=== PATIENT | male | born 1980 | race Caucasian/White ===

== ENCOUNTER 2024-06-13 18:31 | Outpatient (REF) | payer MEDICARE, SELFPAY ==
[2024-06-13 18:42] LABS: Platelet Count 537 10^3/uL (150-450); White Blood Count 15.3 10^3/uL (4.0-11.0)
[2024-06-13 18:52] LABS: Alanine Aminotransferase 40 U/L (16-63); Albumin Level 3.6 g/dL (3.4-5.0); Alkaline Phosphatase 97 U/L (46-116); Aspartate Amino Transferase 36 U/L (15-37); Bilirubin Direct 0.1 mg/dL (0.0-0.2); Bilirubin Total 0.5 mg/dL (0.2-1.0); Estimated GFR (African America >60 (>=60 mL/min/1.73m^2); Estimated GFR (Non-African Ame >60 (>=60 mL/min/1.73m^2); Globulin 3.6 g/dL; Total Protein 7.2 g/dL (6.4-8.2)
== END 2024-06-13 18:32 | disposition home or self-care (01) ==
LOC: LAB 18:31
DX: M86.621 Other chronic osteomyelitis, right humerus (principal); L02.419 Cutaneous abscess of limb, unspecified
CPT/HCPCS: 36415; 80076; 82565; 85048; 85049

== ENCOUNTER 2024-06-20 15:43 | Outpatient (REF) | payer MEDICARE, SELFPAY ==
[2024-06-20 17:23] LABS: Platelet Count 460 10^3/uL (150-450); White Blood Count 8.5 10^3/uL (4.0-11.0)
[2024-06-20 17:54] LABS: Alanine Aminotransferase 32 U/L (16-63); Albumin Level 3.4 g/dL (3.4-5.0); Alkaline Phosphatase 95 U/L (46-116); Aspartate Amino Transferase 30 U/L (15-37); Bilirubin Direct <0.1 mg/dL (0.0-0.2); Bilirubin Total 0.2 mg/dL (0.2-1.0); Estimated GFR (African America >60 (>=60 mL/min/1.73m^2); Estimated GFR (Non-African Ame >60 (>=60 mL/min/1.73m^2); Globulin 3.5 g/dL; Total Protein 6.9 g/dL (6.4-8.2)
== END 2024-06-20 15:44 | disposition home or self-care (01) ==
LOC: LAB 15:43
DX: M86.621 Other chronic osteomyelitis, right humerus (principal); L02.419 Cutaneous abscess of limb, unspecified; I10 Essential (primary) hypertension
CPT/HCPCS: 36415; 80076; 82565; 85048; 85049

== ENCOUNTER 2024-06-29 12:43 | Outpatient (REF) | payer MEDICARE, SELFPAY ==
[2024-06-29 13:07] LABS: Platelet Count 369 10^3/uL (150-450); White Blood Count 9.4 10^3/uL (4.0-11.0)
[2024-06-29 13:17] LABS: Alanine Aminotransferase 27 U/L (16-63); Albumin Globulin Ratio 1.1; Albumin Level 3.7 g/dL (3.4-5.0); Alkaline Phosphatase 105 U/L (46-116); Aspartate Amino Transferase 33 U/L (15-37); Bilirubin Direct 0.1 mg/dL (0.0-0.2); Bilirubin Total 0.5 mg/dL (0.2-1.0); Estimated GFR (African America >60 (>=60 mL/min/1.73m^2); Estimated GFR (Non-African Ame >60 (>=60 mL/min/1.73m^2); Globulin 3.3 g/dL
== END 2024-06-29 12:44 | disposition home or self-care (01) ==
LOC: LAB 12:43
DX: M86.621 Other chronic osteomyelitis, right humerus (principal); L02.419 Cutaneous abscess of limb, unspecified
CPT/HCPCS: 36415; 80076; 82565; 85048; 85049

== ENCOUNTER 2024-07-05 16:05 | Outpatient (REF) | payer MEDICARE, SELFPAY ==
[2024-07-05 16:26] LABS: Platelet Count 375 10^3/uL (150-450); White Blood Count 10.4 10^3/uL (4.0-11.0)
[2024-07-05 16:33] LABS: Alanine Aminotransferase 33 U/L (16-63); Albumin Globulin Ratio 1.1; Albumin Level 3.7 g/dL (3.4-5.0); Alkaline Phosphatase 91 U/L (46-116); Aspartate Amino Transferase 33 U/L (15-37); Bilirubin Direct <0.1 mg/dL (0.0-0.2); Bilirubin Total 0.2 mg/dL (0.2-1.0); Estimated GFR (African America >60 (>=60 mL/min/1.73m^2); Estimated GFR (Non-African Ame >60 (>=60 mL/min/1.73m^2); Globulin 3.4 g/dL; Total Protein 7.1 g/dL (6.4-8.2)
== END 2024-07-05 16:06 | disposition home or self-care (01) ==
LOC: LAB 16:05
DX: M86.621 Other chronic osteomyelitis, right humerus (principal); L02.419 Cutaneous abscess of limb, unspecified
CPT/HCPCS: 36415; 80076; 82565; 85048; 85049

== ENCOUNTER 2024-07-11 13:59 | Outpatient (REF) | payer MEDICARE, SELFPAY ==
--- OUTSIDE RECORDS SUMMARY | 2024-07-11 14:16 | XMS_ITS | CCD ---
Author Organization [facility] Care Team Providers Care Global Human Resources Director Name Role Phone NON, STAFF, Primary Care Provider Unavailmendy e José Miguel Marquis Attending Provider [phone] Alexandru Joshi Attending Provider Sukhjinder Marquis Attending Provider [phone] JR Garett Marquis Attending Provider SUKHJINDER MARQUIS Attending Unavailable SUKHJINDER MARQUIS Consulting Unavailable SUKHJINDER MARQUIS Admitting Unavailable Patrick Irene Unavailable Miriam Reardon Primary Care Physician Alicja Chopra Unavailable Unavailable Pavithra Chávez Unavailable Unavailable Nadia Ca Unavailable [phone] Sukhjinder Marquis Primary Care Physician [phone] ARNOLD HARTLEY Primary Care Physician Miriam Reardon MD Primary Care Provider Arnold Hartley NP Unavailable [phone] Philip Gunn Talal Admitting Unavaila ble Sarmini, Palacios Talal Referring Unavaila ble Sarmini, Palacios Talal Attending Unavaila ble Sarmini, Philip Talal Attending Unavaila ble Sarmini, Palacios Talal Admitting Unavaila ble Sarmini, Palacios Talal Referring Unavaila ble Sarmini, Palacios Talal Attending Unavaila ble Noman, Astrit H Attending Unavailable Velia, Philip Talal Attending Unavaila ble Noman, Astrit H Attending Unavailable Artie VAT PACKER-Arnold NEIL [facility] ider ANROLD HARTLEY [facility] Unavailabl e [facility] Unavailabl e TAI BOX Attending Unavailable VILLA TAPIA Consulting Unavailable NEDRA MENESES Admitting Unavailable KARI DIANA Consulting Unavailable MARIOLA, VILLA Watts Attending Unavailable MARIOLA, VILLA Watts Referring Unavailable DALLAS, ARNOLD GUARDADOANNE [facility] Unavailabl e NAEEM FIGUEROA Attending Unavailab le DALLAS, ARNOLD NIVIA [facility] Unavailabl e FUENTES EDWARDS Referring Unavailable DALLAS, ARNOLD GONZÁLES [facility] Unavailabl e MARIOLA, VILLA Watts Attending Unavailable MARIOLA, VILLA Watts Referring Unavailable DALLAS, [facility] Unavailabl e MARIOLA, VILLA Watts Referring Unavailable DALLAS, [facility] Unavailabl e MARIOLA, VILLA Watts Attending Unavailable HARTLEY, ARNOLD GONZÁLES Referring Unavailabl e HARTLEY, [facility] Unavailabl e SONIACELE Referring Unavailable [facility], [facility] Unavailabl e SONIACELE Attending Unavailable HARTLEYARNOLD Referring Unavailabl e H[facility]LEY, [facility] Unavailabl e ARNOLD HARTLEY Attending Unavailable HARTLEY, ARNOLD Torres Attending Unavailable HARTLEY, ARNOLD Torres Attending Unavailable HARTLEY, ARNOLD Torres Attending Unavailable HARTLEY, ARNOLD Torres Attending Unavailable HARTLEYARNOLD Attending Unavailable Unavailable Unavailable Unavailable Allergies Allergy Classification Reported Allergen(s) Allergy Type Date of Onset Reaction(s) Facility (11 sources) Penicillin; Translations: [PENICILLIN] Drug Allergy 06-01-2024 Anaphylaxis [facility] Work Phone: (20 sources) Penicillin G Drug Allergy 03-24-2023 Unknown [facility] (20 sources) Penicillins; Translations: [penicillins] Drug allergy 04-08-2016 Anaphylaxis [facility] Medications Current Medications Medication Drug Class(es) Dates Sig (Normalized) Sig (Original) acetaminophen 500 mg oral tablet (18 sources) Start: 06-05-2024 take 2 tablets by mouth every six hours as needed acetaminophen (Tylenol) 500 MG tablet Take 1,000 mg by mouth every 6 (six) hours if needed 06/05/2024 Active Start: 06-01-2024 End: 06-05-2024 take 1 tablet by mouth every eight hours 1,000 mg, oral, Every 8 hours, First dose (after last reorder) on Sara 06/01/24 at 2100, PACU & Post-op Start: 06-01-2024 End: 06-05-2024 take 1 tablet by mouth every six hours as needed for pain and fever 1,000 mg, oral, Every 6 hours PRN, mild pain - pain scale 1-3, temperature greater than 38 C, Temperature greater than 38.3 C, Starting on Sara 06/01/24 at 0123, [Warning: Total Acetaminophen not to exceed more than 4 grams (4000 mg) in 24 hours] acetaminophen 250 mg / aspirin 250 mg / caffeine 65 mg oral tablet (20 sources) Platelet Aggregation Inhibitor, Nonsteroidal Anti-inflammatory Drug, Central Nervous System Stimulant, Methylxanthine Start: 09-06-2020 take 2 tablets by mouth every six hours for headache Excedrin Migraine 250 mg-250 mg-65 mg oral tablet 2 tab(s), Oral, q6hr for headache, 50 tab(s), Refill(s) 0 Start Date: 09/06/20 Status: Ordered acetaminophen 325 mg / HYDROcodone bitartrate 5 mg oral tablet (1 source) Opioid Agonist take 1 tablet by mouth every six hours HYDROcodone-Ac etaminophen 5-325 MG 1 tablet as needed Orally every 6 hrs Active acetaminophen 325 mg / oxyCODONE hydrochloride 5 mg oral tablet (9 sources) Opioid Agonist Start: 12-20-2022 End: 03-08-2024 take 1 tablet by mouth every six hours as needed oxyCODONE-acet aminophen (Percocet) 5-325 MG tablet Take 1 tablet by mouth every 6 (six) hours if needed. 12/20/2022 Active Start: 09-08-2020 Percocet 325 m g-5 mg Tab See Instructions, as needed for pain, 40 tab(s), Refill(s) 0, 1-2 tab(s) Oral q4hr Start Date: 09/08/20 Status: Ordered Start: 09-08-2020 Percocet 325 m g-5 mg Tab See Instructions, as needed for pain, 40 tab(s), Refill(s) 0, 1-2 tab(s) Oral q4hr Start Date: 09/08/20 Status: Ordered [id number] 200 actuat albuterol 0.09 mg/actuat metered dose inhaler (20 sources) beta2-Adrenergic Agonist Start: 04-07-2024 End: 04-07-2025 take 2 puff(s) by inhalation every four hours for wheezing albuterol HFA (ProAir HFA) 90 mcg/act inhaler Indications: Wheezing Inhale 2 puffs every 4 (four) hours if needed for wheezing 18 g 11 04/07/2024 04/07/2025 Active Start: 04-07-2024 End: 04-07-2025 take 2 puff(s) by inhalation every four hours as needed albuterol (PROVENTIL HFA;VENTOLIN HFA) 90 mcg/actuation inhaler Inhale 2 puffs every 4 (four) hours as needed. 04/07/2024 04/07/2025 Active atorvastatin 10 mg oral tablet (20 sources) HMG-CoA Reductase Inhibitor Start: 03-14-2024 End: 03-14-2025 take 1 tablet by mouth once daily atorvastatin (Lipitor) 10 MG tablet Indications: Hyperlipidemia, unspecified hyperlipidemia type (CMS/HCC) Take 1 tablet (10 mg) by mouth Daily 90 tablet 3 03/14/2024 03/14/2025 Active azithromycin 250 mg oral tablet (5 sources) Macrolide Antimicrobial Start: 04-07-2024 End: 05-03-2024 azithromycin (Zithromax) 250 MG tablet Indications: Nasal congestion 2 tabs PO day 1, 1 tab PO day 2-5 6 tablet 04/07/2024 05/03/2024 Discontinued (Therapy completed) calcium citrate 950 mg oral tablet (17 sources) Start: 06-05-2024 End: 09-03-2024 calcium citrate (CALCITRATE) 200 mg (950 mg) tablet Take 2 tablets (400 mg total) by mouth in the morning and 2 tablets (400 mg total) at noon and 2 tablets (400 mg total) in the evening. Take with meals. Do all this for 90 days. 540 tablet 06/05/2024 09/03/2024 Active Start: 06-01-2024 End: 09-03-2024 calcium citrate (Calcitrate) 950 (200 Ca) MG tablet Take 400 mg by mouth in the morning and 400 mg at noon and 400 mg in the evening. Take with meals. 06/05/2024 09/03/2024 Active ceFAZolin 200 mg/ml injectable solution (7 sources) Cephalosporin Antibacterial Start: 06-05-2024 take 1 g intravenously every eight hours ceFAZolin (Ancef) 10 g injection Infuse 1 g into a venous catheter every 8 (eight) hours 06/05/2024 Active ceFAZolin in 0.9 % sodium chloride (ANCEF) 2000 mg/50 mL IVPB Premix (9 sources) Start: 06-04-2024 End: 07-12-2024 take 2000 mg intravenously every eight hours ceFAZolin in 0.9 % sodium chloride (ANCEF) 2000 mg/50 mL IVPB Premix Infuse 50 mL (2,000 mg total) into a venous catheter every 8 (eight) hours for 38 days. WBC, platelets, creatinine, LFTs weekly until 07/12/2025. Fax results to ID at [phone]. Remove PICC Line at end of treatment. 5700 mL 06/04/2024 07/12/2024 Active Start: 06-04-2024 End: 07-12-2024 take 2000 mg intravenously every eight hours ceFAZolin in 0.9 % sodium chloride (ANCEF) 2000 mg/50 mL IVPB Premix Infuse 50 mL (2,000 mg total) into a venous catheter every 8 (eight) hours for 38 days. WBC, platelets, creatinine, LFTs weekly until 07/12/2025. Fax results to ID at [phone]. Remove PICC Line at end of treatment. 5700 mL 06/04/2024 07/12/2024 cholecalciferol 0.05 mg oral tablet (17 sources) Vitamin D Start: 06-06-2024 End: 09-04-2024 take 1 tablet by mouth in the morning cholecalciferol, vitamin D3, 2,000 units tablet Take 1 tablet (2,000 Units total) by mouth in the morning for 90 days. 90 tablet 06/06/2024 09/04/2024 Active Start: 06-05-2024 take 1 capsule by [facility] once daily cholecalciferol (Vitamin D-3) 50 MCG (1999 UT) capsule Take 2,000 Units by mouth Daily 06/05/2024 Active Start: 06-01-2024 End: 06-05-2024 take 2000 [IU] by mouth once daily 2,000 Units, oral, Daily, First dose on Sara 06/01/24 at 2030, PACU & Post-op docusate sodium 100 mg oral capsule (4 sources) Start: 09-08-2020 take 1 capsule by mouth twice daily as needed for constipation Colace 100 mg Cap 100 mg = 1 cap(s), Oral, BID, PRN for constipation, # 20 cap(s), Refills(s) 0 Start Date: 09/08/20 Status: Ordered hydroCHLOROthiazide 25 mg oral tablet (20 sources) Thiazide Diuretic Start: 03-08-2024 End: 03-08-2025 take 1 tablet by mouth once daily hydroCHLOROthiazide (HYDRODiuril) 25 MG tablet Indications: Primary hypertension (CMS/HCC) Take 1 tablet (25 mg) by mouth Daily 360 tablet 03/08/2024 03/08/2025 Active methocarbamol 500 mg oral tablet (14 sources) Muscle Relaxant Start: 04-05-2020 End: 03-08-2024 take 1 tablet by mouth three times daily as needed for pain methocarbamol 500 mg Tab 500 mg = 1 tab(s), Oral, TID, PRN as needed for pain, Refills(s) 0 Start Date: 04/05/20 Status: Ordered Start: 01-02-2020 Methocarbamol Active 750 MG PO As Directed January 02, 2020 12:06pm naproxen 500 mg oral tablet (9 sources) Nonsteroidal Anti-inflammatory Drug Start: 09-08-2020 take 1 tablet by mouth twice daily at mealtime naproxen 500 mg Tab 500 mg = 1 tab(s), Oral, BID, with food, # 60 tab(s), Refills(s) 0 Start Date: 09/08/20 Status: Ordered End: 03-08-2024 naproxen (Naprosyn) 500 MG t ablet every 12 (twelve) hours. 03/08/2024 Discontinued (Therapy completed) Naproxen Active omeprazole 20 mg delayed release oral capsule (20 sources) Proton Pump Inhibitor Start: 07-04-2024 take 1 capsule by mouth before mealtime omeprazole (PriLOSEC) [address] capsule Indications: Heartburn TAKE 1 CAPSULE BY MOUTH IN THE MORNING BEFORE MEALS, DO NOT CRUSH, CHEW, OR SPLIT 90 capsule 07/04/2024 Active Start: 03-08-2024 End: 07-04-2024 take 1 capsule by mouth before mealtime omeprazole (PriLOSEC) [address] capsule Indications: Heartburn TAKE 1 CAPSULE (20 MG) BY MOUTH IN THE MORNING. TAKE BEFORE MEALS. DO NOT CRUSH OR CHEW.. 90 capsule 03/30/2024 06/28/2024 Active oxyCODONE hydrochloride 5 mg oral tablet (12 sources) Opioid Agonist Start: 06-21-2024 End: 06-28-2024 take 1 tablet by mouth every six hours as needed oxyCODONE (Roxicodone) 5 MG immediate release tablet Take 5 mg by mouth every 6 (six) hours if needed dR. Tapia- SURGEON 06/21/2024 06/28/2024 Active Start: 06-05-2024 End: 06-12-2024 take 1 tablet by mouth every six hours as needed oxyCODONE (Roxicodone) 10 MG immediate release tablet Take 10 mg by mouth every 6 (six) hours if needed 06/05/2024 06/12/2024 Active Start: 06-01-2024 End: 06-05-2024 take 1 tablet by mouth every four hours as needed for pain oxyCODONE (ROXICODONE) immediate release tablet 5 mg Start: 06-01-2024 End: 06-01-2024 take 1 tablet by mouth every four hours as needed for pain 5 mg, oral, Every 4 hours PRN, moderate pain - pain scale 4-6, Starting on Wed06/01/24 at 0123, Look-alike/sound-alike medication - verify indication for use. Immediate release. rimegepant 75 mg disintegrating oral tablet (2 sources) Start: 04-19-2024 End: 05-19-2024 take 1 tablet by mouth every other day Rimegepant Sulfate (Nurtec) 75 MG tablet dispersible Indications: Migraine without aura and without status migrainosus, not intractable (CMS/HCC) Take 75 mg by mouth every other day 15 tablet 04/19/2024 05/19/2024 Active sertraline 25 mg oral tablet (16 sources) Serotonin Reuptake Inhibitor Start: 04-27-2024 take 1 tablet by mouth once daily sertraline 25 mg Tab TAKE 1 TABLET BY MOUTH EVERY DAY Start Date: 04/27/24 Status: Ordered Start: 04-07-2024 End: 05-07-2024 take 1 tablet by mouth once daily sertraline (Zoloft) 50 MG tablet Indications: Anxiety , Mild episode of recurrent major depressive disorder (HCC) (CMS/HCC) Take 1 tablet (50 mg) by mouth Daily 30 tablet 04/07/2024 05/03/2024 Discontinued (Side effects) Start: 03-08-2024 End: 04-07-2024 take 1 tablet by mouth once daily sertraline (Zoloft) 25 MG tablet Indications: Anxiety , Mild episode of recurrent major depressive disorder (HCC) (CMS/HCC) TAKE 1 TABLET BY MOUTH EVERY DAY 90 tablet 03/30/2024 04/07/2024 Discontinued (Ineffective) sulfamethoxazole 800 mg / trimethoprim 160 mg oral tablet (1 source) Dihydrofolate Reductase Inhibitor Antibacterial, Sulfonamide Antimicrobial Start: 12-20-2022 End: 12-30-2022 Bactrim D.S. 800 mg-160 mg Tab 1 tab(s), Oral, BID for 10 day(s), 20 tab(s), Refill(s) 0, [facility]/pharmacy #[id number], 182, cm, 12/20/22 12:42:00 EDT, Height/Length Dosing, 90, kg, 12/20/22 12:42:00 EDT, Weight Dosing Start Date: 12/20/22 Stop Date: 12/30/22 Status: Ordered ubrogepant 100 mg oral tablet (13 sources) Start: 03-08-2024 End: 05-07-2024 Ubrogepant (Ubrelvy) 100 MG tablet Indications: Migraine without aura and without status migrainosus, not intractable (CMS/HCC) Take 100 mg by mouth if needed (for migraines) 11 tablet 04/07/2024 05/07/2024 Active Completed/Discontinued Medications Medication Drug Class(es) Dates Sig (Normalized) Sig (Original) aztreonam (AZACTAM) 1,000 mg in sodium chloride 0.9 % 50 mL IVPB-MBP (1 source) Start: 06-01-2024 End: 06-02-2024 take 1000 mg intravenously every eight hours 1,000 mg, intravenous, at 100 mL/hr, Administer over 30 Minutes, Every 8 hours, First dose on Wed06/01/24 at 1746, ADD-VANTAGE/MBP- Discard 24 hours after activating; dissolve drug prior to administration, Indication: Osteoarticular, Appropriate Use: I acknowledge that this patient has severe allergies to both penicillins and 2nd, 3rd, 4th, or 5th generation cephalosporins (EXCEPT ceftazidime), Authorizing Service: ID consult has been placed, I acknowledge that an appropriate consult is REQUIRED to use this drug at [facility], [facility] and [facility] per [facility]-approved policy # MM 1.15: Yes aztreonam (AZACTAM) 2,000 mg in sodium chloride 0.9 % 50 mL IVPB-MBP (1 source) Start: 06-02-2024 End: 06-02-2024 take 2000 mg intravenously every eight hours 2,000 mg, intravenous, at 100 mL/hr, Administer over 30 Minutes, Every 8 hours, First dose (after last modification) on Wed06/02/24 at 1000, ADD-VANTAGE/MBP- Discard 24 hours after activating; dissolve drug prior to administration, Indication: Osteoarticular, Appropriate Use: I acknowledge that this patient has severe allergies to both penicillins and 2nd, 3rd, 4th, or 5th generation cephalosporins (EXCEPT ceftazidime), Authorizing Service: ID consult has been placed, I acknowledge that an appropriate consult is REQUIRED to use this drug at [facility], [facility] and [facility] per [facility]-approved policy # MM 1.15: Yes calcium carbonate 500 mg chewable tablet (1 source) Start: 06-02-2024 End: 06-05-2024 200 mg, oral, Daily PRN, indigestion, heartburn, Starting on Wed06/02/24 at 2114, Ordered as elemental calcium. 200 mg elemental calcium = 500 mg calcium carbonate ceFAZolin (ANCEF) IVPB 2000 mg in 50 mL sodium chloride 0.9% (CMPD premix) (1 source) Start: 06-04-2024 End: 06-05-2024 take 2000 mg intravenously every eight hours 2,000 mg, intravenous, at 100 mL/hr, Administer over 30 Minutes, Every 8 hours, First dose on Wed06/04/24 at 1400, Look-alike/sound-al danis medication - verify indication for use., Indication: Osteoarticular cephalexin 500 mg oral capsule (1 source) Cephalosporin Antibacterial Start: 12-20-2022 take 1 capsule by mouth three times daily Keflex 500 mg Cap 500 mg = 1 cap(s), Oral, TID, Take one capsule by mouth three times a day for ten days, # 30 cap(s), Refills(s) 0, Pharmacy: [facility]/pharmacy #[id number], 182, cm, 12/20/22 12:42:00 EDT, Height/Length Dosing, 90, kg, 12/20/22 12:42:00 EDT, Weight Dosing Start Date: 12/20/22 Status: Ordered cyclobenzaprine hydrochloride 10 mg oral tablet (12 sources) Muscle Relaxant Start: 01-25-2020 End: 01-31-2020 take 10 mg by mouth three times daily Cyclobenzaprine Discontinued 10 MG PO Three times daily January 25, 2020 7:43am January 31, 2020 9:31am Start: 01-25-2020 End: 01-31-2020 take 10 mg by mouth twice daily Cyclobenzaprine Discontinued 10 MG PO Twice daily January 25, 2020 7:43am January 31, 2020 9:31am docusate sodium 50 mg / sennosides, senior living 8.6 mg oral tablet (1 source) Start: 06-01-2024 End: 06-05-2024 0.4 ml enoxaparin sodium 100 mg/ml prefilled syringe (1 source) Low Molecular Weight Heparin Start: 06-02-2024 End: 06-05-2024 inject 40 mg by subcutaneous injection once daily 40 mg, subcutaneous, Daily, First dose on Wed06/02/24 at 1015, Look-alike/sound -alike medication - verify indication for use. 1 ml fentaNYL 0.05 mg/ml injection (1 source) Opioid Agonist Start: 06-01-2024 End: 06-01-2024 50 mcg, intravenous, Every 5 min PRN, Pain Scale 6-10, Starting on Wed06/01/24 at 1808, PACU (only), Up to a maximum dose of 150 mcg. Look-alike/sound -alike medication - verify indication for use. glucagon (rdna) 1 mg injection (1 source) Antihypoglycemic Agent Start: 06-01-2024 End: 06-05-2024 1 mg, intramuscular, As needed, low blood sugar, blood glucose less than 70 mg/dL and unconscious or NPO without IV access., Starting on Sara 06/01/24 at 0123, If conscious and not NPO, immediately follow with meal tray or high protein (7Grams) snack if tray not available. If NPO, initiate IV 5% Dextrose/Water at 100 mL/hr and contact prescriber for additional orders. If blood glucose is not greater than 70 mg/dL after initial treatment, repeat treatment. 150 ml glucose 50 mg/ml injection (3 sources) Start: 06-01-2024 End: 06-05-2024 15 g, oral, As needed, low blood sugar, blood glucose less than 70 mg/dL, Starting on Sara 06/01/24 at 0123, If patient conscious and taking PO. If blood glucose is not greater than 70 mg/dL after initial treatment, repeat treatment. Start: 06-01-2024 End: 06-05-2024 25 mL, intravenous, As neede d, low blood sugar, blood glucose less than 70 mg/dL and unconscious or NPO with IV access, Starting on Sara 06/01/24 at 0123, Push over 1-3 minutes STAT. If conscious and not NPO, immediately follow with meal tray or high protein (7 grams) snack if tray not available. If NPO, initiate 5% dextrose in water at 100 mL/hr and contact prescriber for additional orders. If blood glucose is not greater than 70 mg/dL after initial treatment, repeat treatment. VESICANT (RED) Warning: HYPERTONIC solution. Start: 06-01-2024 End: 06-05-2024 take 70 mg intravenously every hour 100 mL/hr, intravenous, Continuous PRN, blood glucose less than 70 mg/dL, Starting on Sara 06/01/24 at 0123, Use immediately following dextrose 50% or glucagon treatment for patients who are unconscious or NPO. Contact prescriber for additional orders. If blood glucose is not greater than 70 mg/dL after initial treatment, repeat treatment. ibuprofen 800 mg oral tablet (6 sources) Nonsteroidal Anti-inflammatory Drug Start: 01-25-2020 End: 01-31-2020 take 800 mg by mouth three times daily Ibuprofen Discontinued 800 MG PO Three times daily January 25, 2020 7:43am January 31, 2020 9:31am 1 ml ketorolac tromethamine 30 mg/ml injection (1 source) Nonsteroidal Anti-inflammatory Drug, Cyclooxygenase Inhibitor Start: 06-01-2024 End: 06-05-2024 take 30 mg intravenously every six hours as needed for pain 30 mg, intravenous, Every 6 hours PRN, moderate pain - pain scale 4-6, For pain unrelieved by oral pain meds, Starting on Sara 06/01/24 at 2016, For 5 days, PACU & Post-op, Look-alike/sound -alike medication - verify indication for use. Duration of therapy is not to exceed 5 days. Maximum recommended dose + 120mg/24 hours. 50 ml magnesium sulfate 40 mg/ml injection (2 sources) Start: 06-01-2024 End: 06-05-2024 2,000 mg, intravenous, at 25 mL/hr, Administer over 120 Minutes, As needed, Magnesium level 1.7 to 1.9 mg/dL, or Ionized Magnesium level 0.45 to 0.5 mmol/L., Starting on Sara 06/01/24 at 0200, Recheck magnesium level 4 hours after infusion complete. With each magnesium result continue the replacement orders as needed. Start: 06-01-2024 End: 06-05-2024 4,000 mg, intravenous, at 25 mL/hr, Administer over 240 Minutes, As needed, Magnesium level 1.6 mg/dL or less, or Ionized Magnesium level 0.44 mmol/L or less, Starting on Sara 06/01/24 at 0200, Recheck magnesium level 4 hours after infusion complete. With each magnesium result continue the replacement orders as needed. melatonin 5 mg oral tablet (2 sources) Start: 06-04-2024 End: 06-05-2024 take 10 mg by mouth once daily as needed for sleep 10 mg, oral, Nightly PRN, sleep, Starting on 06/04/24 at 1729 Start: 06-03-2024 End: 06-04-2024 take 5 mg by mouth once daily as needed for sleep 5 mg, oral, Nightly PRN, sleep, Starting on 06/03/24 at 2152 metroNIDAZOLE 500 mg oral tablet (1 source) Nitroimidazole Antimicrobial Start: 06-01-2024 End: 06-04-2024 take 500 mg by mouth every eight hours 500 mg, oral, Every 8 hours scheduled, First dose on Wed06/01/24 at 1435, Food-Drug Interaction Education Required Look-alike/sound-alike medication - verify indication for use Ethanol: Use of ethanol is contraindicated during therapy and for 3 days after therapy discontinuation, Indication: Osteoarticular 1 ml morphine sulfate 2 mg/ml injection (2 sources) Opioid Agonist Start: 06-01-2024 End: 06-05-2024 take 2 mg intravenously every four hours as needed for pain 2 mg, intravenous, Every 4 hours PRN, severe pain - pain scale 7-10, For Breakthrough pain 7-10, Starting on 06/03/24 at 1350, Look-alike/sound-alike medication - verify indication for use. 24 hr nicotine 0.583 mg/hr transdermal system (1 source) Cholinergic Nicotinic Agonist Start: 06-01-2024 End: 06-05-2024 apply 1 dose transdermal route once daily 1 patch, transdermal, Administer over 24 Hours, Daily, First dose on Wed06/01/24 at 0900, Remove patch prior to MRI procedure as serious cannon may occur- patch may be reapplied. Remove previous patch, if present, before applying new. pantoprazole 40 mg delayed release oral tablet (1 source) Proton Pump Inhibitor Start: 06-02-2024 End: 06-05-2024 40 mg, oral, Daily, First dose on Wed06/02/24 at 0600, Look-alike/sound-alike medication - verify indication for use. If patient is receiving enteral feeding, consider alternative PPI or continue IV pantoprazole until the delayed-release tablet can be taken orally, Indication: GERD Potassium Chloride (3 sources) Start: 06-05-2024 End: 06-05-2024 potassium chloride (K-TAB,KLOR-CON) CR tablet 30-50 mEq Start: 06-01-2024 End: 11-14-2024 40 mEq, oral, Once, On Sara 1 08/01/23 at 0855, For 1 dose, Do not crush or chew. Start: 06-01-2024 End: 06-05-2024 10 mEq, intravenous, at 100 mL/hr, Administer over 60 Minutes, As needed, POTASSIUM REPLACEMENT, Starting on Sara 06/01/24 at 0200, Potassium level 3 mmol/L or less administer Potassium Chloride 40 mEq Potassium level 3.1 to 3.3 mmol/L administer Potassium Chloride 30 mEq Potassium level 3.4 to 3.8 mmol/L administer Potassium Chloride 20 mEq Use central line when applicable. Recheck potassium level 1 hour after total IVPB infusion complete With each potassium result continue the replacement orders as needed VESICANT (YELLOW) Infuse each 10 mEq over a minimum of 1 hour., Indications: hypokalemia Sodium Chloride (3 sources) Start: 06-04-2024 End: 06-05-2024 take 10 mL intravenously every twelve hours sodium chloride 0.9 % flush 10 mL Start: 06-01-2024 End: 06-05-2024 3 mL, intravenous, Every 12 hours scheduled, First dose on Sara 06/01/24 at 0125 Start: 06-01-2024 End: 06-05-2024 3 mL, intravenous, As needed , line care, before and after each intermittent use, Starting on Sara 06/01/24 at 0123 Problems Active Problems Problem Classification Problem Date Documented Da te Episodic/Chronic Alcohol-related disorders (9 sources) Alcoholic liver damage; Translations: [Alcoholic liver disease, unspecified] Onset: 4 Chronic Anxiety disorders (9 sources) Anxiety; Translations: [Anxiety disorder, unspecified] 05-03-2024 Chronic Complication of device; implant or graft (10 sources) Infection of total shoulder joint prosthesis 09-06-2020 Episodic Diseases of white blood cells (4 sources) Leukocytosis; Translations: [Elevated white blood cell count, unspecified] Onset: 4 06-14-2024 Chronic Disorders of lipid metabolism (1 source) Hyperlipidemia; Translations: [Hyperlipidemia, unspecified] 03-14-2024 Chronic Esophageal disorders (5 sources) Gastroesophageal reflux disease without esophagitis; Translations: [Gastro-esophageal reflux disease without esophagitis] Onset: 4 Chronic Essential hypertension (6 sources) Essential hypertension; Translations: [Essential (primary) hypertension] 06-27-2024 Chronic Fluid and electrolyte disorders (1 source) Hypokalemia; Translations: [Hypokalemia] Onset: 4 Episodic Headache; including migraine (6 sources) Migraine without aura, not refractory ; Translations: [Migraine without aura, not intractable, without status migrainosus] 05-03-2024 Chronic Infective arthritis and osteomyelitis (except that caused by tuberculosis or sexually transmitted disease) (20 sources) Other acute osteomyelitis, right humerus; Translations: [Osteomyelitis] Onset: 1 04-26-2024 Chronic Mood disorders (20 sources) Recurrent major depressive episodes, mild ; Translations: [Major depressive disorder, recurrent, mild] Onset: 3 04-26-2024 Chronic Osteoarthritis (8 sources) Arthropathy of right shoulder; Translations: [Primary osteoarthritis, right shoulder] Onset: 2 Resolved: 2 Chronic Other acquired deformities (6 sources) Deformity of cervical vertebra 04-26-2024 Episodic Other circulatory disease (20 sources) Past history of procedure; Translations: [Presence of other vascular implants and grafts] Onset: 3 03-24-2023 Chronic Other connective tissue disease (6 sources) History of osteomyelitis; Translations: [Personal history of other diseases of the musculoskeletal system and connective tissue] 06-08-2024 Episodic Other connective tissue disease (6 sources) Pain in right arm; Translations: [Pain in right arm] 06-08-2024 Episodic Other connective tissue disease (1 source) Pain in upper limb Onset: 4 Episodic Other gastrointestinal disorders (4 sources) Heartburn; Translations: [Heartburn] 07-03-2024 Episodic Other injuries and conditions due to external causes (1 source) Systemic inflammatory response syndrome; Translations: [Systemic inflammatory response syndrome (SIRS) of non-infectious origin without acute organ dysfunction] Onset: 4 Episodic Other liver diseases (1 source) Cirrhosis of liver; Translations: [Unspecified cirrhosis of liver] Onset: 4 Chronic Other nervous system disorders (20 sources) Scapulocostal syndrome; Translations: [Other specified mononeuropathies of unspecified upper limb] Onset: 3 04-26-2024 Chronic Other nervous system disorders (20 sources) Chronic pain; Translations: [Other chronic pain] Onset: 3 03-24-2023 Chronic Other nervous system disorders (7 sources) Carpal tunnel syndrome; Translations: [Carpal tunnel syndrome, right upper limb] 04-26-2024 Chronic Other nervous system disorders (1 source) Other chronic pain Onset: 2 Resolved: 2 Chronic Other nervous system disorders (6 sources) Mononeuropathy of upper limb 04-26-2024 Chronic Other nervous system disorders (20 sources) Thoracic outlet syndrome; Translations: [Brachial plexus disorders] Onset: 3 04-26-2024 Chronic Other nervous system disorders (20 sources) Carpal tunnel syndrome of right wrist; Translations: [Carpal tunnel syndrome, right upper limb] Onset: 3 03-24-2023 Chronic Other nervous system disorders (20 sources) Lesion of ulnar nerve; Translations: [Lesion of ulnar nerve, unspecified upper limb] Onset: 3 03-24-2023 Chronic Other nervous system disorders (6 sources) Skin sensation disturbance 04-26-2024 Episodic Other non-traumatic joint disorders (7 sources) Spondylosis; Translations: [Osteophyte, vertebrae] 04-26-2024 Chronic Other non-traumatic joint disorders (20 sources) Bone spur of vertebra; Translations: [Osteophyte, vertebrae] Onset: 3 03-24-2023 Chronic Other screening for suspected conditions (not mental disorders or infectious disease) (7 sources) Screening for malignant neoplasm of colon done; Translations: [Encounter for screening for malignant neoplasm of colon] Onset: 4 Episodic Residual codes; unclassified (1 source) Pain, unspecified; Translations: [Pain, unspecified] Onset: 4 Episodic Residual codes; unclassified (1 source) Current drinker; Translations: [Other specified health status] 04-11-2024 Episodic Skin and subcutaneous tissue infections (20 sources) Cutaneous abscess of right upper limb; Translations: [Cellulitis] Onset: 1 Episodic Spondylosis; intervertebral disc disorders; other back problems (20 sources) Degeneration of cervical intervertebral disc; Translations: [Other cervical disc degeneration, unspecified cervical region] Onset: 2 Resolved: 2 Chronic Substance-related disorders (10 sources) Smoker 05-15-2014 Chronic Comment on above: Added secondary to d ocumentation in Social History. Substance-related disorders (6 sources) Marijuana user; Translations: [Cannabis use, unspecified, uncomplicated] 06-27-2024 Episodic Unclassified (6 sources) Patient encounter status 04-26-2024 Unclassified (1 source) Post-op Onset: 4 Unclassified (1 source) Suture / Staple Removal Onset: 4 Past or Other Problems Problem Classification Problem Date Documented Date Episodic/Chronic Chronic obstructive pulmonary disease and bronchiectasis (20 sources) Bronchitis; Translations: [Bronchitis, not specified as acute or chronic] Onset: 03-24-2023 03-24-2023 Episodic Headache; including migraine (20 sources) Headache disorder; Translations: [Other headache syndrome] Onset: 03-24-2023 04-26-2024 Episodic Inflammation; infection of eye (except that caused by tuberculosis or sexually transmitteddisease) (20 sources) Herpes zoster with ophthalmic complication; Translations: [Zoster ocular disease, unspecified] Onset: 03-24-2023 04-26-2024 Episodic Malaise and fatigue (20 sources) Malaise; Translations: [Other malaise] Onset: 03-24-2023 03-24-2023 Episodic Mood disorders (8 sources) Mood disorders Onset: 06-01-2024 06-01-2024 Nausea and vomiting (20 sources) Nausea; Translations: [Nausea] Onset: 03-24-2023 03-24-2023 Episodic Noninfectious gastroenteritis (20 sources) Gastroenteritis; Translations: [Noninfective gastroenteritis and colitis, unspecified] Onset: 03-24-2023 04-26-2024 Episodic Other connective tissue disease (1 source) Muscle weakness of upper limb; Translations: [Muscle weakness (generalized)] Episodic Other connective tissue disease (2 sources) Impingement syndrome of shoulder region; Translations: [Impingement syndrome of right shoulder] Episodic Other connective tissue disease (20 sources) Impingement syndrome of right shoulder region; Translations: [Impingement syndrome of right shoulder] Onset: 03-24-2023 03-24-2023 Episodic Other connective tissue disease (20 sources) Other symptoms and signs involving the musculoskeletal system; Translations: [Other musculoskeletal symptoms referable to limbs] Onset: 03-24-2023 03-24-2023 Episodic Other liver diseases (2 sources) ALT (SGPT) level raised; Translations: [Elevated ALT measurement] 04-07-2024 Episodic Other lower respiratory disease (2 sources) Wheezing; Translations: [Wheezing] 04-07-2024 Episodic Other nervous system disorders (1 source) Paresthesia of upper limb; Translations: [Paresthesia of skin] Episodic Other nervous system disorders (20 sources) Paresthesia of right upper limb; Translations: [Paresthesia of skin] Onset: 03-24-2023 03-24-2023 Episodic Other nutritional; endocrine; and metabolic disorders (1 source) Body mass index 25-29 - overweight; Translations: [Body mass index (BMI) 26.0-26.9, adult] Episodic Other upper respiratory disease (2 sources) Nasal congestion; Translations: [Nasal congestion] 04-07-2024 Episodic Other upper respiratory infections (20 sources) Acute maxillary sinusitis; Translations: [Acute maxillary sinusitis, unspecified] Onset: 03-24-2023 03-24-2023 Episodic Residual codes; unclassified (2 sources) At risk of disease; Translations: [Other specified personal risk factors, not elsewhere classified] 03-08-2024 Episodic Spondylosis; intervertebral disc disorders; other back problems (20 sources) Torticollis; Translations: [Torticollis] Onset: 03-24-2023 04-26-2024 Episodic Results Test Name Value Interpretation Reference Range Facility No Panel Informationon 06-21 Interpretation and review of laboratory results Abnormal [facility] PLATELET COUNT AND MPVon Platelet mean volume (Bld) [Entitic vol] 8.0 fL Normal 7-12 [facility] Comment on above: Performed By: #### C VALENTINA, PINR, 06640-8, 38481-3, BMP, 1988- #### [facility] ([id number]) [address], [address] [place] [address] Platelets (Bld) [#/Vol] 493 10*3/uL High 150-450 [facility] Comment on above: Performed By: #### C VALENTINA, PINR, 75953-6, 60003-8, ODILON, 1987-11 #### [facility] ([id number]) [address], [address] [place] [address] Platelet counton 06-21-2024 Platelet mean volume (Bld) [Entitic vol] 8 fL 7 - 12 fL [facility] Platelets (Bld) [#/Vol] 493 10*3/uL High [facility] WBCon 06-21-2024 WBC corrected for nucl RBC Auto (Bld) [#/Vol] 12.8 High [facility] WBC corrected for nucl RBC A uto (Bld) [#/Vol]on 06-21-2024 WBC (Bld) [#/Vol] 12.8 10*3/uL High 4.0-11.0 [facility] Comment on above: Performed By: #### C VALENTINA, PINR, 85605-2, 16213-0, ODILON, 1987-11 #### [facility] ([id number]) [address], [address] [place] [address] XR SHOULDER RT MIN 2 VWSon 1 08-22-2023 XR SHOULDER RT MIN 2 VWS XR SHOULDER RT MIN 2 VWS XR SHOULDER RT MIN 2 VWS IMPRESSION: Clinical Information: Chronic osteomyelitis of right humerus ([facility]) Comparison: 06/01/24. * No evidence of acute fracture. Antibiotic spacers present. No dislocation. Degenerative changes. No progressive cortical destruction. Finalized by Emerson Buchanan MD on 06/21/2024 4:31 PM Normal [facility] BASIC METABOLIC PANLon 06-05 Anion gap [Moles/Vol] 8 mmol/L Normal 5-15 [facility] Comment on above: Performed By: #### C BCA, PINR, 46595-7, 95155-6, ODILON, 1987-11 #### [facility] ([id number]) [address], [address] [place] [address] Calcium [Mass/Vol] 8.6 mg/dL Normal 8.5-10.5 [facility] Comment on above: Performed By: #### C BCA, PINR, 17075-4, 32110-7, BMP, 1987-11 #### [facility] ([id number]) [address], [address] [place] [address] Chloride [Moles/Vol] 101 mmol/L Normal 98-109 [facility] Comment on above: Performed By: #### C BCA, PINR, 58354-9, 42972-7, BMP, 1987-11 #### [facility] ([id number]) [address], [address] [place] [address] CO2 [Moles/Vol] 31 mmol/L Normal 22-32 [facility] Comment on above: Performed By: #### C BCA, PINR, 08586-9, 34551-5, BMP, 1987-11 #### [facility] ([id number]) [address] [address] Creatinine [Mass/Vol] 0.80 mg/dL Normal 0.60-1.30 [facility] Comment on above: Result Comment: METH OD TRACEABLE TO IDMS STANDARD Performed By: #### C BCA, PINR, 43719-0, 06560-2, BMP, 1987-11 #### [facility] ([id number]) [address], [address] [place] [address] eGFR (CKD-EPI) NON-RACE DEPENDENT >90 Normal >59 [facility] Comment on above: Result Comment: Reported eGFR is based on the CKD-EPI 2020 equation that does not use a race coefficient. Performed By: #### C BCA, PINR, 43560-5, 11803-3, BMP, 1987-11 #### [facility] ([id number]) [address], [address] [place] [address] Glucose [Mass/Vol] 114 mg/dL High 65-99 [facility] Comment on above: Performed By: #### C BCA, PINR, 63226-8, 57171-3, BMP, 1987-11 #### [facility] ([id number]) [address], [address] [place] [address] Potassium [Moles/Vol] 3.7 mmol/L Normal 3.5-5.0 [facility] Comment on above: Performed By: #### C BCA, PINR, 48126-1, 18852-4, BMP, 1987-11 #### [facility] ([id number]) [address], [address] [place] [address] Sodium [Moles/Vol] 140 mmol/L Normal 134-146 [facility] Comment on above: Performed By: #### Magdalena BCA, PINR, 08692-0, 45380-1, BMP, 1987-11 #### [facility] ([id number]) [address], [address] [place] [address] Urea nitrogen [Mass/Vol] 14 mg/dL Normal 5-23 [facility] Comment on above: Performed By: #### C BCA, PINR, 60120-3, 14796-7, BMP, 1987-11 #### [facility] ([id number]) [address], [address] [place] [address] Basic Metabolic Panelon 11- Anion gap [Moles/Vol] 8 mmol/L 5 - 15 mmol/L [facility] Calcium [Mass/Vol] 8.6 mg/dL 8.5 - 10. 5 mg/dL [facility] Chloride [Moles/Vol] 101 mmol/L 98 - 109 mmol/L [facility] CO2 [Moles/Vol] 31 mmol/L 22 - 32 mmol/L [facility] Creatinine [Mass/Vol] 0.8 mg/dL 0.60 - 1.30 mg/dL [facility] Comment on above: METHOD TRACEABLE TO IDUT STANDARD eGFR (CKD-EPI)non-race dependent - PINF [facility] Comment on above: Reported eGFR is based on the CKD-EPI 2020 equation that does not use a race coefficient. Glucose [Mass/Vol] 114 mg/dL High 65 - 99 mg/dL [facility] Interpretation and review of laboratory results Abnormal [facility] Potassium [Moles/Vol] 3.7 mmol/L 3.5 - 5.0 mmol/L [facility] Sodium [Moles/Vol] 140 mmol/L 134 - 146 mmol/L [facility] Urea nitrogen [Mass/Vol] 14 mg/dL 5 - 23 mg/dL [facility] CBC AND AUTO DIFFon 06-05-20 24 ABSOLUTE BASOPHIL 0.1 X10E9/L Normal 0.0-0.2 [facility] Comment on above: Performed By: #### C VALENTINA PINR, 26502-3, 33243-3, [facility], 1987-11 #### [facility] ([id number]) [address], [address] [place] [address] ABSOLUTE NEUTROPHIL 5.7 X10E9/L Normal 1.5-6.[address] [facility] Comment on above: Performed By: #### C VALENTINA, PINR, 69588-2, 16805-3, [facility], 1987-11 #### [facility] ([id number]) [address], [address] [place] [address] Basophils/100 WBC (Bld) 0.9 % Normal [facility] Comment on above: Performed By: #### C BCA, PINR, 19707-4, 66337-1, [facility], 1987-11 #### [facility] ([id number]) [address], [address] [place] [address] Eosinophils (Bld) [#/Vol] 0.6 10*3/uL High 0.0-0.4 [facility] Comment on above: Performed By: #### C BCA, PINR, 78641-3, 79636-3, BMP, 1987-11 #### [facility] ([id number]) [address], [address] [place] [address] Eosinophils/100 WBC (Bld) 6.4 % Normal [facility] Comment on above: Performed By: #### C BCA, PINR, 65781-8, 67549-4, BMP, 1987-11 #### [facility] ([id number]) [address], [address] [place] [address] Erythrocyte distribution width (RBC) [Ratio] 14.4 % Normal 11.5-15.0 [facility] Comment on above: Performed By: #### C BCA, PINR, 08816-5, 00228-1, BMP, 1987-11 #### [facility] ([id number]) [address], [facility] [address] [place] [address] Hematocrit (Bld) [Volume fraction] 39.2 % Normal 39-49 [facility] Comment on above: Performed By: #### C BCA, PINR, 29886-8, 69400-5, BMP, 1987-11 #### [facility] ([id number]) [address], [address] [place] [address] Hemoglobin (Bld) [Mass/Vol] 12.8 g/dL Low 13.0-17.0 [facility] Comment on above: Performed By: #### C BCA, PINR, 92829-0, 45907-7, BMP, 1987-11 #### [facility] ([id number]) [address] [place] [address] Lymphocytes (Bld) [#/Vol] 2.5 10*3/uL Normal 1.0-3.5 [facility] Comment on above: Performed By: #### C BCA, PINR, 56590-9, 20040-4, BMP, 1987-11 #### [facility] ([id number]) [address], [address] [place] [address] Lymphocytes/100 WBC (Bld) 25.9 % Normal [facility] Comment on above: Performed By: #### C VALENTINA, PINR, 39122-8, 76233-9, BMP, 1987-11 #### [facility] ([id number]) [address], [facility] [address] [place] [address] MCH (RBC) [Entitic mass] 26.2 pg Low 27-34 [facility] Comment on above: Performed By: #### C VALENTINA, PINR, 67458-7, 54583-0, BMP, 1987-11 #### [facility] ([id number]) [address], [facility] [address] [place] [address] MCHC (RBC) [Mass/Vol] 32.7 g/dL Normal 32-36 [facility] Comment on above: Performed By: #### C VALENTINA, PINR, 69888-6, 14689-7, BMP, 1987-11 #### [facility] ([id number]) [address] [place] [address] MCV (RBC) [Entitic vol] 80 fL Normal 80-100 [facility] Comment on above: Performed By: #### Magdalena MONTGOMERY, PINR, 10266-1, 45992-9, BMP, 1987-11 #### [facility] ([id number]) [address], [facility] [address] [place] [address] Monocytes (Bld) [#/Vol] 0.8 10*3/uL Normal 0-0.9 [facility] Comment on above: Performed By: #### Magdalena BCA, PINR, 59827-0, 59104-7, BMP, 1987-11 #### [facility] ([id number]) [address] [address] [place] [address] Monocytes/100 WBC (Bld) 8.3 % Normal [facility] Comment on above: Performed By: #### C BCA, PINR, 63191-8, 89031-8, BMP, 1987-11 #### [facility] ([id number]) [address], [address] [place] [address] Neutrophils/100 WBC (Bld) 58.5 % Normal [facility] Comment on above: Performed By: #### C BCA, PINR, 99220-9, 19442-7, BMP, 1987-11 #### [facility] ([id number]) [address], [address] [place] [address] Platelet mean volume (Bld) [Entitic vol] 7.7 fL Normal 7-12 [facility] Comment on above: Performed By: #### C BCA, PINR, 74256-9, 70520-9, BMP, 1987-11 #### [facility] ([id number]) [address], [address] [place] [address] Platelets (Bld) [#/Vol] 402 10*3/uL Normal 150-450 [facility] Comment on above: Performed By: #### C BCA, PINR, 63778-0, 86041-6, BMP, 1987-11 #### [facility] ([id number]) [address], [address] [place] [address] RBC COUNT 4.89 X10E12/L Normal 4.10-5.70 [facility] Comment on above: Performed By: #### C BCA, PINR, 28609-7, 08606-3, BMP, 1987-11 #### [facility] ([id number]) [address], [address] [place] [address] WBC (Bld) [#/Vol] 9.7 10*3/uL Normal 4.0-11.0 [facility] Comment on above: Performed By: #### C BCA, PINR, 82244-2, 15381-5, BMP, 1987-11 #### [facility] ([id number]) [address] [place] [address] CBC auto differentialon 05-19 Basophils (Bld) [#/Vol] 0.1 10*3/uL [facility] Basophils/100 WBC (Bld) 0.9 % [facility] Eosinophils (Bld) [#/Vol] 0.6 10*3/uL High [facility] Eosinophils/100 WBC (Bld) 6.4 % [facility] Erythrocyte distribution width (RBC) [Ratio] 14.4 % 11.5 - 15.0 % [facility] Hematocrit (Bld) [Volume fraction] 39.2 % 39 - 49 % [facility] Hemoglobin (Bld) [Mass/Vol] 12.8 g/dL Low 13.0 - 17.0 g/dL [facility] Interpretation and review of laboratory results Abnormal [facility] Lymphocytes (Bld) [#/Vol] 2.5 10*3/uL [facility] Lymphocytes/100 WBC (Bld) 25.9 % [facility] MCH (RBC) [Entitic mass] 26.2 pg Low 27 - 34 pg [facility] MCHC (RBC) [Mass/Vol] 32.7 g/dL 32 - 36 g/dL [facility] MCV (RBC) [Entitic vol] 80 fL 80 - 100 fL [facility] Monocytes (Bld) [#/Vol] 0.8 10*3/uL [facility] Monocytes/100 WBC (Bld) 8.3 % [facility] Neutrophils (Bld) [#/Vol] 5.7 10*3/uL [facility] Neutrophils/100 WBC (Bld) 58.5 % [facility] Platelet mean volume (Bld) [Entitic vol] 7.7 fL 7 - 12 fL [facility] Platelets (Bld) [#/Vol] 402 10*3/uL [facility] RBC (Bld) [#/Vol] 4.89 10*6/uL [facility] WBC corrected for nucl RBC Auto (Bld) [#/Vol] 9.7 [facility] BASIC METABOLIC PANLon 06-04 Anion gap [Moles/Vol] 9 mmol/L Normal 5-15 [facility] Comment on above: Performed By: #### C BCA, PINR, 73210-3, 81817-5, BMP, 1987-11 #### [facility] ([id number]) [address], [address] [place] [address] Calcium [Mass/Vol] 8.2 mg/dL Low 8.5-10.5 [facility] Comment on above: Performed By: #### C BCA, PINR, 42367-8, 75984-6, BMP, 1987-11 #### [facility] ([id number]) [address], [address] [place] [address] Chloride [Moles/Vol] 106 mmol/L Normal 98-109 [facility] Comment on above: Performed By: #### C BCA, PINR, 81422-2, 58867-9, BMP, 1987-11 #### [facility] ([id number]) [address], [address] [place] [address] CO2 [Moles/Vol] 27 mmol/L Normal 22-32 [facility] Comment on above: Performed By: #### C BCA, PINR, 41778-9, 39740-2, BMP, 1987-11 #### [facility] ([id number]) [address], [address] [place] [address] Creatinine [Mass/Vol] 0.78 mg/dL Normal 0.60-1.30 [facility] Comment on above: Result Comment: METH OD TRACEABLE TO IDMS STANDARD Performed By: #### C BCA, PINR, 89950-2, 00921-7, BMP, 1987-11 #### [facility] ([id number]) [address], [address] [place] [address] eGFR (CKD-EPI) NON-RACE DEPENDENT >90 Normal >59 [facility] Comment on above: Result Comment: Reported eGFR is based on the CKD-EPI 2020 equation that does not use a race coefficient. Performed By: #### C BCA, PINR, 60751-5, 51204-2, BMP, 1987-11 #### [facility] ([id number]) [address], [address] [place] [address] Glucose [Mass/Vol] 102 mg/dL High 65-99 [facility] Comment on above: Performed By: #### C BCA, PINR, 71313-4, 70690-3, BMP, 1987-11 #### [facility] ([id number]) [address], [facility] [address] [place] [address] Potassium [Moles/Vol] 3.9 mmol/L Normal 3.5-5.0 [facility] Comment on above: Performed By: #### C BCA, PINR, 21740-2, 89939-4, BMP, 1987-11 #### [facility] ([id number]) [address], [address] [place] [address] Sodium [Moles/Vol] 142 mmol/L Normal 134-146 [facility] Comment on above: Performed By: #### C BCA, PINR, 77402-6, 78679-6, BMP, 1987-11 #### [facility] ([id number]) [address], [address] [place] [address] Urea nitrogen [Mass/Vol] 12 mg/dL Normal 5-23 [facility] Comment on above: Performed By: #### C BCA, PINR, 17112-5, 70249-6, BMP, 1987-11 #### [facility] ([id number]) [address], [address] [place] [address] Bacteria identified Aer cx N om (Asp)on 06-04-2024 Interpretation and review of laboratory results Abnormal [facility] Microscopic observation Gram stain Nom (Unsp spec) 10 to 24 WHITE BLOOD CELLS/LPF [facility] Microscopic observation Gram stain Nom (Unsp spec) 0 SQUAMOUS EPITHELIAL CELLS/LPF [facility] Microscopic observation Gram stain Nom (Unsp spec) NO ORGANISMS SEEN [facility] Service comment (Unsp spec) [Interp] SPECIMEN A [facility] Service comment (Unsp spec) [Interp] RARE STAPHYLOCOCCUS AUREUS Abnormal [facility] Bacteria identified Aer cx N om (Bone)on 06-04-2024 Interpretation and review of laboratory results Abnormal [facility] Service comment (Unsp spec) [Interp] SPECIMEN D [facility] Service comment (Unsp spec) [Interp] STAPHYLOCOCCUS AUREUS Abnormal [facility] Bacteria identified Aer cx N om (Tiss)on 06-04-2024 Interpretation and review of laboratory results Abnormal [facility] Microscopic observation Gram stain Nom (Unsp spec) 1 to 9 WHITE BLOOD CELLS/LPF [facility] Microscopic observation Gram stain Nom (Unsp spec) 0 SQUAMOUS EPITHELIAL CELLS/LPF [facility] Microscopic observation Gram stain Nom (Unsp spec) NO ORGANISMS SEEN [facility] Service comment (Unsp spec) [Interp] SPECIMEN B [facility] Service comment (Unsp spec) [Interp] RARE STAPHYLOCOCCUS AUREUS Isolate screened susceptible to Oxacillin. Abnormal [facility] Service comment (Unsp spec) [Interp] FOR SUSCEPTIBILITY, SEE PREVIOUS REPORT. [facility] Interpretation and review of laboratory results Abnormal [facility] Microscopic observation Gram stain Nom (Unsp spec) 1 to 9 WHITE BLOOD CELLS/LPF [facility] Microscopic observation Gram stain Nom (Unsp spec) 0 SQUAMOUS EPITHELIAL CELLS/LPF [facility] Microscopic observation Gram stain Nom (Unsp spec) NO ORGANISMS SEEN [facility] Service comment (Unsp spec) [Interp] SPECIMEN C [facility] Service comment (Unsp spec) [Interp] RARE STAPHYLOCOCCUS AUREUS Abnormal [facility] Basic Metabolic Panelon 11- Anion gap [Moles/Vol] 9 mmol/L 5 - 15 mmol/L [facility] Calcium [Mass/Vol] 8.2 mg/dL Low 8.5 - 10. 5 mg/dL [facility] Chloride [Moles/Vol] 106 mmol/L 98 - 109 mmol/L [facility] CO2 [Moles/Vol] 27 mmol/L 22 - 32 mmol/L [facility] Creatinine [Mass/Vol] 0.78 mg/dL 0.60 - 1.30 mg/dL [facility] Comment on above: METHOD TRACEABLE TO [facility] STANDARD eGFR (CKD-EPI)non-race dependent - PINF [facility] Comment on above: Reported eGFR is based on the CKD-EPI 2020 equation that does not use a race coefficient. Glucose [Mass/Vol] 102 mg/dL High 65 - 99 mg/dL [facility] Interpretation and review of laboratory results Abnormal [facility] Potassium [Moles/Vol] 3.9 mmol/L 3.5 - 5.0 mmol/L [facility] Sodium [Moles/Vol] 142 mmol/L 134 - 146 mmol/L [facility] Urea nitrogen [Mass/Vol] 12 mg/dL 5 - 23 mg/dL [facility] CBC AND AUTO DIFFon 06-04-20 24 ABSOLUTE BASOPHIL 0.2 X10E9/L Normal 0.0-0.2 [facility] Comment on above: Performed By: #### C VALENTINA, PINR, 78887-7, 53158-2, [facility], 1987-11 #### [facility] ([id number]) [address], [address] [place] [address] ABSOLUTE NEUTROPHIL 7.6 X10E9/L High 1.5-6.[address] [facility] Comment on above: Performed By: #### C BCA, PINR, 32264-8, 16257-4, [facility], 1987-11 #### [facility] ([id number]) [address], [address] [place] [address] Basophils/100 WBC (Bld) 1.4 % Normal [facility] Comment on above: Performed By: #### C BCA, PINR, 25817-5, 12076-6, [facility] #### [facility] ([id number]) [address] [address] [place] [address] Eosinophils (Bld) [#/Vol] 0.6 10*3/uL High 0.0-0.4 [facility] Comment on above: Performed By: #### C BCA, PINR, 00230-8, 15478-3, BMP, 1987-11 #### [facility] ([id number]) [address], [facility] [address] [place] [address] Eosinophils/100 WBC (Bld) 5.1 % Normal [facility] Comment on above: Performed By: #### C BCA, PINR, 19097-2, 72137-3, BMP, 1987-11 #### [facility] ([id number]) [address] [address] [place] [address] Erythrocyte distribution width (RBC) [Ratio] 14.4 % Normal 11.5-15.0 [facility] Comment on above: Performed By: #### C BCA, PINR, 06011-2, 48865-2, BMP, 1987-11 #### [facility] ([id number]) [address] [address] [place] [address] Hematocrit (Bld) [Volume fraction] 36.8 % Low 39-49 [facility] Comment on above: Performed By: #### C BCA, PINR, 07209-1, 28381-2, BMP, 1987-11 #### [facility] ([id number]) [address] [address] [place] [address] Hemoglobin (Bld) [Mass/Vol] 12.3 g/dL Low 13.0-17.0 [facility] Comment on above: Performed By: #### C BCA, PINR, 68302-7, 66801-9, BMP, 1987-11 #### [facility] ([id number]) [address] [address] [place] [address] Lymphocytes (Bld) [#/Vol] 2.8 10*3/uL Normal 1.0-3.5 [facility] Comment on above: Performed By: #### C BCA, PINR, 83495-4, 79715-8, BMP, 1987-11 #### [facility] ([id number]) [address], [facility] [address] [place] [address] Lymphocytes/100 WBC (Bld) 23.1 % Normal [facility] Comment on above: Performed By: #### C VALENTINA, PINR, 21393-9, 37708-3, BMP, 1987-11 #### [facility] ([id number]) [address], [facility] [address] [place] [address] MCH (RBC) [Entitic mass] 26.6 pg Low 27-34 [facility] Comment on above: Performed By: #### Magdalena BCA, PINR, 08887-1, 14100-9, BMP, 1987-11 #### [facility] ([id number]) [address], [address] [place] [address] MCHC (RBC) [Mass/Vol] 33.5 g/dL Normal 32-36 [facility] Comment on above: Performed By: #### C VALENTINA, PINR, 79587-2, 68025-1, BMP, 1987-11 #### [facility] ([id number]) [address], [facility] [address] [place] [address] MCV (RBC) [Entitic vol] 80 fL Normal 80-100 [facility] Comment on above: Performed By: #### C VALENTINA, PINR, 87919-0, 41795-0, BMP, 1987-11 #### [facility] ([id number]) [address], [facility] [address] [place] [address] Monocytes (Bld) [#/Vol] 0.9 10*3/uL Normal 0-0.9 [facility] Comment on above: Performed By: #### C BCA, PINR, 72235-0, 45699-7, BMP, 1987-11 #### [facility] ([id number]) [address], [address] [place] [address] Monocytes/100 WBC (Bld) 7.5 % Normal [facility] Comment on above: Performed By: #### C BCA, PINR, 45188-0, 62206-8, BMP, 1987-11 #### [facility] ([id number]) [address], [facility] [address] [place] [address] Neutrophils/100 WBC (Bld) 62.9 % Normal [facility] Comment on above: Performed By: #### C BCA, PINR, 82983-2, 66775-6, BMP, 1987-11 #### [facility] ([id number]) [address], [facility] [address] [place] [address] Platelet mean volume (Bld) [Entitic vol] 7.7 fL Normal 7-12 [facility] Comment on above: Performed By: #### C BCA, PINR, 10527-3, 43274-8, BMP, 1987-11 #### [facility] ([id number]) [address], [facility] [address] [place] [address] Platelets (Bld) [#/Vol] 368 10*3/uL Normal 150-450 [facility] Comment on above: Performed By: #### C BCA, PINR, 31751-8, 49237-9, BMP, 1987-11 #### [facility] ([id number]) [address], [address] [place] [address] RBC COUNT 4.63 X10E12/L Normal 4.10-5.70 [facility] Comment on above: Performed By: #### C BCA, PINR, 87442-9, 46356-5, BMP, 1987-11 #### [facility] ([id number]) [address], [address] [place] [address] WBC (Bld) [#/Vol] 12.1 10*3/uL High 4.0-11.0 [facility] Comment on above: Performed By: #### C VALENTINA, PINR, 22393-2, 40568-3, BMP, 1987- #### [facility] ([id number]) [address] [place] [address] CBC auto differentialon 05-19 Basophils (Bld) [#/Vol] 0.2 10*3/uL [facility] Basophils/100 WBC (Bld) 1.4 % [facility] Eosinophils (Bld) [#/Vol] 0.6 10*3/uL High [facility] Eosinophils/100 WBC (Bld) 5.1 % [facility] Erythrocyte distribution width (RBC) [Ratio] 14.4 % 11.5 - 15.0 % [facility] Hematocrit (Bld) [Volume fraction] 36.8 % Low 39 - 49 % [facility] Hemoglobin (Bld) [Mass/Vol] 12.3 g/dL Low 13.0 - 17.0 g/dL [facility] Interpretation and review of laboratory results Abnormal [facility] Lymphocytes (Bld) [#/Vol] 2.8 10*3/uL [facility] Lymphocytes/100 WBC (Bld) 23.1 % [facility] MCH (RBC) [Entitic mass] 26.6 pg Low 27 - 34 pg [facility] MCHC (RBC) [Mass/Vol] 33.5 g/dL 32 - 36 g/dL [facility] MCV (RBC) [Entitic vol] 80 fL 80 - 100 fL [facility] Monocytes (Bld) [#/Vol] 0.9 10*3/uL [facility] Monocytes/100 WBC (Bld) 7.5 % [facility] Neutrophils (Bld) [#/Vol] 7.6 10*3/uL High [facility] Neutrophils/100 WBC (Bld) 62.9 % [facility] Platelet mean volume (Bld) [Entitic vol] 7.7 fL 7 - 12 fL [facility] Platelets (Bld) [#/Vol] 368 10*3/uL [facility] RBC (Bld) [#/Vol] 4.63 10*6/uL [facility] WBC corrected for nucl RBC Auto (Bld) [#/Vol] 12.1 High [facility] Vancomycin [Mass/Vol]on 05-19 Interpretation and review of laboratory results Abnormal [facility] VANCOMYCIN 42.9 ug/mL High 5.0-40.0 [facility] Comment on above: Result Comment: Peak 30-40 ug/mL Trough 5-20 ug/ml Performed By: #### C REGINALDO MONTGOMERY, 93691-0, 49078-4, [facility], 1987-11 #### [facility] ([id number]) [address] [place] [address], [address] [place] [address] [facility] Vancomycin trough [Mass/Vol] on 06-04-2024 [facility] VANCOMYCIN TROUGH 11.9 ug/mL Normal 5.0-20.0 [facility] Comment on above: Performed By: #### DIEGO Nichols BCAR, 95776-7, 38430-7, [facility], 1987-11 #### [facility] ([id number]) [address] [place] [address], [address] [place] [address] Vancomycin, randomon 024 Vancomycin [Mass/Vol] 42.9 ug/mL High 5.0 - 40.0 ug/mL [facility] Comment on above: Peak 30-40 ug/mL Trough 5-20 ug/ml Vancomycin [Mass/Vol] 24.3 ug/mL 5.0 - 40.0 ug/mL [facility] Comment on above: Peak 30-40 ug/mL Trough 5-20 ug/ml Vancomycin, trough Draw 30 m in prior to dose scheduled 06/04 at 0930. *Draw both peak and trough*on 06-04-2024 Vancomycin trough [Mass/Vol] 11.9 ug/mL 5.0 - 20.0 ug/mL [facility] BASIC METABOLIC PANLon 06-03 Anion gap [Moles/Vol] 4 mmol/L Low 5-15 [facility] Comment on above: Performed By: #### C BCA, PINR, 71467-1, 94028-3, BMP, 1987-11 #### [facility] ([id number]) [address], [address] [place] [address] Calcium [Mass/Vol] 8.2 mg/dL Low 8.5-10.5 [facility] Comment on above: Performed By: #### C BCA, PINR, 13583-7, 67120-3, BMP, 1987-11 #### [facility] ([id number]) [address], [address] [place] [address] Chloride [Moles/Vol] 110 mmol/L High 98-109 [facility] Comment on above: Performed By: #### C BCA, PINR, 86836-2, 80841-0, BMP, 1987-11 #### [facility] ([id number]) [address], [address] [place] [address] CO2 [Moles/Vol] 29 mmol/L Normal 22-32 [facility] Comment on above: Performed By: #### C BCA, PINR, 49455-7, 23150-2, BMP, 1987-11 #### [facility] ([id number]) [address], [address] [place] [address] Creatinine [Mass/Vol] 0.82 mg/dL Normal 0.60-1.30 [facility] Comment on above: Result Comment: METH OD TRACEABLE TO [facility] STANDARD Performed By: #### C BCA, PINR, 08465-3, 90429-6, BMP, 1987-11 #### [facility] ([id number]) [address], [address] [place] [address] eGFR (CKD-EPI) NON-RACE DEPENDENT >90 Normal >59 [facility] Comment on above: Result Comment: Reported eGFR is based on the CKD-EPI 2020 equation that does not use a race coefficient. Performed By: #### C BCA, PINR, 59592-9, 92116-2, BMP, 1987-11 #### [facility] ([id number]) [address], [address] [place] [address] Glucose [Mass/Vol] 95 mg/dL Normal 65-99 [facility] Comment on above: Performed By: #### C BCA, PINR, 15092-9, 18858-4, BMP, 1987-11 #### [facility] ([id number]) [address] [address] [place] [address] Potassium [Moles/Vol] 4.2 mmol/L Normal 3.5-5.0 [facility] Comment on above: Performed By: #### C BCA, PINR, 58338-5, 62741-3, BMP, 1987-11 #### [facility] ([id number]) [address] [address] [place] [address] Sodium [Moles/Vol] 143 mmol/L Normal 134-146 [facility] Comment on above: Performed By: #### C BCA, PINR, 99935-2, 10742-4, BMP, 1987-11 #### [facility] ([id number]) [address], [address] [place] [address] Urea nitrogen [Mass/Vol] 16 mg/dL Normal 5-23 [facility] Comment on above: Performed By: #### C VALENTINA PINR, 59936-2, 86128-4, [facility], 1987-11 #### [facility] ([id number]) [address] [facility] [place] [address] Basic Metabolic Panelon 11- Anion gap [Moles/Vol] 4 mmol/L Low 5 - 15 mmol/L [facility] Calcium [Mass/Vol] 8.2 mg/dL Low 8.5 - 10. 5 mg/dL [facility] Chloride [Moles/Vol] 110 mmol/L High 98 - 109 mmol/L [facility] CO2 [Moles/Vol] 29 mmol/L 22 - 32 mmol/L [facility] Creatinine [Mass/Vol] 0.82 mg/dL 0.60 - 1.30 mg/dL [facility] Comment on above: METHOD TRACEABLE TO [facility] STANDARD eGFR (CKD-EPI)non-race dependent - PINF [facility] Comment on above: Reported eGFR is based on the CKD-EPI 2020 equation that does not use a race coefficient. Glucose [Mass/Vol] 95 mg/dL 65 - 99 mg/dL [facility] Interpretation and review of laboratory results Abnormal [facility] Potassium [Moles/Vol] 4.2 mmol/L 3.5 - 5.0 mmol/L [facility] Sodium [Moles/Vol] 143 mmol/L 134 - 146 mmol/L [facility] Urea nitrogen [Mass/Vol] 16 mg/dL 5 - 23 mg/dL [facility] CBC AND AUTO DIFFon 06-03-20 ABSOLUTE BASOPHIL 0.1 X10E9/L Normal 0.0-0.2 [facility] Comment on above: Performed By: #### C VALENTINA, PINR, 17691-2, 70895-4, [place], 1987-11 #### [facility] ([id number]) [address] [place] [address] ABSOLUTE NEUTROPHIL 7.6 X10E9/L High 1.5-6.[address] [facility] Comment on above: Performed By: #### C BCA, PINR, 76817-6, 06814-1, BMP, 1987-11 #### [facility] ([id number]) [address], [address] [place] [address] Basophils/100 WBC (Bld) 0.9 % Normal [facility] Comment on above: Performed By: #### C BCA, PINR, 54562-1, 52562-4, BMP, 1987-11 #### [facility] ([id number]) [address], [address] [place] [address] Eosinophils (Bld) [#/Vol] 0.4 10*3/uL Normal 0.0-0.4 [facility] Comment on above: Performed By: #### C BCA, PINR, 47062-7, 21132-2, BMP, 1987-11 #### [facility] ([id number]) [address], [address] [place] [address] Eosinophils/100 WBC (Bld) 3.1 % Normal [facility] Comment on above: Performed By: #### C BCA, PINR, 79620-3, 77249-7, BMP, 1987-11 #### [facility] ([id number]) [address], [address] [place] [address] Erythrocyte distribution width (RBC) [Ratio] 14.3 % Normal 11.5-15.0 [facility] Comment on above: Performed By: #### C BCA, PINR, 35187-0, 32753-3, BMP, 1987-11 #### [facility] ([id number]) [address], [address] [place] [address] Hematocrit (Bld) [Volume fraction] 36.1 % Low 39-49 [facility] Comment on above: Performed By: #### C BCA, PINR, 26523-5, 30509-4, BMP, 1987-11 #### [facility] ([id number]) [address], [address] [place] [address] Hemoglobin (Bld) [Mass/Vol] 11.8 g/dL Low 13.0-17.0 [facility] Comment on above: Performed By: #### C BCA, PINR, 79113-9, 51275-0, BMP, 1987-11 #### [facility] ([id number]) [address], [address] [place] [address] Lymphocytes (Bld) [#/Vol] 3.0 10*3/uL Normal 1.0-3.5 [facility] Comment on above: Performed By: #### C BCA, PINR, 76389-7, 20909-1, BMP, 1987-11 #### [facility] ([id number]) [address], [address] [place] [address] Lymphocytes/100 WBC (Bld) 24.6 % Normal [facility] Comment on above: Performed By: #### C BCA, PINR, 93852-6, 56597-7, BMP, 1987-11 #### [facility] ([id number]) [address], [address] [place] [address] MCH (RBC) [Entitic mass] 26.2 pg Low 27-34 [facility] Comment on above: Performed By: #### C BCA, PINR, 27059-4, 48466-4, BMP, 1987-11 #### [facility] ([id number]) [address], [address] [place] [address] MCHC (RBC) [Mass/Vol] 32.8 g/dL Normal 32-36 [facility] Comment on above: Performed By: #### C BCA, PINR, 52018-0, 01293-2, BMP, 1987-11 #### [facility] ([id number]) [address], [address] [place] [address] MCV (RBC) [Entitic vol] 80 fL Normal 80-100 [facility] Comment on above: Performed By: #### C VALENTINA, PINR, 34750-2, 83754-1, BMP, 1987-11 #### [facility] ([id number]) [address], [address] [place] [address] Monocytes (Bld) [#/Vol] 1.1 10*3/uL High 0-0.9 [facility] Comment on above: Performed By: #### Magdalena MONTGOMERY, PINR, 68751-5, 57159-6, BMP, 1987-11 #### [facility] ([id number]) [address], [address] [place] [address] Monocytes/100 WBC (Bld) 8.8 % Normal [facility] Comment on above: Performed By: #### Magdalena BCA, PINR, 92980-6, 34707-7, BMP, 1987-11 #### [facility] ([id number]) [address], [address] [place] [address] Neutrophils/100 WBC (Bld) 62.6 % Normal [facility] Comment on above: Performed By: #### Magdalena MONTGOMERY, PINR, 92083-2, 66414-1, BMP, 1987-11 #### [facility] ([id number]) [address], [address] [place] [address] Platelet mean volume (Bld) [Entitic vol] 7.7 fL Normal 7-12 [facility] Comment on above: Performed By: #### C BCA, PINR, 39160-8, 52561-8, BMP, 1987-11 #### [facility] ([id number]) [address], [address] [place] [address] Platelets (Bld) [#/Vol] 352 10*3/uL Normal 150-450 [facility] Comment on above: Performed By: #### C BCA, PINR, 72986-5, 27184-1, BMP, 1987-11 #### [facility] ([id number]) [address], [address] [place] [address] RBC COUNT 4.52 X10E12/L Normal 4.10-5.70 [facility] Comment on above: Performed By: #### C BCA, PINR, 46947-2, 08844-3, BMP, 1987-11 #### [facility] ([id number]) [address] [place] [address] WBC (Bld) [#/Vol] 12.1 10*3/uL High 4.0-11.0 [facility] Comment on above: Performed By: #### C BCA, PINR, 76549-7, 95859-4, BMP, 1987-11 #### [facility] ([id number]) [address], [address] [place] [address] CBC auto differentialon 05-19 Basophils (Bld) [#/Vol] 0.1 10*3/uL [facility] Basophils/100 WBC (Bld) 0.9 % [facility] Eosinophils (Bld) [#/Vol] 0.4 10*3/uL [facility] Eosinophils/100 WBC (Bld) 3.1 % [facility] Erythrocyte distribution width (RBC) [Ratio] 14.3 % 11.5 - 15.0 % [facility] Hematocrit (Bld) [Volume fraction] 36.1 % Low 39 - 49 % [facility] Hemoglobin (Bld) [Mass/Vol] 11.8 g/dL Low 13.0 - 17.0 g/dL [facility] Interpretation and review of laboratory results Abnormal [facility] Lymphocytes (Bld) [#/Vol] 3 10*3/uL [facility] Lymphocytes/100 WBC (Bld) 24.6 % [facility] MCH (RBC) [Entitic mass] 26.2 pg Low 27 - 34 pg [facility] MCHC (RBC) [Mass/Vol] 32.8 g/dL 32 - 36 g/dL [facility] MCV (RBC) [Entitic vol] 80 fL 80 - 100 fL [facility] Monocytes (Bld) [#/Vol] 1.1 10*3/uL High [facility] Monocytes/100 WBC (Bld) 8.8 % [facility] Neutrophils (Bld) [#/Vol] 7.6 10*3/uL High [facility] Neutrophils/100 WBC (Bld) 62.6 % [facility] Platelet mean volume (Bld) [Entitic vol] 7.7 fL 7 - 12 fL [facility] Platelets (Bld) [#/Vol] 352 10*3/uL [facility] RBC (Bld) [#/Vol] 4.52 10*6/uL [facility] WBC corrected for nucl RBC Auto (Bld) [#/Vol] 12.1 High [facility] Vancomycin [Mass/Vol]on 05-19 VANCOMYCIN 24.3 ug/mL Normal 5.0-40.0 [facility] Comment on above: Result Comment: Peak 30-40 ug/mL Trough 5-20 ug/ml Performed By: #### C BCA, PINR, 64666-9, 86930-1, [facility], 1987-11 #### [facility] ([id number]) [address], [address] [place] [address] BASIC METABOLIC PANLon 06-02 Anion gap [Moles/Vol] 10 mmol/L Normal 11-30 [facility] Comment on above: Performed By: #### C BCA, PINR, 24828-7, 82271-3, [facility], 1987-11 #### [facility] ([id number]) [address], [address] [place] [address] Calcium [Mass/Vol] 8.9 mg/dL Normal 8.5-10.5 [facility] Comment on above: Performed By: #### C BCA, PINR, 34343-8, 89669-3, BMP, 1987-11 #### [facility] ([id number]) [address], [address] [place] [address] Chloride [Moles/Vol] 105 mmol/L Normal 98-109 [facility] Comment on above: Performed By: #### C BCA, PINR, 68591-5, 35333-5, [facility], 1987-11 #### [facility] ([id number]) [address], [address] [place] [address] CO2 [Moles/Vol] 25 mmol/L Normal 22-32 [facility] Comment on above: Performed By: #### C BCA, PINR, 45377-8, 28433-4, BMP, 1987-11 #### [facility] ([id number]) [address], [address] [place] [address] Creatinine [Mass/Vol] 0.92 mg/dL Normal 0.60-1.30 [facility] Comment on above: Result Comment: METH OD TRACEABLE TO IDMS STANDARD Performed By: #### C BCA, PINR, 68595-3, 36551-0, [place], 1987-11 #### [facility] ([id number]) [address], [address] [place] [address] eGFR (CKD-EPI) NON-RACE DEPENDENT >90 Normal >59 [facility] Comment on above: Result Comment: Reported eGFR is based on the CKD-EPI 2020 equation that does not use a race coefficient. Performed By: #### C BCA, PINR, 39695-2, 54041-3, BMP, 1987-11 #### [facility] ([id number]) [address], [address] [place] [address] Glucose [Mass/Vol] 202 mg/dL High 65-99 [facility] Comment on above: Performed By: #### C BCA, PINR, 33371-7, 39851-3, BMP, 1987-11 #### [facility] ([id number]) [address], [address] [place] [address] Potassium [Moles/Vol] 4.0 mmol/L Normal 3.5-5.0 [facility] Comment on above: Performed By: #### C BCA, PINR, 23872-4, 39409-7, BMP, 1987-11 #### [facility] ([id number]) [address], [address] [place] [address] Sodium [Moles/Vol] 140 mmol/L Normal 134-146 [facility] Comment on above: Performed By: #### C BCA, PINR, 48631-1, 12112-8, BMP, 1987-11 #### [facility] ([id number]) [address], [address] [place] [address] Urea nitrogen [Mass/Vol] 20 mg/dL Normal 5-23 [facility] Comment on above: Performed By: #### C BCA, PINR, 63079-7, 60563-8, BMP, 1987-11 #### [facility] ([id number]) [address], [address] [place] [address] Basic Metabolic Panelon 11- Anion gap [Moles/Vol] 10 mmol/L 5 - 15 mmol/L [facility] Calcium [Mass/Vol] 8.9 mg/dL 8.5 - 10. 5 mg/dL [facility] Chloride [Moles/Vol] 105 mmol/L 98 - 109 mmol/L [facility] CO2 [Moles/Vol] 25 mmol/L 22 - 32 mmol/L [facility] Creatinine [Mass/Vol] 0.92 mg/dL 0.60 - 1.30 mg/dL [facility] Comment on above: METHOD TRACEABLE TO IDMS STANDARD eGFR (CKD-EPI)non-race dependent - PINF [facility] Comment on above: Reported eGFR is based on the CKD-EPI 2020 equation that does not use a race coefficient. Glucose [Mass/Vol] 202 mg/dL High 65 - 99 mg/dL [facility] Interpretation and review of laboratory results Abnormal [facility] Potassium [Moles/Vol] 4 mmol/L 3.5 - 5.0 mmol/L [facility] Sodium [Moles/Vol] 140 mmol/L 134 - 146 mmol/L [facility] Urea nitrogen [Mass/Vol] 20 mg/dL 5 - 23 mg/dL [facility] CBC AND AUTO DIFFon 06-02-20 ABSOLUTE BASOPHIL 0.1 X10E9/L Normal 0.0-0.2 [facility] Comment on above: Performed By: #### C VALENTINA PINR, 66673-2, 00096-7, [facility], 1987-11 #### [facility] ([id number]) [address], [address] [place] [address] ABSOLUTE NEUTROPHIL 19.9 X10E9/L High 1.5-6.6 [facility] Comment on above: Performed By: #### C BCA, PINR, 05987-9, 01072-4, [facility], 1987-11 #### [facility] ([id number]) [address], [address] [place] [address] Basophils/100 WBC (Bld) 0.5 % Normal [facility] Comment on above: Performed By: #### C BCA, PINR, 01505-9, 11900-1, [facility], 1987-11 #### [facility] ([id number]) [address], [address] [place] [address] Eosinophils (Bld) [#/Vol] 0.0 10*3/uL Normal 0.0-0.4 [facility] Comment on above: Performed By: #### C BCA, PINR, 42127-0, 05711-7, [facility], 1987-11 #### [facility] ([id number]) [address], [address] [place] [address] Eosinophils/100 WBC (Bld) 0.0 % Normal [facility] Comment on above: Performed By: #### C BCA, PINR, 25539-1, 62936-5, BMP, 1987-11 #### [facility] ([id number]) [address], [address] [place] [address] Erythrocyte distribution width (RBC) [Ratio] 14.1 % Normal 11.5-15.0 [facility] Comment on above: Performed By: #### C BCA, PINR, 41485-9, 93157-4, BMP, 1987-11 #### [facility] ([id number]) [address], [address] [place] [address] Hematocrit (Bld) [Volume fraction] 38.9 % Low 39-49 [facility] Comment on above: Performed By: #### C BCA, PINR, 13655-7, 59936-5, BMP, 1987-11 #### [facility] ([id number]) [address], [address] [place] [address] Hemoglobin (Bld) [Mass/Vol] 12.9 g/dL Low 13.0-17.0 [facility] Comment on above: Performed By: #### C BCA, PINR, 76413-8, 03532-2, BMP, 1987-11 #### [facility] ([id number]) [address], [address] [place] [address] Lymphocytes (Bld) [#/Vol] 0.9 10*3/uL Low 1.0-3.5 [facility] Comment on above: Performed By: #### C BCA, PINR, 65688-6, 17614-0, BMP, 1987-11 #### [facility] ([id number]) [address], [address] [place] [address] Lymphocytes/100 WBC (Bld) 4.0 % Normal [facility] Comment on above: Performed By: #### C BCA, PINR, 28838-9, 90479-6, BMP, 1987-11 #### [facility] ([id number]) [address], [address] [place] [address] MCH (RBC) [Entitic mass] 26.4 pg Low 27-34 [facility] Comment on above: Performed By: #### C BCA, PINR, 07301-3, 19754-6, BMP, 1987-11 #### [facility] ([id number]) [address], [address] [place] [address] MCHC (RBC) [Mass/Vol] 33.1 g/dL Normal 32-36 [facility] Comment on above: Performed By: #### Magdalena BCA, PINR, 43537-5, 41127-3, BMP, 1987-11 #### [facility] ([id number]) [address], [address] [place] [address] MCV (RBC) [Entitic vol] 80 fL Normal 80-100 [facility] Comment on above: Performed By: #### C BCA, PINR, 55322-7, 36903-5, BMP, 1987-11 #### [facility] ([id number]) [address], [address] [place] [address] Monocytes (Bld) [#/Vol] 0.6 10*3/uL Normal 0-0.9 [facility] Comment on above: Performed By: #### C BCA, PINR, 59444-8, 02905-6, BMP, 1987-11 #### [facility] ([id number]) [address], [address] [place] [address] Monocytes/100 WBC (Bld) 2.8 % Normal [facility] Comment on above: Performed By: #### C BCA, PINR, 27130-1, 86091-6, [facility], 1987-11 #### [facility] ([id number]) [address], [address] [place] [address] Neutrophils/100 WBC (Bld) 92.7 % Normal [facility] Comment on above: Performed By: #### C BCA, PINR, 26737-8, 69812-8, BMP, 1987-11 #### [facility] ([id number]) [address], [address] [place] [address] Platelet mean volume (Bld) [Entitic vol] 8.1 fL Normal 7-12 [facility] Comment on above: Performed By: #### C BCA, PINR, 56893-6, 58412-2, BMP, 1987-11 #### [facility] ([id number]) [address], [facility] [address] [place] [address] Platelets (Bld) [#/Vol] 403 10*3/uL Normal 150-450 [facility] Comment on above: Performed By: #### C BCA, PINR, 19852-6, 15788-5, BMP, 1987-11 #### [facility] ([id number]) [address], [facility] [address] [place] [address] RBC COUNT 4.87 X10E12/L Normal 4.10-5.70 [facility] Comment on above: Performed By: #### C BCA, PINR, 00138-5, 15943-3, BMP, 1987-11 #### [facility] ([id number]) [address], [address] [place] [address] WBC (Bld) [#/Vol] 21.5 10*3/uL High 4.0-11.0 [facility] Comment on above: Performed By: #### C BCA, PINR, 33838-7, 20537-6, BMP, 1987-11 #### [facility] ([id number]) [address], [address] [place] [address] CBC auto differentialon 05-19 Basophils (Bld) [#/Vol] 0.1 10*3/uL [facility] Basophils/100 WBC (Bld) 0.5 % [facility] Eosinophils (Bld) [#/Vol] 0 10*3/uL [facility] Eosinophils/100 WBC (Bld) 0 % [facility] Erythrocyte distribution width (RBC) [Ratio] 14.1 % 11.5 - 15.0 % [facility] Hematocrit (Bld) [Volume fraction] 38.9 % Low 39 - 49 % [facility] Hemoglobin (Bld) [Mass/Vol] 12.9 g/dL Low 13.0 - 17.0 g/dL [facility] Interpretation and review of laboratory results Abnormal [facility] Lymphocytes (Bld) [#/Vol] 0.9 10*3/uL Low [facility] Lymphocytes/100 WBC (Bld) 4 % [facility] MCH (RBC) [Entitic mass] 26.4 pg Low 27 - 34 pg [facility] MCHC (RBC) [Mass/Vol] 33.1 g/dL 32 - 36 g/dL [facility] MCV (RBC) [Entitic vol] 80 fL 80 - 100 fL [facility] Monocytes (Bld) [#/Vol] 0.6 10*3/uL [facility] Monocytes/100 WBC (Bld) 2.8 % [facility] Neutrophils (Bld) [#/Vol] 19.9 10*3/uL High [facility] Neutrophils/100 WBC (Bld) 92.7 % [facility] Platelet mean volume (Bld) [Entitic vol] 8.1 fL 7 - 12 fL [facility] Platelets (Bld) [#/Vol] 403 10*3/uL [facility] RBC (Bld) [#/Vol] 4.87 10*6/uL [facility] WBC corrected for nucl RBC Auto (Bld) [#/Vol] 21.5 High [facility] Vitamin D 25 hydroxyon 06-02 Vitamin D+Metabolites [Mass/Vol] ng/mL Low 30 - 100 ng/mL [facility] Comment on above: Vitamin D status 25 [place] Vitamin D Deficiency <20 ng/mL Insufficiency 20-29 ng/mL Sufficiency 30-100 ng/mL Toxicity >100 ng/mL NOTE: A pediatric reference range has not been established by the skid adzer of this kit. The [place] [employer] recommends a Vitamin D level of = or >20ng/mL in infants and children. Vitamin D+Metabolites [Mass/ Vol]on 06-02-2024 Interpretation and review of laboratory results Abnormal [facility] VITAMIN D 25 HYD TOT <7.0 Low 30-100 [facility] Comment on above: Result Comment: Vitamin D status 25 [place] Vitamin D Deficiency <20 ng/mL Insufficiency 20-29 ng/mL Sufficiency 30-100 ng/mL Toxicity >100 ng/mL NOTE: A pediatric reference range has not been established by the skid adzer of this kit. The [place] [employer] recommends a Vitamin D level of = or >20ng/mL in infants and children. Performed By: #### C REGINALDO MONTGOMERY, 25481-7, 71186-1, [facility] #### [facility] ([id number]) [address], [address] [place] [address] ANAEROBE CULTUREon 4 Bacteria identified Anaer cx Nom (Unsp spec) SPECIMEN NOTES SPECIMEN D CULTURE RESULTS NO ANAEROBIC ORGANISMS ISOLATED Normal [facility] Comment on above: Performed By: #### C REGINALDO MONTGOEMRY, 17440-3, 82722-7, [facility], 1987-11 #### [facility] ([id number]) [address], [address] [place] [address] Bacteria identified Anaer cx Nom (Unsp spec) SPECIMEN NOTES SPECIMEN C CULTURE RESULTS NO ANAEROBIC ORGANISMS ISOLATED Normal [facility] Comment on above: Performed By: #### C BCA, PINR, 30682-0, 84695-3, [facility], 1987-11 #### [facility] ([id number]) [address], [address] [place] [address] Bacteria identified Anaer cx Nom (Unsp spec) SPECIMEN NOTES SPECIMEN B CULTURE RESULTS NO ANAEROBIC ORGANISMS ISOLATED Normal [facility] Comment on above: Performed By: #### C BCA, PINR, 53455-7, 59956-0, BMP, 1987-11 #### [facility] ([id number]) [address], [address] [place] [address] Bacteria identified Anaer cx Nom (Unsp spec) SPECIMEN NOTES SPECIMEN A CULTURE RESULTS NO ANAEROBIC ORGANISMS ISOLATED [facility] Comment on above: Performed By: #### C BCA, PINR, 03620-6, 76470-3, [facility], 1987-11 #### [facility] ([id number]) [address], [address] [place] [address] APTTon 06-01-2024 aPTT Coag (PPP) [Time] 31 s [facility] ASPIRATE CULTUREon Bacteria identified Aer cx Nom (Asp) SPECIMEN NOTES SPECIMEN A GRAM STAIN 10 to 24 WHITE BLOOD CELLS/LPF 0 SQUAMOUS EPITHELIAL CELLS/LPF NO ORGANISMS SEEN CULTURE RESULTS RARE STAPHYLOCOCCUS AUREUS [ S = SUSCEPTIBLE R = RESISTANT I = INTERMEDIATE S-DO = Susceptible-dose dependent NS = Non-suscceptible NO = No Interpretation ] Organism: STAPHYLOCOCCUS AUREUS Antibiotic Interpretation ASYA Status CEFAZOLIN S F CLINDAMYCIN S 0.25 F OXACILLIN S 0.5 F TRIMETH/SULFAMETHOXAZOLE S <=.5/9.5 F VANCOMYCIN S 1 F DOXYCYCLINE S <=0.5 F Susceptible [facility] Comment on above: Performed By: #### C BCA, PINR, 23591-9, 07427-2, BMP, 1987-11 #### [facility] ([id number]) [address] [facility], [address] [place] [address] BLOOD CULTUREon 06-01-2024 Bacteria identified Aer cx Nom (Bld) CULTURE RESULTS NO GROWTH 5 DAYS Normal [facility] Bacteria identified Aer cx Nom (Bld) CULTURE RESULTS NO GROWTH 5 DAYS Normal [facility] BONE CULTUREon 06-01-2024 Bacteria identified Aer cx Nom (Bone) SPECIMEN NOTES SPECIMEN D CULTURE RESULTS STAPHYLOCOCCUS AUREUS [ S = SUSCEPTIBLE R = RESISTANT I = INTERMEDIATE S-DO = Susceptible-dose dependent NS = Non-suscceptible NO = No Interpretation ] Organism: STAPHYLOCOCCUS AUREUS Antibiotic Interpretation ASYA Status CEFAZOLIN S F CLINDAMYCIN S 0.25 F OXACILLIN S <=0.25 F TRIMETH/SULFAMETHOXAZOLE S <=.5/9.5 F VANCOMYCIN S 1 F DOXYCYCLINE S <=0.5 F Susceptible [facility] Comment on above: Performed By: #### C BCA, PINR, 29509-9, 48870-8, BMP, 1987-11 #### [facility] ([id number]) [address] [facility], [address] [place] [address] Basic Metabolic Panelon 05-19 Anion gap [Moles/Vol] 11 mmol/L 5 - 15 mmol/L [facility] Calcium [Mass/Vol] 8.7 mg/dL 8.5 - 10. 5 mg/dL [facility] Chloride [Moles/Vol] 98 mmol/L 98 - 109 mmol/L [facility] CO2 [Moles/Vol] 27 mmol/L 22 - 32 mmol/L [facility] Creatinine [Mass/Vol] 0.78 mg/dL 0.60 - 1.30 mg/dL [facility] Comment on above: METHOD TRACEABLE TO IDUT STANDARD eGFR (CKD-EPI)non-race dependent - PINF [facility] Comment on above: Reported eGFR is based on the CKD-EPI 2020 equation that does not use a race coefficient. Glucose [Mass/Vol] 107 mg/dL High 65 - 99 mg/dL [facility] Potassium [Moles/Vol] 2.9 mmol/L Low 3.5 - 5.0 mmol/L [facility] Sodium [Moles/Vol] 136 mmol/L 134 - 146 mmol/L [facility] Urea nitrogen [Mass/Vol] 9 mg/dL 5 - 23 mg/dL [facility] C-reactive proteinon 06-01- 024 CRP [Mass/Vol] 4.1 mg/dL High 0.000 - 0.744 mg/dL [facility] CBC auto differentialon 05-19 Basophils (Bld) [#/Vol] 0.1 10*3/uL [facility] Basophils/100 WBC (Bld) 0.9 % [facility] Eosinophils (Bld) [#/Vol] 0.3 10*3/uL [facility] Eosinophils/100 WBC (Bld) 2.3 % [facility] Erythrocyte distribution width (RBC) [Ratio] 14.3 % 11.5 - 15.0 % [facility] Hematocrit (Bld) [Volume fraction] 41.2 % 39 - 49 % [facility] Hemoglobin (Bld) [Mass/Vol] 13.6 g/dL 13.0 - 17.0 g/dL [facility] Interpretation and review of laboratory results Abnormal [facility] Lymphocytes (Bld) [#/Vol] 2.5 10*3/uL [facility] Lymphocytes/100 WBC (Bld) 19.4 % [facility] MCH (RBC) [Entitic mass] 26 pg Low 27 - 34 pg [facility] MCHC (RBC) [Mass/Vol] 32.9 g/dL 32 - 36 g/dL [facility] MCV (RBC) [Entitic vol] 79 fL Low 80 - 100 fL [facility] Monocytes (Bld) [#/Vol] 1 10*3/uL High [facility] Monocytes/100 WBC (Bld) 7.4 % [facility] Neutrophils (Bld) [#/Vol] 9.1 10*3/uL High [facility] Neutrophils/100 WBC (Bld) 70 % [facility] Platelet mean volume (Bld) [Entitic vol] 7.6 fL 7 - 12 fL [facility] Platelets (Bld) [#/Vol] 374 10*3/uL [facility] RBC (Bld) [#/Vol] 5.23 10*6/uL [facility] WBC corrected for nucl RBC Auto (Bld) [#/Vol] 13 High [facility] ESR Photometric method (Bld) [Velocity]on 06-01-2024 Interpretation and review of laboratory results Abnormal [facility] Erythrocyte Sedimentation Ra te (ESR)on 06-01-2024 ESR Photometric method (Bld) [Velocity] 41 mm/h High 0 - 15 mm/h [facility] FUNGAL CULTUREon 06-01-2024 Fungus identified Cx Nom (Unsp spec) SPECIMEN NOTES SPECIMEN D FUNGAL SMEAR TEST NOT PERFORMED CULTURE RESULTS NO FUNGUS ISOLATED AFTER 4 WEEKS Normal [facility] Comment on above: Performed By: #### C BCA, PINR, 07041-3, 03457-1, BMP, 1987-11 #### [facility] ([id number]) [address], [address] [place] [address] Fungus identified Cx Nom (Unsp spec) SPECIMEN NOTES SPECIMEN C FUNGAL SMEAR NO FUNGAL ELEMENTS SEEN ON DIRECT SMEAR CULTURE RESULTS NO FUNGUS ISOLATED AFTER 4 WEEKS Normal [facility] Comment on above: Performed By: #### C BCA, PINR, 72545-7, 20228-4, BMP, 1987-11 #### [facility] ([id number]) [address], [address] [place] [address] Fungus identified Cx Nom (Unsp spec) SPECIMEN NOTES SPECIMEN B FUNGAL SMEAR NO FUNGAL ELEMENTS SEEN ON DIRECT SMEAR CULTURE RESULTS NO FUNGUS ISOLATED AFTER 4 WEEKS Normal [facility] Comment on above: Performed By: #### C BCA, PINR, 52650-2, 97976-4, BMP, 1987-11 #### [facility] ([id number]) [address], [address] [place] [address] Fungus identified Cx Nom (Unsp spec) SPECIMEN NOTES SPECIMEN A FUNGAL SMEAR NO FUNGAL ELEMENTS SEEN ON DIRECT SMEAR CULTURE RESULTS NO FUNGUS ISOLATED AFTER 4 WEEKS Normal [facility] Comment on above: Performed By: #### C BCA, PINR, 50776-0, 94939-9, BMP, 1987- #### [facility] ([id number]) [address] [place] [address], [address] [place] [address] No Panel Informationon 06-01 Interpretation and review of laboratory results Abnormal [facility] POTASSIUMon 06-01-2024 Potassium [Moles/Vol] 3.6 mmol/L Normal 3.5-5.0 [facility] Comment on above: Performed By: #### 2 823-3 #### [facility] ([id number]) [address] [place] [address], [address] [place] [address] Potassiumon 06-01-2024 Potassium [Moles/Vol] 3.6 mmol/L 3.5 - 5.0 mmol/L [facility] Potassium [Moles/Vol]on 05-19 [facility] Protime & INRon 06-01-2024 INR Coag (PPP) [Relative time] 1.1 {INR} [facility] PT Coag (PPP) [Time] 12.5 s [facility] Surgical Pathologyon 024 Surgical Pathology Normal [facility] Comment on above: Result Comment: [facility] [address] [place] [address] Surgical Pathology Consultation Patient Name:SERGIO HERNANDEZ Robin:1980 (Age: 43)Gender:MTaken:06/01/2024eported:06/08/2024hysician(s):Villa Tapia M.D. ([phone])Copy To: Rec. #:[id number]: #[id number] Final Pathologic Diagnosis Bone, right humerus, incision: Abscess with fibrosis, extending to the bone (osteomyelitis present). Report Electronically Signed Out rg/4Rhue Lipscomb MD Interpretation performed at [facility], [address] [place] [address], License number: [id number]. Clinical History Right upper extremity abscess. Gross Description Received in formalin labeled ORWIG, right humeral bone are multiple fragments of brown-richards bone reamings admixed with pink-velázquez cartilaginous material, and dark pink-richards, positive point soft tissue, 3.5 x 2.5 x 0.6 cm in aggregate. A definitive cyst or abscess is not identified. The soft tissue identified is submitted entirely in cassette A, and bilingual sales representative sections of bony material are submitted in cassette B following a period of fixation and decalcification in Rapid-Mariusz Immuno. (2, ss, [id number], m5) JFormerly [facility]/06/02/2024WAK Specimen(s) Received Right humeral bone Fee Codes(s): 1; 11494, 42269 TISSUE CULTUREon 06-01-2024 Bacteria identified Aer cx Nom (Tiss) SPECIMEN NOTES SPECIMEN C GRAM STAIN 1 to 9 WHITE BLOOD CELLS/LPF 0 SQUAMOUS EPITHELIAL CELLS/LPF NO ORGANISMS SEEN CULTURE RESULTS RARE STAPHYLOCOCCUS AUREUS [ S = SUSCEPTIBLE R = RESISTANT I = INTERMEDIATE S-DO = Susceptible-dose dependent NS = Non-suscceptible NO = No Interpretation ] Organism: STAPHYLOCOCCUS AUREUS Antibiotic Interpretation ASYA Status CEFAZOLIN S F CLINDAMYCIN S 0.25 F OXACILLIN S <=0.25 F TRIMETH/SULFAMETHOXAZOLE S <=.5/9.5 F VANCOMYCIN S 1 F DOXYCYCLINE S <=0.5 F Susceptible [facility] Comment on above: Performed By: #### C VALENTINA, PINR, 01677-1, 12109-6, [facility], 1987-11 #### [facility] ([id number]) [address] [place] [address], [address] [place] [address] Bacteria identified Aer cx Nom (Tiss) SPECIMEN NOTES SPECIMEN B GRAM STAIN 1 to 9 WHITE BLOOD CELLS/LPF 0 SQUAMOUS EPITHELIAL CELLS/LPF NO ORGANISMS SEEN CULTURE RESULTS RARE STAPHYLOCOCCUS AUREUS Isolate screened susceptible to Oxacillin. FOR SUSCEPTIBILITY, SEE PREVIOUS REPORT. Normal [facility] Comment on above: Performed By: #### C BCA, PINR, 27829-6, 03458-4, [facility], 1987-11 #### [facility] ([id number]) [address] [facility], [address] [place] [address] XR SHOULDER RT 1 VWon 2023 XR SHOULDER RT 1 VW XR SHOULDER RT 1 VW XR SHOULDER RT 1 VW INDICATION: Hardware removal, shoulder pain FINDINGS: Intraoperative fluoroscopy for hardware removal. No radiologist present during the examination. Reference Air Kerma = 0.99 mGy Fluoroscopy time: 11 seconds Saved images: 2 IMPRESSION: Intraoperative fluoroscopy provided as above. See operative report for additional details. Finalized by Hesham Cormier on 06/01/2024 9:10 PM Normal [facility] XR SHOULDER RT MIN 2 VWSon 1 08-01-2023 XR SHOULDER RT MIN 2 VWS XR SHOULDER RT MIN 2 VWS XR SHOULDER RT MIN 2 VWS HISTORY: post op. Arm pain. COMPARISON: none IMPRESSION: Sequelae of biceps tenodesis, remove hardware, placement of radiopaque beads. Expected soft tissue emphysema. Finalized by Vernon Mendiola MD on 06/01/2024 8:37 PM Normal [facility] XR SHOULDER RT MIN 2 VWS XR SHOULDER RT MIN 2 VWS XR SHOULDER RT MIN 2 VWS IMPRESSION: Clinical Information: eval right shoulder pain: AP, Grashey and Scap Y views Comparison: None. * No fracture. No dislocation. Mild degenerative changes. Prior biceps tenodesis. Finalized by Emerson Buchanan MD on 06/01/2024 7:00 AM Normal [facility] XR Shoulder - right 2 Viewso n 06-01-2024 XR SHOULDER RT MIN 2 VWS HISTORY: post op. Arm pain. COMPARISON: none IMPRESSION: Sequelae of biceps tenodesis, remove hardware, placement of radiopaque beads. Expected soft tissue emphysema. Finalized by Vernon Mendiola MD on 06/01/2024 8:37 PM Vernon Nichols MD - 06/01/2024 XR SHOULDER RT MIN 2 VWS HISTORY: post op. Arm pain. COMPARISON: none IMPRESSION: Sequelae of biceps tenodesis, remove hardware, placement of radiopaque beads. Expected soft tissue emphysema. Finalized by Vernon Mendiola MD on 06/01/2024 8:37 PM [facility] Radiology Study observation (narrative) [facility] XR SHOULDER RT MIN 2 VWS IMPRESSION: Clinical Information: eval right shoulder pain: AP, Grashey and Scap Y views Comparison: None. * No fracture. No dislocation. Mild degenerative changes. Prior biceps tenodesis. Finalized by Emerson Buchanan MD on 06/01/2024 7:00 AM Emerson Watts MD - 06/01/2024 XR SHOULDER RT MIN 2 VWS IMPRESSION: Clinical Information: eval right shoulder pain: AP, Grashey and Scap Y views Comparison: None. * No fracture. No dislocation. Mild degenerative changes. Prior biceps tenodesis. Finalized by Emerson Buchanan MD on 06/01/2024 7:00 AM [facility] Radiology Study observation (narrative) [facility] XR Shoulder - right 2 ViewsO rdered By: Vernon Mendiola on 06-01-2024 [facility] Work Phone: XR Shoulder - right 2 ViewsO rdered By: Emerson Buchanan on 06-01-2024 [facility] Work Phone: XR Shoulder - right Single v iewon 06-01-2024 XR SHOULDER RT 1 VW INDICATION: Hardware removal, shoulder pain FINDINGS: Intraoperative fluoroscopy for hardware removal. No radiologist present during the examination. Reference Air Kerma = 0.99 mGy Fluoroscopy time: 11 seconds Saved images: 2 IMPRESSION: Intraoperative fluoroscopy provided as above. See operative report for additional details. Finalized by Hesham Cormier on 06/01/2024 9:10 PM Hesham Matthews MD - 06/01/2024 XR SHOULDER RT 1 VW INDICATION: Hardware removal, shoulder pain FINDINGS: Intraoperative fluoroscopy for hardware removal. No radiologist present during the examination. Reference Air Kerma = 0.99 mGy Fluoroscopy time: 11 seconds Saved images: 2 IMPRESSION: Intraoperative fluoroscopy provided as above. See operative report for additional details. Finalized by Hesham Cormier on 06/01/2024 9:10 PM [facility] Radiology Study observation (narrative) [facility] XR Shoulder - right Single v iewOrdered By: Hesham Cormier on 06-01-2024 [facility] Work Phone: BASIC METABOLIC PANLon 05-31 Anion gap [Moles/Vol] 11 mmol/L Normal 5-15 [facility] Comment on above: Performed By: #### C BCA, PINR, 99368-5, 00947-4, BMP, 1987-11 #### [facility] ([id number]) [address], [address] [place] [address] Calcium [Mass/Vol] 8.7 mg/dL Normal 8.5-10.5 [facility] Comment on above: Performed By: #### C BCA, PINR, 71183-3, 79583-5, BMP, 1987-11 #### [facility] ([id number]) [address], [address] [place] [address] Chloride [Moles/Vol] 98 mmol/L Normal 98-109 [facility] Comment on above: Performed By: #### C BCA, PINR, 74649-6, 36144-8, BMP, 1987-11 #### [facility] ([id number]) [address], [address] [place] [address] CO2 [Moles/Vol] 27 mmol/L Normal 22-32 [facility] Comment on above: Performed By: #### C BCA, PINR, 62054-4, 14243-3, BMP, 1987-11 #### [facility] ([id number]) [address], [address] [place] [address] Creatinine [Mass/Vol] 0.78 mg/dL Normal 0.60-1.30 [facility] Comment on above: Result Comment: METH OD TRACEABLE TO IDMS STANDARD Performed By: #### C BCA, PINR, 57044-3, 06003-5, BMP, 1987-11 #### [facility] ([id number]) [address], [facility] [address] [place] [address] eGFR (CKD-EPI) NON-RACE DEPENDENT >90 Normal >59 [facility] Comment on above: Result Comment: Reported eGFR is based on the CKD-EPI 2020 equation that does not use a race coefficient. Performed By: #### C BCA, PINR, 65199-3, 50847-2, BMP, 1987-11 #### [facility] ([id number]) [address], [address] [place] [address] Glucose [Mass/Vol] 107 mg/dL High 65-99 [facility] Comment on above: Performed By: #### C BCA, PINR, 92602-8, 18580-5, BMP, 1987-11 #### [facility] ([id number]) [address], [address] [place] [address] Potassium [Moles/Vol] 2.9 mmol/L Low 3.5-5.0 [facility] Comment on above: Performed By: #### C BCA, PINR, 59073-9, 03986-6, BMP, 1987-11 #### [facility] ([id number]) [address], [address] [place] [address] Sodium [Moles/Vol] 136 mmol/L Normal 134-146 [facility] Comment on above: Performed By: #### C BCA, PINR, 87285-6, 89934-3, BMP, 1987-11 #### [facility] ([id number]) [address], [address] [place] [address] Urea nitrogen [Mass/Vol] 9 mg/dL Normal 5-23 [facility] Comment on above: Performed By: #### C BCA, PINR, 51672-0, 02413-9, BMP, 1987-11 #### [facility] ([id number]) [address], [address] [place] [address] BMPon 05-31-2024 Anion gap [Moles/Vol] 13 mmol/L Normal 6-16 [facility] Comment on above: Performed By: #### 2 [id number] #### [facility] [address] [place] [address] Calcium [Mass/Vol] 9.2 mg/dL Normal 8.9-11.1 [facility] Comment on above: Performed By: #### 2 [id number] #### [facility] [address] [place] [address] Chloride [Moles/Vol] 99 mmol/L Low 101-111 [facility] Comment on above: Performed By: #### 2 [id number] #### [facility] [address] [place] [address] CO2 [Moles/Vol] 28 mmol/L Normal 21-31 [facility] Comment on above: Performed By: #### 2 [id number] #### [facility] [address] [place] [address] Creatinine [Mass/Vol] 0.9 mg/dL Normal 0.5-1.3 [facility] Comment on above: Performed By: #### 2 [id number] #### [facility] [address] [place] [address] Glucose [Mass/Vol] 133 mg/dL Normal 55-199 [facility] Comment on above: Performed By: #### 2 [id number] #### [facility] [address] [place] [address] Potassium [Moles/Vol] 3.2 mmol/L Low 3.5-5.3 [facility] Comment on above: Performed By: #### 2 960655 #### [facility] [address] [place] [address] Sodium [Moles/Vol] 137 mmol/L Normal 135-145 [facility] Comment on above: Performed By: #### 2 667883 #### [facility] [address] [place] [address] Urea nitrogen [Mass/Vol] 11 mg/dL Normal 5-21 [facility] Comment on above: Performed By: #### 2 [id number] #### [facility] [address] [place] [address] Urea nitrogen/Creatinine [Mass ratio] 12 No Units Normal 10-20 [facility] Comment on above: Performed By: #### 2 616686 #### [facility] [address] [place] [address] CBC AND AUTO DIFFon 05-31-20 24 ABSOLUTE BASOPHIL 0.1 X10E9/L Normal 0.0-0.2 [facility] Comment on above: Performed By: #### C BCA, PINR, 79342-4, 31317-9, BMP, 1987-11 #### [facility] ([id number]) [address], [address] [place] [address] ABSOLUTE NEUTROPHIL 9.1 X10E9/L High 1.5-6.[address] [facility] Comment on above: Performed By: #### C BCA, PINR, 79707-6, 49080-4, BMP, 1987-11 #### [facility] ([id number]) [address], [address] [place] [address] Basophils/100 WBC (Bld) 0.9 % Normal [facility] Comment on above: Performed By: #### C BCA, PINR, 29005-2, 85984-3, BMP, 1987-11 #### [facility] ([id number]) [address], [address] [place] [address] Eosinophils (Bld) [#/Vol] 0.3 10*3/uL Normal 0.0-0.4 [facility] Comment on above: Performed By: #### C BCA, PINR, 24306-4, 19899-1, BMP, 1987-11 #### [facility] ([id number]) [address], [address] [place] [address] Eosinophils/100 WBC (Bld) 2.3 % Normal [facility] Comment on above: Performed By: #### C BCA, PINR, 98046-2, 83069-6, BMP, 1987-11 #### [facility] ([id number]) [address], [facility] [address] [place] [address] Erythrocyte distribution width (RBC) [Ratio] 14.3 % Normal 11.5-15.0 [facility] Comment on above: Performed By: #### C VALENT[place], PINR, 41446-4, 23680-8, BMP, 1987-11 #### [facility] ([id number]) [address] [address] [place] [address] Hematocrit (Bld) [Volume fraction] 41.2 % Normal 39-49 [facility] Comment on above: Performed By: #### C BCA, PINR, 61090-2, 23914-8, BMP, 1987-11 #### [facility] ([id number]) [address], [facility] [address] [place] [address] Hemoglobin (Bld) [Mass/Vol] 13.6 g/dL Normal 13.0-17.0 [facility] Comment on above: Performed By: #### C BCA, PINR, 51935-0, 06731-4, BMP, 1987-11 #### [facility] ([id number]) [address] [address] [place] [address] Lymphocytes (Bld) [#/Vol] 2.5 10*3/uL Normal 1.0-3.5 [facility] Comment on above: Performed By: #### C BCA, PINR, 53411-8, 94927-0, BMP, 1987-11 #### [facility] ([id number]) [address], [address] [place] [address] Lymphocytes/100 WBC (Bld) 19.4 % Normal [facility] Comment on above: Performed By: #### C BCA, PINR, 10419-7, 65352-2, BMP, 1987-11 #### [facility] ([id number]) [address], [address] [place] [address] MCH (RBC) [Entitic mass] 26.0 pg Low 27-34 [facility] Comment on above: Performed By: #### C BCA, PINR, 87887-8, 20314-9, BMP, 1987-11 #### [facility] ([id number]) [address] [place] [address] MCHC (RBC) [Mass/Vol] 32.9 g/dL Normal 32-36 [facility] Comment on above: Performed By: #### Magdalena BCA, PINR, 32987-1, 44600-0, BMP, 1987-11 #### [facility] ([id number]) [address] [place] [address] MCV (RBC) [Entitic vol] 79 fL Low 80-100 [facility] Comment on above: Performed By: #### C BCA, PINR, 81619-1, 25327-7, BMP, 1987-11 #### [facility] ([id number]) [address], [address] [place] [address] Monocytes (Bld) [#/Vol] 1.0 10*3/uL High 0-0.9 [facility] Comment on above: Performed By: #### C BCA, PINR, 52888-5, 25952-6, BMP, 1987-11 #### [facility] ([id number]) [address] [place] [address] Monocytes/100 WBC (Bld) 7.4 % Normal [facility] Comment on above: Performed By: #### C BCA, PINR, 69817-1, 56944-6, BMP, 1987-11 #### [facility] ([id number]) [address], [address] [place] [address] Neutrophils/100 WBC (Bld) 70.0 % Normal [facility] Comment on above: Performed By: #### C BCA, PINR, 45175-4, 45834-1, BMP, 1987-11 #### [facility] ([id number]) [address] [place] [address] Platelet mean volume (Bld) [Entitic vol] 7.6 fL Normal 7-12 [facility] Comment on above: Performed By: #### C BCA, PINR, 96304-9, 63052-4, BMP, 1987-11 #### [facility] ([id number]) [address], [address] [place] [address] Platelets (Bld) [#/Vol] 374 10*3/uL Normal 150-450 [facility] Comment on above: Performed By: #### C BCA, PINR, 76425-5, 29349-0, BMP, 1987-11 #### [facility] ([id number]) [address], [address] [place] [address] RBC COUNT 5.23 X10E12/L Normal 4.10-5.70 [facility] Comment on above: Performed By: #### Magdalena BCA, PINR, 08721-1, 30995-8, BMP, 1987-11 #### [facility] ([id number]) [address], [address] [place] [address] WBC (Bld) [#/Vol] 13.0 10*3/uL High 4.0-11.0 [facility] Comment on above: Performed By: #### C BCA, PINR, 99498-4, 62326-3, BMP, 1987-11 #### [facility] ([id number]) [address], [address] [place] [address] CBC w/ Auto Diffon 4 Basophils/100 WBC (Bld) 1.2 % Normal 0.0-2.0 [facility] Comment on above: Performed By: #### 2 000376 #### [facility] [address] [place] [address] Basophils/Leukocyte s Auto (Bld) [Pure # fraction] 0.2 E9/L Normal 0.0-0.2 [facility] Comment on above: Performed By: #### 2 001877 #### [facility] [address] [place] [address] Eosinophils (Bld) [#/Vol] 0.1 E9/L Normal 0.0-0.5 [facility] Comment on above: Performed By: #### 2 744166 #### [facility] [address] [place] [address] Eosinophils/100 WBC (Bld) 0.8 % Normal 0.0-8.0 [facility] Comment on above: Performed By: #### 2 360052 #### [facility] [address] [place] [address] Erythrocyte distribution width (RBC) [Ratio] 14.3 % High 10.9-14.2 [facility] Comment on above: Performed By: #### 2 395206 #### [facility] [address] [place] [address] Hematocrit (Bld) [Volume fraction] 43.8 % Normal 37.7-49.0 [facility] Comment on above: Performed By: #### 2 488081 #### [facility] [address] [place] [address] Hemoglobin (Bld) [Mass/Vol] 14.6 g/dL Normal 13.5-17.5 [facility] Comment on above: Performed By: #### 2 755563 #### [facility] [address] [place] [address] Lymphocytes (Bld) [#/Vol] 2.2 E9/L Normal 1.0-4.0 [facility] Comment on above: Performed By: #### 2 909555 #### [facility] [address] [place] [address] Lymphocytes/100 WBC (Bld) 14.3 % Normal 14.0-50.0 [facility] Comment on above: Performed By: #### 2 678895 #### [facility] [address] [place] [address] MCH (RBC) [Entitic mass] 26.4 pg Low 27.0-34.0 [facility] Comment on above: Performed By: #### 2 483593 #### [facility] [address] [place] [address] MCHC (RBC) [Mass/Vol] 33.3 g/dL Normal 31.4-36.0 [facility] Comment on above: Performed By: #### 2 409496 #### [facility] [address] [place] [address] MCV (RBC) [Entitic vol] 79.5 fL Low 80.0-100.0 [facility] Comment on above: Performed By: #### 2 947054 #### [facility] [address] [place] [address] Monocytes (Bld) [#/Vol] 0.9 E9/L Normal 0.2-1.0 [facility] Comment on above: Performed By: #### 2 741011 #### [facility] [address] [place] [address] Neutrophils (Bld) [#/Vol] 12.2 E9/L High 2.0-7.5 [facility] Comment on above: Performed By: #### 2 829290 #### [facility] [address] [place] [address] Neutrophils/100 WBC (Bld) 78.2 % High 36.0-75.0 [facility] Comment on above: Performed By: #### 2 107792 #### [facility] [address] [place] [address] Platelet mean volume (Bld) [Entitic vol] 7.7 fL Normal 6.4-10.8 [facility] Comment on above: Performed By: #### 2 243055 #### [facility] [address] [place] [address] Platelets (Bld) [#/Vol] 412.0 E9/L Normal 150.0-500.0 [facility] Comment on above: Performed By: #### 2 478480 #### [facility] [address] [place] [address] RBC (Bld) [#/Vol] 5.5 E12/L Normal 4.3-5.9 [facility] Comment on above: Performed By: #### 2 [id number] #### [facility] [address] [place] [address] WBC corrected for nucl RBC Auto (Bld) [#/Vol] 15.6 E9/L High 4.0-11.0 [facility] Comment on above: Result Comment: Samantha pheral smear review performed. Performed By: #### 2 572714 #### [facility] [address] [place] [address] CHEMISTRYOrdered By: SYSTEM SYSTEM on 05-31-2024 Lactic Acid Lvl 1.4 mmol/L Normal 0.5 - 2.2 mmol/L [facility] Anion gap [Moles/Vol] 13 mmol/L Normal 6 - 16 mEq/L [facility] Calcium [Mass/Vol] 9.2 mg/dL Normal 8.9 - 11. 1 mg/dL [facility] Chloride [Moles/Vol] 99 mmol/L Low 101 - 111 mmol/L [facility] CO2 [Moles/Vol] 28 mmol/L Normal 21 - 31 mmol/L [facility] Creatinine [Mass/Vol] 0.9 mg/dL Normal 0.5 - 1.3 mg/dL [facility] CRP [Mass/Vol] 4.8 mg/dL High <=1.9mg/dL [facility] eGFR 107 mL/min/1.73 m2 Normal >=59mL/mi n/ 1.73 m2 [facility] Glucose [Mass/Vol] 133 mg/dL Normal 55 - 199 mg/dL [facility] Lactic Acid Lvl 2.2 mmol/L Normal 0.5 - 2.2 mmol/L [facility] Potassium [Moles/Vol] 3.2 mmol/L Low 3.5 - 5.3 mmol/L [facility] Sodium [Moles/Vol] 137 mmol/L Normal 135 - 145 mmol/L [facility] Urea nitrogen [Mass/Vol] 11 mg/dL Normal 5 - 21 mg/dL [facility] Urea nitrogen/Creatinine [Mass ratio] 12 mg/mg Normal 10 - 20 [facility] CRPon 05-31-2024 CRP [Mass/Vol] 4.8 mg/dL High <=1.9 [facility] Comment on above: Performed By: #### 2 [id number] #### [facility] [address] [place] [address] CRP [Mass/Vol]on 05-31-2024 C REACTIVE PROTEIN 4.1 mg/dL High 0.000-0.744 [facility] Comment on above: Performed By: #### C BCA, PINR, 30490-0, 90915-7, BMP, 1988- #### [facility] ([id number]) [address], [address] [place] [address] CT Upper Extremity w/ Contra st [place] 05-31-2024 CT Upper Extremity w/ Contrast Right Exam Date/Time: 05/31/2024 14:28 EST Reason for Exam: Right upper arm swelling/redness. History of osteomyelitis right humerus;Abscess Report IMPRESSION: UP TO 4 CM ORGANIZED FLUID COLLECTION WITHIN THE PROXIMAL RIGHT ARM, SUSPICIOUS FOR AN ABSCESS. NONSPECIFIC BONY PROXIMAL HUMERAL DIAPHYSEAL LUCENCY AROUND THE TENODESIS GRAFT, POSSIBLY CHRONIC BONY CHANGE VERSUS RECURRENT OSTEOMYELITIS. EXAM: CT Upper Extremity w/ Contrast Right DATE: 05/31/2024 2:11 PM CLINICAL HISTORY: Abscess, Right upper arm swelling/redness. History of osteomyelitis right humerus. COMPARISON: Right shoulder MR Arthrogram 05/14/2021. TECHNIQUE: Spiral imaging of the right arm was performed after the infusion of approximately 100 mL of Isovue [address] scans at this facility use dose modulation, iterative reconstruction, and/or weight based dosing when appropriate to reduce radiation dose to as low as reasonably achievable. FINDINGS: An approximately 2.5 x 1.6 x 4 cm (AP, transverse and sagittal dimensions) organized fluid collection with mild marginal bandlike density is noted within the subcutaneous fat of the anterolateral proximal right arm deep to skin thickening (presumably at the recent surgical incision site). An osteotomy within the proximal right humeral diaphysis is noted from the recent biceps tenodesis, with nonspecific lucency within the medullary canal, that appears substantially similar in size to the MRI of 05/14/2021. There is no other organized soft tissue collection, soft tissue emphysema, sizable joint effusion, suspicious lymphadenopathy, or other findings of concern identified. Ordering Provider: Yuval Tineo FINAL REPORT Dictated: 05/31/2024 3:00 pm Kun Vallejo MD Signed (Electronic Signature): 05/31/2024 3:00 pm Signed by: Kun Vallejo MD Transcribed by: KETTY Technologist: OBDULIA Technical Comments GFR (mL/min/1/73m2) na Contrast: Isovue 300 Contrast amount in ml's: 100 Normal [facility] ED Clinical Summaryon 2023 ED Clinical Summary ED Clinical Summary [place] [id number] ED Clinical Summary Person Information Name: SERGIO HERNANDEZ [facility]re[facility] Age: 43 Years : 1980 Sex: Male Language: [place] PCP: ARNOLD HARTLEY CNP Marital Status: Visit Id: Visit Reason: Arm pain-swelling; Skin problem; SENT BY ARNOLD HARTLEY - ARM PAIN Speciality: Acuity: 3 Enc Type: Emergency Med Service: Emergency Arrival: 05/31/2024 13:08:50 Discharge: 05/31/2024 21:00:40 LOS: 000 07:52 Checkin: 05/31/2024 13:08:50 Checkout: 05/31/2024 21:00:40 Dispo Type: Undefined HC Fac EVENTS: Event Name Event Status Request Date/Time Start Date/Time Complete Date/Time Arrive Complete 05/31/2024 13:08:50 05/31/2024 13:08:50 05/31/2024 13:08:50 Document Home Meds Request 05/31/2024 13:08:50 Triage Complete 05/31/2024 13:08:50 05/31/2024 13:25:03 05/31/2024 13:25:03 Registration Complete 05/31/2024 13:13:11 05/31/2024 13:13:11 05/31/2024 13:13:11 Reg Complete Request 05/31/2024 13:13:11 Reg Bed Request Complete 05/31/2024 13:13:11 05/31/2024 13:13:11 05/31/2024 13:13:11 Bed Assign Complete 05/31/2024 13:14:14 05/31/2024 13:14:14 05/31/2024 13:14:14 Dr Exam Complete 05/31/2024 13:14:14 05/31/2024 13:14:30 05/31/2024 13:14:30 RN Exam Complete 05/31/2024 13:14:14 05/31/2024 14:49:39 05/31/2024 14:49:39 Registration Complete 05/31/2024 13:14:30 05/31/2024 13:19:52 05/31/2024 13:19:52 Isolation Screening Request 05/31/2024 13:25:03 Pending Labs Inlab 05/31/2024 13:31:47 Lab Inlab 05/31/2024 13:31:47 CT Cancel 05/31/2024 13:31:47 05/31/2024 13:35:01 Meds Admin Complete 05/31/2024 13:32:20 05/31/2024 13:52:57 CT Complete 05/31/2024 13:36:06 05/31/2024 14:11:00 05/31/2024 14:28:12 Pending Labs Complete 05/31/2024 13:51:51 05/31/2024 13:51:51 05/31/2024 14:18:21 Lab Complete 05/31/2024 13:51:51 05/31/2024 13:51:51 05/31/2024 14:18:21 Pending Labs Complete 05/31/2024 14:17:11 05/31/2024 17:53:43 Lab Complete 05/31/2024 14:17:11 05/31/2024 17:53:43 Possible Sepsis Request 05/31/2024 14:46:10 Meds Admin Complete 05/31/2024 15:15:17 05/31/2024 15:34:00 Meds Admin Complete 05/31/2024 15:16:59 05/31/2024 16:24:37 Meds Admin Complete 05/31/2024 15:26:13 05/31/2024 15:34:01 Meds Admin Complete 05/31/2024 16:37:04 05/31/2024 16:56:22 Meds Admin Complete 05/31/2024 16:58:34 05/31/2024 17:29:58 Patient Care Request 05/31/2024 17:42:55 Transfer Complete 05/31/2024 17:42:55 05/31/2024 21:01:11 05/31/2024 21:01:11 Meds Admin Complete 05/31/2024 19:07:14 05/31/2024 19:12:38 Discharge Complete 05/31/2024 21:01:11 05/31/2024 21:01:11 05/31/2024 21:01:11 ADDRESS: [address] [place] [id number] [facility] DOC NOTES: MEDICAL INFORMATION: Prescriptions Given: Medications to Continue with No Changes Other Medications atorvastatin (atorvastatin 10 mg Tab) hydrochlorothiazide (hydrochlorothiazide 25 mg Tab) TAKE 1 TABLET BY MOUTH EVERY DAY. omeprazole (omeprazole 20 mg Cap-DR) TAKE 1 CAPSULE BY MOUTH IN THE MORNING BEFORE MEALS, DO NOT CRUSH, CHEW, OR SPLIT. PATIENT EDUCATION INFORMATION: Instructions: Follow up: DIAGNOSIS: 1:Abscess of upper arm; 2:Systemic inflammatory response syndrome (SIRS); 3:Hypokalemia Normal [facility] ED Note-Physicianon 05-31-20 ED Note-Physician ED Note-Physician Basic Information Time Seen: Yuval Tineo M.D. 05/31/2024 13:14 Chief Complaint 2020 pt had right arm tendon repair with multiple issues, infection following. a couple weeks ago pt started noticing tightness and redness in upper arm near scar. worsening since. History of Present Illness The patient is a 43-year-old male who presented to the emergency room with right upper arm pain and redness. The patient states on 2019 he had right shoulder injury and he had surgery after it. The patient states he had to reinsert the biceps by Dr. Marquis in 2019. The patient states he developed osteomyelitis of the humerus and he was with PICC line and IV antibiotic. The patient states for the past 2 weeks he has been having tightness in the upper part of the scar of previous surgery. The patient states for past couple of days he started having pain that is going up to the shoulder. Today he went to see his primary doctor who noticed that he had redness of the upper arm and told him to come to the emergency room. The patient states the arm was not red in the morning other than some discoloration of the scar. The patient denies any fever, denies any chills. He denies any nausea or vomiting. The patient denies any other associated symptoms. Review of Systems Additional ROS info: Except as noted in the above Review of Systems and in the History of Present Illness all other systems have been reviewed and are negative or noncontributory. Physical Exam Vitals & Measurements T: 36.8 ???C(Oral) HR: 122(Monitored) RR: 16 BP: 141/100 SpO2: 97% HT: 182 cm WT: 106.6 kg BMI: 32.18 General: alert, no acute distress Skin: warm, dry Head: no trauma, normocephalic Neck: Trachea midline, Eye: normal conjunctiva, sclera clear, ENMT: Oral mucosa moist Cardiovascular: Tachycardia Respiratory: Lungs CTA, respirations non labored, breath sounds equal, Gastrointestinal: soft, non distended, no tenderness, no guarding Extremities: no deformity, no trauma, upper arm with erythema and swelling anterior to the biceps muscle with warmth and tenderness with palpation. Proximal and of the surgical scar with swelling and induration below the scar. No fluctuation appreciated. Neurological: Alert and oriented, speech normal, no focal neuro deficits Psychiatric: cooperative, affect appropriate for age, Medical Decision Making MEDICAL DECISION MAKING Number and Complexity of Problems Differential Diagnosis: [] [facility] Data External documents reviewed: [] My EKG interpretation: [] My CT interpretation: [] My X-ray interpretation: [] My Ultrasound interpretation: [] Decision rules/scores evaluated: [] Discussed with: Dr. Wolfe and Dr. Marquis Treatment and Disposition ED Course: The patient presented with pain on his right upper arm. The patient states he was diagnosed with osteomyelitis of the upper arm in the past. He does have cellulitis with induration below the surgical scar. Blood work reviewed. His white count is elevated. The patient the patient is tachycardic. He has SIRS 2 out of 4. The patient has hypokalemia???replaced. The patient was started on vancomycin and ceftriaxone since he grew up [place] when he had abscess in the past. The patient received multiple doses of pain medication. Initially the case was discussed with Dr. Wolfe who is on-call for orthopedic who recommends discussing it with Dr. Marquis since this is his patient. The case was discussed with Dr. Marquis and he recommends patient be transferred to a tertiary care for higher level of care. The case was discussed with Dr. Tapia from [facility] who accepted the patient and he recommends patient be sent to the ER. The case is discussed with Dr. Cisneros from the ER who accepted patient for transfer. The patient will be transferred via [facility]. Shared decision making: [] Code status: [] Critical Care Time: 40 minutes, critical care time is separate from any procedures that are performed. The following was considered in the determination of critical care but not limited to the level medical decision-making, intensive cardiac and/or respiratory monitor, frequent vital sign monitoring, evaluation of laboratory studies, evaluation of a radiographic studies, oxygen monitoring and constant monitoring. Assessment/Plan 1. Abscess of upper arm (L02.419: Cutaneous abscess of limb, unspecified) 2. Systemic inflammatory response syndrome (SIRS) (R65.10: Systemic inflammatory response syndrome (SIRS) of non-infectious origin without acute organ dysfunction) 3. Hypokalemia (E87.6: Hypokalemia) Orders: ceftriaxone + Sodium Chloride 0.9% intravenous solution 50 mL, 2,000 mg = 1 EA, Injection, IV Piggyback, Once, Stop date 05/31/24 15:14:00 EST, STAT, Start date 05/31/24 15:14:00 EST, 100 mL/hr, Infuse over 30 minute(s) morphine, 4 mg = 1 mL, Injection, IV Push, Once, Stop date 05/31/24 15:26:00 EST, STAT, Start date 05/31/24 15:26:00 EST, 05/31/24 1 (more content not included)... Normal [facility] Comment on above: Result Comment: Elec tronically Signed By: Yuval Tineo M.D.\.br\Date and Time Signed: 05/31/24 19:23 EST ED Patient Education Noteon 05-31-2024 ED Patient Education Note ED Patient Education Note Normal [facility] ED Patient Summaryon 024 ED Patient Summary ED Patient Summary [place] [id number] Patient Discharge Instructions Person Information Name: SERGIO HERNANDEZ Age: 43 Years Arrival Date: 05/31/2024 13:08:50 Discharge Diagnosis: 1:Abscess of upper arm; 2:Systemic inflammatory response syndrome (SIRS); 3:Hypokalemia Primary Care Physician: ARNOLD HARTLEY CNP Provider Information Primary Provider: Yuval Tineo M.D. [employer] Supervisor:None The exam and treatment you received in the Emergency Department were for an urgent problem and are not intended as complete care. It is important that you follow up with a doctor, nurse practitioner, or physician???s assistant finance manager for ongoing care. If your symptoms become worse or you do not improve as expected and you are unable to reach your usual health care provider, you should return to the Emergency Department. We are available 24 hours a day. SERGIO HERNANDEZ has been given the following list of patient education materials, prescriptions and follow-up instructions: Follow-up Instructions: In the event that this physician does not participate in your insurance network, please consult with your insurance company to find a nearby participating provider. Patient Education Materials: A MESSAGE TO ALL PATIENTS REGARDING OPIOIDS PRESCRIPTION OPIOIDS: WHAT YOU NEED TO KNOW Prescription opioids can be used to help relieve [id number] pain and are often prescribed following a surgery or injury, or for certain health conditions. These medications can be an important part of the treatment but also come with serious risks. It is important to work with your healthcare provider to make sure you are getting the safest, most effective care. WHAT ARE THE RISKS AND SIDE EFFECTS OF OPIOID USE? Prescription opioids carry serious risks of addiction and overdose, especially with prolonged use. An opioid overdose, often marked by slowed breathing, can cause sudden . The use of prescription opioids can have a number of side effects as well, even when taken as directed: ??? Tolerance???meaning you might need to take more of the medication for the same pain relief ??? Physical dependence???meaning you have symptoms of withdrawal when a medication is stopped ??? Increased sensitivity to pain ??? Constipation ??? Nausea, vomiting, and dry mouth ??? Sleepiness and dizziness ??? Confusion ??? Depression ??? Low levels of testosterone that can result in lower sex drive, energy, and strength ??? Itching and sweating RISKS ARE GREATER WITH: ??? History of drug misuse, substance use disorder, or overdose ??? Mental health conditions (such as depression or anxiety) ??? Sleep apnea ??? Older age (65 years and older) ??? Avoid alcohol while taking prescription opioids. Also, unless specifically advised by your health care provider, medications to avoid include: ??? Benzodiazepines (such as Xanax or Valium) ??? Muscle relaxants (such as Soma or Flexeril) ??? Hypnotics (such as Ambien or Lunesta) ??? Other prescription opioids KNOW YOUR OPTIONS Talk to your health care provider about ways to manage your pain that don???t involve prescription opioids. Some of these options may actually work better and have fewer risks and side effects. Options may include: ??? Pain relievers such as acetaminophen, ibuprofen, and naproxen ??? Some medication that are also used for depression or seizures ??? Physical therapy and exercise ??? Cognitive behavioral therapy, a psychological, goal-directed approach, in which patients learn how to modify physical, behavioral, and emotional triggers of pain and stress. IF YOU ARE PRESCRIBED OPIOIDS FOR PAIN: ??? Never take opioids in greater amounts or more often than prescribed. ??? Follow up with your primary health care provider. o Work together to create a plan on how to manage your pain. o Talk about ways to help manage your pain that don???t involve prescription opioids. o Talk about any and all concerns and side effects. ??? Help prevent misuse and abuse o Never sell or share prescription opioids. o Never use another person???s prescription opioids. ??? Store prescription opioids in a secure place and out of reach of others (this may include visitors, children, friends, and family). ??? Safely dispose of unused prescription opioids: Find your community drug take-back program or your pharmacy mail-back program, or flush them down the toilet, following guidance from the Food and Drug Administration (www.fda.gov/Drugs/Resources ForYou). ??? Visit www.cdc.gov/drugoverdose to learn about the risks of opioids abuse and overdose. ??? If you believe you may be struggling with addiction, tell your health animal care provider and ask for guidance or call [facility]???S [employer] Helpline at 2-092-757-OUTI. [employer] Source: [place] Departme (more content not included)... Normal [facility] ESR Photometric method (Bld) [Velocity]on 05-31-2024 ESR, ERYTHROCYTE SEDIMENTATION RATE 41 mm/h High 0-15 [facility] Comment on above: Performed By: #### C BCA, PINR, 85405-5, [id number], BMP, 1988- #### [facility] ([id number]) [address], [address] [place] [address] Gastroenterology Office/Clin ic Noteon 05-31-2024 Gastroenterology Office/Clinic Note Gastroenterology Office/Clinic Note Chief Complaint EGD and colonoscopy follow up. HPI Staff Patient is a(n) 43 year old male who presents today for a follow-up to EGD & Colonoscopy on 05/17/24. Labs not completed as ordered at last visit. any GI complaints? No Denies blood thinners. Denies GLP-1 agonists. Last visit 04/27/24 w/Dr. Gunn: Assessment/Plan 1. Alcoholic liver disease (K70.9: Alcoholic liver disease, unspecified) Used to drink alcohol since the age of 13 Trying to quit recently, he can go weeks without drinking, encouraged to quit heavy drinking Will obtain ultrasound and FibroScan 2. Screen for colon cancer (Z12.11: Encounter for screening for malignant neoplasm of colon) 2 second-degree relatives with colon cancer, proceed with colonoscopy 3. Chronic GERD (K21.9: Gastro-esophageal reflux disease without esophagitis) Severe, controlled with omeprazole, proceed with EGD FibroScan 05/22/24: E 5.4 CAP 354 F0/F1 S3 EGD: Impression and Plan 1. Normal esophagus 2. Normal examined stomach 3. Thickened fold in the duodenal sweep, otherwise normal examined duodenum. Biopsied the duodenal fold to rule out adenoma Colonoscopy: Impression and Plan 1. Normal rectal exam 2. Mild sigmoid diverticulosis. Otherwise normal exam 3. Normal examined terminal ileum Recommendations: Repeat colonoscopy:: In 10 years. Pathology: Final Diagnosis ( Modified ) DUODENAL BULB, BIOPSY: ??? DUODENAL MUCOSA WITHIN NORMAL LIMITS. US liver 04/28/24: IMPRESSION: HEPATIC STEATOSIS. HEPATOMEGALY. Review of Systems PHQ Score Initial Depression Screen Score: 0 SCORE Physical Exam Vitals & Measurements HR: 94(Peripheral) BP: 127/86 HT: 72 in HT: 182 cm WT: 106.6 kg WT: 235.012 lb BMI: 32.18 Assessment/Plan 1. Alcoholic liver disease (K70.9: Alcoholic liver disease, unspecified) Was drinking heavily since the age of 13, slow down, we discussed safe daily intake of alcohol per the World Health Organization recommendations Ultrasound was unremarkable, FibroScan showed severe steatosis, no fibrosis 2. Chronic GERD (K21.9: Gastro-esophageal reflux disease without esophagitis) Specially nocturnal symptoms, currently controlled with omeprazole, we discussed lifestyle modifications, EGD negative for Ludwig's esophagus 3. Screen for colon cancer (Z12.11: Encounter for screening for malignant neoplasm of colon) Average risk, repeat in 10 years Follow-up No qualifying data available Problem List/Past Medical History Ongoing Alcoholic liver disease Arthritis Carpal tunnel syndrome Cellulitis Chronic GERD Deformity of cervical vertebra Gastroenteritis Headache disorder Herpes zoster ophthalmicus Mononeuropathy of upper limb Osteomyelitis Recurrent major depressive episodes, mild Scapulocostal syndrome Screen for colon cancer Skin sensation disturbance Smoker 18-JAN-2014 12:37:00<$> Spondylosis Thoracic outlet syndrome Torticollis Historical No qualifying data Procedure/Surgical History Colonoscopy (05/17/2024), Esophagogastroduodenoscopy (05/17/2024), Arthroscopy of shoulder (04/12/2020), Colonoscopy. Medications atorvastatin 10 mg Tab hydrochlorothiazide 25 mg Tab omeprazole 20 mg Cap-DR Allergies penicillins (Anaphylactic reaction) Social History Alcohol - Medium Risk, 04/05/2020 Current, Beer, Wine, 3-5 times per week, 04/05/2020 Substance Abuse Current, Marijuana, Daily, 04/27/2024 Cocaine, Marijuana, 12/20/2022 Current, Marijuana, Daily, Previous treatment: None. IV drug use: No., 04/05/2020 Tobacco - High Risk, 09/06/2020 10 or more cigarettes (1/2 pack or more)/day in last 30 days Tobacco Use:. Never Smokeless Tobacco Use:. Cigarettes, Started age 16.0 Years., 05/31/2024 10 or more cigarettes (1/2 pack or more)/day in last 30 days Tobacco Use:. Never Smokeless Tobacco Use:. Cigarettes, Yes, 04/27/2024 Family History Malignant neoplasm of colon: Grandparent and Grandparent. Immunizations Vaccine Date Status Comments influenza virus vaccine, inactivated - Not Given Patient Refuses Normal [facility] Comment on above: Result Comment: Elec tronically Signed By: Velia BRASWELL, Philip Riley\.br\Date and Time Signed: 05/31/24 11:14 EST HEMATOLOGYOrdered By: SYSTEM SYSTEM on 05-31-2024 Basophils/100 WBC (Bld) 1.2 % Normal 0.0 - 2.0 % Remisol Heme Basophils/Leukocyte s Auto (Bld) [Pure # fraction] 0.2 E9/L Normal 0.0 - 0.2 E9/L Remisol Heme Eosinophils (Bld) [#/Vol] 0.1 E9/L Normal 0.0 - 0.5 E9/L Remisol Heme Eosinophils/100 WBC (Bld) 0.8 % Normal 0.0 - 8.0 % Remisol Heme Erythrocyte distribution width (RBC) [Ratio] 14.3 % High 10.9 - 14.2 % Remisol Heme Hematocrit (Bld) [Volume fraction] 43.8 % Normal 37.7 - 49.0 % Remisol Heme Hemoglobin (Bld) [Mass/Vol] 14.6 g/dL Normal 13.5 - 17.5 gm/dL Remisol Heme Lymphocytes (Bld) [#/Vol] 2.2 E9/L Normal 1.0 - 4.0 E9/L Remisol Heme Lymphocytes/100 WBC (Bld) 14.3 % Normal 14.0 - 50.0 % Remisol Heme MCH (RBC) [Entitic mass] 26.4 pg Low 27.0 - 34.0 pg Remisol Heme MCHC (RBC) [Mass/Vol] 33.3 g/dL Normal 31.4 - 36.0 gm/dL Remisol Heme MCV (RBC) [Entitic vol] 79.5 fL Low 80.0 - 100.0 fL Remisol Heme Monocytes (Bld) [#/Vol] 0.9 E9/L Normal 0.2 - 1.0 E9/L Remisol Heme Monocytes/100 WBC (Bld) 5.5 % Normal 4.0 - 14.0 % Remisol Heme Neutrophils (Bld) [#/Vol] 12.2 E9/L High 2.0 - 7.5 E9/L Remisol Heme Neutrophils/100 WBC (Bld) 78.2 % High 36.0 - 75.0 % Remisol Heme Platelet mean volume (Bld) [Entitic vol] 7.7 fL Normal 6.4 - 10.8 fL Remisol Heme Platelets (Bld) [#/Vol] 412.0 E9/L Normal 150.0 - 500.0 E9/L Remisol Heme RBC (Bld) [#/Vol] 5.5 E12/L Normal 4.3 - 5.9 E12/L Remisol Heme WBC corrected for nucl RBC Auto (Bld) [#/Vol] 15.6 E9/L High 4.0 - 11.0 E9/L [facility] Comment on above: Result Comment: Samantha pheral smear review performed. HEMATOLOGYOrdered By: Sanjana Lopez on 05-31-2024 ESR (Bld) [Velocity] 11 mm/h Normal 0 - 19 mm/hr [facility] [place]eAuto[place] Lactic Acidon 05-31-2024 Lactic Acid Lvl 1.4 mmol/L Normal 0.5-2.2 [facility] Comment on above: Order Comment: Order added by EKS Rule. (FT_LACTIC_ACID_REFLEX) Adds reflex Lactic Acid 4 hours after initial if result is greater than or equal to 2.0. Performed By: #### 2 [id number] #### [facility] [address] [place] [address] Lactic Acid Lvl 2.2 mmol/L Normal 0.5-2.2 [facility] Comment on above: Performed By: #### 2 [id number] #### [facility] [address] [place] [address] PROTIME AND INRon 05-31-2024 INR Coag (PPP) [Relative time] 1.1 {INR} Normal 0.8-1.1 [facility] Comment on above: Performed By: #### C VALENTINA, PINR, [id number], 71211-4, [facility], 1987-11 #### [facility] ([id number]) [address] [place] [address] PT Coag (PPP) [Time] 12.5 s Normal 9.8-13.2 [facility] Comment on above: Performed By: #### C BCA, PINR, 74955-5, 54239-6, [facility], 1989-11 #### [facility] ([id number]) [address], [address] [place] [address] Pre-Arrival Noteon Pre-Arrival Note Pre-Arrival Note Pre-Arrival Summary Name: , private car Current Date: 05/31/2024 13:33:38 EST Gender: Male Date of : Age: 43 Pre-Arrival Type: EMS ETA: 05/31/2024 13:24:00 EST Primary Care Physician: Presenting Problem: arm pain/swelling/redness Pre-Arrival User: Christian De La Garza RN Referring Source: Location: [place] Completion Date/Time: 05/31/2024 12:55:00 [facility] Emergency Department Pre-Hospital Report Form Vital Signs: Pre-Hospital Report: Treatment in Route: Response to Treatment: Misc. Issues: Normal [facility] Reminderson 05-31-2024 Reminders Reminders From: Iliana Rogers To: [facility] - Reminders/Recalls; Sent: 05/31/2024 11:48:30 EST Show up: 03/19/2034 11:48:00 EDT Subject: Ambulatory Reminder Due Date/Time: 04/18/2034 11:48:00 EDT Reminder/Recall Addendum by Iliana Rogers on May 31, 2024 11:47:47 EST 05/17/2034 10 year From: Holden Gunn [facility] To: Iliana Rogers; Sent: 05/31/2024 11:14:27 EST Subject: General Message Caller Name: MARYSERGIO; Caller Number: , Colonoscopy 2033 Normal [facility] Sed Rate Automatedon 024 ESR (Bld) [Velocity] 11 mm/h Normal 0-19 [facility] Comment on above: Performed By: #### 1 [id number] #### [facility] [address] [place] [address] aPTT Coag (PPP) [Time]on aPTT Coag (Bld) [Time] 31 s Normal 26-37 [facility] Comment on above: Performed By: #### C BCA, PINR, 51001-0, 65261-4, BMP, 1989-11 #### [facility] ([id number]) [address], [address] [place] [address] eGFRon 05-31-2024 eGFR 107 mL/min/1.73 m2 Normal >=59 [facility] Comment on above: Performed By: #### 1 [id number] #### [facility] [address] [place] [address] Surgical Pathology Reporton 05-24-2024 Surgical Pathology Report [address] [address]- Surgical Pathology Report Collected Date/Time: 05/17/2024 14:35 EDT Pathologist: Johann BRASWELL PhD, Max Glover Received Date/Time: 05/18/2024 07:56 EDT Velia BRASWELL, Philip Gunn MD, Philip Riley 07 Surgical Pathology Report - 05/24/2024 15:11 EST - Auth (Verified) Final Diagnosis DUODENAL BULB, BIOPSY: - DUODENAL MUCOSA WITHIN NORMAL LIMITS. (Electronic Signature) Max Wills MD PhD 05/24/2024 15:11 Clinical Information Alcoholic liver disease, screening, Chronic GERD Pre-Op Diagnosis: Alcoholic liver disease, screening, Chronic GERD Procedure: EGD, colonoscopy Post-Op Diagnosis: 1. Normal esophagus 2. Normal examined stomach 3. Thickened fold in the duodenal sweep, otherwise normal examined duodenum. Biopsied the duodenal fold to rule out adenoma Specimen(s) Received Duodenal bulb biopsy Gross Description Received in formalin labeled with patient name, number, and duodenal bulb biopsy are two fragments of richards tissue ranging from less than 0.1 cm up to 0.1 cm in greatest dimension. Specimen is entirely submitted in one cassette. (DC) DC:[facility] Microscopic Description Microscopic examination performed unless gross only specified. Normal [facility] Comment on above: Performed By: #### 4 [id number] #### [facility] [address] [place] [address] Main OR Intraoperative Recor don 05-18-2024 Main OR Intraoperative Record Main OR Intraoperative Record IntraOp Document Type FT Summary Primary Physician: Philip Gunn MD Finalized Date/Time: 05/18/24 12:32:19 Pt. Name: SERGIO HERNANDEZ/Sex: 1980 Male Med Rec #: [id number] Physician: Philip Gunn MD Financial #: [id number] Pt. Type: O Room/Bed: / Admit/Disch: 05/17/24 13:04:01 - 05/17/24 23:59:59 Institution: Case Times FT Entry 1 Patient Times In Room 05/17/24 14:28:00 Out Room 05/17/24 14:52:00 Procedure Times Start 05/17/24 14:33:00 Stop 05/17/24 14:49:00 Anesthesia Times Start 05/17/24 14:28:00 Stop 05/17/24 14:52:00 Time at [facility] 05/17/24 14:41:00 Last Modified By: [place] RN, Cyndi Mueller 05/17/24 14:52:50 General Comments: 1437 EGD completed/KS,RN 1439 Colonoscopy began/KS,RN 05/18/24 Chart opened to review and send charges [facility]oth CSFA Case Attendance FT Entry 1 Entry 2 Entry 3 Case Attendee Mariano ANTONIO, Marita Berumen RN, Cyndi Dudley SCALLOP DREDGER, Joseline Watts Role Performed SYSTEMS COORDINATOR Mortgage Banker - Primary Scrub - Primary Time In 05/17/24 14:28:00 05/17/24 14:28:00 05/17/24 14:28:00 Time Out 05/17/24 14:35:00 05/17/24 14:52:00 05/17/24 14:52:00 Procedure EGD AND COLONOSCOPY(.) EGD AND COLONOSCOPY(.) EGD AND COLONOSCOPY(.) Comments Dr. Ludwig supervising procedure. Last Modified By: Ramses SCALLOP DREDGER, Paulette Berumen RN, Cyndi Berumen RN, Cyndi Mueller 05/18/24 12:31:33 05/17/24 14:52:52 05/17/24 14:52:52 Entry 4 Entry 5 Case Attendee Velia BRASWELL, Philip BETH, Nixon Riley Role Performed Surgeon - Primary Anesthesiologist Box Office Attendant Time In 05/17/24 14:28:00 05/17/24 14:34:00 Time Out 05/17/24 14:52:00 05/17/24 14:52:00 Procedure EGD AND COLONOSCOPY(.) EGD AND COLONOSCOPY(.) Comments Dr. Ludwig supervising procedure. Last Modified By: Cyndi Berumen RN, RN, Kara N 05/17/24 14:52:52 05/17/24 14:52:52 Perioperative Protocols FT Pre-Care Text: Implements protective measures prior to operative or invasive procedure, confirms identity before the operative or invasive procedure, verifies operative procedure, surgical site, and laterality Entry 1 Procedure(s) EGD AND COLONOSCOPY(.) Patient Identity Birthday, ID Band Verified (select at Check, Patient least 2): Participation Consents / H and P Anesthesia Consent, Operative Site N/A Verified H&P, Surgery/Procedure Marking Verified Consent Surgical Site No Laterality Verified n/a Verified Procedure Verified Yes Correct Patient Yes Position Verified Availability Equipment, Medication Prep Dry n/a Verified (If Applicable) PreOp Antibiotic No Time Out Marita Quintana CRNA, Given Participants Cyndi Berumen RN, Octavia MACK, Velia Steel MD, Philip Riley Time Out Complete 05/17/24 14:31:00 Outcomes Met? Yes Last Modified By: Cyndi Berumen RN 05/17/24 14:31:21 Post-Care Text: The patient is free from signs and symptoms of injury caused by extraneous objects Allergy Information FT Pre-Care Text: Verifies allergies Entry 1 Allergies Reviewed? Yes Allergies Reviewed Self/Patient With Outcomes Met? Yes Last Modified By: Cyndi Berumen RN 05/17/24 14:31:29 Post-Care Text: The patient received appropriate medication(s) safely administered during the perioperative period Surgical Procedures FT Entry 1 Procedure Description Procedure EGD AND COLONOSCOPY Modifiers . Surgeon Description EGD duodenal bulb biopsy. Colonoscopy. Primary Procedure Yes Primary Surgeon Velia BRASWELL, Philip Riley Start 05/17/24 14:33:00 Stop 05/17/24 14:49:00 Anesthesia Type General Surgical Service Gastroenterology Wound Class 2 - Clean-Contaminated Last Modified By: Cyndi Berumen RN 05/17/24 14:50:20 General Case Data FT Pre-Care Text: Classifies surgical wound, implements aseptic technique, initiates traffic control Entry 1 Case Information OR ENDO 1 FT Case Level Level 2 Wound Class 2 - Clean-Contaminated Specialty Gastroenterology ASA Class 2 Preop Diagnosis ALCOHOLIC LIVER Postop Same As Preop No DISEASE, SCREEN FOR COLON CANCER, CHRONIC GERD Postop Diagnosis EGD- thickened fold of Outcomes Met? Yes duodenal sweep. Colonoscopy- external hemorrhoids, diverticulosis and internal hemorrhoids. Last Modified By: Cyndi Berumen RN 05/17/24 14:49:18 Post-Care Text: The patient is free from signs and symptoms of infection Skin Assessment (Pre Procedure) FT Pre-Care Text: Implements protective measures to prevent skin/ tissue injury due to thermal or mechanical sources Evaluates for signs and symptoms of physical injury to skin and tissue Entry 1 Skin Integrity Intact, Wells, Warm, & Skin Abnormality No Dry Outcomes Met? Yes Last Modified By: Cyndi Berumen RN 05/17/24 14:32:06 Post-Care Text: The patient is free from signs and symptoms of injury caused by extraneous objects Patient Positioning FT Pre-Care Text: Identifies p (more content not included)... Normal [facility] Discharge Instructionson Discharge Instructions Discharge Instructions FELISARUSLANSERGIO :1980 Visit Date:05/17/2024 Inpatient Discharge Instructions Your Care Team Admitting Physician - Philip Gunn MD Referring Physician - Philip Gunn MD Reason for Your Visit ALCOHOLIC LIVER DISEASE, SCREEN FOR COLON CANCER, CHRONIC GERD Your Diagnosis Cirrhosis Colon cancer screening Tests Performed Pathology Tissue Exam -- Results Pending -- Please visit your patient portal for your results or contact your primary care physician. This Is Your Medications List atorvastatin (atorvastatin 10 mg Tab) hydrochlorothiazide (hydrochlorothiazide 25 mg Tab) omeprazole (omeprazole 20 mg Cap-DR) Procedure History Colonoscopy (05/17/2024), Esophagogastroduodenoscopy (05/17/2024), Arthroscopy of shoulder (04/12/2020), Colonoscopy. What to do next Instructions From Your Doctor Event Name Event Result Discharge Activity Resume normal activities in 24 hours Discharge Restrictions No driving for 24 hrs Discharge Diet(s) Regular Call Your Doctor For Persistent or heavy bleeding Discharge Instructions Discharge Instructions Previously Scheduled Follow-Up Appointments Wednesday 1:30 PM EDT Where: [facility] New Follow Up Appointments after Discharge Follow Up with Velia BRASWELL, Philip Riley, [facility], [facility] When: Comments: Call for any problems. Office will call to schedule follow up appointment Where: Medications What When Instructions Next Dose Unchanged atorvastatin (atorvastatin 10 mg Tab) Unchanged hydrochlorothiazide (hydrochlorothiazide 25 mg Tab) TAKE 1 TABLET BY MOUTH EVERY DAY Unchanged omeprazole (omeprazole 20 mg Cap-DR) TAKE 1 CAPSULE BY MOUTH IN THE MORNING BEFORE MEALS, DO NOT CRUSH, CHEW, OR SPLIT Test Results No qualifying data available. Allergies penicillins (Anaphylactic reaction) Problems Ongoing - Any problem that you are currently receiving treatment for. Alcoholic liver disease Arthritis Carpal tunnel syndrome Cellulitis Deformity of cervical vertebra Gastroenteritis Headache disorder Herpes zoster ophthalmicus Mononeuropathy of upper limb Osteomyelitis Recurrent major depressive episodes, mild Scapulocostal syndrome Screen for colon cancer Skin sensation disturbance Smoker 18-JAN-2014 12:37:00<$> Spondylosis Thoracic outlet syndrome Torticollis Education Materials Endoscopy Care After Procedure Please read the instructions outlined below and refer to this sheet in the next few weeks. These discharge instructions provide you with general information on caring for yourself after you leave the hospital. Your doctor may also give you specific instructions. While your treatment has been planned according to the most current medical practices available, unavoidable complications occasionally occur. If you have any problems or questions after discharge, please call your doctor. ACTIVITY ??? You may resume your regular activity but move at a slower pace for the next 24 hours. ??? Take frequent rest periods for the next 24 hours. ??? Walking will help expel (get rid of) the air and reduce the bloated feeling in your abdomen. ??? No driving for 24 hours (because of the anesthesia (medicine) used during the test). ??? You may shower. ??? Do not sign any important legal documents or operate any machinery for 24 hours (because of the anesthesia used during the test). NUTRITION ??? Drink plenty of fluids. ??? You may resume your normal diet. ??? Begin with a light meal and progress to your normal diet. ??? Avoid alcoholic beverages for 24 hours or as instructed by your caregiver. MEDICATIONS ??? You may resume your normal medications unless your caregiver tells you otherwise. WHAT YOU CAN EXPECT TODAY ??? You may experience abdominal discomfort such as a feeling of fullness or ???gas??? pains. FOLLOW-UP ??? Your doctor will discuss the results of your test with you. SEEK IMMEDIATE MEDICAL ATTENTION IF ANY OF THE FOLLOWING OCCUR: ??? Excessive nausea (feeling sick to your stomach) and/or vomiting. ??? Severe abdominal pain and distention (swelling). ??? Trouble swallowing. ??? Temperature over 100 F (37.8??? C). ??? Rectal bleeding or vomiting of blood. Document Released: 02/16/2005 Document Re-Released: 12/27/2006 ExitCare??? Patient Information ???2009 [employer] Diverticulosis Many people have small pouches in their colon called diverticulum. The diverticulum bulge outward through weak spots in the colon. You could have one or more of these pouches in the colon. The condition of having these pouches in the colon is called diverticulosis or diverticular disease. Diverticulosis is usually diagnosed by tests to evaluate something else. For example, you may have had a colonoscopy to screen for co (more content not included)... [facility] Comment on above: Result Comment: Elec tronically Signed By: Claudia Pak I\.br\Date and Time Signed: 05/17/24 15:13 EDT Inpatient Patient Summaryon 05-17-2024 Inpatient Patient Summary Inpatient Patient Summary [place] [id number] [facility] Clinical Discharge Instructions PERSON INFORMATION Name: SERGIO HRENANDEZ [facility]#:[id number] PHYSICIANS Admitting Physician: Philip Gunn MD Attending Physician: Philip Gunn MD PCP: ARNOLD HARTLEY CNP Discharge Diagnosis: Cirrhosis; Colon cancer screening Comment: PATIENT EDUCATION INFORMATION Instructions: Medication Leaflets: Follow up: Type Location Start [facility] Surgery [facility] Surgical Services 05/17/2024 1:30 PM 05/17/2024 2:30 PM Confirmed MEDICATION LIST Medications to Continue with No Changes Other Medications atorvastatin (atorvastatin 10 mg Tab) hydrochlorothiazide (hydrochlorothiazide 25 mg Tab) TAKE 1 TABLET BY MOUTH EVERY DAY. omeprazole (omeprazole 20 mg Cap-DR) TAKE 1 CAPSULE BY MOUTH IN THE MORNING BEFORE MEALS, DO NOT CRUSH, CHEW, OR SPLIT. Comment: Tommy Reynaldo [facility] Main OR PACU II [place] Main OR PACU II Record Main OR PACU II Record PACU Phase II Document Type FT Summary Primary Physician: Philip Gunn MD Finalized Date/Time: 05/17/24 15:49:12 Pt. Name: SERGIO HERNANDEZ/Sex: 1980 Male Med Rec #: [id number] Physician: Philip Gunn MD Financial #: [id number] Pt. Type: O Room/Bed: / Admit/Disch: 05/17/24 13:04:01 - Institution: Case Times PACU II FT Pre-Care Text: Identifies barriers to communication and implements measures to provide psychological support and determines knowledge level Develops individualized plan of care, and ensures continuity of care Maintains patient's dignity and privacy, and maintains patient confidentiality Identifies and reports philosophical, cultural, and spiritual beliefs and values Identifies individual values and wishes concerning care administers prescribed antibiotic therapy and immunizing agents as ordered, Evaluates postoperative tissue perfusion Implements thermoregulation measures, and monitors body temperature Evaluates postoperative respiratory status Evaluates postoperative cardiac status Evaluates postoperative neurological status Assesses pain control, collaborated in initiating patient-controlled analgesia and implements alternative methods of pain control Verifies allergies, administers prescribed medications and solutions, evaluates response to medications Entry 1 In PACU II 05/17/24 14:55:00 Discharge from PACU 05/17/24 15:25:00 II Outcomes Met? Yes Last Modified By: Claudia Pak I 05/17/24 15:49:09 Post-Care Text: The patient demonstrates knowledge of the expected response to the operative or invasive procedure The patient's care is consistent with the individualized perioperative plan of care The patient's right to privacy is maintained The patient's value system, lifestyle, ethnicity, and culture are considered, respected, and incorporated into the perioperative plan of care The patient participates in decisions affecting his or her perioperative plan of care. The patient is free from signs and symptoms of infection The patient has wound/tissue perfusion consistent with or improved from baseline levels established preoperatively The patient is at or returning to normothermia at the conclusion of the immediate postoperative period The patient's respiratory function is consistent with or improved from baseline levels established preoperatively The patient's cardiovascular status is consistent with or improved from baseline levels established preoperatively The patient's neurological status is consistent with or improved from baseline levels established preoperatively The patient demonstrates and/or reports adequate pain control throughout the perioperative period The patient received appropriate medication(s), safely administered during the perioperative period Finalized By: Claudia Pak I Document Signatures Signed By: Claudia Pak I 05/17/24 15:49 [facility] Main OR Preoperative Recordo n 05-17-2024 Main OR Preoperative Record Main OR Preoperative Record Holding Area Document Type FT Summary Primary Physician: Philip Gunn MD Finalized Date/Time: 05/17/24 13:36:36 Pt. Name: SERGIO HERNANDEZ/Sex: 1980 Male Med Rec #: [id number] Physician: Philip Gunn MD Financial #: [id number] Pt. Type: O Room/Bed: / Admit/Disch: 05/17/24 13:04:01 - Institution: Case Times Holding FT Pre-Care Text: Verifies consent for planned procedure, identifies individual values and wishes concerning care, includes family members in perioperative teaching Secures patient's records' belongings, and valuables, maintains patient's dignity and privacy, and maintains patient confidentiality Entry 1 In Holding 05/17/24 13:25:00 Outcomes Met? Yes Last Modified By: China SIN, Holly Page 05/17/24 13:30:53 Post-Care Text: The patient participates in decisions affecting his or her perioperative plan of care The patient's right to privacy is maintained Surgery Checklist FT Entry 1 Patient Birthday, ID Band Procedure History and Physical, Identification: Check, Patient Verification: Surgical Consent, With Participation Patient NPO after Midnight: Yes Date/Time: 05/17/24 10:30:00 Personal Items clothes, shoes Limitations: n/a Comment: Complaints of Pain: Yes Pain Comment: 01/25 right arm pain Operative Site n/a Marked By: n/a Marking: Availability Equipment Verified: Does Patient Smoke Yes If Yes to Smoking. 1 pack per day Cigars or Cigarettes. How much per day? Patient states Yes Comment - Adult daughter- low postop adult Supervision supervision available Case Cancelled in No Holding Area see comments below for reason Last Modified By: Holly Atkinson RN 05/17/24 13:36:32 General Comments: Pt finished colon prep at 1030, states stool is clear liquid, has been NPO since. /MDRN Finalized By: Holly Atkinson RN Document Signatures Signed By: Holly Atkinson RN 05/17/24 13:36 [facility] Outpatient Surgery Discharge Instructionon 05-17-2024 Outpatient Surgery Discharge Instruction Outpatient Surgery Discharge Instruction [place] [id number] Patient Discharge Instructions PERSON INFORMATION Name: SERGIO HERNANDEZ Date of : 1980 Current Date: 05/17/2024 14:31:45 PHYSICIANS Admitting Physician: Velia BRASWELL, Philip Riley Discharge Diagnosis: Cirrhosis; Colon cancer screening SERGIO HERNANDEZ has been given the following list of follow-up instructions, prescriptions, and patient education materials: PATIENT FOLLOW-UP INFORMATION Diet: Regular Discharge Activity: Resume normal activities in 24 hours Discharge Restrictions: No driving for 24 hrs Call Your Doctor For: Persistent or heavy bleeding IF UNABLE TO CONTACT YOUR PHYSICIAN AND YOU FEEL IT IS AN EMERGENCY, GO TO THE NEAREST EMERGENCY ROOM OR CALL 911 I, SERGIO HERNANDEZ, have received the attached patient education materials/instructions and have verbalized understanding: May we do a follow up call? Yes No I was present when discharge instructions were given __ Patient Signature Date Clinican/Nurse Signature Date Follow up: Type Location Start [facility] Surgery [facility] Surgical Services 05/17/2024 1:30 PM 05/17/2024 2:30 PM Confirmed Pharmacy Information: You may receive a survey from Janae Palmer asking you to rate your care experience. Your feedback is important and will help us understand what we do well and how we can improve the quality of care we provide to you, your loved ones and our community. It???s an honor to serve you. Thank you for choosing [facility] HERE ARE THE MEDICATION CHANGES THAT OCCURRED DURING YOUR HOSPITAL STAY Medications to Continue with No Changes Other Medications atorvastatin (atorvastatin 10 mg Tab) hydrochlorothiazide (hydrochlorothiazide 25 mg Tab) TAKE 1 TABLET BY MOUTH EVERY DAY. omeprazole (omeprazole 20 mg Cap-DR) TAKE 1 CAPSULE BY MOUTH IN THE MORNING BEFORE MEALS, DO NOT CRUSH, CHEW, OR SPLIT. PATIENT EDUCATION INFORMATION Instructions: Medication Leaflets: [facility] US Liveron 05-02-2024 US Liver Exam Date/Time: 04/28/2024 09:02 EDT Reason for Exam: K70.9;Elevated LFTs Report IMPRESSION: HEPATIC STEATOSIS. HEPATOMEGALY. CLINICAL HISTORY: Elevated LFTs, K70.9 COMPARISON: NONE. FINDINGS: Craniocaudal dimension of liver increased measuring 17.6 cm. Liver normal in contour and increased in echogenicity. No intrahepatic or extrahepatic ductal dilatation. Common duct measures 4 mm. Color-flow without anomaly. Gallbladder contains neither shadowing nor echogenic foci. No pericholecystic fluid. No gallbladder wall thickening. Pancreas is. By overlying bowel gas. Ordering Provider: Philip Gunn FINAL REPORT Dictated: 05/02/2024 3:42 pm John Ramey MD Signed (Electronic Signature): 05/02/2024 3:42 pm Signed by: John Ramey MD Transcribed by: KETTY Technologist: Tommy WYNNE [facility] Ambulatory Visit Summaryon 1 Ambulatory Visit Summary Ambulatory Visit Summary SERGIO HERNANDEZ :1980 Visit Date:04/27/2024 Ambulatory Visit Instructions Your Diagnosis Alcoholic liver disease Screen for colon cancer Chronic GERD Your Care Team Attending Physician - Velia BRASWELL, Philip Riley Primary Care Physician - ARNOLD HARTLEY CNP This Is Your Medications List Contact prescribing physician if questions or concerns atorvastatin (atorvastatin 10 mg Tab) hydrochlorothiazide (hydrochlorothiazide 25 mg Tab) omeprazole (omeprazole 20 mg Cap-DR) sertraline (sertraline 25 mg Tab) Procedures Performed Arthroscopy of shoulder (04/12/2020), Colonoscopy. Discharge Vitals Heart Rate (Peripheral) 78 Respiratory Rate 18 Blood Pressure 126/80 Height 182 cm Height 72 in Weight 108 kg Weight 237.6 lb BMI 32.6 What to do next Scheduled Follow-Up Appointments Wednesday 1:30 PM EDT Where: [facility] Wednesday 2:45 PM EDT Where: [facility] You Need to Complete the Following CBC w/ Auto Diff, Blood, Routine collect, 04/27/24, Order for future visit, Lab Collect, Alcoholic liver disease, Not Required, Print Label By Order Location Comprehensive Metabolic Panel, Blood, Routine collect, 04/27/24, Order for future visit, Lab Collect, Alcoholic liver disease, Not Required, Print Label By Order Location HCV Antibody RFX to Quant PCR, Blood, Routine collect, 04/27/24, Order for future visit, Lab Collect, Alcoholic liver disease, Not Required, Print Label By Order Location US Liver, 04/27/24, Routine, Order for future visit, Transport Mode: Bed, Reason: Elevated LFTs, No, Alcoholic liver disease Screen for colon cancer, pp_set_radiology_subspecialt y, Not Required, [facility] Medications What When Instructions Unchanged atorvastatin (atorvastatin 10 mg Tab) Contact prescribing physician if questions or concerns Unchanged hydrochlorothiazide (hydrochlorothiazide 25 mg Tab) TAKE 1 TABLET BY MOUTH EVERY DAY Contact prescribing physician if questions or concerns Unchanged omeprazole (omeprazole 20 mg Cap-DR) TAKE 1 CAPSULE BY MOUTH IN THE MORNING BEFORE MEALS, DO NOT CRUSH, CHEW, OR SPLIT Contact prescribing physician if questions or concerns Unchanged sertraline (sertraline 25 mg Tab) TAKE 1 TABLET BY MOUTH EVERY DAY Contact prescribing physician if questions or concerns Allergies penicillins (Anaphylactic reaction) Problems Ongoing - Any problem that you are currently receiving treatment for. Alcoholic liver disease Arthritis Carpal tunnel syndrome Cellulitis Deformity of cervical vertebra Gastroenteritis Headache disorder Herpes zoster ophthalmicus Mononeuropathy of upper limb Osteomyelitis Recurrent major depressive episodes, mild Scapulocostal syndrome Screen for colon cancer Skin sensation disturbance Smoker 18-JAN-2014 12:37:00<$> Spondylosis Thoracic outlet syndrome Torticollis Patient Survey You may receive a survey via text or e-mail asking about your office visit. Please share your experience with us by completing your survey. We appreciate your feedback and thank you for choosing us for your care. [facility] Ambulatory Visit Summary Ambulatory Visit Summary SERGIO HERNANDEZ :1980 Visit Date:04/27/2024 Ambulatory Visit Instructions Your Diagnosis Alcoholic liver disease Screen for colon cancer Chronic GERD Your Care Team Attending Physician - Philip Gunn MD Primary Care Physician - ARNOLD HARTLEY CNP This Is Your Medications List Contact prescribing physician if questions or concerns atorvastatin (atorvastatin 10 mg Tab) hydrochlorothiazide (hydrochlorothiazide 25 mg Tab) omeprazole (omeprazole 20 mg Cap-DR) sertraline (sertraline 25 mg Tab) Procedures Performed Arthroscopy of shoulder (04/12/2020), Colonoscopy. Discharge Vitals Heart Rate (Peripheral) 78 Respiratory Rate 18 Blood Pressure 126/80 Height 182 cm Height 72 in Weight 108 kg Weight 237.6 lb BMI 32.6 What to do next You Need to Complete the Following CBC w/ Auto Diff, Blood, Routine collect, 04/27/24, Order for future visit, Lab Collect, Alcoholic liver disease, Not Required, Print Label By Order Location Comprehensive Metabolic Panel, Blood, Routine collect, 04/27/24, Order for future visit, Lab Collect, Alcoholic liver disease, Not Required, Print Label By Order Location HCV Antibody RFX to Quant PCR, Blood, Routine collect, 04/27/24, Order for future visit, Lab Collect, Alcoholic liver disease, Not Required, Print Label By Order Location US Liver, 04/27/24, Routine, Order for future visit, Transport Mode: Bed, Reason: Elevated LFTs, No, Alcoholic liver disease Screen for colon cancer, pp_set_radiology_subspecialt y, Not Required, [facility] Medications What When Instructions Unchanged atorvastatin (atorvastatin 10 mg Tab) Contact prescribing physician if questions or concerns Unchanged hydrochlorothiazide (hydrochlorothiazide 25 mg Tab) TAKE 1 TABLET BY MOUTH EVERY DAY Contact prescribing physician if questions or concerns Unchanged omeprazole (omeprazole 20 mg Cap-DR) TAKE 1 CAPSULE BY MOUTH IN THE MORNING BEFORE MEALS, DO NOT CRUSH, CHEW, OR SPLIT Contact prescribing physician if questions or concerns Unchanged sertraline (sertraline 25 mg Tab) TAKE 1 TABLET BY MOUTH EVERY DAY Contact prescribing physician if questions or concerns Allergies penicillins (Anaphylactic reaction) Problems Ongoing - Any problem that you are currently receiving treatment for. Alcoholic liver disease Arthritis Carpal tunnel syndrome Cellulitis Deformity of cervical vertebra Gastroenteritis Headache disorder Herpes zoster ophthalmicus Mononeuropathy of upper limb Osteomyelitis Recurrent major depressive episodes, mild Scapulocostal syndrome Screen for colon cancer Skin sensation disturbance Smoker 18-JAN-2014 12:37:00<$> Spondylosis Thoracic outlet syndrome Torticollis Patient Survey You may receive a survey via text or e-mail asking about your office visit. Please share your experience with us by completing your survey. We appreciate your feedback and thank you for choosing us for your care. [facility] Ambulatory Visit Summary Ambulatory Visit Summary SERGIO HERNANDEZ :1980 Visit Date:04/27/2024 Ambulatory Visit Instructions Your Diagnosis Alcoholic liver disease Screen for colon cancer Chronic GERD Your Care Team Attending Physician - Philip Gunn MD Primary Care Physician - ARNOLD HARTLEY CNP This Is Your Medications List Contact prescribing physician if questions or concerns atorvastatin (atorvastatin 10 mg Tab) hydrochlorothiazide (hydrochlorothiazide 25 mg Tab) omeprazole (omeprazole 20 mg Cap-DR) sertraline (sertraline 25 mg Tab) Procedures Performed Arthroscopy of shoulder (04/12/2020), Colonoscopy. Discharge Vitals Heart Rate (Peripheral) 78 Respiratory Rate 18 Blood Pressure 126/80 Height 182 cm Height 72 in Weight 108 kg Weight 237.6 lb BMI 32.6 What to do next You Need to Complete the Following CBC w/ Auto Diff, Blood, Routine collect, 04/27/24, Order for future visit, Lab Collect, Alcoholic liver disease, Not Required, Print Label By Order Location Comprehensive Metabolic Panel, Blood, Routine collect, 04/27/24, Order for future visit, Lab Collect, Alcoholic liver disease, Not Required, Print Label By Order Location HCV Antibody RFX to Quant PCR, Blood, Routine collect, 04/27/24, Order for future visit, Lab Collect, Alcoholic liver disease, Not Required, Print Label By Order Location Lab Miscellaneous-LC, Not Specified, Routine collect, HBV DNA, 04/27/24, Order for future visit, Lab Collect, Alcoholic liver disease, Print Label By Order Location, [id number] Liver, 04/27/24, Routine, Order for future visit, Transport Mode: Bed, Reason: Elevated LFTs, No, Alcoholic liver disease Screen for colon cancer, pp_set_radiology_subspecialt y, Not Required, [facility] Medications What When Instructions Unchanged atorvastatin (atorvastatin 10 mg Tab) Contact prescribing physician if questions or concerns Unchanged hydrochlorothiazide (hydrochlorothiazide 25 mg Tab) TAKE 1 TABLET BY MOUTH EVERY DAY Contact prescribing physician if questions or concerns Unchanged omeprazole (omeprazole 20 mg Cap-DR) TAKE 1 CAPSULE BY MOUTH IN THE MORNING BEFORE MEALS, DO NOT CRUSH, CHEW, OR SPLIT Contact prescribing physician if questions or concerns Unchanged sertraline (sertraline 25 mg Tab) TAKE 1 TABLET BY MOUTH EVERY DAY Contact prescribing physician if questions or concerns Allergies penicillins (Anaphylactic reaction) Problems Ongoing - Any problem that you are currently receiving treatment for. Alcoholic liver disease Arthritis Carpal tunnel syndrome Cellulitis Deformity of cervical vertebra Gastroenteritis Headache disorder Herpes zoster ophthalmicus Mononeuropathy of upper limb Osteomyelitis Recurrent major depressive episodes, mild Scapulocostal syndrome Screen for colon cancer Skin sensation disturbance Smoker 18-JAN-2014 12:37:00<$> Spondylosis Thoracic outlet syndrome Torticollis Patient Survey You may receive a survey via text or e-mail asking about your office visit. Please share your experience with us by completing your survey. We appreciate your feedback and thank you for choosing us for your care. [facility] Gastroenterology Office/Clin ic Noteon 04-27-2024 Gastroenterology Office/Clinic Note Gastroenterology Office/Clinic Note Chief Complaint alcoholic liver disease HPI Staff Patient is a(n) 43 year old male who was referred by Artie for alcoholic liver disease. Denies recent imaging. Denies previous EGD/Colonoscopy. Drinks 3-5 six packs of beer a week - has drank since he was 15/16 years old. Father passed in December and was a trigger. Last ETOH beverage was Wednesday. Fhx colon cancer - maternal and paternal grandmother. Denies blood thinners. Denies GLP-1 agonists. CMP 04/07/24 @ [facility]: Alk phos: 96 AST: 31 ALT: 67 (H) Review of Systems PHQ Score Initial Depression Screen Score: 6 SCORE Detailed Depression Screen Score: 15 Total Depression Screen Score: 21 Physical Exam Vitals & Measurements HR: 78(Peripheral) RR: 18 BP: 126/80 HT: 72 in HT: 182 cm WT: 108 kg WT: 237.6 lb BMI: 32.6 Assessment/Plan 1. Alcoholic liver disease (K70.9: Alcoholic liver disease, unspecified) Used to drink alcohol since the age of 13 Trying to quit recently, he can go weeks without drinking, encouraged to quit heavy drinking Will obtain ultrasound and FibroScan Ordered: CBC w/ Auto Diff Colonoscopy (Hospital Procedure) Colonoscopy (Hospital Procedure) Comprehensive Metabolic Panel E&M of New Patient Moderate 45-59 Min 47858 E&M of New Patient Moderate 45-59 Min 19152 EGD Endoscopy (Hospital Procedure) Fibroscan (Hospital Procedure) HCV Antibody RFX to Quant PCR US Liver 2. Screen for colon cancer (Z12.11: Encounter for screening for malignant neoplasm of colon) 2 second-degree relatives with colon cancer, proceed with colonoscopy Ordered: Colonoscopy (Hospital Procedure) Colonoscopy (Hospital Procedure) E&M of New Patient Moderate 45-59 Min 66863 E&M of New Patient Moderate 45-59 Min 78859 EGD Endoscopy (Hospital Procedure) Fibroscan (Hospital Procedure) US Liver 3. Chronic GERD (K21.9: Gastro-esophageal reflux disease without esophagitis) Severe, controlled with omeprazole, proceed with EGD Ordered: Colonoscopy (Hospital Procedure) E&M of New Patient Moderate 45-59 Min 24265 EGD Endoscopy (Hospital Procedure) Follow-up No qualifying data available Problem List/Past Medical History Ongoing Alcoholic liver disease Arthritis Carpal tunnel syndrome Cellulitis Deformity of cervical vertebra Gastroenteritis Headache disorder Herpes zoster ophthalmicus Mononeuropathy of upper limb Osteomyelitis Recurrent major depressive episodes, mild Scapulocostal syndrome Screen for colon cancer Skin sensation disturbance Smoker 18-JAN-2014 12:37:00<$> Spondylosis Thoracic outlet syndrome Torticollis Historical No qualifying data Procedure/Surgical History Arthroscopy of shoulder (04/12/2020), Colonoscopy. Medications atorvastatin 10 mg Tab hydrochlorothiazide 25 mg Tab omeprazole 20 mg Cap-DR sertraline 25 mg Tab Allergies penicillins (Anaphylactic reaction) Social History Alcohol - Medium Risk, 04/05/2020 Current, Beer, Wine, 3-5 times per week, 04/05/2020 Substance Abuse Current, Marijuana, Daily, 04/27/2024 Cocaine, Marijuana, 12/20/2022 Current, Marijuana, Daily, Previous treatment: None. IV drug use: No., 04/05/2020 Tobacco - High Risk, 09/06/2020 10 or more cigarettes (1/2 pack or more)/day in last 30 days Tobacco Use:. Never Smokeless Tobacco Use:. Cigarettes, Yes, 04/27/2024 10 or more cigarettes (1/2 pack or more)/day in last 30 days Tobacco Use:. Cigarettes, Started age 18.0 Years., 09/06/2020 Family History Malignant neoplasm of colon: Grandparent and Grandparent. [facility] Comment on above: Result Comment: Elec tronically Signed By: Velia BRASWELL, Philip Riley\.br\Date and Time Signed: 04/27/24 12:24 EDT Comprehensive metabolic pane alla 03-09-2024 Albumin [Mass/Vol] 4.7 g/dL 3.6 - 5.1 g/dL [facility] Albumin/Globulin [Mass ratio] 1.9 {ratio} [facility] Healthcare ALP [Catalytic activity/Vol] 93 U/L 36 - 130 U/L [facility] Healthcare ALT [Catalytic activity/Vol] 71 U/L High 9 - 46 U/L [facility] Healthcare AST [Catalytic activity/Vol] 34 U/L 10 - 40 U/L [facility] Bilirubin [Mass/Vol] 0.7 mg/dL 0.2 - 1.2 mg/dL [facility] Calcium [Mass/Vol] 9.9 mg/dL 8.6 - 10. 3 mg/dL [facility] Chloride [Moles/Vol] 105 mmol/L 98 - 110 mmol/L [facility] CO2 [Moles/Vol] 25 mmol/L 20 - 32 mmol/L [facility] Creatinine [Mass/Vol] 0.76 mg/dL 0.60 - 1.29 mg/dL [facility] GFR/1.73 sq M.predicted among non-blacks MDRD (S/P/Bld) [Vol rate/Area] 113 mL/min/{1.73_m2} > OR = 60 mL/min/1.73 m2 [facility] Globulin (S) [Mass/Vol] 2.5 g/dL [facility] Glucose [Mass/Vol] 93 mg/dL 65 - 99 mg/dL [facility] Comment on above: Fasting reference interval Potassium [Moles/Vol] 4.7 mmol/L 3.5 - 5.3 mmol/L [facility] Protein [Mass/Vol] 7.2 g/dL 6.1 - 8.1 g/dL [facility] Sodium [Moles/Vol] 139 mmol/L 135 - 146 mmol/L [facility] Urea nitrogen [Mass/Vol] 12 mg/dL 7 - 25 mg/dL [facility] Urea nitrogen/Creatinine [Mass ratio] SEE NOTE: [facility] Comment on above: Not Reported: BUN an d Creatinine are within reference range. Lipid 1996 panelon 4 Cholesterol [Mass/Vol] 229 mg/dL High NINF - 200 mg/dL [facility] Cholesterol in HDL [Mass/Vol] 47 mg/dL > OR = 40 [facility] Cholesterol in LDL [Mass/Vol] 156 mg/dL High mg/dL (calc) [facility] Comment on above: Reference range: <10 0 Desirable range <100 mg/dL for primary prevention; <70 mg/dL for patients with CHD or diabetic patients with > or = 2 CHD risk factors. LDL-C is now calculated using the Sudhakar calculation, which is a validated novel method providing better accuracy than the Friedewald equation in the estimation of LDL-C. Chon KIRAN et al. JUNI. 2013;310(19): 8040-5051 (http://education.Enstratius/faq/IHP646) Cholesterol non HDL [Mass/Vol] 182 mg/dL High [facility] Comment on above: For patients with di abetes plus 1 major ASCVD risk factor, treating to a non-HDL-C goal of <100 mg/dL (LDL-C of <70 mg/dL) is considered a therapeutic option. Cholesterol.total/C holesterol in HDL [Mass ratio] 4.9 {ratio} [facility] Triglyceride [Mass/Vol] 133 mg/dL [facility] - 150 mg/dL [facility] No Panel Informationon 03-09 Interpretation and review of laboratory results Abnormal [facility] Performing Organizat ion Information Site ID: QPT Name: [employer] [facility] Address: [address] [place] [address], [address] [place] [id number] Director: August Espinosa MD [facility] CHEMISTRYOrdered By: SYSTEM SYSTEM on 12-20-2022 Anion gap [Moles/Vol] 12 mmol/L Normal 6 - 16 mEq/L [facility] Calcium [Mass/Vol] 8.8 mg/dL Low 8.9 - 11. 1 mg/dL [facility] Chloride [Moles/Vol] 105 mmol/L Normal 101 - 111 mmol/L [facility] CO2 [Moles/Vol] 24 mmol/L Normal 21 - 31 mmol/L [facility] Creatinine [Mass/Vol] 0.7 mg/dL Normal 0.5 - 1.3 mg/dL [facility] GFR/1.73 sq M.predicted among non-blacks MDRD (S/P/Bld) [Vol rate/Area] 117 mL/min/1.73 m2 Normal >=59mL/min/ 1.73 m2 [facility] Chem S Glucose [Mass/Vol] 99 mg/dL Normal 55 - 199 mg/dL [facility] Potassium [Moles/Vol] 3.4 mmol/L Low 3.5 - 5.3 mmol/L [facility] Sodium [Moles/Vol] 138 mmol/L Normal 135 - 145 mmol/L [facility] Urea nitrogen [Mass/Vol] 16 mg/dL Normal 5 - 21 mg/dL [facility] Urea nitrogen/Creatinine [Mass ratio] 23 mg/mg High 10 - 20 [facility] HEMATOLOGYOrdered By: SYSTEM SYSTEM on 12-20-2022 Basophils/100 WBC (Bld) 0.8 % Normal 0.0 - 2.0 % [facility] Basophils/Leukocyte s Auto (Bld) [Pure # fraction] 0.1 E9/L Normal 0.0 - 0.2 E9/L [facility] Eosinophils/100 WBC (Bld) 2.5 % Normal 0.0 - 8.0 % [facility] Eosinophils/Leukocy susan Auto (Bld) [Pure # fraction] 0.3 E9/L Normal 0.0 - 0.5 E9/L [facility] Lymphocytes/100 WBC (Bld) 13.9 % Low 14.0 - 50.0 % [facility] Lymphocytes/Leukocy susan Auto (Bld) [Pure # fraction] 1.9 E9/L Normal 1.0 - 4.0 E9/L [facility] Monocytes/100 WBC (Bld) 7.5 % Normal 4.0 - 14.0 % [facility] Monocytes/Leukocyte s Auto (Bld) [Pure # fraction] 1.0 E9/L Normal 0.2 - 1.0 E9/L [facility] Neutrophils/100 WBC (Bld) 75.3 % High 36.0 - 75.0 % [facility] Neutrophils/Leukocy susan Auto (Bld) [Pure # fraction] 10.3 E9/L High 2.0 - 7.5 E9/L [facility] HEMATOLOGYOrdered By: Lulu Brooks on 12-20-2022 Erythrocyte distribution width (RBC) [Ratio] 14.4 % High 10.9 - 14.2 % [facility] Hematocrit (Bld) [Volume fraction] 42.4 % Normal 37.7 - 49.0 % [facility] Hemoglobin (Bld) [Mass/Vol] 13.9 g/dL Normal 13.5 - 17.5 gm/dL [facility] MCH (RBC) [Entitic mass] 26.0 pg Low 27.0 - 34.0 pg [facility] MCHC (RBC) [Mass/Vol] 32.6 g/dL Normal 31.4 - 36.0 gm/dL [facility] MCV (RBC) [Entitic vol] 79.6 fL Low 80.0 - 100.0 fL [facility] Platelet mean volume (Bld) [Entitic vol] 7.7 fL Normal 6.4 - 10.8 fL [facility] Platelets (Bld) [#/Vol] 390.0 E9/L Normal 150.0 - 500.0 E9/L [facility] RBC (Bld) [#/Vol] 5.3 E12/L Normal 4.3 - 5.9 E12/L [facility] WBC corrected for nucl RBC Auto (Bld) [#/Vol] 13.7 E9/L High 4.0 - 11.0 E9/L [facility] MRI Shoulder w/o Righton MRI Shoulder w/o Right HISTORY: Shoulder pain and decreased range of motion. History of arthroscopy 04/12/2020. SLAP lesion type II. COMPARISON: Shoulder MRI 03/17/2022 TECHNIQUE: Multiplanar multisequence MRI was performed of the right shoulder without contrast. FINDINGS: Mild degenerative changes of the acromioclavicular joint without undersurface osteophytes formation. The acromion is curved. Coracoclavicular ligament is intact. Trace subacromial/subdeltoid bursal fluid. Postsurgical changes of rotator cuff repair. Mild supraspinatus infraspinatus tendinosis. Subscapularis and teres minor tendons are intact. No atrophy or fatty infiltration of the rotator cuff musculature. Post surgical changes of biceps tenodesis. Mild interval improvement but persistence of bone marrow edema within the humerus at the site of biceps tenodesis. Unchanged appearance of the labrum. No well-defined or measurable articular cartilage defect or subchondral bone marrow edema. No glenohumeral joint effusion. IMPRESSION: Mild interval improvement but persistence of bone marrow edema within the proximal humerus at the site of biceps tenodesis. Otherwise no significant interval change. Report reported and signed by Dinh Amato on 09/10/2022 0947 Normal [facility] CHEMISTRYOrdered By: SYSTEM SYSTEM on 08-05-2022 CRP [Mass/Vol] 1.2 mg/dL Normal <=1.9mg/dL [facility] HEMATOLOGYOrdered By: SYSTEM SYSTEM on 06-19-2022 Basophils/100 WBC (Bld) 1.3 % Normal 0.0 - 2.0 % [facility] Basophils/Leukocyte s Auto (Bld) [Pure # fraction] 0.1 E9/L Normal 0.0 - 0.2 E9/L [facility] Eosinophils/100 WBC (Bld) 1.1 % Normal 0.0 - 8.0 % [facility] Eosinophils/Leukocy susan Auto (Bld) [Pure # fraction] 0.1 E9/L Normal 0.0 - 0.5 E9/L [facility] Lymphocytes/100 WBC (Bld) 20.6 % Normal 14.0 - 50.0 % [facility] Lymphocytes/Leukocy susan Auto (Bld) [Pure # fraction] 2.2 E9/L Normal 1.0 - 4.0 E9/L [facility] Monocytes/100 WBC (Bld) 8.5 % Normal 4.0 - 14.0 % [facility] Monocytes/Leukocyte s Auto (Bld) [Pure # fraction] 0.9 E9/L Normal 0.2 - 1.0 E9/L [facility] Neutrophils/100 WBC (Bld) 68.5 % Normal 36.0 - 75.0 % [facility] Neutrophils/Leukocy susan Auto (Bld) [Pure # fraction] 7.3 E9/L Normal 2.0 - 7.5 E9/L [facility] HEMATOLOGYOrdered By: Lulu Brooks on 06-19-2022 Erythrocyte distribution width (RBC) [Ratio] 14.3 % High 10.9 - 14.2 % [facility] Hematocrit (Bld) [Volume fraction] 42.8 % Normal 37.7 - 49.0 % [facility] Hemoglobin (Bld) [Mass/Vol] 14.5 g/dL Normal 13.5 - 17.5 gm/dL [facility] MCH (RBC) [Entitic mass] 26.0 pg Low 27.0 - 34.0 pg [facility] MCHC (RBC) [Mass/Vol] 33.9 g/dL Normal 31.4 - 36.0 gm/dL [facility] MCV (RBC) [Entitic vol] 76.6 fL Low 80.0 - 100.0 fL [facility] Platelet mean volume (Bld) [Entitic vol] 7.0 fL Normal 6.4 - 10.8 fL [facility] Platelets (Bld) [#/Vol] 410.0 E9/L Normal 150.0 - 500.0 E9/L [facility] RBC (Bld) [#/Vol] 5.6 E12/L Normal 4.3 - 5.9 E12/L [facility] Sed Rate Automated 7 mm/h Normal 0 - 19 mm/hr [facility] WBC corrected for nucl RBC Auto (Bld) [#/Vol] 10.7 E9/L Normal 4.0 - 11.0 E9/L [facility] MRI Shoulder w/o Righton MRI Shoulder w/o Right HISTORY: Right shoulder pain with decreased range of motion. History of prior arthroscopy. TECHNIQUE: Routine non-contrast MRI of the shoulder , right side COMPARISON: MRI 10/22/2020. RESULT: Rotator Cuff Tendons: Changes from prior rotator cuff repair, without evidence for recurrent tear with mild tendinosis involving supraspinatus and infraspinatus. Long Head Biceps Tendon: Changes from prior biceps tenodesis. See below regarding the adjacent changes in the humerus. Muscle: Muscle bulk and signal intensity are within normal limits. Labrum: Changes from prior repair involving the superior labrum. No evidence for recurrent tear. Bones and Marrow: Rounded/lobular area of decreased T1 signal with increased T2/PD signal in the proximal humerus at the site of biceps tenodesis. Otherwise interval improvement in the abnormal bone marrow throughout the humerus signal compared to prior MRI. No evidence for fracture. Glenohumeral Joint: Cartilage appears preserved. No joint effusion. Acromioclavicular Joint: Mild degenerative changes. Other: Mild subacromial-subdeltoid bursal thickening/fluid. IMPRESSION: Changes from biceps tenodesis with nonspecific signal abnormality within the humerus at the site of tenodesis as discussed. Findings may be postsurgical with differential also including reactive process. Given appearance on the prior MRI from 10/22/2020, difficult to exclude osteomyelitis at this site. Overall the abnormal marrow signal within the humerus is improved from prior study. Changes from prior rotator cuff repair and prior labral repair, without evidence for recurrent tear. Report reported and signed by Ben Sanford on 03/18/2022 1142 Normal [facility] CHEMISTRYOrdered By: [employer] SYSTEM on 02-12-2022 CRP [Mass/Vol] 1.4 mg/dL Normal <=1.9mg/dL [facility]isol HEMATOLOGYOrdered By: June Berumen on 02-12-2022 Erythrocyte distribution width (RBC) [Ratio] 14.6 % High 10.9 - 14.2 % [facility] Hematocrit (Bld) [Volume fraction] 45.5 % Normal 37.7 - 49.0 % [facility] Hemoglobin (Bld) [Mass/Vol] 14.7 g/dL Normal 13.5 - 17.5 gm/dL [facility] MCH (RBC) [Entitic mass] 25.7 pg Low 27.0 - 34.0 pg [facility] MCHC (RBC) [Mass/Vol] 32.4 g/dL Normal 31.4 - 36.0 gm/dL [facility] MCV (RBC) [Entitic vol] 79.2 fL Low 80.0 - 100.0 fL [facility] Platelet mean volume (Bld) [Entitic vol] 7.7 fL Normal 6.4 - 10.8 fL [facility] Platelets (Bld) [#/Vol] 375.0 E9/L Normal 150.0 - 500.0 E9/L [facility] RBC (Bld) [#/Vol] 5.7 E12/L Normal 4.3 - 5.9 E12/L [facility] Sed Rate Automated 5 mm/h Normal 0 - 19 mm/hr [facility] WBC corrected for nucl RBC Auto (Bld) [#/Vol] 8.4 E9/L Normal 4.0 - 11.0 E9/L [facility] Basic Metabolic Panelon 11-17 Calcium [Mass/Vol] 8.7 mg/dL Normal 8.2-10.2 [facility] Comment on above: Performed By: #### C BC, ESR, BMP, CRP #### [facility] [address] [place] [address] [facility] Chloride [Moles/Vol] 106 mmol/L Normal 95-114 [facility] Comment on above: Performed By: #### C BC, ESR, BMP, CRP #### [facility] [address] CO2 [Moles/Vol] 25.8 mmol/L Normal 22.0-30.0 [facility] Comment on above: Performed By: #### C BC, ESR, BMP, CRP #### [facility] [address] Creatinine [Mass/Vol] 0.81 mg/dL Normal 0.64-1.27 [facility] Comment on above: Performed By: #### C BC, ESR, BMP, CRP #### [facility] [address] Estimated GFR ( Zohreh > 60 Normal [facility] Comment on above: Result Comment: GFR estimated reference range: According to KDOQI guidelines, <60 ml/min/1.73m2 is sufficient to diagnose a patient with chronic kidney disease. Performed By: #### C BC, ESR, BMP, CRP #### [address] Estimated GFR (Non- Am > 60 Normal [facility] Comment on above: Performed By: #### C BC, ESR, BMP, CRP #### [address] Glucose [Mass/Vol] 113 mg/dL High 70-100 [facility] Comment on above: Result Comment: [place] om Glucose Reference Range is dependent on time and content of last meal. Glucose of more than 200 mg/dL in a nonstressed, ambulatory subject supports the diagnosis of Diabetes Mellitus. ADA recommended reference range Performed By: #### C BC, ESR, BMP, CRP #### [place] [address] [place] Potassium [Moles/Vol] 3.9 mmol/L Normal 3.5-5.1 [facility] Comment on above: Performed By: #### C BC, ESR, BMP, CRP #### [facility] [address] [place] [address] [place] Sodium [Moles/Vol] 140 mmol/L Normal 136-146 [facility] Comment on above: Performed By: #### C BC, ESR, BMP, CRP #### [facility] [address] Urea nitrogen [Mass/Vol] 10 mg/dL Normal 9- [facility] Comment on above: Performed By: #### C BC, ESR, BMP, CRP #### [facility] [address] C-Reactive Proteinon 021 C-Reactive Protein 0.8 mg/dL Normal 0.0-1.0 [facility] Comment on above: Result Comment: PERF ORMED BY: [place] [address] PATHOLOGIST [employer] COMPOSITE FABRICATOR JAELYN MORGAN M.D. Performed By: #### C BC, ESR, BMP, CRP #### [address] Complete Blood Count Auto Di ffon 12-09-2020 Basophils (Bld) [#/Vol] 0.0 10*3/uL Normal 0.0-0.2 [facility] Comment on above: Performed By: #### C BC, ESR, BMP, CRP #### [address] Basophils/100 WBC (Bld) 0.7 % Normal . [facility] Comment on above: Performed By: #### C BC, ESR, BMP, CRP #### [address] Eosinophils (Bld) [#/Vol] 0.4 10*3/uL Normal 0.0-0.45 [facility] Comment on above: Performed By: #### C BC, ESR, BMP, CRP #### [address] Eosinophils/100 WBC (Bld) 6.0 % Normal . [facility] Comment on above: Performed By: #### C BC, ESR, BMP, CRP #### [address] Erythrocyte distribution width (RBC) [Ratio] 14.5 % Normal 12.0-14.8 [facility] Comment on above: Performed By: #### C BC, ESR, BMP, CRP #### [address] Hematocrit (Bld) [Volume fraction] 39.9 % Normal 38.8-50.0 [facility] Comment on above: Performed By: #### C BC, ESR, BMP, CRP #### [address] Hemoglobin (Bld) [Mass/Vol] 13.2 g/dL Normal 13.0-17.0 [facility] Comment on above: Performed By: #### C BC, ESR, BMP, CRP #### [address] Lymphocytes (Bld) [#/Vol] 1.8 10*3/uL Normal 1.00-4.8 [facility] Comment on above: Performed By: #### C BC, ESR, BMP, CRP #### [address] Lymphocytes/100 WBC (Bld) 25.7 % Normal . [facility] Comment on above: Performed By: #### C BC, ESR, BMP, CRP #### [address] MCH (RBC) [Entitic mass] 26.3 pg Low 27.5-35.2 [facility] Comment on above: Performed By: #### C BC, ESR, BMP, CRP #### [address] MCV (RBC) [Entitic vol] 79.2 fL Low 83.5-101 [facility] Comment on above: Performed By: #### C BC, ESR, BMP, CRP #### [address] Mean Corpuscular HGB Conc 33.1 g/dL Normal 32.5-35.6 [facility] Comment on above: Performed By: #### C BC, ESR, BMP, CRP #### [address] Monocytes (Bld) [#/Vol] 0.7 10*3/uL Normal 0.0-0.8 [facility] Comment on above: Performed By: #### C BC, ESR, BMP, CRP #### [facility] [address] Monocytes/100 WBC (Bld) 9.8 % Normal . [facility] Comment on above: Performed By: #### C BC, ESR, BMP, CRP #### [facility] [address] Neutrophils (Bld) [#/Vol] 4.0 10*3/uL Normal 1.8-7.7 [facility] Comment on above: Performed By: #### C BC, ESR, BMP, CRP #### [address] Neutrophils/100 WBC (Bld) 57.8 % Normal . [facility] Comment on above: Performed By: #### C BC, ESR, BMP, CRP #### [place] [address] [place] Nucleated RBC/100 WBC (Bld) [Ratio] 0.1 % Normal 0-0.5 [facility] Comment on above: Performed By: #### C BC, ESR, BMP, CRP #### [address] Platelet mean volume (Bld) [Entitic vol] 7.7 fL Normal 6.6-10.1 [facility] Comment on above: Performed By: #### C BC, ESR, BMP, CRP #### [facility] [address] [place] [address] [place] Platelets (Bld) [#/Vol] 319 10*3/uL Normal 150-450 [facility] Comment on above: Performed By: #### C BC, ESR, BMP, CRP #### [facility] [address] [place] [address] [place] RBC (Bld) [#/Vol] 5.04 10*6/uL Normal 3.90-5.60 [facility] Comment on above: Performed By: #### C BC, ESR, BMP, CRP #### [facility] [address] WBC (Bld) [#/Vol] 6.8 10*3/uL Normal 4.5-11.0 [facility] Comment on above: Performed By: #### C BC, ESR, BMP, CRP #### [facility] [address] Erythrocyte Sedimentation Ra bonnie 12-09-2020 ESR (Bld) [Velocity] 6 mm/h Normal 0-14 [facility] Comment on above: Result Comment: PERF ORMED BY: [place] [address] PATHOLOGIST [employer] AND COMPOSITE FABRICATOR JAELYN MORGAN M.D. Performed By: #### C BC, ESR, BMP, CRP #### [address] CBC AUTO DIFFon 12-03-2020 BASO # 0.1 103/ul Normal 0.0-0.1 [facility] Comment on above: Performed By: #### C BC #### [facility] [address] [address] Quirino Roxanna Basophils/100 WBC (Bld) 0.8 % Normal 0.2-2.0 [facility] Comment on above: Performed By: #### C BC #### [facility] [address] [address] Quirino Roxanna EO # 0.3 103/ul Normal 0.0-0.7 [facility] Comment on above: Performed By: #### C BC #### [facility] [address] [address] Quirino Roxanna Eosinophils/100 WBC (Bld) 3.6 % Normal 0.9-7.0 [facility] Comment on above: Performed By: #### C BC #### [facility] [address] [address] Quirino Roxanna Erythrocyte distribution width (RBC) [Ratio] 14.3 % Normal 11.0-15.0 [facility] Comment on above: Performed By: #### C BC #### [facility] [address] [place] [address] Quirino Mcknight Hematocrit (Bld) [Volume fraction] 43.2 % Normal 42.0-54.0 [facility] Comment on above: Performed By: #### C BC #### [facility] [address] [place] [address] Quirino Mcknight Hemoglobin (Bld) [Mass/Vol] 13.8 g/dL Critically low 14.0-18.0 [facility] Comment on above: Performed By: #### C BC #### [facility] [address] [place] [address] Quirino Mcknight IG # 0.05 10e3/ul Critically high 0.00-0.03 [facility] Comment on above: Performed By: #### C BC #### [facility] [address] [place] [address] Quirino Mcknight IG % 0.7 % Critically high 0.0-0.5 [facility] Comment on above: Performed By: #### C BC #### [facility] [address] [place] [address] Quirino Mcknight LYMPH # 1.6 103/ul Normal 1.2-3.8 [facility] Comment on above: Performed By: #### C BC #### [facility] [address] [place] [address] Quirino Mcknight Lymphocytes/100 WBC (Bld) 22.2 % Normal 20.5-60.0 [facility] Comment on above: Performed By: #### C BC #### [facility] [address] [place] [address] Quirino Mcknight MANUAL DIFF REQ NO Normal [facility] Comment on above: Performed By: #### C BC #### [facility] [address] [place] [address] Quirino Mcknight MCH (RBC) [Entitic mass] 25.3 pg Critically low 25.9-34.0 [facility] Comment on above: Performed By: #### C BC #### [facility] [address] [place], [place] [address] Quirino Mcknight MCHC (RBC) [Mass/Vol] 31.9 g/dL Normal 29.9-35.2 [facility] Comment on above: Performed By: #### C BC #### [facility] [address] [place], [place] [address] Quirino Mcknight MCV (RBC) [Entitic vol] 79.3 fL Critically low 80.0-94.0 [facility] Comment on above: Performed By: #### C BC #### [facility] [address] [id number] Quirino Roxanna MONO # 0.6 103/ul Normal 0.3-0.8 [facility] Comment on above: Performed By: #### C BC #### [facility] [address] [id number] Qiurino Mcknight Monocytes/100 WBC (Bld) 8.5 % Normal 1.7-12.0 [facility] Comment on above: Performed By: #### C BC #### [facility] [address] [id number] Quirino Roxanna NEUT # 4.8 103/ul Normal 1.4-6.5 [facility] Comment on above: Performed By: #### C BC #### [facility] [address] [place], [place] [id number] Quirinoabril Mcknight Neutrophils/100 WBC (Bld) 64.2 % Normal 43.0-75.0 [facility] Comment on above: Performed By: #### C BC #### [facility] [address] [place], [place] [address] Quirinoabril Mcknight Platelet mean volume (Bld) [Entitic vol] 9.2 fL Critically low 9.5-13.5 [facility] Comment on above: Performed By: #### C BC #### [facility] [address] [id number] Quirino Roxanna PLT 341 103/ul Normal 150-450 [facility] Comment on above: Performed By: #### C BC #### [facility] [address] [place], [place] [address] Quirino Roxanna RBC 5.45 106/ul Normal 4.70-6.10 [facility] Comment on above: Performed By: #### C BC #### [facility] [address] [place] [address] Quirino Roxanna WBC 7.4 103/ul Normal 4.0-11.0 [facility] Comment on above: Performed By: #### C BC #### [facility] [address] [place] [address] Quirino Roxanna CRPon 12-03-2020 CRP [Mass/Vol] mg/L Normal <=1.0 [facility] Comment on above: Performed By: #### B MP, CRP #### [facility] [address] [place] [address] Quirino Roxanna PROF CHEM 8 (BAS METB)on Anion gap [Moles/Vol] 11.8 mmol/L Normal [facility] Comment on above: Performed By: #### B MP, CRP #### [facility] [address] [place] [address] Qiurino Roxanna Calcium [Mass/Vol] 8.6 mg/dL Normal 8.4-10.2 [facility] Comment on above: Performed By: #### B MP, CRP #### [facility] [address] [place] [address] Quirino Roxanna Chloride [Moles/Vol] 102 mmol/L Normal 98-107 [facility] Comment on above: Performed By: #### B MP, CRP #### [facility] [address] [place] [address] Quirino Roxanna CO2 [Moles/Vol] 28.9 mmol/L Normal 22.0-30.0 [facility] Comment on above: Performed By: #### B MP, CRP #### [facility] [facility] [address] [place] [address] Quirino Roxanna Creatinine [Mass/Vol] 1.08 mg/dL Normal 0.66-1.25 [facility] Comment on above: Performed By: #### B MP, CRP #### [facility] [address] [id number] Quirino Roxanna EGFR-AF TAJIK >60 Normal >=60 [facility] Comment on above: Performed By: #### B MP, CRP #### [facility] [address] [id number] Quirino Roxanna EGFR-NON AF TAJIK >60 Normal >=60 [facility] Comment on above: Performed By: #### B MP, CRP #### [facility] [address] [place], [place] [id number] Quirino Roxanna Glucose [Mass/Vol] 95 mg/dL Normal 74-106 [facility] Comment on above: Performed By: #### B MP, CRP #### [facility] [address] [place] [address] Quirino Roxanna Potassium [Moles/Vol] 3.7 mmol/L Normal 3.4-5.0 [facility] Comment on above: Performed By: #### B MP, CRP #### [facility] [address] [place] [address] Quirino Roxanna Sodium [Moles/Vol] 139 mmol/L Normal 137-145 [facility] Comment on above: Performed By: #### B MP, CRP #### [facility] [address] [place] [address] Quirino Roxanna Urea nitrogen [Mass/Vol] 10.0 mg/dL Normal 9.0-20.0 [facility] Comment on above: Performed By: #### B MP, CRP #### [facility] [address] [place] [address] Quirino Roxanna Urea nitrogen/Creatinine [Mass ratio] 9.3 mg/mg Normal [facility] Comment on above: Performed By: #### B MP, CRP #### [facility] [address] [place], [place] [id number] Quirino Roxanna [facility] 8 mm/hr Normal <=15 [facility] Comment on above: Performed By: #### S EDR #### [facility] [address] [place], [place] [id number] Quirino Roxanna Basic Metabolic Panelon 05 Calcium [Mass/Vol] 8.6 mg/dL Normal 8.2-10.2 [facility] Comment on above: Performed By: #### B MP, ESR, CRP, CBC #### [facility] [address] Chloride [Moles/Vol] 99 mmol/L Normal 95-114 [facility] Comment on above: Performed By: #### B MP, ESR, CRP, CBC #### [address] CO2 [Moles/Vol] 21.7 mmol/L Low 22.0-30.0 [facility] Comment on above: Performed By: #### B MP, ESR, CRP, CBC #### [address] Creatinine [Mass/Vol] 1.00 mg/dL Normal 0.64-1.27 [facility] Comment on above: Performed By: #### B MP, ESR, CRP, CBC #### [address] Estimated GFR ( Zohreh > 60 Normal [facility] Comment on above: Result Comment: GFR estimated reference range: According to KDOQI guidelines, <60 ml/min/1.73m2 is sufficient to diagnose a patient with chronic kidney disease. Performed By: #### B MP, ESR, CRP, CBC #### [address] Estimated GFR (Non- Am > 60 Normal [facility] Comment on above: Performed By: #### B MP, ESR, CRP, CBC #### [place] [address] [place] Glucose [Mass/Vol] 113 mg/dL High 70-100 [facility] Comment on above: Result Comment: [place] om Glucose Reference Range is dependent on time and content of last meal. Glucose of more than 200 mg/dL in a nonstressed, ambulatory subject supports the diagnosis of Diabetes Mellitus. ADA recommended reference range Performed By: #### B MP, ESR, CRP, CBC #### [address] [place] [address] [place] Potassium [Moles/Vol] 3.2 mmol/L Low 3.5-5.1 [facility] Comment on above: Performed By: #### B MP, ESR, CRP, CBC #### [facility] [address] Sodium [Moles/Vol] 135 mmol/L Low 136-146 [facility] Comment on above: Performed By: #### B MP, ESR, CRP, CBC #### [facility] [address] Urea nitrogen [Mass/Vol] 14 mg/dL Normal 9-23 [facility] Comment on above: Performed By: #### B MP, ESR, CRP, CBC #### [place] [address] [place] C-Reactive Proteinon 05-10-2 021 C-Reactive Protein 1.6 mg/dL High 0.0-1.0 [facility] Comment on above: Result Comment: PERF ORMED BY: [place] [address] PATHOLOGIST BONDING AND COMPOSITE FABRICATOR JAELYN MORGAN M.D. Performed By: #### C BC, ESR, BMP, CRP #### [address] Complete Blood Count Auto Di ffon 11-25-2020 Basophils (Bld) [#/Vol] 0.1 10*3/uL Normal 0.0-0.2 [facility] Comment on above: Performed By: #### B MP, ESR, CRP, CBC #### [place] [address] [place] Basophils/100 WBC (Bld) 0.8 % Normal . [facility] Comment on above: Performed By: #### B MP, ESR, CRP, CBC #### [place] [address] [place] Eosinophils (Bld) [#/Vol] 0.4 10*3/uL Normal 0.0-0.45 [facility] Comment on above: Performed By: #### B MP, ESR, CRP, CBC #### [address] Eosinophils/100 WBC (Bld) 4.6 % Normal . [facility] Comment on above: Performed By: #### B MP, ESR, CRP, CBC #### [address] Erythrocyte distribution width (RBC) [Ratio] 14.6 % Normal 12.0-14.8 [facility] Comment on above: Performed By: #### B MP, ESR, CRP, CBC #### [address] Hematocrit (Bld) [Volume fraction] 45.0 % Normal 38.8-50.0 [facility] Comment on above: Performed By: #### B MP, ESR, CRP, CBC #### [address] Hemoglobin (Bld) [Mass/Vol] 14.5 g/dL Normal 13.0-17.0 [facility] Comment on above: Performed By: #### B MP, ESR, CRP, CBC #### [address] Lymphocytes (Bld) [#/Vol] 2.4 10*3/uL Normal 1.00-4.8 [facility] Comment on above: Performed By: #### B MP, ESR, CRP, CBC #### [place] [address] [place] Lymphocytes/100 WBC (Bld) 29.2 % Normal . [facility] Comment on above: Performed By: #### B MP, ESR, CRP, CBC #### [address] MCH (RBC) [Entitic mass] 25.3 pg Low 27.5-35.2 [facility] Comment on above: Performed By: #### B MP, ESR, CRP, CBC #### [address] MCV (RBC) [Entitic vol] 78.8 fL Low 83.5-101 [facility] Comment on above: Performed By: #### B MP, ESR, CRP, CBC #### [address] Mean Corpuscular HGB Conc 32.1 g/dL Low 32.5-35.6 [facility] Comment on above: Performed By: #### B MP, ESR, CRP, CBC #### [address] Monocytes (Bld) [#/Vol] 0.8 10*3/uL Normal 0.0-0.8 [facility] Comment on above: Performed By: #### B MP, ESR, CRP, CBC #### [address] Monocytes/100 WBC (Bld) 10.0 % Normal . [facility] Comment on above: Performed By: #### B MP, ESR, CRP, CBC #### [address] Neutrophils (Bld) [#/Vol] 4.6 10*3/uL Normal 1.8-7.7 [facility] Comment on above: Performed By: #### B MP, ESR, CRP, CBC #### [address] Neutrophils/100 WBC (Bld) 55.4 % Normal . [facility] Comment on above: Performed By: #### B MP, ESR, CRP, CBC #### [place] [address] [place] Nucleated RBC/100 WBC (Bld) [Ratio] 0.1 % Normal 0-0.5 [facility] Comment on above: Performed By: #### B MP, ESR, CRP, CBC #### [address] Platelet mean volume (Bld) [Entitic vol] 7.6 fL Normal 6.6-10.1 [facility] Comment on above: Performed By: #### B MP, ESR, CRP, CBC #### [facility] [address] Platelets (Bld) [#/Vol] 372 10*3/uL Normal 150-450 [facility] Comment on above: Performed By: #### B MP, ESR, CRP, CBC #### [address] RBC (Bld) [#/Vol] 5.71 10*6/uL High 3.90-5.60 [facility] Comment on above: Performed By: #### B MP, ESR, CRP, CBC #### [address] WBC (Bld) [#/Vol] 8.4 10*3/uL Normal 4.5-11.0 [facility] Comment on above: Performed By: #### B MP, ESR, CRP, CBC #### [address] Erythrocyte Sedimentation Ra bonnie 11-25-2020 ESR (Bld) [Velocity] 10 mm/h Normal 0-14 [facility] Comment on above: Result Comment: PERF ORMED BY: [place] [address] PATHOLOGIST BONDING AND COMPOSITE FABRICATOR JAELYN MORGAN M.D. Performed By: #### B MP, ESR, CRP, CBC #### [address] Basic Metabolic Panelon Calcium [Mass/Vol] 8.7 mg/dL Normal 8.2-10.2 [facility] Comment on above: Performed By: #### B MP, ESR, CRP, CBC #### [address] Chloride [Moles/Vol] 103 mmol/L Normal 95-114 [facility] Comment on above: Performed By: #### B MP, ESR, CRP, CBC #### [address] CO2 [Moles/Vol] 23.9 mmol/L Normal 22.0-30.0 [facility] Comment on above: Performed By: #### B MP, ESR, CRP, CBC #### [facility] [address] Creatinine [Mass/Vol] 0.79 mg/dL Normal 0.64-1.27 [facility] Comment on above: Performed By: #### B MP, ESR, CRP, CBC #### [facility] [address] [place] [address] [place] Estimated GFR ( Zohreh > 60 Normal [facility] Comment on above: Result Comment: GFR estimated reference range: According to KDOQI guidelines, <60 ml/min/1.73m2 is sufficient to diagnose a patient with chronic kidney disease. Performed By: #### B MP, ESR, CRP, CBC #### [address] Estimated GFR (Non- Am > 60 Normal [facility] Comment on above: Performed By: #### B MP, ESR, CRP, CBC #### [address] Glucose [Mass/Vol] 93 mg/dL Normal 70-100 [facility] Comment on above: Result Comment: [place] om Glucose Reference Range is dependent on time and content of last meal. Glucose of more than 200 mg/dL in a nonstressed, ambulatory subject supports the diagnosis of Diabetes Mellitus. ADA recommended reference range Performed By: #### B MP, ESR, CRP, CBC #### [place] [address] [place] Potassium [Moles/Vol] 3.4 mmol/L Low 3.5-5.1 [facility] Comment on above: Performed By: #### B MP, ESR, CRP, CBC #### [place] [address] [place] Sodium [Moles/Vol] 135 mmol/L Low 136-146 [facility] Comment on above: Performed By: #### B MP, ESR, CRP, CBC #### [place] [address] [place] Urea nitrogen [Mass/Vol] 10 mg/dL Normal 9-23 [facility] Comment on above: Performed By: #### B MP, ESR, CRP, CBC #### [address] C-Reactive Proteinon 021 C-Reactive Protein 1.0 mg/dL Normal 0.0-1.0 [facility] Comment on above: Result Comment: PERF ORMED BY: [place] [address] PATHOLOGIST BONDING AND COMPOSITE FABRICATOR JAELYN MORGAN M.D. Performed By: #### B MP, ESR, CRP, CBC #### [address] Complete Blood Count Auto Di ffon 11-19-2020 Basophils (Bld) [#/Vol] 0.1 10*3/uL Normal 0.0-0.2 [facility] Comment on above: Performed By: #### B MP, ESR, CRP, CBC #### [place] [address] [place] Basophils/100 WBC (Bld) 0.8 % Normal . [facility] Comment on above: Performed By: #### B MP, ESR, CRP, CBC #### [place] [address] [place] Eosinophils (Bld) [#/Vol] 0.4 10*3/uL Normal 0.0-0.45 [facility] Comment on above: Performed By: #### B MP, ESR, CRP, CBC #### [place] [address] [place] Eosinophils/100 WBC (Bld) 4.8 % Normal . [facility] Comment on above: Performed By: #### B MP, ESR, CRP, CBC #### [address] Erythrocyte distribution width (RBC) [Ratio] 14.8 % Normal 12.0-14.8 [facility] Comment on above: Performed By: #### B MP, ESR, CRP, CBC #### [address] [place] [address] [place] Hematocrit (Bld) [Volume fraction] 41.4 % Normal 38.8-50.0 [facility] Comment on above: Performed By: #### B MP, ESR, CRP, CBC #### [facility] [address] Hemoglobin (Bld) [Mass/Vol] 13.5 g/dL Normal 13.0-17.0 [facility] Comment on above: Performed By: #### B MP, ESR, CRP, CBC #### [address] Lymphocytes (Bld) [#/Vol] 2.0 10*3/uL Normal 1.00-4.8 [facility] Comment on above: Performed By: #### B MP, ESR, CRP, CBC #### [address] Lymphocytes/100 WBC (Bld) 25.2 % Normal . [facility] Comment on above: Performed By: #### B MP, ESR, CRP, CBC #### [address] MCH (RBC) [Entitic mass] 25.6 pg Low 27.5-35.2 [facility] Comment on above: Performed By: #### B MP, ESR, CRP, CBC #### [address] MCV (RBC) [Entitic vol] 78.6 fL Low 83.5-101 [facility] Comment on above: Performed By: #### B MP, ESR, CRP, CBC #### [address] Mean Corpuscular HGB Conc 32.5 g/dL Normal 32.5-35.6 [facility] Comment on above: Performed By: #### B MP, ESR, CRP, CBC #### [address] Monocytes (Bld) [#/Vol] 0.7 10*3/uL Normal 0.0-0.8 [facility] Comment on above: Performed By: #### B MP, ESR, CRP, CBC #### [address] Monocytes/100 WBC (Bld) 8.5 % Normal . [facility] Comment on above: Performed By: #### B MP, ESR, CRP, CBC #### [address] Neutrophils (Bld) [#/Vol] 4.8 10*3/uL Normal 1.8-7.7 [facility] Comment on above: Performed By: #### B MP, ESR, CRP, CBC #### [address] Neutrophils/100 WBC (Bld) 60.7 % Normal . [facility] Comment on above: Performed By: #### B MP, ESR, CRP, CBC #### [address] Nucleated RBC/100 WBC (Bld) [Ratio] 0.0 % Normal 0-0.5 [facility] Comment on above: Performed By: #### B MP, ESR, CRP, CBC #### [address] Platelet mean volume (Bld) [Entitic vol] 7.5 fL Normal 6.6-10.1 [facility] Comment on above: Performed By: #### B MP, ESR, CRP, CBC #### [address] Platelets (Bld) [#/Vol] 357 10*3/uL Normal 150-450 [facility] Comment on above: Performed By: #### B MP, ESR, CRP, CBC #### [place] [address] [place] RBC (Bld) [#/Vol] 5.27 10*6/uL Normal 3.90-5.60 [facility] Comment on above: Performed By: #### B MP, ESR, CRP, CBC #### [address] WBC (Bld) [#/Vol] 7.9 10*3/uL Normal 4.5-11.0 [facility] Comment on above: Performed By: #### B MP, ESR, CRP, CBC #### [address] Erythrocyte Sedimentation Ra bonnie 11-19-2020 ESR (Bld) [Velocity] 3 mm/h Normal 0-14 [facility] Comment on above: Result Comment: PERF ORMED BY: [place] [address] PATHOLOGIST BONDING AND COMPOSITE FABRICATOR JAELYN MORGAN M.D. Performed By: #### B MP, ESR, CRP, CBC #### [address] Basic Metabolic Panelon 10-18 Calcium [Mass/Vol] 8.8 mg/dL Normal 8.2-10.2 [facility] Comment on above: Performed By: #### B MP, ESR, CRP, CBC #### [address] Chloride [Moles/Vol] 103 mmol/L Normal 95-114 [facility] Comment on above: Performed By: #### B MP, ESR, CRP, CBC #### [address] CO2 [Moles/Vol] 24.8 mmol/L Normal 22.0-30.0 [facility] Comment on above: Performed By: #### B MP, ESR, CRP, CBC #### [address] Creatinine [Mass/Vol] 0.81 mg/dL Normal 0.64-1.27 [facility] Comment on above: Performed By: #### B MP, ESR, CRP, CBC #### [address] Estimated GFR ( Zohreh > 60 Normal [facility] Comment on above: Result Comment: GFR estimated reference range: According to KDOQI guidelines, <60 ml/min/1.73m2 is sufficient to diagnose a patient with chronic kidney disease. Performed By: #### B MP, ESR, CRP, CBC #### [address] Estimated GFR (Non- Am > 60 Normal [facility] Comment on above: Performed By: #### B MP, ESR, CRP, CBC #### [address] Glucose [Mass/Vol] 100 mg/dL Normal 70-100 [facility] Comment on above: Result Comment: [place] Glucose Reference Range is dependent on time and content of last meal. Glucose of more than 200 mg/dL in a nonstressed, ambulatory subject supports the diagnosis of Diabetes Mellitus. ADA recommended reference range Performed By: #### B MP, ESR, CRP, CBC #### [address] Potassium [Moles/Vol] 4.0 mmol/L Normal 3.5-5.1 [facility] Comment on above: Performed By: #### B MP, ESR, CRP, CBC #### [address] Sodium [Moles/Vol] 136 mmol/L Normal 136-146 [facility] Comment on above: Performed By: #### B MP, ESR, CRP, CBC #### [address] Urea nitrogen [Mass/Vol] 11 mg/dL Normal 9-23 [facility] Comment on above: Performed By: #### B MP, ESR, CRP, CBC #### [place] [address] [place] Basophils Auto (Bld) [#/Vol] on 11-11-2020 Basophils (Bld) [#/Vol] 0.0 10*3/uL 0.0-0.2 [facility] Basophils/100 WBC Auto (Bld) on 11-11-2020 Basophils/100 WBC (Bld) 0.8 % [facility] Blood hemoglobin measurement (mass/volume)on 11-11-2020 Hemoglobin (Bld) [Mass/Vol] 14.6 g/dL 13.0-17.0 [facility] Blood leukocytes automated c ount (number/volume)on 11-11-2020 WBC (Bld) [#/Vol] 6.3 10*3/uL 4.5-11.0 [facility] C-Reactive Proteinon 021 C-Reactive Protein 1.2 mg/dL High 0.0-1.0 [facility] Comment on above: Result Comment: PERF ORMED BY: [place] [address] PATHOLOGIST BONDING AND COMPOSITE FABRICATOR JAELYN MORGAN M.D. Performed By: #### B MP, ESR, CRP, CBC #### [address] Complete Blood Count Auto Di ffon 11-11-2020 Basophils (Bld) [#/Vol] 0.0 10*3/uL Normal 0.0-0.2 [facility] Comment on above: Performed By: #### B MP, ESR, CRP, CBC #### [facility] [address] Basophils/100 WBC (Bld) 0.8 % Normal . [facility] Comment on above: Performed By: #### B MP, ESR, CRP, CBC #### [address] Eosinophils (Bld) [#/Vol] 0.5 10*3/uL High 0.0-0.45 [facility] Comment on above: Performed By: #### B MP, ESR, CRP, CBC #### [facility] [address] Eosinophils/100 WBC (Bld) 7.2 % Normal . [facility] Comment on above: Performed By: #### B MP, ESR, CRP, CBC #### [address] Erythrocyte distribution width (RBC) [Ratio] 14.8 % Normal 12.0-14.8 [facility] Comment on above: Performed By: #### B MP, ESR, CRP, CBC #### [address] Hematocrit (Bld) [Volume fraction] 44.7 % Normal 38.8-50.0 [facility] Comment on above: Performed By: #### B MP, ESR, CRP, CBC #### [address] Hemoglobin (Bld) [Mass/Vol] 14.6 g/dL Normal 13.0-17.0 [facility] Comment on above: Performed By: #### B MP, ESR, CRP, CBC #### [address] Lymphocytes (Bld) [#/Vol] 1.7 10*3/uL Normal 1.00-4.8 [facility] Comment on above: Performed By: #### B MP, ESR, CRP, CBC #### [address] Lymphocytes/100 WBC (Bld) 26.8 % Normal . [facility] Comment on above: Performed By: #### B MP, ESR, CRP, CBC #### [address] MCH (RBC) [Entitic mass] 26.1 pg Low 27.5-35.2 [facility] Comment on above: Performed By: #### B MP, ESR, CRP, CBC #### [address] MCV (RBC) [Entitic vol] 79.8 fL Low 83.5-101 [facility] Comment on above: Performed By: #### B MP, ESR, CRP, CBC #### [address] Mean Corpuscular HGB Conc 32.7 g/dL Normal 32.5-35.6 [facility] Comment on above: Performed By: #### B MP, ESR, CRP, CBC #### [address] Monocytes (Bld) [#/Vol] 0.6 10*3/uL Normal 0.0-0.8 [facility] Comment on above: Performed By: #### B MP, ESR, CRP, CBC #### [facility] [address] Monocytes/100 WBC (Bld) 8.9 % Normal . [facility] Comment on above: Performed By: #### B MP, ESR, CRP, CBC #### [facility] [address] Neutrophils (Bld) [#/Vol] 3.5 10*3/uL Normal 1.8-7.7 [facility] Comment on above: Performed By: #### B MP, ESR, CRP, CBC #### [address] Neutrophils/100 WBC (Bld) 56.3 % Normal . [facility] Comment on above: Performed By: #### B MP, ESR, CRP, CBC #### [facility] [address] Nucleated RBC/100 WBC (Bld) [Ratio] 0.2 % Normal 0-0.5 [facility] Comment on above: Performed By: #### B MP, ESR, CRP, CBC #### [address] Platelet mean volume (Bld) [Entitic vol] 7.5 fL Normal 6.6-10.1 [facility] Comment on above: Performed By: #### B MP, ESR, CRP, CBC #### [facility] [address] [place] [address] [place] Platelets (Bld) [#/Vol] 356 10*3/uL Normal 150-450 [facility] Comment on above: Performed By: #### B MP, ESR, CRP, CBC #### [address] RBC (Bld) [#/Vol] 5.61 10*6/uL High 3.90-5.60 [facility] Comment on above: Performed By: #### B MP, ESR, CRP, CBC #### [facility] [address] WBC (Bld) [#/Vol] 6.3 10*3/uL Normal 4.5-11.0 [facility] Comment on above: Performed By: #### B MP, ESR, CRP, CBC #### [address] Creatinine and Glomerular fi ltration rate.predicted panel (S/P/Bld)on 11-11-2020 Creatinine [Mass/Vol] 0.81 mg/dL 0.64-1.27 [facility] Eosinophils Auto (Bld) [#/Vo l]on 11-11-2020 Eosinophils (Bld) [#/Vol] 0.5 10*3/uL 0.0-0.45 [facility] Eosinophils/100 WBC Auto (Bl d)on 11-11-2020 Eosinophils/100 WBC (Bld) 7.2 % [facility] Erythrocyte Sedimentation Ra bonnie 11-11-2020 ESR (Bld) [Velocity] 9 mm/h Normal 0-14 [facility] Comment on above: Result Comment: PERF ORMED BY: [place] [address] PATHOLOGIST BONDING AND COMPOSITE FABRICATOR JAELYN MORGAN M.D. Performed By: #### B MP, ESR, CRP, CBC #### [address] Erythrocyte distribution wid th Auto (RBC) [Ratio]on 11-11-2020 Erythrocyte distribution width (RBC) [Ratio] 14.8 % 12.0-14.8 [facility] Erythrocyte sedimentation ra te by Photometric methodon 11-11-2020 ESR Photometric method (Bld) [Velocity] 9 mm/hr 0-14 [facility] Estimated glomerular filtrat ion rate (GFR) non- Americanon 11-11-2020 GFR/1.73 sq M.predicted among non-blacks MDRD (S/P/Bld) [Vol rate/Area] > 60 mL/Min [facility] Hematocrit Auto (Bld) [Volum e fraction]on 11-11-2020 Hematocrit (Bld) [Volume fraction] 44.7 % 38.8-50.0 [facility] Laboratory - Hematology and Cell countson 11-11-2020 Nucleated RBC/100 WBC (Bld) [Ratio] 0.2 % 0-0.5 [facility] Lymphocytes Auto (Bld) [#/Vo l]on 11-11-2020 Lymphocytes (Bld) [#/Vol] 1.7 10*3/uL 1.00-4.8 [facility] Lymphocytes/100 WBC Auto (Bl d)on 11-11-2020 Lymphocytes/100 WBC (Bld) 26.8 % [facility] MCH Auto (RBC) [Entitic mass ]on 11-11-2020 MCH (RBC) [Entitic mass] 26.1 pg 27.5-35.2 [facility] MCHC Auto (RBC) [Mass/Vol]on 11-11-2020 MCHC (RBC) [Mass/Vol] 32.7 g/dL 32.5-35.6 [facility] MCV Auto (RBC) [Entitic vol] on 11-11-2020 MCV (RBC) [Entitic vol] 79.8 fL 83.5-101 [facility] Monocytes Auto (Bld) [#/Vol] on 11-11-2020 Monocytes (Bld) [#/Vol] 0.6 10*3/uL 0.0-0.8 [facility] Monocytes/100 WBC Auto (Bld) on 11-11-2020 Monocytes/100 WBC (Bld) 8.9 % [facility] Neutrophils Auto (Bld) [#/Vo l]on 11-11-2020 Neutrophils (Bld) [#/Vol] 3.5 10*3/uL 1.8-7.7 [facility] Neutrophils/100 WBC Auto (Bl d)on 11-11-2020 Neutrophils/100 WBC (Bld) 56.3 % [facility] No Panel Informationon 11-11 Estimated GFR () > 60 mL/Min [facility] Comment on above: GFR estimated refere nce range: According to KDOQI guidelines, <60 ml/min/1.73m2 is sufficient to diagnose a patient with chronic kidney disease. Pharmacy Creatinine Clearance (Chem N/A [facility] Platelet mean volume Auto (B ld) [Entitic vol]on 11-11-2020 Platelet mean volume (Bld) [Entitic vol] 7.5 fL 6.6-10.1 [facility] Platelets Auto (Bld) [#/Vol] on 11-11-2020 Platelets (Bld) [#/Vol] 356 10*3/uL 150-450 [facility] RBC Auto (Bld) [#/Vol]on RBC (Bld) [#/Vol] 5.61 10*6/uL 3.90-5.60 [facility] Serum or plasma C reactive p rotein measurement (mass/volume)on 11-11-2020 CRP [Mass/Vol] 1.2 mg/dL 0.0-1.0 [facility] Serum or plasma calcium [place] urement (mass/volume)on 11-11-2020 Calcium [Mass/Vol] 8.8 mg/dL 8.2-10.2 [facility] Serum or plasma chloride rene surement (moles/volume)on 11-11-2020 Chloride [Moles/Vol] 103 mmol/L 95-114 [facility] Serum or plasma glucose [place] urement (mass/volume)on 11-11-2020 Glucose [Mass/Vol] 100 mg/dL 70-100 [facility] Comment on above: ADA recommended refe rence rangeRandom Glucose Reference Range is dependent on time and content of last meal. Glucose of more than 200 mg/dL in a nonstressed, ambulatory subject supports the diagnosis of Diabetes Mellitus. Serum or plasma potassium me asurement (moles/volume)on 11-11-2020 Potassium [Moles/Vol] 4.0 mmol/L 3.5-5.1 [facility] Serum or plasma sodium measu rement (moles/volume)on 11-11-2020 Sodium [Moles/Vol] 136 mmol/L 136-146 [facility] Serum or plasma total carbon dioxide measurement (moles/volume)on 11-11-2020 CO2 [Moles/Vol] 24.8 mmol/L 22.0-30.0 [facility] Serum or plasma urea nitroge n measurement (mass/volume)on 11-11-2020 Urea nitrogen [Mass/Vol] 11 mg/dL 04-10 [facility] Basic Metabolic Panelon 10-18 Calcium [Mass/Vol] 8.7 mg/dL Normal 8.2-10.2 [facility] Comment on above: Performed By: #### B MP, ESR, CRP, CBC #### [facility] [address] Chloride [Moles/Vol] 105 mmol/L Normal 95-114 [facility] Comment on above: Performed By: #### B MP, ESR, CRP, CBC #### [facility] [address] CO2 [Moles/Vol] 26.9 mmol/L Normal 22.0-30.0 [facility] Comment on above: Performed By: #### B MP, ESR, CRP, CBC #### [address] Creatinine [Mass/Vol] 0.94 mg/dL Normal 0.64-1.27 [facility] Comment on above: Performed By: #### B MP, ESR, CRP, CBC #### [address] Estimated GFR ( Zohreh > 60 Normal [facility] Comment on above: Result Comment: GFR estimated reference range: According to KDOQI guidelines, <60 ml/min/1.73m2 is sufficient to diagnose a patient with chronic kidney disease. Performed By: #### B MP, ESR, CRP, CBC #### [facility] [address] [place] [address] [place] Estimated GFR (Non- Am > 60 Normal [facility] Comment on above: Performed By: #### B MP, ESR, CRP, CBC #### [facility] [address] [place] [address] [place] Glucose [Mass/Vol] 88 mg/dL Normal 70-100 [facility] Comment on above: Result Comment: [facility] Glucose Reference Range is dependent on time and content of last meal. Glucose of more than 200 mg/dL in a nonstressed, ambulatory subject supports the diagnosis of Diabetes Mellitus. ADA recommended reference range Performed By: #### B MP, ESR, CRP, CBC #### [facility] [address] Potassium [Moles/Vol] 4.0 mmol/L Normal 3.5-5.1 [facility] Comment on above: Performed By: #### B MP, ESR, CRP, CBC #### [facility] [address] Sodium [Moles/Vol] 140 mmol/L Normal 136-146 [facility] Comment on above: Performed By: #### B MP, ESR, CRP, CBC #### [facility] [address] Urea nitrogen [Mass/Vol] 13 mg/dL Normal 9-23 [facility] Comment on above: Performed By: #### B MP, ESR, CRP, CBC #### [facility] [address] Basophils Auto (Bld) [#/Vol] on 11-05-2020 Basophils (Bld) [#/Vol] 0.1 10*3/uL 0.0-0.2 [facility] Basophils/100 WBC Auto (Bld) on 11-05-2020 Basophils/100 WBC (Bld) 1.3 % [facility] Blood hemoglobin measurement (mass/volume)on 11-05-2020 Hemoglobin (Bld) [Mass/Vol] 14.1 g/dL 13.0-17.0 [facility] Blood leukocytes automated c ount (number/volume)on 11-05-2020 WBC (Bld) [#/Vol] 6.1 10*3/uL 4.5-11.0 [facility] C-Reactive Proteinon 021 C-Reactive Protein 1.0 mg/dL Normal 0.0-1.0 [facility] Comment on above: Result Comment: PERF ORMED BY: [place] [address] PATHOLOGIST BONDING AND COMPOSITE FABRICATOR JAELYN MORGAN M.D. Performed By: #### B MP, ESR, CRP, CBC #### [address] Complete Blood Count Auto Di ffon 11-05-2020 Basophils (Bld) [#/Vol] 0.1 10*3/uL Normal 0.0-0.2 [facility] Comment on above: Performed By: #### B MP, ESR, CRP, CBC #### [address] Basophils/100 WBC (Bld) 1.3 % Normal . [facility] Comment on above: Performed By: #### B MP, ESR, CRP, CBC #### [address] Eosinophils (Bld) [#/Vol] 0.4 10*3/uL Normal 0.0-0.45 [facility] Comment on above: Performed By: #### B MP, ESR, CRP, CBC #### [address] Eosinophils/100 WBC (Bld) 6.2 % Normal . [facility] Comment on above: Performed By: #### B MP, ESR, CRP, CBC #### [address] Erythrocyte distribution width (RBC) [Ratio] 14.9 % High 12.0-14.8 [facility] Comment on above: Performed By: #### B MP, ESR, CRP, CBC #### [address] Hematocrit (Bld) [Volume fraction] 42.9 % Normal 38.8-50.0 [facility] Comment on above: Performed By: #### B MP, ESR, CRP, CBC #### [address] Hemoglobin (Bld) [Mass/Vol] 14.1 g/dL Normal 13.0-17.0 [facility] Comment on above: Performed By: #### B MP, ESR, CRP, CBC #### [address] Lymphocytes (Bld) [#/Vol] 1.7 10*3/uL Normal 1.00-4.8 [facility] Comment on above: Performed By: #### B MP, ESR, CRP, CBC #### [address] Lymphocytes/100 WBC (Bld) 28.5 % Normal . [facility] Comment on above: Performed By: #### B MP, ESR, CRP, CBC #### [address] MCH (RBC) [Entitic mass] 26.1 pg Low 27.5-35.2 [facility] Comment on above: Performed By: #### B MP, ESR, CRP, CBC #### [address] MCV (RBC) [Entitic vol] 79.1 fL Low 83.5-101 [facility] Comment on above: Performed By: #### B MP, ESR, CRP, CBC #### [address] Mean Corpuscular HGB Conc 32.9 g/dL Normal 32.5-35.6 [facility] Comment on above: Performed By: #### B MP, ESR, CRP, CBC #### [address] Monocytes (Bld) [#/Vol] 0.5 10*3/uL Normal 0.0-0.8 [facility] Comment on above: Performed By: #### B MP, ESR, CRP, CBC #### [address] Monocytes/100 WBC (Bld) 8.3 % Normal . [facility] Comment on above: Performed By: #### B MP, ESR, CRP, CBC #### [address] Neutrophils (Bld) [#/Vol] 3.4 10*3/uL Normal 1.8-7.7 [facility] Comment on above: Performed By: #### B MP, ESR, CRP, CBC #### [address] Neutrophils/100 WBC (Bld) 55.7 % Normal . [facility] Comment on above: Performed By: #### B MP, ESR, CRP, CBC #### [address] Nucleated RBC/100 WBC (Bld) [Ratio] 0.2 % Normal 0-0.5 [facility] Comment on above: Performed By: #### B MP, ESR, CRP, CBC #### [address] Platelet mean volume (Bld) [Entitic vol] 7.3 fL Normal 6.6-10.1 [facility] Comment on above: Performed By: #### B MP, ESR, CRP, CBC #### [address] Platelets (Bld) [#/Vol] 315 10*3/uL Normal 150-450 [facility] Comment on above: Performed By: #### B MP, ESR, CRP, CBC #### [address] RBC (Bld) [#/Vol] 5.43 10*6/uL Normal 3.90-5.60 [facility] Comment on above: Performed By: #### B MP, ESR, CRP, CBC #### [place] [address] [place] WBC (Bld) [#/Vol] 6.1 10*3/uL Normal 4.5-11.0 [facility] Comment on above: Performed By: #### B MP, ESR, CRP, CBC #### [address] Creatinine and Glomerular fi ltration rate.predicted panel (S/P/Bld)on 11-05-2020 Creatinine [Mass/Vol] 0.94 mg/dL 0.64-1.27 [facility] Eosinophils Auto (Bld) [#/Vo l]on 11-05-2020 Eosinophils (Bld) [#/Vol] 0.4 10*3/uL 0.0-0.45 [facility] Eosinophils/100 WBC Auto (Bl d)on 11-05-2020 Eosinophils/100 WBC (Bld) 6.2 % [facility] Erythrocyte Sedimentation Ra bonnie 11-05-2020 ESR (Bld) [Velocity] 6 mm/h Normal 0-14 [facility] Comment on above: Result Comment: PERF ORMED BY: [place] [address] PATHOLOGIST BONDING AND COMPOSITE FABRICATOR JAELYN MORGAN M.D. Performed By: #### B MP, ESR, CRP, CBC #### [address] Erythrocyte distribution wid th Auto (RBC) [Ratio]on 11-05-2020 Erythrocyte distribution width (RBC) [Ratio] 14.9 % 12.0-14.8 [facility] Erythrocyte sedimentation ra te by Photometric methodon 11-05-2020 ESR Photometric method (Bld) [Velocity] 6 mm/hr 0-14 [facility] Estimated glomerular filtrat ion rate (GFR) non- Americanon 11-05-2020 GFR/1.73 sq M.predicted among non-blacks MDRD (S/P/Bld) [Vol rate/Area] > 60 mL/Min [facility] Hematocrit Auto (Bld) [Volum e fraction]on 11-05-2020 Hematocrit (Bld) [Volume fraction] 42.9 % 38.8-50.0 [facility] Laboratory - Hematology and Cell countson 11-05-2020 Nucleated RBC/100 WBC (Bld) [Ratio] 0.2 % 0-0.5 [facility] Lymphocytes Auto (Bld) [#/Vo l]on 11-05-2020 Lymphocytes (Bld) [#/Vol] 1.7 10*3/uL 1.00-4.8 [facility] Lymphocytes/100 WBC Auto (Bl d)on 11-05-2020 Lymphocytes/100 WBC (Bld) 28.5 % [facility] MCH Auto (RBC) [Entitic mass ]on 11-05-2020 MCH (RBC) [Entitic mass] 26.1 pg 27.5-35.2 [facility] MCHC Auto (RBC) [Mass/Vol]on 11-05-2020 MCHC (RBC) [Mass/Vol] 32.9 g/dL 32.5-35.6 [facility] MCV Auto (RBC) [Entitic vol] on 11-05-2020 MCV (RBC) [Entitic vol] 79.1 fL 83.5-101 [facility] Monocytes Auto (Bld) [#/Vol] on 11-05-2020 Monocytes (Bld) [#/Vol] 0.5 10*3/uL 0.0-0.8 [facility] Monocytes/100 WBC Auto (Bld) on 11-05-2020 Monocytes/100 WBC (Bld) 8.3 % [facility] Neutrophils Auto (Bld) [#/Vo l]on 11-05-2020 Neutrophils (Bld) [#/Vol] 3.4 10*3/uL 1.8-7.7 [facility] Neutrophils/100 WBC Auto (Bl d)on 11-05-2020 Neutrophils/100 WBC (Bld) 55.7 % [facility] No Panel Informationon 11-05 Estimated GFR () > 60 mL/Min [facility] Comment on above: GFR estimated refere nce range: According to KDOQI guidelines, <60 ml/min/1.73m2 is sufficient to diagnose a patient with chronic kidney disease. Pharmacy Creatinine Clearance (Chem N/A [facility] Platelet mean volume Auto (B ld) [Entitic vol]on 11-05-2020 Platelet mean volume (Bld) [Entitic vol] 7.3 fL 6.6-10.1 [facility] Platelets Auto (Bld) [#/Vol] on 11-05-2020 Platelets (Bld) [#/Vol] 315 10*3/uL 150-450 [facility] RBC Auto (Bld) [#/Vol]on RBC (Bld) [#/Vol] 5.43 10*6/uL 3.90-5.60 [facility] Serum or plasma C reactive p rotein measurement (mass/volume)on 11-05-2020 CRP [Mass/Vol] 1.0 mg/dL 0.0-1.0 [facility] Serum or plasma calcium [place] urement (mass/volume)on 11-05-2020 Calcium [Mass/Vol] 8.7 mg/dL 8.2-10.2 [facility] Serum or plasma chloride rene surement (moles/volume)on 11-05-2020 Chloride [Moles/Vol] 105 mmol/L 95-114 [facility] Serum or plasma glucose [place] urement (mass/volume)on 11-05-2020 Glucose [Mass/Vol] 88 mg/dL 70-100 [facility] Comment on above: ADA recommended refe rence rangeRandom Glucose Reference Range is dependent on time and content of last meal. Glucose of more than 200 mg/dL in a nonstressed, ambulatory subject supports the diagnosis of Diabetes Mellitus. Serum or plasma potassium me asurement (moles/volume)on 11-05-2020 Potassium [Moles/Vol] 4.0 mmol/L 3.5-5.1 [facility] Serum or plasma sodium measu rement (moles/volume)on 11-05-2020 Sodium [Moles/Vol] 140 mmol/L 136-146 [facility] Serum or plasma total carbon dioxide measurement (moles/volume)on 11-05-2020 CO2 [Moles/Vol] 26.9 mmol/L 22.0-30.0 [facility] Serum or plasma urea nitroge n measurement (mass/volume)on 11-05-2020 Urea nitrogen [Mass/Vol] 13 mg/dL 9-23 [facility] Basic Metabolic Panelon 10-17 Calcium [Mass/Vol] 8.9 mg/dL Normal 8.2-10.2 [facility] Comment on above: Performed By: #### B MP, ESR, CRP, CBC #### [address] [address] [place] Chloride [Moles/Vol] 101 mmol/L Normal 95-114 [facility] Comment on above: Performed By: #### B MP, ESR, CRP, CBC #### [address] CO2 [Moles/Vol] 24.7 mmol/L Normal 22.0-30.0 [facility] Comment on above: Performed By: #### B MP, ESR, CRP, CBC #### [address] Creatinine [Mass/Vol] 0.76 mg/dL Normal 0.64-1.27 [facility] Comment on above: Performed By: #### B MP, ESR, CRP, CBC #### [address] Estimated GFR ( Zohreh > 60 Normal [facility] Comment on above: Result Comment: GFR estimated reference range: According to KDOQI guidelines, <60 ml/min/1.73m2 is sufficient to diagnose a patient with chronic kidney disease. Performed By: #### B MP, ESR, CRP, CBC #### [address] Estimated GFR (Non- Am > 60 Normal [facility] Comment on above: Performed By: #### B MP, ESR, CRP, CBC #### [address] Glucose [Mass/Vol] 97 mg/dL Normal 70-100 [facility] Comment on above: Result Comment: [place] Glucose Reference Range is dependent on time and content of last meal. Glucose of more than 200 mg/dL in a nonstressed, ambulatory subject supports the diagnosis of Diabetes Mellitus. ADA recommended reference range Performed By: #### B MP, ESR, CRP, CBC #### [address] Potassium [Moles/Vol] 3.8 mmol/L Normal 3.5-5.1 [facility] Comment on above: Performed By: #### B MP, ESR, CRP, CBC #### [facility] [address] Sodium [Moles/Vol] 136 mmol/L Normal 136-146 [facility] Comment on above: Performed By: #### B MP, ESR, CRP, CBC #### [facility] [address] Urea nitrogen [Mass/Vol] 6 mg/dL Low 9-23 [facility] Comment on above: Performed By: #### B MP, ESR, CRP, CBC #### [facility] [address] Basophils Auto (Bld) [#/Vol] on 10-29-2020 Basophils (Bld) [#/Vol] 0.1 10*3/uL 0.0-0.2 [facility] Basophils/100 WBC Auto (Bld) on 10-29-2020 Basophils/100 WBC (Bld) 0.8 % [facility] Blood hemoglobin measurement (mass/volume)on 10-29-2020 Hemoglobin (Bld) [Mass/Vol] 13.7 g/dL 13.0-17.0 [facility] Blood leukocytes automated c ount (number/volume)on 10-29-2020 WBC (Bld) [#/Vol] 7.3 10*3/uL 4.5-11.0 [facility] C-Reactive Proteinon 021 C-Reactive Protein 0.6 mg/dL Normal 0.0-1.0 [facility] Comment on above: Result Comment: PERF ORMED BY: [place] [address] PATHOLOGIST BONDING AND COMPOSITE FABRICATOR JAELYN MORGAN M.D. Performed By: #### B MP, ESR, CRP, CBC #### [address] Complete Blood Count Auto Di ffon 10-29-2020 Basophils (Bld) [#/Vol] 0.1 10*3/uL Normal 0.0-0.2 [facility] Comment on above: Performed By: #### B MP, ESR, CRP, CBC #### [facility] [address] Basophils/100 WBC (Bld) 0.8 % Normal . [facility] Comment on above: Performed By: #### B MP, ESR, CRP, CBC #### [facility] [address] Eosinophils (Bld) [#/Vol] 0.5 10*3/uL High 0.0-0.45 [facility] Comment on above: Performed By: #### B MP, ESR, CRP, CBC #### [address] Eosinophils/100 WBC (Bld) 6.6 % Normal . [facility] Comment on above: Performed By: #### B MP, ESR, CRP, CBC #### [address] Erythrocyte distribution width (RBC) [Ratio] 15.0 % High 12.0-14.8 [facility] Comment on above: Performed By: #### B MP, ESR, CRP, CBC #### [address] Hematocrit (Bld) [Volume fraction] 41.4 % Normal 38.8-50.0 [facility] Comment on above: Performed By: #### B MP, ESR, CRP, CBC #### [address] Hemoglobin (Bld) [Mass/Vol] 13.7 g/dL Normal 13.0-17.0 [facility] Comment on above: Performed By: #### B MP, ESR, CRP, CBC #### [place] [address] [place] Lymphocytes (Bld) [#/Vol] 1.8 10*3/uL Normal 1.00-4.8 [facility] Comment on above: Performed By: #### B MP, ESR, CRP, CBC #### [address] Lymphocytes/100 WBC (Bld) 24.7 % Normal . [facility] Comment on above: Performed By: #### B MP, ESR, CRP, CBC #### [address] MCH (RBC) [Entitic mass] 25.9 pg Low 27.5-35.2 [facility] Comment on above: Performed By: #### B MP, ESR, CRP, CBC #### [address] MCV (RBC) [Entitic vol] 78.3 fL Low 83.5-101 [facility] Comment on above: Performed By: #### B MP, ESR, CRP, CBC #### [address] Mean Corpuscular HGB Conc 33.0 g/dL Normal 32.5-35.6 [facility] Comment on above: Performed By: #### B MP, ESR, CRP, CBC #### [address] Monocytes (Bld) [#/Vol] 0.8 10*3/uL Normal 0.0-0.8 [facility] Comment on above: Performed By: #### B MP, ESR, CRP, CBC #### [address] Monocytes/100 WBC (Bld) 11.2 % Normal . [facility] Comment on above: Performed By: #### B MP, ESR, CRP, CBC #### [address] Neutrophils (Bld) [#/Vol] 4.1 10*3/uL Normal 1.8-7.7 [facility] Comment on above: Performed By: #### B MP, ESR, CRP, CBC #### [address] Neutrophils/100 WBC (Bld) 56.7 % Normal . [facility] Comment on above: Performed By: #### B MP, ESR, CRP, CBC #### [address] Nucleated RBC/100 WBC (Bld) [Ratio] 0.1 % Normal 0-0.5 [facility] Comment on above: Performed By: #### B MP, ESR, CRP, CBC #### [facility] [address] Platelet mean volume (Bld) [Entitic vol] 7.3 fL Normal 6.6-10.1 [facility] Comment on above: Performed By: #### B MP, ESR, CRP, CBC #### [facility] [address] Platelets (Bld) [#/Vol] 403 10*3/uL Normal 150-450 [facility] Comment on above: Performed By: #### B MP, ESR, CRP, CBC #### [address] RBC (Bld) [#/Vol] 5.28 10*6/uL Normal 3.90-5.60 [facility] Comment on above: Performed By: #### B MP, ESR, CRP, CBC #### [address] WBC (Bld) [#/Vol] 7.3 10*3/uL Normal 4.5-11.0 [facility] Comment on above: Performed By: #### B MP, ESR, CRP, CBC #### [address] Creatinine and Glomerular fi ltration rate.predicted panel (S/P/Bld)on 10-29-2020 Creatinine [Mass/Vol] 0.76 mg/dL 0.64-1.27 [facility] Eosinophils Auto (Bld) [#/Vo l]on 10-29-2020 Eosinophils (Bld) [#/Vol] 0.5 10*3/uL 0.0-0.45 [facility] Eosinophils/100 WBC Auto (Bl d)on 10-29-2020 Eosinophils/100 WBC (Bld) 6.6 % [facility] Erythrocyte Sedimentation Ra bonnie 10-29-2020 ESR (Bld) [Velocity] 7 mm/h Normal 0-14 [facility] Comment on above: Result Comment: PERF ORMED BY: [facility] [address] [place] [address] PATHOLOGIST BONDING AND COMPOSITE FABRICATOR JAELYN MORGAN M.D. Performed By: #### B MP, ESR, CRP, CBC #### [facility] [address] Erythrocyte distribution wid th Auto (RBC) [Ratio]on 10-29-2020 Erythrocyte distribution width (RBC) [Ratio] 15.0 % 12.0-14.8 [facility] Erythrocyte sedimentation ra te by Photometric methodon 10-29-2020 ESR Photometric method (Bld) [Velocity] 7 mm/hr 0-14 [facility] GFR/1.73 sq M.predicted ranjan g non-blacks MDRD (S/P/Bld) [Vol rate/Area]on 10-29-2020 GFR/1.73 sq M predicted among non-blacks MDRD (S/P/Bld) [Vol rate/Area] > 60 mL/Min [facility] Hematocrit Auto (Bld) [Volum e fraction]on 10-29-2020 Hematocrit (Bld) [Volume fraction] 41.4 % 38.8-50.0 [facility] Lymphocytes Auto (Bld) [#/Vo l]on 10-29-2020 Lymphocytes (Bld) [#/Vol] 1.8 10*3/uL 1.00-4.8 [facility] Lymphocytes/100 WBC Auto (Bl d)on 10-29-2020 Lymphocytes/100 WBC (Bld) 24.7 % [facility] MCH Auto (RBC) [Entitic mass ]on 10-29-2020 MCH (RBC) [Entitic mass] 25.9 pg 27.5-35.2 [facility] MCHC Auto (RBC) [Mass/Vol]on 10-29-2020 MCHC (RBC) [Mass/Vol] 33.0 g/dL 32.5-35.6 [facility] MCV Auto (RBC) [Entitic vol] on 10-29-2020 MCV (RBC) [Entitic vol] 78.3 fL 83.5-101 [facility] Monocytes Auto (Bld) [#/Vol] on 10-29-2020 Monocytes (Bld) [#/Vol] 0.8 10*3/uL 0.0-0.8 [facility] Monocytes/100 WBC Auto (Bld) on 10-29-2020 Monocytes/100 WBC (Bld) 11.2 % [facility] Neutrophils Auto (Bld) [#/Vo l]on 10-29-2020 Neutrophils (Bld) [#/Vol] 4.1 10*3/uL 1.8-7.7 [facility] Neutrophils/100 WBC Auto (Bl d)on 10-29-2020 Neutrophils/100 WBC (Bld) 56.7 % [facility] No Panel Informationon 10-29 Estimated GFR () > 60 mL/Min [facility] Comment on above: GFR estimated refere nce range: According to KDOQI guidelines, <60 ml/min/1.73m2 is sufficient to diagnose a patient with chronic kidney disease. Otheron 10-29-2020 GFR/1.73 sq M.predicted MDRD (S/P/Bld) [Vol rate/Area] > 60 mL/Min [facility] Comment on above: GFR estimated refere nce range: According to KDOQI guidelines, <60 ml/min/1.73m2 is sufficient to diagnose a patient with chronic kidney disease. Nucleated RBC/100 WBC (Bld) [Ratio] 0.1 % 0-0.5 [facility] Pharmacy Creatinine Clearance (Chem N/A [facility] Platelet mean volume Auto (B ld) [Entitic vol]on 10-29-2020 Platelet mean volume (Bld) [Entitic vol] 7.3 fL 6.6-10.1 [facility] Platelets Auto (Bld) [#/Vol] on 10-29-2020 Platelets (Bld) [#/Vol] 403 10*3/uL 150-450 [facility] RBC Auto (Bld) [#/Vol]on RBC (Bld) [#/Vol] 5.28 10*6/uL 3.90-5.60 [facility] Serum or plasma C reactive p rotein measurement (mass/volume)on 10-29-2020 CRP [Mass/Vol] 0.6 mg/dL 0.0-1.0 [facility] Serum or plasma calcium [place] urement (mass/volume)on 10-29-2020 Calcium [Mass/Vol] 8.9 mg/dL 8.2-10.2 [facility] Serum or plasma chloride rene surement (moles/volume)on 10-29-2020 Chloride [Moles/Vol] 101 mmol/L 95-114 [facility] Serum or plasma glucose [place] urement (mass/volume)on 10-29-2020 Glucose [Mass/Vol] 97 mg/dL 70-100 [facility] Comment on above: ADA recommended refe rence rangeRandom Glucose Reference Range is dependent on time and content of last meal. Glucose of more than 200 mg/dL in a nonstressed, ambulatory subject supports the diagnosis of Diabetes Mellitus. Serum or plasma potassium me asurement (moles/volume)on 10-29-2020 Potassium [Moles/Vol] 3.8 mmol/L 3.5-5.1 [facility] Serum or plasma sodium measu rement (moles/volume)on 10-29-2020 Sodium [Moles/Vol] 136 mmol/L 136-146 [facility] Serum or plasma total carbon dioxide measurement (moles/volume)on 10-29-2020 CO2 [Moles/Vol] 24.7 mmol/L 22.0-30.0 [facility] Serum or plasma urea nitroge n measurement (mass/volume)on 10-29-2020 Urea nitrogen [Mass/Vol] 6 mg/dL 9- [facility] Automated basophil %on 10-21 Basophils/100 WBC (Bld) 0.9 % Normal . [facility] Comment on above: Performed By: #### B MP, ESR, CRP, CBC #### [address] Automated basophil counton 0 10-21-2020 Basophils (Bld) [#/Vol] 0.1 10*3/uL Normal 0.0-0.2 [facility] Comment on above: Performed By: #### B MP, ESR, CRP, CBC #### [address] Automated blood lymphocyte c ount (number/volume)on 10-21-2020 Lymphocytes (Bld) [#/Vol] 1.6 10*3/uL Normal 1.00-4.8 [facility] Comment on above: Performed By: #### B MP, ESR, CRP, CBC #### [address] Automated blood lymphocyte c ount as percentage of total leukocyteson 10-21-2020 Lymphocytes/100 WBC (Bld) 25.0 % Normal . [facility] Comment on above: Performed By: #### B MP, ESR, CRP, CBC #### [address] Automated blood monocyte cou nton 10-21-2020 Monocytes (Bld) [#/Vol] 0.7 10*3/uL Normal 0.0-0.8 [facility] Comment on above: Performed By: #### B MP, ESR, CRP, CBC #### [address] Automated blood platelet cou nt (count/volume)on 10-21-2020 Platelets (Bld) [#/Vol] 353 10*3/uL Normal 150-450 [facility] Comment on above: Performed By: #### B MP, ESR, CRP, CBC #### [address] Automated blood platelet rene n volume measurementon 10-21-2020 Platelet mean volume (Bld) [Entitic vol] 7.3 fL Normal 6.6-10.1 [facility] Comment on above: Performed By: #### B MP, ESR, CRP, CBC #### [address] Automated eosinophil %on Eosinophils/100 WBC (Bld) 11.6 % Normal . [facility] Comment on above: Performed By: #### B MP, ESR, CRP, CBC #### [address] [place] [address] [place] Automated eosinophil counton 10-21-2020 Eosinophils (Bld) [#/Vol] 0.8 10*3/uL High 0.0-0.45 [facility] Comment on above: Performed By: #### B MP, ESR, CRP, CBC #### [address] Automated erythrocyte distri bution width ratioon 10-21-2020 Erythrocyte distribution width (RBC) [Ratio] 15.0 % High 12.0-14.8 [facility] Comment on above: Performed By: #### B MP, ESR, CRP, CBC #### [address] Automated erythrocyte mean c orpuscular hemoglobin (mass per erythrocyte)on 10-21-2020 MCH (RBC) [Entitic mass] 25.9 pg Low 27.5-35.2 [facility] Comment on above: Performed By: #### B MP, ESR, CRP, CBC #### [address] Automated erythrocyte mean c orpuscular volumeon 10-21-2020 MCV (RBC) [Entitic vol] 77.8 fL Low 83.5-101 [facility] Comment on above: Performed By: #### B MP, ESR, CRP, CBC #### [address] Automated monocyte %on 10-21 Monocytes/100 WBC (Bld) 10.4 % Normal . [facility] Comment on above: Performed By: #### B MP, ESR, CRP, CBC #### [address] Automated neutrophil %on Neutrophils/100 WBC (Bld) 52.1 % Normal . [facility] Comment on above: Performed By: #### B MP, ESR, CRP, CBC #### [address] Basic Metabolic Panelon Estimated GFR ( Zohreh > 60 Normal [facility] Comment on above: Result Comment: GFR estimated reference range: According to KDOQI guidelines, <60 ml/min/1.73m2 is sufficient to diagnose a patient with chronic kidney disease. Performed By: #### B MP, ESR, CRP, CBC #### [address] Estimated GFR (Non- Am > 60 Normal [facility] Comment on above: Performed By: #### B MP, ESR, CRP, CBC #### [address] Blood erythrocytes automated count (number/volume)on 10-21-2020 RBC (Bld) [#/Vol] 5.47 10*6/uL Normal 3.90-5.60 [facility] Comment on above: Performed By: #### B MP, ESR, CRP, CBC #### [address] Blood hemoglobin measurement (mass/volume)on 10-21-2020 Hemoglobin (Bld) [Mass/Vol] 14.2 g/dL Normal 13.0-17.0 [facility] Comment on above: Performed By: #### B MP, ESR, CRP, CBC #### [address] Blood leukocytes automated c ount (number/volume)on 10-21-2020 WBC (Bld) [#/Vol] 6.5 10*3/uL Normal 4.5-11.0 [facility] Comment on above: Performed By: #### B MP, ESR, CRP, CBC #### [address] Blood neutrophil count by au tomated method (number/volume)on 10-21-2020 Neutrophils (Bld) [#/Vol] 3.4 10*3/uL Normal 1.8-7.7 [facility] Comment on above: Performed By: #### B MP, ESR, CRP, CBC #### [address] C-Reactive Proteinon 021 C-Reactive Protein 0.5 mg/dL Normal 0.0-1.0 [facility] Comment on above: Result Comment: PERF ORMED BY: [place] [address] PATHOLOGIST B[employer]ING AND COMPOSITE FABRICATOR JAELYN MORGAN M.D. Performed By: #### B MP, ESR, CRP, CBC #### [address] Complete Blood Count Auto Di ffon 10-21-2020 Mean Corpuscular HGB Conc 33.3 g/dL Normal 32.5-35.6 [facility] Comment on above: Performed By: #### B MP, ESR, CRP, CBC #### [address] Nucleated RBC/100 WBC (Bld) [Ratio] 0.1 % Normal 0-0.5 [facility] Comment on above: Performed By: #### B MP, ESR, CRP, CBC #### [address] Erythrocyte Sedimentation Ra bonnie 10-21-2020 ESR (Bld) [Velocity] 7 mm/h Normal 0-14 [facility] Comment on above: Result Comment: PERF ORMED BY: [place] [address] PATHOLOGIST B[employer]ING AND COMPOSITE FABRICATOR JAELYN MORGAN M.D. Performed By: #### B MP, ESR, CRP, CBC #### [address] Erythrocyte sedimentation ra te by Photometric methodon 10-21-2020 ESR Photometric method (Bld) [Velocity] 7 mm/hr 0-14 [facility] GFR/1.73 sq M.predicted ranjan g non-blacks MDRD (S/P/Bld) [Vol rate/Area]on 10-21-2020 GFR/1.73 sq M predicted among non-blacks MDRD (S/P/Bld) [Vol rate/Area] > 60 mL/Min [facility] Hematocrit [Volume Fraction] of Blood by Automated counton 10-21-2020 Hematocrit (Bld) [Volume fraction] 42.6 % Normal 38.8-50.0 [facility] Comment on above: Performed By: #### B MP, ESR, CRP, CBC #### [facility] [address] MCHC Auto (RBC) [Mass/Vol]on 10-21-2020 MCHC (RBC) [Mass/Vol] 33.3 g/dL 32.5-35.6 [facility] No Panel Informationon 10-21 Estimated GFR () > 60 mL/Min [facility] Comment on above: GFR estimated refere nce range: According to KDOQI guidelines, <60 ml/min/1.73m2 is sufficient to diagnose a patient with chronic kidney disease. Otheron 10-21-2020 GFR/1.73 sq M.predicted MDRD (S/P/Bld) [Vol rate/Area] > 60 mL/Min [facility] Comment on above: GFR estimated refere nce range: According to KDOQI guidelines, <60 ml/min/1.73m2 is sufficient to diagnose a patient with chronic kidney disease. Pharmacy Creatinine Clearance (Chem N/A [facility] Serum or plasma C reactive p rotein measurement (mass/volume)on 10-21-2020 CRP [Mass/Vol] 0.5 mg/dL 0.0-1.0 [facility] Serum or plasma calcium [place] urement (mass/volume)on 10-21-2020 Calcium [Mass/Vol] 8.8 mg/dL Normal 8.2-10.2 [facility] Comment on above: Performed By: #### B MP, ESR, CRP, CBC #### [facility] [address] Serum or plasma chloride rene surement (moles/volume)on 10-21-2020 Chloride [Moles/Vol] 100 mmol/L Normal 95-114 [facility] Comment on above: Performed By: #### B MP, ESR, CRP, CBC #### [facility] [address] Serum or plasma creatinine m easurement with calculation of estimated glomerular filtron 10-21-2020 Creatinine [Mass/Vol] 0.77 mg/dL Normal 0.64-1.27 [facility] Comment on above: Performed By: #### B MP, ESR, CRP, CBC #### [facility] [address] Serum or plasma glucose [place] urement (mass/volume)on 10-21-2020 Glucose [Mass/Vol] 86 mg/dL Normal 70-100 [facility] Comment on above: ADA recommended refe rence rangeRandom Glucose Reference Range is dependent on time and content of last meal. Glucose of more than 200 mg/dL in a nonstressed, ambulatory subject supports the diagnosis of Diabetes Mellitus. Result Comment: [place] om Glucose Reference Range is dependent on time and content of last meal. Glucose of more than 200 mg/dL in a nonstressed, ambulatory subject supports the diagnosis of Diabetes Mellitus. ADA recommended reference range Performed By: #### B MP, ESR, CRP, CBC #### [address] Serum or plasma potassium me asurement (moles/volume)on 10-21-2020 Potassium [Moles/Vol] 4.1 mmol/L Normal 3.5-5.1 [facility] Comment on above: Performed By: #### B MP, ESR, CRP, CBC #### [address] Serum or plasma sodium measu rement (moles/volume)on 10-21-2020 Sodium [Moles/Vol] 135 mmol/L Low 136-146 [facility] Comment on above: Performed By: #### B MP, ESR, CRP, CBC #### [address] Serum or plasma total carbon dioxide measurement (moles/volume)on 10-21-2020 CO2 [Moles/Vol] 26.4 mmol/L Normal 22.0-30.0 [facility] Comment on above: Performed By: #### B MP, ESR, CRP, CBC #### [address] Serum or plasma urea nitroge n measurement (mass/volume)on 10-21-2020 Urea nitrogen [Mass/Vol] 9 mg/dL Normal 9-23 [facility] Comment on above: Performed By: #### B MP, ESR, CRP, CBC #### [facility] [address] Automated basophil %on 10-14 Basophils/100 WBC (Bld) 0.9 % [facility] Automated basophil counton 0 10-14-2020 Basophils (Bld) [#/Vol] 0.1 10*3/uL 0.0-0.2 [facility] Automated blood lymphocyte c ount (number/volume)on 10-14-2020 Lymphocytes (Bld) [#/Vol] 1.9 10*3/uL 1.00-4.8 [facility] Automated blood lymphocyte c ount as percentage of total leukocyteson 10-14-2020 Lymphocytes/100 WBC (Bld) 23.5 % [facility] Automated blood monocyte cou nton 10-14-2020 Monocytes (Bld) [#/Vol] 0.8 10*3/uL 0.0-0.8 [facility] Automated blood platelet cou nt (count/volume)on 10-14-2020 Platelets (Bld) [#/Vol] 350 10*3/uL 150-450 [facility] Automated blood platelet rene n volume measurementon 10-14-2020 Platelet mean volume (Bld) [Entitic vol] 7.4 fL 6.6-10.1 [facility] Automated eosinophil %on Eosinophils/100 WBC (Bld) 9.2 % [facility] Automated eosinophil counton 10-14-2020 Eosinophils (Bld) [#/Vol] 0.8 10*3/uL 0.0-0.45 [facility] Automated erythrocyte distri bution width ratioon 10-14-2020 Erythrocyte distribution width (RBC) [Ratio] 15.3 % 12.0-14.8 [facility] Automated erythrocyte mean c orpuscular hemoglobin (mass per erythrocyte)on 10-14-2020 MCH (RBC) [Entitic mass] 25.9 pg 27.5-35.2 [facility] Automated erythrocyte mean c orpuscular hemoglobin concentration measurement (mass/volon 10-14-2020 MCHC (RBC) [Mass/Vol] 33.4 g/dL 32.5-35.6 [facility] Automated erythrocyte mean c orpuscular volumeon 10-14-2020 MCV (RBC) [Entitic vol] 77.7 fL 83.5-101 [facility] Automated monocyte %on 10-14 Monocytes/100 WBC (Bld) 10.1 % [facility] Automated neutrophil %on Neutrophils/100 WBC (Bld) 56.3 % [facility] Basic Metabolic Panelon 09-17 Calcium [Mass/Vol] 8.9 mg/dL Normal 8.2-10.2 [facility] Comment on above: Performed By: #### B MP, ESR, CRP, CBC #### [facility] [address] [place] [address] [place] Chloride [Moles/Vol] 100 mmol/L Normal 95-114 [facility] Comment on above: Performed By: #### B MP, ESR, CRP, CBC #### [facility] [address] [place] [address] [place] CO2 [Moles/Vol] 24.7 mmol/L Normal 22.0-30.0 [facility] Comment on above: Performed By: #### B MP, ESR, CRP, CBC #### [facility] [address] [place] [address] [place] Creatinine [Mass/Vol] 0.79 mg/dL Normal 0.64-1.27 [facility] Comment on above: Performed By: #### B MP, ESR, CRP, CBC #### [facility] [address] [place] [address] [place] Estimated GFR ( Zohreh > 60 Normal [facility] Comment on above: Result Comment: GFR estimated reference range: According to KDOQI guidelines, <60 ml/min/1.73m2 is sufficient to diagnose a patient with chronic kidney disease. Performed By: #### B MP, ESR, CRP, CBC #### [address] Estimated GFR (Non- Am > 60 Normal [facility] Comment on above: Performed By: #### B MP, ESR, CRP, CBC #### [address] Glucose [Mass/Vol] 102 mg/dL High 70-100 [facility] Comment on above: Result Comment: [place] Glucose Reference Range is dependent on time and content of last meal. Glucose of more than 200 mg/dL in a nonstressed, ambulatory subject supports the diagnosis of Diabetes Mellitus. ADA recommended reference range Performed By: #### B MP, ESR, CRP, CBC #### [address] Potassium [Moles/Vol] 3.6 mmol/L Normal 3.5-5.1 [facility] Comment on above: Performed By: #### B MP, ESR, CRP, CBC #### [address] Sodium [Moles/Vol] 135 mmol/L Low 136-146 [facility] Comment on above: Performed By: #### B MP, ESR, CRP, CBC #### [address] Urea nitrogen [Mass/Vol] 14 mg/dL Normal 9-23 [facility] Comment on above: Performed By: #### B MP, ESR, CRP, CBC #### [address] Blood erythrocytes automated count (number/volume)on 10-14-2020 RBC (Bld) [#/Vol] 5.15 10*6/uL 3.90-5.60 [facility] Blood hemoglobin measurement (mass/volume)on 10-14-2020 Hemoglobin (Bld) [Mass/Vol] 13.4 g/dL 13.0-17.0 [facility] Blood leukocytes automated c ount (number/volume)on 10-14-2020 WBC (Bld) [#/Vol] 8.2 10*3/uL 4.5-11.0 [facility] Blood neutrophil count by au tomated method (number/volume)on 10-14-2020 Neutrophils (Bld) [#/Vol] 4.6 10*3/uL 1.8-7.7 [facility] C-Reactive Proteinon 021 C-Reactive Protein 0.7 mg/dL Normal 0.0-1.0 [facility] Comment on above: Result Comment: PERF ORMED BY: [place] [address] PATHOLOGIST BONDING AND COMPOSITE FABRICATOR JAELYN MORGAN M.D. Performed By: #### B MP, ESR, CRP, CBC #### [address] Complete Blood Count Auto Di ffon 10-14-2020 Basophils (Bld) [#/Vol] 0.1 10*3/uL Normal 0.0-0.2 [facility] Comment on above: Performed By: #### B MP, ESR, CRP, CBC #### [address] Basophils/100 WBC (Bld) 0.9 % Normal . [facility] Comment on above: Performed By: #### B MP, ESR, CRP, CBC #### [address] Eosinophils (Bld) [#/Vol] 0.8 10*3/uL High 0.0-0.45 [facility] Comment on above: Performed By: #### B MP, ESR, CRP, CBC #### [address] Eosinophils/100 WBC (Bld) 9.2 % Normal . [facility] Comment on above: Performed By: #### B MP, ESR, CRP, CBC #### [address] Erythrocyte distribution width (RBC) [Ratio] 15.3 % High 12.0-14.8 [facility] Comment on above: Performed By: #### B MP, ESR, CRP, CBC #### [address] Hematocrit (Bld) [Volume fraction] 40.0 % Normal 38.8-50.0 [facility] Comment on above: Performed By: #### B MP, ESR, CRP, CBC #### [address] Hemoglobin (Bld) [Mass/Vol] 13.4 g/dL Normal 13.0-17.0 [facility] Comment on above: Performed By: #### B MP, ESR, CRP, CBC #### [address] Lymphocytes (Bld) [#/Vol] 1.9 10*3/uL Normal 1.00-4.8 [facility] Comment on above: Performed By: #### B MP, ESR, CRP, CBC #### [address] Lymphocytes/100 WBC (Bld) 23.5 % Normal . [facility] Comment on above: Performed By: #### B MP, ESR, CRP, CBC #### [address] MCH (RBC) [Entitic mass] 25.9 pg Low 27.5-35.2 [facility] Comment on above: Performed By: #### B MP, ESR, CRP, CBC #### [address] MCV (RBC) [Entitic vol] 77.7 fL Low 83.5-101 [facility] Comment on above: Performed By: #### B MP, ESR, CRP, CBC #### [address] Mean Corpuscular HGB Conc 33.4 g/dL Normal 32.5-35.6 [facility] Comment on above: Performed By: #### B MP, ESR, CRP, CBC #### [address] Monocytes (Bld) [#/Vol] 0.8 10*3/uL Normal 0.0-0.8 [facility] Comment on above: Performed By: #### B MP, ESR, CRP, CBC #### [facility] [address] Monocytes/100 WBC (Bld) 10.1 % Normal . [facility] Comment on above: Performed By: #### B MP, ESR, CRP, CBC #### [address] Neutrophils (Bld) [#/Vol] 4.6 10*3/uL Normal 1.8-7.7 [facility] Comment on above: Performed By: #### B MP, ESR, CRP, CBC #### [address] Neutrophils/100 WBC (Bld) 56.3 % Normal . [facility] Comment on above: Performed By: #### B MP, ESR, CRP, CBC #### [address] Nucleated RBC/100 WBC (Bld) [Ratio] 0.0 % Normal 0-0.5 [facility] Comment on above: Performed By: #### B MP, ESR, CRP, CBC #### [address] Platelet mean volume (Bld) [Entitic vol] 7.4 fL Normal 6.6-10.1 [facility] Comment on above: Performed By: #### B MP, ESR, CRP, CBC #### [place] [address] [place] Platelets (Bld) [#/Vol] 350 10*3/uL Normal 150-450 [facility] Comment on above: Performed By: #### B MP, ESR, CRP, CBC #### [place] [address] [place] RBC (Bld) [#/Vol] 5.15 10*6/uL Normal 3.90-5.60 [facility] Comment on above: Performed By: #### B MP, ESR, CRP, CBC #### [address] [address] [place] WBC (Bld) [#/Vol] 8.2 10*3/uL Normal 4.5-11.0 [facility] Comment on above: Performed By: #### B MP, ESR, CRP, CBC #### [facility] [address] Erythrocyte Sedimentation Ra bonnie 10-14-2020 ESR (Bld) [Velocity] 11 mm/h Normal 0-14 [facility] Comment on above: Result Comment: PERF ORMED BY: [facility] [address] [place] [address] PATHOLOGIST BONDING AND COMPOSITE FABRICATOR JAELYN MORGAN M.D. Performed By: #### B MP, ESR, CRP, CBC #### [facility] [address] Erythrocyte sedimentation ra te by Photometric methodon 10-14-2020 ESR Photometric method (Bld) [Velocity] 11 mm/hr 0-14 [facility] Estimated glomerular filtrat ion rate (GFR) non- Americanon 10-14-2020 GFR/1.73 sq M predicted among non-blacks MDRD (S/P/Bld) [Vol rate/Area] > 60 mL/Min [facility] Hematocrit [Volume Fraction] of Blood by Automated counton 10-14-2020 Hematocrit (Bld) [Volume fraction] 40.0 % 38.8-50.0 [facility] No Panel Informationon 10-14 Estimated GFR () > 60 mL/Min [facility] Comment on above: GFR estimated refere nce range: According to KDOQI guidelines, <60 ml/min/1.73m2 is sufficient to diagnose a patient with chronic kidney disease. Otheron 10-14-2020 GFR/1.73 sq M.predicted MDRD (S/P/Bld) [Vol rate/Area] > 60 mL/Min [facility] Comment on above: GFR estimated refere nce range: According to KDOQI guidelines, <60 ml/min/1.73m2 is sufficient to diagnose a patient with chronic kidney disease. Nucleated RBC/100 WBC (Bld) [Ratio] 0.0 % 0-0.5 [facility] Pharmacy Creatinine Clearance (Chem N/A [facility] Serum or plasma C reactive p rotein measurement (mass/volume)on 10-14-2020 CRP [Mass/Vol] 0.7 mg/dL 0.0-1.0 [facility] Serum or plasma calcium [place] urement (mass/volume)on 10-14-2020 Calcium [Mass/Vol] 8.9 mg/dL 8.2-10.2 [facility] Serum or plasma chloride rene surement (moles/volume)on 10-14-2020 Chloride [Moles/Vol] 100 mmol/L 95-114 [facility] Serum or plasma creatinine m easurement with calculation of estimated glomerular filtron 10-14-2020 Creatinine [Mass/Vol] 0.79 mg/dL 0.64-1.27 [facility] Serum or plasma glucose [place] urement (mass/volume)on 10-14-2020 Glucose [Mass/Vol] 102 mg/dL 70-100 [facility] Comment on above: ADA recommended refe rence rangeRandom Glucose Reference Range is dependent on time and content of last meal. Glucose of more than 200 mg/dL in a nonstressed, ambulatory subject supports the diagnosis of Diabetes Mellitus. Serum or plasma potassium me asurement (moles/volume)on 10-14-2020 Potassium [Moles/Vol] 3.6 mmol/L 3.5-5.1 [facility] Serum or plasma sodium measu rement (moles/volume)on 10-14-2020 Sodium [Moles/Vol] 135 mmol/L 136-146 [facility] Serum or plasma total carbon dioxide measurement (moles/volume)on 10-14-2020 CO2 [Moles/Vol] 24.7 mmol/L 22.0-30.0 [facility] Serum or plasma urea nitroge n measurement (mass/volume)on 10-14-2020 Urea nitrogen [Mass/Vol] 14 mg/dL 9-23 [facility] Automated basophil %on 10-07 Basophils/100 WBC (Bld) 1.0 % [facility] Automated basophil counton 0 10-07-2020 Basophils (Bld) [#/Vol] 0.1 10*3/uL 0.0-0.2 [facility] Automated blood lymphocyte c ount (number/volume)on 10-07-2020 Lymphocytes (Bld) [#/Vol] 2.1 10*3/uL 1.00-4.8 [facility] Automated blood lymphocyte c ount as percentage of total leukocyteson 10-07-2020 Lymphocytes/100 WBC (Bld) 26.9 % [facility] Automated blood monocyte cou nton 10-07-2020 Monocytes (Bld) [#/Vol] 0.8 10*3/uL 0.0-0.8 [facility] Automated blood platelet cou nt (count/volume)on 10-07-2020 Platelets (Bld) [#/Vol] 334 10*3/uL 150-450 [facility] Automated blood platelet rene n volume measurementon 10-07-2020 Platelet mean volume (Bld) [Entitic vol] 7.5 fL 6.6-10.1 [facility] Automated eosinophil %on Eosinophils/100 WBC (Bld) 11.9 % [facility] Automated eosinophil counton 10-07-2020 Eosinophils (Bld) [#/Vol] 0.9 10*3/uL 0.0-0.45 [facility] Automated erythrocyte distri bution width ratioon 10-07-2020 Erythrocyte distribution width (RBC) [Ratio] 15.0 % 12.0-14.8 [facility] Automated erythrocyte mean c orpuscular hemoglobin (mass per erythrocyte)on 10-07-2020 MCH (RBC) [Entitic mass] 25.7 pg 27.5-35.2 [facility] Automated erythrocyte mean c orpuscular hemoglobin concentration measurement (mass/volon 10-07-2020 MCHC (RBC) [Mass/Vol] 33.1 g/dL 32.5-35.6 [facility] Automated erythrocyte mean c orpuscular volumeon 10-07-2020 MCV (RBC) [Entitic vol] 77.6 fL 83.5-101 [facility] Automated monocyte %on 10-07 Monocytes/100 WBC (Bld) 10.0 % [facility] Automated neutrophil %on Neutrophils/100 WBC (Bld) 50.2 % [facility] Basic Metabolic Panelon 09-17 Calcium [Mass/Vol] 8.6 mg/dL Normal 8.2-10.2 [facility] Comment on above: Performed By: #### B MP, CBC, ESR, CRP #### [facility] [address] Chloride [Moles/Vol] 99 mmol/L Normal 95-114 [facility] Comment on above: Performed By: #### B MP, CBC, ESR, CRP #### [facility] [address] CO2 [Moles/Vol] 26.6 mmol/L Normal 22.0-30.0 [facility] Comment on above: Performed By: #### B MP, CBC, ESR, CRP #### [facility] [address] Creatinine [Mass/Vol] 0.89 mg/dL Normal 0.64-1.27 [facility] Comment on above: Performed By: #### B MP, CBC, ESR, CRP #### [facility] [address] Estimated GFR ( Zohreh > 60 Normal [facility] Comment on above: Result Comment: GFR estimated reference range: According to KDOQI guidelines, <60 ml/min/1.73m2 is sufficient to diagnose a patient with chronic kidney disease. Performed By: #### B MP, CBC, ESR, CRP #### [address] Estimated GFR (Non- Am > 60 Normal [facility] Comment on above: Performed By: #### B MP, CBC, ESR, CRP #### [facility] [address] Glucose [Mass/Vol] 106 mg/dL High 70-100 [facility] Comment on above: Result Comment: [place] Glucose Reference Range is dependent on time and content of last meal. Glucose of more than 200 mg/dL in a nonstressed, ambulatory subject supports the diagnosis of Diabetes Mellitus. ADA recommended reference range Performed By: #### B MP, CBC, ESR, CRP #### [facility] [address] Potassium [Moles/Vol] 3.6 mmol/L Normal 3.5-5.1 [facility] Comment on above: Performed By: #### B MP, CBC, ESR, CRP #### [facility] [address] Sodium [Moles/Vol] 137 mmol/L Normal 136-146 [facility] Comment on above: Performed By: #### B MP, CBC, ESR, CRP #### [facility] [address] Urea nitrogen [Mass/Vol] 11 mg/dL Normal 9-23 [facility] Comment on above: Performed By: #### B MP, CBC, ESR, CRP #### [facility] [address] Blood erythrocytes automated count (number/volume)on 10-07-2020 RBC (Bld) [#/Vol] 5.31 10*6/uL 3.90-5.60 [facility] Blood hemoglobin measurement (mass/volume)on 10-07-2020 Hemoglobin (Bld) [Mass/Vol] 13.7 g/dL 13.0-17.0 [facility] Blood leukocytes automated c ount (number/volume)on 10-07-2020 WBC (Bld) [#/Vol] 7.7 10*3/uL 4.5-11.0 [facility] Blood neutrophil count by au tomated method (number/volume)on 10-07-2020 Neutrophils (Bld) [#/Vol] 3.9 10*3/uL 1.8-7.7 [facility] C-Reactive Proteinon 021 C-Reactive Protein 1.5 mg/dL High 0.0-1.0 [facility] Comment on above: Result Comment: PERF ORMED BY: [facility] [address] [place] [address] PATHOLOGIST B[employer]ING AND COMPOSITE FABRICATOR JAELYN MORGAN M.D. Performed By: #### B MP, ESR, CRP, CBC #### [address] Complete Blood Count Auto Di ffon 10-07-2020 Basophils (Bld) [#/Vol] 0.1 10*3/uL Normal 0.0-0.2 [facility] Comment on above: Performed By: #### B MP, ESR, CRP, CBC #### [address] Basophils/100 WBC (Bld) 1.0 % Normal . [facility] Comment on above: Performed By: #### B MP, ESR, CRP, CBC #### [address] Eosinophils (Bld) [#/Vol] 0.9 10*3/uL High 0.0-0.45 [facility] Comment on above: Performed By: #### B MP, ESR, CRP, CBC #### [address] Eosinophils/100 WBC (Bld) 11.9 % Normal . [facility] Comment on above: Performed By: #### B MP, ESR, CRP, CBC #### [address] Erythrocyte distribution width (RBC) [Ratio] 15.0 % High 12.0-14.8 [facility] Comment on above: Performed By: #### B MP, ESR, CRP, CBC #### [address] Hematocrit (Bld) [Volume fraction] 41.2 % Normal 38.8-50.0 [facility] Comment on above: Performed By: #### B MP, ESR, CRP, CBC #### [address] Hemoglobin (Bld) [Mass/Vol] 13.7 g/dL Normal 13.0-17.0 [facility] Comment on above: Performed By: #### B MP, ESR, CRP, CBC #### [facility] [address] Lymphocytes (Bld) [#/Vol] 2.1 10*3/uL Normal 1.00-4.8 [facility] Comment on above: Performed By: #### B MP, ESR, CRP, CBC #### [address] Lymphocytes/100 WBC (Bld) 26.9 % Normal . [facility] Comment on above: Performed By: #### B MP, ESR, CRP, CBC #### [address] MCH (RBC) [Entitic mass] 25.7 pg Low 27.5-35.2 [facility] Comment on above: Performed By: #### B MP, ESR, CRP, CBC #### [address] MCV (RBC) [Entitic vol] 77.6 fL Low 83.5-101 [facility] Comment on above: Performed By: #### B MP, ESR, CRP, CBC #### [address] Mean Corpuscular HGB Conc 33.1 g/dL Normal 32.5-35.6 [facility] Comment on above: Performed By: #### B MP, ESR, CRP, CBC #### [address] Monocytes (Bld) [#/Vol] 0.8 10*3/uL Normal 0.0-0.8 [facility] Comment on above: Performed By: #### B MP, ESR, CRP, CBC #### [place] [address] [place] Monocytes/100 WBC (Bld) 10.0 % Normal . [facility] Comment on above: Performed By: #### B MP, ESR, CRP, CBC #### [address] Neutrophils (Bld) [#/Vol] 3.9 10*3/uL Normal 1.8-7.7 [facility] Comment on above: Performed By: #### B MP, ESR, CRP, CBC #### [facility] [address] Neutrophils/100 WBC (Bld) 50.2 % Normal . [facility] Comment on above: Performed By: #### B MP, ESR, CRP, CBC #### [facility] [address] Nucleated RBC/100 WBC (Bld) [Ratio] 0.1 % Normal 0-0.5 [facility] Comment on above: Performed By: #### B MP, ESR, CRP, CBC #### [facility] [address] Platelet mean volume (Bld) [Entitic vol] 7.5 fL Normal 6.6-10.1 [facility] Comment on above: Performed By: #### B MP, ESR, CRP, CBC #### [facility] [address] Platelets (Bld) [#/Vol] 334 10*3/uL Normal 150-450 [facility] Comment on above: Performed By: #### B MP, ESR, CRP, CBC #### [address] RBC (Bld) [#/Vol] 5.31 10*6/uL Normal 3.90-5.60 [facility] Comment on above: Performed By: #### B MP, ESR, CRP, CBC #### [address] WBC (Bld) [#/Vol] 7.7 10*3/uL Normal 4.5-11.0 [facility] Comment on above: Performed By: #### B MP, ESR, CRP, CBC #### [address] Erythrocyte Sedimentation Ra bonnie 10-07-2020 ESR (Bld) [Velocity] 11 mm/h Normal 0-14 [facility] Comment on above: Result Comment: PERF ORMED BY: [facility] [address] [place] [address] PATHOLOGIST B[employer]ING AND COMPOSITE FABRICATOR JAELYN MORGAN M.D. Performed By: #### B MP, ESR, CRP, CBC #### [facility] [address] Erythrocyte sedimentation ra te by Photometric methodon 10-07-2020 ESR Photometric method (Bld) [Velocity] 11 mm/hr 0-14 [facility] Estimated glomerular filtrat ion rate (GFR) non- Americanon 10-07-2020 GFR/1.73 sq M predicted among non-blacks MDRD (S/P/Bld) [Vol rate/Area] > 60 mL/Min [facility] Hematocrit [Volume Fraction] of Blood by Automated counton 10-07-2020 Hematocrit (Bld) [Volume fraction] 41.2 % 38.8-50.0 [facility] No Panel Informationon 10-07 Estimated GFR () > 60 mL/Min [facility] Comment on above: GFR estimated refere nce range: According to KDOQI guidelines, <60 ml/min/1.73m2 is sufficient to diagnose a patient with chronic kidney disease. Otheron 10-07-2020 GFR/1.73 sq M.predicted MDRD (S/P/Bld) [Vol rate/Area] > 60 mL/Min [facility] Comment on above: GFR estimated refere nce range: According to KDOQI guidelines, <60 ml/min/1.73m2 is sufficient to diagnose a patient with chronic kidney disease. Nucleated RBC/100 WBC (Bld) [Ratio] 0.1 % 0-0.5 [facility] Creatinine Clearance (Chem N/A [facility] Serum or plasma C reactive p rotein measurement (mass/volume)on 10-07-2020 CRP [Mass/Vol] 1.5 mg/dL 0.0-1.0 [facility] Serum or plasma calcium [place] urement (mass/volume)on 10-07-2020 Calcium [Mass/Vol] 8.6 mg/dL 8.2-10.2 [facility] Serum or plasma chloride rene surement (moles/volume)on 10-07-2020 Chloride [Moles/Vol] 99 mmol/L 95-114 [facility] Serum or plasma creatinine m easurement with calculation of estimated glomerular filtron 10-07-2020 Creatinine [Mass/Vol] 0.89 mg/dL 0.64-1.27 [facility] Serum or plasma glucose [place] urement (mass/volume)on 10-07-2020 Glucose [Mass/Vol] 106 mg/dL 70-100 [facility] Comment on above: ADA recommended refe rence rangeRandom Glucose Reference Range is dependent on time and content of last meal. Glucose of more than 200 mg/dL in a nonstressed, ambulatory subject supports the diagnosis of Diabetes Mellitus. Serum or plasma potassium me asurement (moles/volume)on 10-07-2020 Potassium [Moles/Vol] 3.6 mmol/L 3.5-5.1 [facility] Serum or plasma sodium measu rement (moles/volume)on 10-07-2020 Sodium [Moles/Vol] 137 mmol/L 136-146 [facility] Serum or plasma total carbon dioxide measurement (moles/volume)on 10-07-2020 CO2 [Moles/Vol] 26.6 mmol/L 22.0-30.0 [facility] Serum or plasma urea nitroge n measurement (mass/volume)on 10-07-2020 Urea nitrogen [Mass/Vol] 11 mg/dL 9-23 [facility] Superficial Wound Cultureon 10-03-2020 Superficial Wound Culture Reason for Exam Abscess Arm,Right No Growth 2 Days PERFORMED BY: [place] [address] PATHOLOGIST BONDING AND COMPOSITE FABRICATOR JAELYN MORGAN M.D. Normal [facility] Comment on above: Performed By: #### C USUP #### [address] Automated basophil %on 09-30 Basophils/100 WBC (Bld) 1.0 % [facility] Automated basophil counton 0 09-30-2020 Basophils (Bld) [#/Vol] 0.1 10*3/uL 0.0-0.2 [facility] Automated blood lymphocyte c ount (number/volume)on 09-30-2020 Lymphocytes (Bld) [#/Vol] 1.6 10*3/uL 1.00-4.8 [facility] Automated blood lymphocyte c ount as percentage of total leukocyteson 09-30-2020 Lymphocytes/100 WBC (Bld) 22.7 % [facility] Automated blood monocyte cou nton 09-30-2020 Monocytes (Bld) [#/Vol] 0.6 10*3/uL 0.0-0.8 [facility] Automated blood platelet cou nt (count/volume)on 09-30-2020 Platelets (Bld) [#/Vol] 362 10*3/uL 150-450 [facility] Automated blood platelet rene n volume measurementon 09-30-2020 Platelet mean volume (Bld) [Entitic vol] 7.1 fL 6.6-10.1 [facility] Automated eosinophil %on Eosinophils/100 WBC (Bld) 10.4 % [facility] Automated eosinophil counton 09-30-2020 Eosinophils (Bld) [#/Vol] 0.7 10*3/uL 0.0-0.45 [facility] Automated erythrocyte distri bution width ratioon 09-30-2020 Erythrocyte distribution width (RBC) [Ratio] 14.3 % 12.0-14.8 [facility] Automated erythrocyte mean c orpuscular hemoglobin (mass per erythrocyte)on 09-30-2020 MCH (RBC) [Entitic mass] 25.4 pg 27.5-35.2 [facility] Automated erythrocyte mean c orpuscular hemoglobin concentration measurement (mass/volon 09-30-2020 MCHC (RBC) [Mass/Vol] 32.9 g/dL 32.5-35.6 [facility] Automated erythrocyte mean c orpuscular volumeon 09-30-2020 MCV (RBC) [Entitic vol] 77.2 fL 83.5-101 [facility] Automated monocyte %on 09-30 Monocytes/100 WBC (Bld) 9.1 % [facility] Automated neutrophil %on Neutrophils/100 WBC (Bld) 56.8 % [facility] Basic Metabolic Panelon 09-16 Calcium [Mass/Vol] 9.2 mg/dL Normal 8.2-10.2 [facility] Comment on above: Performed By: #### C BC, ESR, BMP, CRP #### [facility] [address] Chloride [Moles/Vol] 103 mmol/L Normal 95-114 [facility] Comment on above: Performed By: #### C BC, ESR, BMP, CRP #### [facility] [address] CO2 [Moles/Vol] 26.6 mmol/L Normal 22.0-30.0 [facility] Comment on above: Performed By: #### C BC, ESR, BMP, CRP #### [address] Creatinine [Mass/Vol] 0.66 mg/dL Normal 0.64-1.27 [facility] Comment on above: Performed By: #### C BC, ESR, BMP, CRP #### [address] Estimated GFR ( Zohreh > 60 Normal [facility] Comment on above: Result Comment: GFR estimated reference range: According to KDOQI guidelines, <60 ml/min/1.73m2 is sufficient to diagnose a patient with chronic kidney disease. Performed By: #### C BC, ESR, BMP, CRP #### [address] Estimated GFR (Non- Am > 60 Normal [facility] Comment on above: Performed By: #### C BC, ESR, BMP, CRP #### [place] [address] [place] Glucose [Mass/Vol] 98 mg/dL Normal 70-100 [facility] Comment on above: Result Comment: [place] Glucose Reference Range is dependent on time and content of last meal. Glucose of more than 200 mg/dL in a nonstressed, ambulatory subject supports the diagnosis of Diabetes Mellitus. ADA recommended reference range Performed By: #### C BC, ESR, BMP, CRP #### [facility] [address] Potassium [Moles/Vol] 4.0 mmol/L Normal 3.5-5.1 [facility] Comment on above: Performed By: #### C BC, ESR, BMP, CRP #### [facility] [address] Sodium [Moles/Vol] 138 mmol/L Normal 136-146 [facility] Comment on above: Performed By: #### C BC, ESR, BMP, CRP #### [facility] [address] [place] [address] [place] Urea nitrogen [Mass/Vol] 15 mg/dL Normal 9-23 [facility] Comment on above: Performed By: #### C BC, ESR, BMP, CRP #### [facility] [address] Blood erythrocytes automated count (number/volume)on 09-30-2020 RBC (Bld) [#/Vol] 5.29 10*6/uL 3.90-5.60 [facility] Blood hemoglobin measurement (mass/volume)on 09-30-2020 Hemoglobin (Bld) [Mass/Vol] 13.5 g/dL 13.0-17.0 [facility] Blood leukocytes automated c ount (number/volume)on 09-30-2020 WBC (Bld) [#/Vol] 7.0 10*3/uL 4.5-11.0 [facility] Blood neutrophil count by au tomated method (number/volume)on 09-30-2020 Neutrophils (Bld) [#/Vol] 4.0 10*3/uL 1.8-7.7 [facility] C-Reactive Proteinon 021 C-Reactive Protein 0.9 mg/dL Normal 0.0-1.0 [facility] Comment on above: Result Comment: PERF ORMED BY: [facility] [address] [place] [address] PATHOLOGIST BONDING AND COMPOSITE FABRICATOR JAELYN MORGAN M.D. Performed By: #### C BC, ESR, BMP, CRP #### [address] Complete Blood Count Auto Di ffon 09-30-2020 Basophils (Bld) [#/Vol] 0.1 10*3/uL Normal 0.0-0.2 [facility] Comment on above: Performed By: #### C BC, ESR, BMP, CRP #### [address] Basophils/100 WBC (Bld) 1.0 % Normal . [facility] Comment on above: Performed By: #### C BC, ESR, BMP, CRP #### [address] Eosinophils (Bld) [#/Vol] 0.7 10*3/uL High 0.0-0.45 [facility] Comment on above: Performed By: #### C BC, ESR, BMP, CRP #### [address] Eosinophils/100 WBC (Bld) 10.4 % Normal . [facility] Comment on above: Performed By: #### C BC, ESR, BMP, CRP #### [address] Erythrocyte distribution width (RBC) [Ratio] 14.3 % Normal 12.0-14.8 [facility] Comment on above: Performed By: #### C BC, ESR, BMP, CRP #### [address] Hematocrit (Bld) [Volume fraction] 40.9 % Normal 38.8-50.0 [facility] Comment on above: Performed By: #### C BC, ESR, BMP, CRP #### [address] Hemoglobin (Bld) [Mass/Vol] 13.5 g/dL Normal 13.0-17.0 [facility] Comment on above: Performed By: #### C BC, ESR, BMP, CRP #### [address] Lymphocytes (Bld) [#/Vol] 1.6 10*3/uL Normal 1.00-4.8 [facility] Comment on above: Performed By: #### C BC, ESR, BMP, CRP #### [facility] [address] Lymphocytes/100 WBC (Bld) 22.7 % Normal . [facility] Comment on above: Performed By: #### C BC, ESR, BMP, CRP #### [address] MCH (RBC) [Entitic mass] 25.4 pg Low 27.5-35.2 [facility] Comment on above: Performed By: #### C BC, ESR, BMP, CRP #### [address] MCV (RBC) [Entitic vol] 77.2 fL Low 83.5-101 [facility] Comment on above: Performed By: #### C BC, ESR, BMP, CRP #### [address] Mean Corpuscular HGB Conc 32.9 g/dL Normal 32.5-35.6 [facility] Comment on above: Performed By: #### C BC, ESR, BMP, CRP #### [address] Monocytes (Bld) [#/Vol] 0.6 10*3/uL Normal 0.0-0.8 [facility] Comment on above: Performed By: #### C BC, ESR, BMP, CRP #### [address] Monocytes/100 WBC (Bld) 9.1 % Normal . [facility] Comment on above: Performed By: #### C BC, ESR, BMP, CRP #### [address] Neutrophils (Bld) [#/Vol] 4.0 10*3/uL Normal 1.8-7.7 [facility] Comment on above: Performed By: #### C BC, ESR, BMP, CRP #### [facility] [address] Neutrophils/100 WBC (Bld) 56.8 % Normal . [facility] Comment on above: Performed By: #### C BC, ESR, BMP, CRP #### [facility] [address] Nucleated RBC/100 WBC (Bld) [Ratio] 0.2 % Normal 0-0.5 [facility] Comment on above: Performed By: #### C BC, ESR, BMP, CRP #### [facility] [address] Platelet mean volume (Bld) [Entitic vol] 7.1 fL Normal 6.6-10.1 [facility] Comment on above: Performed By: #### C BC, ESR, BMP, CRP #### [address] Platelets (Bld) [#/Vol] 362 10*3/uL Normal 150-450 [facility] Comment on above: Performed By: #### C BC, ESR, BMP, CRP #### [address] RBC (Bld) [#/Vol] 5.29 10*6/uL Normal 3.90-5.60 [facility] Comment on above: Performed By: #### C BC, ESR, BMP, CRP #### [address] WBC (Bld) [#/Vol] 7.0 10*3/uL Normal 4.5-11.0 [facility] Comment on above: Performed By: #### C BC, ESR, BMP, CRP #### [address] Erythrocyte Sedimentation Ra bonnie 09-30-2020 ESR (Bld) [Velocity] 6 mm/h Normal 0-14 [facility] Comment on above: Result Comment: PERF ORMED BY: [place] [address] PATHOLOGIST BONDING AND COMPOSITE FABRICATOR JAELYN MORGAN M.D. Performed By: #### C BC, ESR, BMP, CRP #### [place] [id number] [facility] Erythrocyte sedimentation ra te by Photometric methodon 09-30-2020 ESR Photometric method (Bld) [Velocity] 6 mm/hr 0-14 [facility] Estimated glomerular filtrat ion rate (GFR) non- Americanon 09-30-2020 GFR/1.73 sq M predicted among non-blacks MDRD (S/P/Bld) [Vol rate/Area] mL/min/{1.73_m2} [facility] Hematocrit [Volume Fraction] of Blood by Automated counton 09-30-2020 Hematocrit (Bld) [Volume fraction] 40.9 % 38.8-50.0 [facility] Otheron 09-30-2020 GFR/1.73 sq M.predicted MDRD (S/P/Bld) [Vol rate/Area] mL/min/{1.73_m2} [facility] Comment on above: GFR estimated refere nce range: According to KDOQI guidelines, <60 ml/min/1.73m2 is sufficient to diagnose a patient with chronic kidney disease. Nucleated RBC/100 WBC (Bld) [Ratio] 0.2 % 0-0.5 [facility] Creatinine Clearance (Chem N/A [facility] Serum or plasma C reactive p rotein measurement (mass/volume)on 09-30-2020 CRP [Mass/Vol] 0.9 mg/dL 0.0-1.0 [facility] Serum or plasma calcium [place] urement (mass/volume)on 09-30-2020 Calcium [Mass/Vol] 9.2 mg/dL 8.2-10.2 [facility] Serum or plasma chloride rene surement (moles/volume)on 09-30-2020 Chloride [Moles/Vol] 103 mmol/L 95-114 [facility] Serum or plasma creatinine m easurement with calculation of estimated glomerular filtron 09-30-2020 Creatinine [Mass/Vol] 0.66 mg/dL 0.64-1.27 [facility] Serum or plasma glucose [place] urement (mass/volume)on 09-30-2020 Glucose [Mass/Vol] 98 mg/dL 70-100 [facility] Comment on above: ADA recommended refe rence rangeRandom Glucose Reference Range is dependent on time and content of last meal. Glucose of more than 200 mg/dL in a nonstressed, ambulatory subject supports the diagnosis of Diabetes Mellitus. Serum or plasma potassium me asurement (moles/volume)on 09-30-2020 Potassium [Moles/Vol] 4.0 mmol/L 3.5-5.1 [facility] Serum or plasma sodium measu rement (moles/volume)on 09-30-2020 Sodium [Moles/Vol] 138 mmol/L 136-146 [facility] Serum or plasma total carbon dioxide measurement (moles/volume)on 09-30-2020 CO2 [Moles/Vol] 26.6 mmol/L 22.0-30.0 [facility] Serum or plasma urea nitroge n measurement (mass/volume)on 09-30-2020 Urea nitrogen [Mass/Vol] 15 mg/dL 9-23 [facility] Automated basophil %on 09-23 Basophils/100 WBC (Bld) 0.7 % Normal . [facility] Comment on above: Performed By: #### B MP, ESR, CRP, CBC #### [address] Automated basophil counton 0 09-23-2020 Basophils (Bld) [#/Vol] 0.1 10*3/uL Normal 0.0-0.2 [facility] Comment on above: Performed By: #### B MP, ESR, CRP, CBC #### [facility] [address] Automated blood lymphocyte c ount (number/volume)on 09-23-2020 Lymphocytes (Bld) [#/Vol] 2.2 10*3/uL Normal 1.00-4.8 [facility] Comment on above: Performed By: #### B MP, ESR, CRP, CBC #### [facility] [address] Automated blood lymphocyte c ount as percentage of total leukocyteson 09-23-2020 Lymphocytes/100 WBC (Bld) 29.0 % Normal . [facility] Comment on above: Performed By: #### B MP, ESR, CRP, CBC #### [facility] [address] Automated blood monocyte cou nton 09-23-2020 Monocytes (Bld) [#/Vol] 0.7 10*3/uL Normal 0.0-0.8 [facility] Comment on above: Performed By: #### B MP, ESR, CRP, CBC #### [address] Automated blood platelet cou nt (count/volume)on 09-23-2020 Platelets (Bld) [#/Vol] 402 10*3/uL Normal 150-450 [facility] Comment on above: Performed By: #### B MP, ESR, CRP, CBC #### [address] Automated blood platelet rene n volume measurementon 09-23-2020 Platelet mean volume (Bld) [Entitic vol] 7.4 fL Normal 6.6-10.1 [facility] Comment on above: Performed By: #### B MP, ESR, CRP, CBC #### [address] Automated eosinophil %on Eosinophils/100 WBC (Bld) 6.4 % Normal . [facility] Comment on above: Performed By: #### B MP, ESR, CRP, CBC #### [address] Automated eosinophil counton 09-23-2020 Eosinophils (Bld) [#/Vol] 0.5 10*3/uL High 0.0-0.45 [facility] Comment on above: Performed By: #### B MP, ESR, CRP, CBC #### [address] Automated erythrocyte distri bution width ratioon 09-23-2020 Erythrocyte distribution width (RBC) [Ratio] 14.4 % Normal 12.0-14.8 [facility] Comment on above: Performed By: #### B MP, ESR, CRP, CBC #### [facility] [address] Automated erythrocyte mean c orpuscular hemoglobin (mass per erythrocyte)on 09-23-2020 MCH (RBC) [Entitic mass] 25.7 pg Low 27.5-35.2 [facility] Comment on above: Performed By: #### B MP, ESR, CRP, CBC #### [address] Automated erythrocyte mean c orpuscular hemoglobin concentration measurement (mass/volon 09-23-2020 MCHC (RBC) [Mass/Vol] 33.1 g/dL 32.5-35.6 [facility] Automated erythrocyte mean c orpuscular volumeon 09-23-2020 MCV (RBC) [Entitic vol] 77.6 fL Low 83.5-101 [facility] Comment on above: Performed By: #### B MP, ESR, CRP, CBC #### [address] Automated monocyte %on 09-23 Monocytes/100 WBC (Bld) 9.6 % Normal . [facility] Comment on above: Performed By: #### B MP, ESR, CRP, CBC #### [address] Automated neutrophil %on Neutrophils/100 WBC (Bld) 54.3 % Normal . [facility] Comment on above: Performed By: #### B MP, ESR, CRP, CBC #### [address] Basic Metabolic Panelon Estimated GFR ( Zohreh > 60 Normal [facility] Comment on above: Result Comment: GFR estimated reference range: According to KDOQI guidelines, <60 ml/min/1.73m2 is sufficient to diagnose a patient with chronic kidney disease. Performed By: #### B MP, ESR, CRP, CBC #### [place] [address] Estimated GFR (Non- Am > 60 Normal [facility] Comment on above: Performed By: #### B MP, ESR, CRP, CBC #### [address] Blood erythrocytes automated count (number/volume)on 09-23-2020 RBC (Bld) [#/Vol] 5.23 10*6/uL Normal 3.90-5.60 [facility] Comment on above: Performed By: #### B MP, ESR, CRP, CBC #### [address] Blood hemoglobin measurement (mass/volume)on 09-23-2020 Hemoglobin (Bld) [Mass/Vol] 13.5 g/dL Normal 13.0-17.0 [facility] Comment on above: Performed By: #### B MP, ESR, CRP, CBC #### [address] Blood leukocytes automated c ount (number/volume)on 09-23-2020 WBC (Bld) [#/Vol] 7.8 10*3/uL Normal 4.5-11.0 [facility] Comment on above: Performed By: #### B MP, ESR, CRP, CBC #### [address] Blood neutrophil count by au tomated method (number/volume)on 09-23-2020 Neutrophils (Bld) [#/Vol] 4.2 10*3/uL Normal 1.8-7.7 [facility] Comment on above: Performed By: #### B MP, ESR, CRP, CBC #### [address] C-Reactive Proteinon 021 C-Reactive Protein 0.7 mg/dL Normal 0.0-1.0 [facility] Comment on above: Result Comment: PERF ORMED BY: [place] [address] PATHOLOGIST BONDING AND COMPOSITE FABRICATOR JAELYN MORGAN M.D. Performed By: #### B MP, ESR, CRP, CBC #### [address] Complete Blood Count Auto Di ffon 09-23-2020 Mean Corpuscular HGB Conc 33.1 g/dL Normal 32.5-35.6 [facility] Comment on above: Performed By: #### B MP, ESR, CRP, CBC #### [address] Nucleated RBC/100 WBC (Bld) [Ratio] 0.1 % Normal 0-0.5 [facility] Comment on above: Performed By: #### B MP, ESR, CRP, CBC #### [address] Erythrocyte Sedimentation Ra bonnie 09-23-2020 ESR (Bld) [Velocity] 18 mm/h High 0-14 [facility] Comment on above: Result Comment: PERF ORMED BY: [place] [address] PATHOLOGIST BONDING AND COMPOSITE FABRICATOR JAELYN MORGAN M.D. Performed By: #### B MP, ESR, CRP, CBC #### [address] Erythrocyte sedimentation ra te by Photometric methodon 09-23-2020 ESR Photometric method (Bld) [Velocity] 18 mm/hr 0-14 [facility] Estimated glomerular filtrat ion rate (GFR) non- Americanon 09-23-2020 GFR/1.73 sq M predicted among non-blacks MDRD (S/P/Bld) [Vol rate/Area] mL/min/{1.73_m2} [facility] Hematocrit [Volume Fraction] of Blood by Automated counton 09-23-2020 Hematocrit (Bld) [Volume fraction] 40.6 % Normal 38.8-50.0 [facility] Comment on above: Performed By: #### B MP, ESR, CRP, CBC #### [address] Otheron 09-23-2020 GFR/1.73 sq M.predicted MDRD (S/P/Bld) [Vol rate/Area] mL/min/{1.73_m2} [facility] Comment on above: GFR estimated refere nce range: According to KDOQI guidelines, <60 ml/min/1.73m2 is sufficient to diagnose a patient with chronic kidney disease. Pharmacy Creatinine Clearance (Chem N/A [facility] Serum or plasma C reactive p rotein measurement (mass/volume)on 09-23-2020 CRP [Mass/Vol] 0.7 mg/dL 0.0-1.0 [facility] Serum or plasma calcium [place] urement (mass/volume)on 09-23-2020 Calcium [Mass/Vol] 9.1 mg/dL Normal 8.2-10.2 [facility] Comment on above: Performed By: #### B MP, ESR, CRP, CBC #### [facility] [address] Serum or plasma chloride rene surement (moles/volume)on 09-23-2020 Chloride [Moles/Vol] 102 mmol/L Normal 95-114 [facility] Comment on above: Performed By: #### B MP, ESR, CRP, CBC #### [facility] [address] Serum or plasma creatinine m easurement with calculation of estimated glomerular filtron 09-23-2020 Creatinine [Mass/Vol] 0.70 mg/dL Normal 0.64-1.27 [facility] Comment on above: Performed By: #### B MP, ESR, CRP, CBC #### [facility] [address] Serum or plasma glucose [place] urement (mass/volume)on 09-23-2020 Glucose [Mass/Vol] 99 mg/dL Normal 70-100 [facility] Comment on above: ADA recommended refe rence rangeRandom Glucose Reference Range is dependent on time and content of last meal. Glucose of more than 200 mg/dL in a nonstressed, ambulatory subject supports the diagnosis of Diabetes Mellitus. Result Comment: [place] om Glucose Reference Range is dependent on time and content of last meal. Glucose of more than 200 mg/dL in a nonstressed, ambulatory subject supports the diagnosis of Diabetes Mellitus. ADA recommended reference range Performed By: #### B MP, ESR, CRP, CBC #### [address] Serum or plasma potassium me asurement (moles/volume)on 09-23-2020 Potassium [Moles/Vol] 3.8 mmol/L Normal 3.5-5.1 [facility] Comment on above: Performed By: #### B MP, ESR, CRP, CBC #### [address] Serum or plasma sodium measu rement (moles/volume)on 09-23-2020 Sodium [Moles/Vol] 138 mmol/L Normal 136-146 [facility] Comment on above: Performed By: #### B MP, ESR, CRP, CBC #### [address] Serum or plasma total carbon dioxide measurement (moles/volume)on 09-23-2020 CO2 [Moles/Vol] 26.1 mmol/L Normal 22.0-30.0 [facility] Comment on above: Performed By: #### B MP, ESR, CRP, CBC #### [address] Serum or plasma urea nitroge n measurement (mass/volume)on 09-23-2020 Urea nitrogen [Mass/Vol] 9 mg/dL Normal 9-23 [facility] Comment on above: Performed By: #### B MP, ESR, CRP, CBC #### [address] Vital Signs Date Time Vital Sign Value Performing Clinician Facility 06-29-2024 15:02-0500 Body height 190.5 cm [facility]IN [facility] 06-29-2024 15:02-0500 Body mass index (BMI) [Ratio] 29.75 kg/m2 Cele AGUSTIN Work Phone: [facility] 06-29-2024 15:02-0500 Body temperature 97 [degF] Cele Scott VAT [employer]CHANDISE SUPERVISOR Work Phone: [facility] 06-29-2024 15:02-0500 Body weight 107.96 kg Cele Scott [employer]CH[employer]ISE SUPERVISOR Work Phone: [facility] 06-29-2024 15:02-0500 Diastolic blood pressure 80 mm[Hg] Cele Landryas VAT [employer]CHANDISE SUPERVISOR Work Phone: [facility] 06-29-2024 15:02-0500 Heart rate 107 /min Cele Scott [employer]ISE SUPERVISOR Work Phone: [facility] 06-29-2024 15:02-0500 SaO2% (BldA) [Mass fraction] 98 % Cele Landryas VAT [employer]CHANDISE SUPERVISOR Work Phone: [facility] 06-29-2024 15:02-0500 Systolic blood pressure 138 mm[Hg] Cele Scott VAT [employer]CH[employer]ISE SUPERVISOR Work Phone: [facility] 06-27-2024 11:38-0500 Body height 182.9 cm Arnold Hartley CONDITIONER TUMBLER Work Phone: [facility] 06-27-2024 11:38-0500 Body mass index (BMI) [Ratio] 31.6 kg/m2 Arnold Hartley CONDITIONER TUMBLER Work Phone: [facility] 06-27-2024 11:38-0500 Body temperature 98.2 [degF] Arnold Hartley CONDITIONER TUMBLER Work Phone: [facility] 06-27-2024 11:38-0500 Body weight 105.69 kg Arnold Hartley CONDITIONER TUMBLER Work Phone: [facility] 06-27-2024 11:38-0500 Diastolic blood pressure 68 mm[Hg] Arnold Hartley CONDITIONER TUMBLER Work Phone: [facility] 06-27-2024 11:38-0500 Heart rate 90 /min Arnold Hartley CONDITIONER TUMBLER Work Phone: [facility] 06-27-2024 11:38-0500 SaO2% (BldA) [Mass fraction] 98 % Arnold Hartley CONDITIONER TUMBLER Work Phone: [facility] 06-27-2024 11:38-0500 Systolic blood pressure 142 mm[Hg] Arnold Hartley CONDITIONER TUMBLER Work Phone: [facility] 06-21-2024 13:43-0500 Body height 190.5 cm Villa Tapia MD Work Phone: [facility] 06-21-2024 13:43-0500 Body mass index (BMI) [Ratio] 29.75 kg/m2 Villa Tapia MD Work Phone: [facility] 06-21-2024 13:43-0500 Body temperature 97.39 [degF] Villa Tapia MD Work Phone: [facility] 06-21-2024 13:43-0500 Body weight 107.96 kg Villa Tapia MD Work Phone: [facility] 06-08-2024 12:33-0500 Body height 182.9 cm Arnold Hartley CONDITIONER TUMBLER Work Phone: [facility] 06-08-2024 12:33-0500 Body mass index (BMI) [Ratio] 31.44 kg/m2 Arnold Hartley CONDITIONER TUMBLER Work Phone: [facility] 06-08-2024 12:33-0500 Body temperature 98.71 [degF] Arnold Hartley CONDITIONER TUMBLER Work Phone: [facility] 06-08-2024 12:33-0500 Body weight 105.14 kg Arnold Hartley CONDITIONER TUMBLER Work Phone: [facility] 06-08-2024 12:33-0500 Heart rate 93 /min Arnold Hartley CONDITIONER TUMBLER Work Phone: [facility] 06-08-2024 12:33-0500 SaO2% (BldA) [Mass fraction] 97 % Arnold Hartley CONDITIONER TUMBLER Work Phone: [facility] 06-05-2024 15:10-0500 Body temperature 97.81 [degF] Poncho Witt MD Work Phone: [facility] 06-05-2024 15:10-0500 Diastolic blood pressure 80 mm[Hg] Poncho Witt MD Work Phone: [facility] 06-05-2024 15:10-0500 Heart rate 80 /min Poncho Witt MD Work Phone: [facility] 06-05-2024 15:10-0500 Respiratory rate 14 /min Poncho Witt MD Work Phone: [facility] 06-05-2024 15:10-0500 SaO2% (BldA) [Mass fraction] 94 % Poncho Witt MD Work Phone: [facility] 06-05-2024 15:10-0500 Systolic blood pressure 142 mm[Hg] Poncho Witt MD Work Phone: [facility] 06-04-2024 06:00-0500 Body mass index (BMI) [Ratio] 29.08 kg/m2 Poncho Witt MD Work Phone: [facility] 06-04-2024 06:00-0500 Body weight 108.2 kg Poncho Witt MD Work Phone: [facility] 06-01-2024 15:35-0500 Body height 192.9 cm Poncho Witt MD Work Phone: [facility] 05-31-2024 20:00-0500 Heart rate 86 /min [facility] 05-31-2024 20:00-0500 SaO2% (BldA) [Mass fraction] 94 % [facility] 05-31-2024 19:00-0500 Diastolic blood pressure 97 mm[Hg] [facility] 05-31-2024 19:00-0500 Heart rate 90 /min [facility] 05-31-2024 19:00-0500 Mean blood pressure 110 mm[Hg] [facility] 05-31-2024 19:00-0500 Respiratory rate 18 /min [facility] 05-31-2024 19:00-0500 SaO2% (BldA) [Mass fraction] 95 % [facility] 05-31-2024 19:00-0500 Systolic blood pressure 135 mm[Hg] [facility] 05-31-2024 18:00-0500 Diastolic blood pressure 92 mm[Hg] [facility] 05-31-2024 18:00-0500 Heart rate 104 /min [facility] 05-31-2024 18:00-0500 Mean blood pressure 106 mm[Hg] [facility] 05-31-2024 17:00-0500 Diastolic blood pressure 100 mm[Hg] [facility] 05-31-2024 17:00-0500 Mean blood pressure 114 mm[Hg] [facility] 05-31-2024 17:00-0500 Respiratory rate 16 /min [facility] 05-31-2024 17:00-0500 Systolic blood pressure 141 mm[Hg] [facility] 05-31-2024 13:14-0500 Body temperature 98.24 [degF] [facility] 05-31-2024 13:14-0500 Heart rate 120 /min [facility] 05-31-2024 12:27-0500 Body mass index (BMI) [Ratio] 31.9 kg/m2 Arnold Hartley CONDITIONER TUMBLER Work Phone: [facility] 05-31-2024 12:27-0500 Body temperature 98.6 [degF] Arnold Hartley CONDITIONER TUMBLER Work Phone: [facility] 05-31-2024 12:27-0500 Body weight 106.69 kg Arnold Hartley CONDITIONER TUMBLER Work Phone: [facility] 05-31-2024 12:27-0500 Diastolic blood pressure 88 mm[Hg] Arnold Hartley CONDITIONER TUMBLER Work Phone: [facility] 05-31-2024 12:27-0500 Heart rate 111 /min Arnold Hartley CONDITIONER TUMBLER Work Phone: [facility] 05-31-2024 12:27-0500 SaO2% (BldA) [Mass fraction] 97 % Aronld Hartley CONDITIONER TUMBLER Work Phone: [facility] 05-31-2024 12:27-0500 Systolic blood pressure 152 mm[Hg] Arnold Hartley CONDITIONER TUMBLER Work Phone: [facility] 05-31-2024 10:44-0500 Blood Pressure Location Palacios Sarmini [facility] 05-31-2024 10:44-0500 Diastolic blood pressure 86 mm[Hg] Palacios Sarmini [facility] 05-31-2024 10:44-0500 Heart rate 94 /min Palacios Sarmini [facility] 05-31-2024 10:44-0500 Systolic blood pressure 127 mm[Hg] Palacios Sarmini [facility] 05-17-2024 15:20-0400 Diastolic blood pressure 73 mm[Hg] Palacios Sarmini [facility] 05-17-2024 15:20-0400 Heart rate 71 /min Palacios Sarmini [facility] 05-17-2024 15:20-0400 Mean blood pressure 87 mm[Hg] Palacios Sarmini [facility] 05-17-2024 15:20-0400 Respiratory rate 15 /min Palacios Sarmini [facility] 05-17-2024 15:20-0400 SaO2% (BldA) [Mass fraction] 97 % Palacios Sarmini [facility] 05-17-2024 15:20-0400 Systolic blood pressure 116 mm[Hg] Palacios Sarmini [facility] 05-17-2024 15:15-0400 Diastolic blood pressure 79 mm[Hg] Palacios Sarmini [facility] 05-17-2024 15:15-0400 Heart rate 66 /min Palacios Sarmini [facility] 05-17-2024 15:15-0400 Mean blood pressure 89 mm[Hg] Palacios Sarmini [facility] 05-17-2024 15:15-0400 Respiratory rate 16 /min Palacios Sarmini [facility] 05-17-2024 15:15-0400 SaO2% (BldA) [Mass fraction] 97 % Palacios Sarmini [facility] 05-17-2024 15:15-0400 Systolic blood pressure 109 mm[Hg] Palacios Sarmini [facility] 05-17-2024 15:05-0400 Diastolic blood pressure 72 mm[Hg] Palacios Sarmini [facility] 05-17-2024 15:05-0400 Heart rate 68 /min Palacios Sarmini [facility] 05-17-2024 15:05-0400 Mean blood pressure 82 mm[Hg] Palacios Sarmini [facility] 05-17-2024 15:05-0400 Respiratory rate 16 /min Palacios Sarmini [facility] 05-17-2024 15:05-0400 SaO2% (BldA) [Mass fraction] 96 % Palacios Sarmini [facility] 05-17-2024 15:05-0400 Systolic blood pressure 103 mm[Hg] Palacios Sarmini [facility] 05-17-2024 14:55-0400 Body temperature 97.52 [degF] Palacios Sarmini [facility] 05-17-2024 14:50-0400 Respiratory rate 17 /min Palacios Sarmini [facility] 05-17-2024 14:45-0400 Respiratory rate 17 /min Palacios Sarmini [facility] 05-17-2024 14:40-0400 Respiratory rate 17 /min Palacios Sarmini [facility] 05-17-2024 13:41-0400 Blood Pressure Location Palacios Sarmini [facility] 05-17-2024 13:41-0400 Body temperature 97.34 [degF] Palacios Sarmini [facility] 04-27-2024 12:04-0400 Blood Pressure Location Palacios Sarmini [facility] 04-27-2024 12:04-0400 Diastolic blood pressure 80 mm[Hg] Palacios Sarmini [facility] 04-27-2024 12:04-0400 Heart rate 78 /min Palacios Sarmini [facility] 04-27-2024 12:04-0400 Respiratory rate 18 /min Palacios Maynormini [facility] 04-27-2024 12:04-0400 Systolic blood pressure 126 mm[Hg] Palacios Maynormini [facility] 04-07-2024 12:53-0400 Body height 182.9 cm Arnold Hartley CONDITIONER TUMBLER Work Phone: [facility] 04-07-2024 12:53-0400 Body mass index (BMI) [Ratio] 31.46 kg/m2 Arnold Hartley CONDITIONER TUMBLER Work Phone: [facility] 04-07-2024 12:53-0400 Body temperature 98.01 [degF] Arnold Hartley CONDITIONER TUMBLER Work Phone: [facility] 04-07-2024 12:53-0400 Body weight 105.23 kg Arnold Hartley CONDITIONER TUMBLER Work Phone: [facility] 04-07-2024 12:53-0400 Diastolic blood pressure 80 mm[Hg] Arnold Hartley CONDITIONER TUMBLER Work Phone: [facility] 04-07-2024 12:53-0400 Heart rate 93 /min Arnold Hartley CONDITIONER TUMBLER Work Phone: [facility] 04-07-2024 12:53-0400 SaO2% (BldA) [Mass fraction] 95 % Arnold Hartley CONDITIONER TUMBLER Work Phone: [facility] 04-07-2024 12:53-0400 Systolic blood pressure 128 mm[Hg] Arnold Hartley CONDITIONER TUMBLER Work Phone: [facility] 03-08-2024 14:37-0400 Body height 180.3 cm Arnold Hartley CONDITIONER TUMBLER Work Phone: [facility] 03-08-2024 14:37-0400 Body mass index (BMI) [Ratio] 31.52 kg/m2 Arnold Hartley CONDITIONER TUMBLER Work Phone: [facility] 03-08-2024 14:37-0400 Body temperature 98.49 [degF] Arnold Hartley CONDITIONER TUMBLER Work Phone: [facility] 03-08-2024 14:37-0400 Body weight 102.51 kg Arnold Hartley CONDITIONER TUMBLER Work Phone: [facility] 03-08-2024 14:37-0400 Diastolic blood pressure 100 mm[Hg] Arnold Hartley CONDITIONER TUMBLER Work Phone: [facility] 03-08-2024 14:37-0400 Heart rate 94 /min Arnold Hartley CONDITIONER TUMBLER Work Phone: [facility] 03-08-2024 14:37-0400 SaO2% (BldA) [Mass fraction] 97 % Arnold Hartley CONDITIONER TUMBLER Work Phone: [facility] 03-08-2024 14:37-0400 Systolic blood pressure 138 mm[Hg] Arnolddannie Hartley CONDITIONER TUMBLER Work Phone: [facility] 12-20-2022 15:14-0400 Diastolic blood pressure 83 mm[Hg] Andrea Blaise [facility] 12-20-2022 15:14-0400 Heart rate 78 /min Andrea Blaise [facility] 12-20-2022 15:14-0400 Mean blood pressure 98 mm[Hg] Andrea Blaise [facility] 12-20-2022 15:14-0400 Respiratory rate 15 /min Andrea Blaise [facility] 12-20-2022 15:14-0400 SaO2% (BldA) [Mass fraction] 98 % Andrea Blaise [facility] 12-20-2022 15:14-0400 Systolic blood pressure 128 mm[Hg] Andrea Blaise [facility] 12-20-2022 14:00-0400 Heart rate 80 /min Andrea Blaise [facility] 12-20-2022 14:00-0400 Respiratory rate 12 /min Andrea Blaise [facility] 12-20-2022 14:00-0400 Systolic blood pressure 123 mm[Hg] Andrea Welsh [facility] 12-20-2022 13:00-0400 Heart rate 105 /min Andrea Blaise [facility] 12-20-2022 13:00-0400 Respiratory rate 14 /min Andrea Blaise [facility] 12-20-2022 13:00-0400 SaO2% (BldA) [Mass fraction] 96 % Andrea Welsh [facility] 12-20-2022 12:38-0400 Body temperature 98.96 [degF] Andrea Welsh [facility] 12-20-2022 12:38-0400 Diastolic blood pressure 85 mm[Hg] Andrea Welsh [facility] 12-20-2022 12:38-0400 Heart rate 109 /min Andrea Welsh [facility] 12-20-2022 12:38-0400 Respiratory rate 16 /min Andrea Blaise [facility] 12-20-2022 12:38-0400 Systolic blood pressure 153 mm[Hg] Andrea Blaise [facility] 09-29-2021 16:30-0400 Body height 182.88 cm Patrick Irene Other [employer] [facility] [employer] Other 09-29-2021 16:30-0400 Body mass index (BMI) [Ratio] 27.91 kg/m2 Patrick Irene Other [employer] Other 09-29-2021 16:30-0400 Body weight 93.35 kg Patrick Irene Other [employer] Other 09-29-2021 16:30-0400 Diastolic blood pressure 90 mm[Hg] Patrick Irene Other [employer] Other 09-29-2021 16:30-0400 SaO2% (BldA) [Mass fraction] 99 % Patrick Irene Other [employer] Other 09-29-2021 16:30-0400 Systolic blood pressure 140 mm[Hg] Patrick Irene Other [employer] Other Encounters Encounter Date Encounter Type Care Provider Facility Start: 07-03-2024 End: 07-04-2024 Refill Arnold Hartley CONDITIONER TUMBLER Work Phone: [facility] Comment on above: Heartburn Start: 06-30-2024 End: 06-30-2024 Documentation procedure Cele Scott VAT [employer]CHANDISE SUPERVISOR Work Phone: [facility] Start: 06-29-2024 End: 06-29-2024 ambulatory [place] Sofi SCOTT [facility] Start: 06-29-2024 End: 06-29-2024 Office outpatient visit 15 minutes Cele Scott [employer]CHANDISE SUPERVISOR Work Phone: [facility] Comment on above: Osteomyelitis, unspe cified site, unspecified type (CMS-HCC) (Primary Dx) Start: 06-27-2024 End: 06-27-2024 Bamboo flowsheet Arnold Hartley CONDITIONER TUMBLER Work Phone: [facility] Start: 06-27-2024 End: 06-27-2024 Bamboo flowsheet Arnold Hartley CONDITIONER TUMBLER Work Phone: [facility] Start: 06-27-2024 End: 06-27-2024 Office outpatient visit 25 minutes Arnold Hartley CONDITIONER TUMBLER Work Phone: [facility] Comment on above: History of osteomyel itis (Primary Dx); Pain of right upper extremity; Cellulitis of right upper extremity; Anxiety; Marijuana use; Primary hypertension (CMS/HCC) Start: 06-27-2024 End: 06-27-2024 ambulatory ARNOLD HARTLEY Not Available Start: 06-24-2024 End: 06-24-2024 Orders Only Cele E Sonia [employer]ISE SUPERVISOR Work Phone: [facility] Comment on above: Leukocytosis, unspec ified type (Primary Dx) Start: 06-21-2024 End: 06-21-2024 Orders Only Cele E Sonia VAT [employer]CHANDISE SUPERVISOR Work Phone: [facility] Comment on above: Leukocytosis, unspec ified type (Primary Dx) Start: 06-21-2024 End: 06-21-2024 Postop follow up visit related to original px Villa Tapia MD Work Phone: [facility] Comment on above: Chronic osteomyeliti s of right humerus (CMS-HCC) (Primary Dx); Abscess of right shoulder Start: 06-20-2024 End: 06-20-2024 Orders Only Ekaterina Prado RN [facility] Comment on above: Chronic osteomyeliti s of right humerus (CMS-HCC) (Primary Dx) Start: 06-14-2024 End: 06-14-2024 Orders Only Cele Sofi Sonia VAT [employer]CHANDISE SUPERVISOR Work Phone: [facility] Comment on above: Leukocytosis, unspec ified type (Primary Dx) Start: 06-08-2024 End: 06-08-2024 Bamboo flowsheet Arnold Hartley CONDITIONER TUMBLER Work Phone: [facility] Start: 06-08-2024 End: 06-08-2024 Bamboo flowsheet Arnold Hartley CONDITIONER TUMBLER Work Phone: [facility] Start: 06-08-2024 End: 06-08-2024 ambulatory ARNOLD HARTLEY Not Available Start: 06-08-2024 End: 06-08-2024 Transitional care manage srvc 7 day discharge Arnold Hartley CONDITIONER TUMBLER Work Phone: [facility] Comment on above: History of osteomyel itis (Primary Dx); Pain of right upper extremity; Cellulitis of right upper extremity; Status post PICC central line placement Start: 06-05-2024 End: 06-05-2024 Evaluation and management of inpatient ISAMARNEMARY JO A [facility] Start: 06-01-2024 End: 06-05-2024 Evaluation and management of inpatient [facility] Start: 06-01-2024 End: 06-05-2024 Evaluation and management of inpatient FUENTES R [facility] Start: 06-01-2024 End: 06-05-2024 Evaluation and management of inpatient [facility] Start: 05-31-2024 End: 06-05-2024 Evaluation and management of inpatient Tai Box MD Work Phone: [facility] Comment on above: Abscess of arm (Prim ana Dx) Start: 05-31-2024 ambulatory ARNOLD HARTLEY [facility] Start: 05-31-2024 End: 05-31-2024 Bamboo flowsheet Arnold Hartley CONDITIONER TUMBLER Work Phone: [facility] Start: 05-31-2024 End: 05-31-2024 Bamboo flowsheet Arnold Hartley CONDITIONER TUMBLER Work Phone: [facility] Start: 05-31-2024 End: 05-31-2024 Emergency department patient visit Yuval Tineo [facility] Start: 05-31-2024 End: 05-31-2024 ambulatory ARNOLD HARTLEY Not Available Start: 05-31-2024 End: 05-31-2024 Office outpatient visit 25 minutes Arnold Hartley CONDITIONER TUMBLER Work Phone: [facility] Comment on above: History of osteomyel itis (Primary Dx); Pain of right upper extremity; Cellulitis of right upper extremity Start: 05-31-2024 End: 05-31-2024 ambulatory Palacios Talal Sarmini Facility:[facility] Start: 05-31-2024 End: 05-31-2024 Patient encounter procedure Palacios Talal Sarmini [facility] Start: 05-17-2024 End: 05-17-2024 ambulatory Palacios Talal Sarmini [place] Start: 05-17-2024 End: 05-17-2024 Patient encounter procedure Palacios Talal Sarmini [facility] Start: 05-03-2024 End: 05-03-2024 ambulatory ARNOLD HARTLEY Not Available Start: 05-03-2024 End: 05-03-2024 Office outpatient visit 15 minutes Arnold Hartley CONDITIONER TUMBLER Work Phone: [facility] Comment on above: Migraine without aur a and without status migrainosus, not intractable (CMS/HCC) (Primary Dx); Anxiety; Mild episode of recurrent major depressive disorder (HCC) (CMS/HCC) Start: 04-28-2024 End: 04-28-2024 ambulatory Palacios Talal Sarmini [place] Start: 04-28-2024 End: 04-28-2024 Patient encounter procedure Palacios Talal Sarmini [facility] Start: 04-27-2024 End: 04-27-2024 ambulatory Palacios Talal Sarmini Facility:[facility] Start: 04-27-2024 End: 04-27-2024 Patient encounter procedure Palacios Talal Sarmini [facility] Start: 04-12-2024 ambulatory Philip Gunn Man ty:Robert HEBERT Start: 04-07-2024 End: 04-07-2024 Bamboo flowsheet Arnold Hartley CONDITIONER TUMBLER Work Phone: [facility] Start: 04-07-2024 End: 04-07-2024 Bamboo flowsheet Arnold Hartley CONDITIONER TUMBLER Work Phone: [facility] Start: 04-07-2024 End: 04-07-2024 Telephone encounter Arnold Hartley CONDITIONER T[employer]BLER Work Phone: [facility] Comment on above: Medication Question Start: 04-07-2024 End: 04-07-2024 Office outpatient visit 25 minutes Arnold Hartley CONDITIONER TUMBLER Work Phone: [facility] Comment on above: Nasal congestion (Pr imary Dx); Anxiety; Marijuana use; Primary hypertension (CMS/HCC); Mild episode of recurrent major depressive disorder (HCC) (CMS/HCC); Migraine without aura and without status migrainosus, not intractable (CMS/HCC); Elevated ALT measurement; Wheezing Start: 04-07-2024 End: 04-07-2024 ambulatory ARNOLD HARTLEY Not Available Start: 03-30-2024 End: 04-11-2024 Refill Arnold Hartley CONDITIONER TUMBLER Work Phone: [facility] Comment on above: Alcoholic liver dise ase (CMS/HCC) (Primary Dx); Heartburn; Anxiety; Mild episode of recurrent major depressive disorder (HCC) (CMS/HCC); Alcohol use Start: 03-14-2024 End: 03-14-2024 Orders Only Arnold Hartley CONDITIONER TUMBLER Work Phone: [facility] Comment on above: Hyperlipidemia, unsp ecified hyperlipidemia type (CMS/HCC) (Primary Dx) Start: 03-08-2024 End: 03-08-2024 ambulatory ARNOLD HARTLEY Not Available Start: 03-08-2024 End: 03-08-2024 Bamboo flowsheet Arnold Hartley CONDITIONER TUMBLER Work Phone: [facility] Start: 03-08-2024 End: 03-09-2024 Bamboo flowsheet Arnold Hartley CONDITIONER TUMBLER Work Phone: [facility] Start: 03-08-2024 End: 03-09-2024 External Result Encounter Arnold Hartley CONDITIONER TUMBLER Work Phone: [facility] Unsolicited Start: 03-08-2024 End: 03-08-2024 Patient encounter procedure Arnold Hartley CONDITIONER TUMBLER Work Phone: [facility] Comment on above: Medicare annual well ness visit, subsequent (Primary Dx); Screening for lipid disorders; Screening for heart disease; Migraine without aura and without status migrainosus, not intractable (CMS/HCC); Marijuana use; Heartburn; Primary hypertension (CMS/HCC); Anxiety; Mild episode of recurrent major depressive disorder (HCC) ([facility]/HCC); Cardiovascular risk factor Start: 03-06-2024 End: 03-07-2024 Telephone encounter Miriam Reardon MD Work Phone: [facility] Comment on above: Appointment Request Start: 12-20-2022 End: 12-20-2022 Emergency department patient visit Andrea Welsh [facility] Start: 08-05-2022 End: 08-05-2022 Patient encounter procedure Sukhjinder Marquis [facility] Start: 06-19-2022 End: 06-19-2022 Patient encounter procedure Sukhjinder Marquis [facility] Start: 02-12-2022 End: 02-12-2022 Patient encounter procedure Sukhjinder Marquis [facility] Start: 09-29-2021 End: 09-29-2021 ambulatory Patrick Irene Other [employer] Other Start: 09-29-2021 Office outpatient vi sit 25 minutes Patrick Maria Victoriamanuel [facility] Start: 12-03-2020 End: 12-03-2020 ambulatory SUKHJINDER MARQUIS Facility:[facility] Start: 11-11-2020 End: 11-11-2020 Departed Referred JR Garett Marquis Work Phone: [facility] [place] Start: 11-05-2020 End: 11-05-2020 Departed Referred STAFF, NON -Lab [facility] [place] Start: 10-29-2020 End: 10-29-2020 Departed Referred STAFF, NON -Lab [facility] [place] Start: 10-21-2020 End: 10-21-2020 Departed Referred STAFF, NON -Lab [facility] [place] Start: 10-14-2020 End: 10-14-2020 Departed Referred STAFF, NON -Lab [facility] [place] Start: 10-07-2020 End: 10-07-2020 Departed Referred STAFF, NON -Lab [facility] [place] Start: 10-03-2020 End: 10-03-2020 Departed Referred STAFF, NON -Lab [facility] [place] Start: 09-30-2020 End: 09-30-2020 Departed Referred STAFF, NON -Lab [facility] [place] Start: 09-23-2020 End: 09-23-2020 Departed Referred STAFF, NON -Lab [facility] [place] Procedures Date Procedure Procedure Detail Performing Clinician Start: 06-29-2024 Follow-up visit Follow-up CELE E SONIA Start: 06-05-2024 Basic metabolic panel calcium total Poncho Witt MD Work Phone: Start: 06-04-2024 Drug screen quantitative vancomycin Cele E Sonia VAT [employer]ISE SUPERVISOR Work Phone: Start: 06-04-2024 Drug screen quantitative vancomycin Cele E Sonia VAT [employer] Work Phone: Start: 06-04-2024 Basic metabolic panel calcium total Poncho Witt MD Work Phone: Start: 06-03-2024 Drug screen quantitative vancomycin Cele E Soina [employer]PER[employer] Work Phone: Start: 06-03-2024 Basic metabolic panel calcium total Poncho Witt MD Work Phone: Start: 06-02-2024 Basic metabolic panel calcium total Nedra Mac WymanGideon DO Work Phone: Start: 06-01-2024 Radex shoulder complete minimum 2 views Fuentes LARAC Work Phone: Start: 06-01-2024 Fluoroscopy up to 1 hour physician/qhp time Villa Tapia MD Work Phone: Start: 06-01-2024 Culture bacterial any source anaerobic iso&id Villa Tapia MD Work Phone: Start: 06-01-2024 End: 06-01-2024 Culture bacterial any source anaerobic iso&id Villa Tapia MD Work Phone: Start: 06-01-2024 End: 06-01-2024 INCISION DRAINAGE ELBOW/FOREARM Villa Tapia MD Work Phone: Start: 06-01-2024 End: 06-01-2024 REMOVAL HARDWARE UPPER EXTREMITY Villa Tapai MD Work Phone: Start: 06-01-2024 End: 06-01-2024 Culture bacterial blood aerobic w/id isolates Cele Scott [employer] Work Phone: Start: 06-01-2024 Potassium serum plasma/whole blood Lilygreta Sterling PA-C Work Phone: Start: 06-01-2024 Radex shoulder complete minimum 2 views Villa Tapia MD Work Phone: Start: 06-01-2024 Adult depression screening assessment Cele Scott [employer] Work Phone: Start: 06-01-2024 PULSE OXIMETRY, SPOT Nedra Simpsons DO Work Phone: Start: 05-31-2024 Basic metabolic panel calcium total Donald Menjivar MD Work Phone: Start: 05-31-2024 C-reactive protein Donald Menjivar MD Work Phone: Start: 05-17-2024 Colonoscopy Arnold Hartley CONDITIONER TUMBLER Work Phone: Start: 05-17-2024 Colonoscopy Philip Gunn Start: 05-17-2024 Esophagogastroduodenoscopy Philip vinson Start: 03-08-2024 Comprehensive metabolic panel Anrold Hartley CONDITIONER TUMBLER Work Phone: Start: 03-08-2024 Lipid panel Arnold Hartley CONDITIONER TUMBLER Work Phone: Start: 10-03-2020 End: 10-03-2020 Aerobic microbial culture STAFF, NON Start: 04-12-2020 Arthroscopy of shoulder Sukhjinder Marquis Comment on above: SHOULDER BICEPS TENODESIS Colonoscopy Sukhjinder Marquis Plan of Treatment Date Care Activity Detail Author Start: 05-17-2034 Screening for malignant neoplasm of colon [facility] Start: 06-29-2025 Adult BMI Screening Adult BMI Screen ing [facility] Start: 06-21-2025 Adult BMI Screening Adult BMI Screen ing [facility] Start: 06-21-2025 Tobacco Screening Tobacco Screening [facility] Start: 06-04-2025 Adult BMI Screening Adult BMI Screen ing [facility] Start: 06-01-2025 Depression Screening Depression Scre ening [facility] Start: 06-01-2025 Tobacco Screening Tobacco Screening [facility] Start: 03-08-2025 Medicare Annual Wellness (AWV) Medicare Annual Wellness (AWV) [facility] Start: 09-25-2024 End: 09-25-2024 Patient encounter procedure 09/25/2024 2:00 PM EDT Office Visit DAVID HUANG [address] [place] [id number] Miriam Reardon MD [address] [place] [address] [facility]ID [facility]EECE Start: 08-23-2024 End: 08-23-2024 Patient encounter procedure 08/23/2024 1:30 PM EST Office Visit [facility] [address] [place] [id number] Villa Tapia MD [address] [place] [address] [facility] Start: 07-27-2024 End: 07-27-2024 Patient encounter procedure 07/27/2024 3:20 PM EST Office Visit [facility] [address] [facility] [address] [place] [address] Cele Scott, VAT [employer] SUPERVISOR [address] [facility] [address] [address] [facility] Start: 06-29-2024 End: 06-29-2024 Patient encounter procedure 06/29/2024 2:40 PM EST Office Visit [facility] [address] [facility] [address] [place] [address] Cele Scott, VAT [employer]ISE SUPERVISOR [address] [facility] [address] [address] [facility] Start: 06-27-2024 End: 06-27-2024 Patient encounter procedure DAVID REECE Comment on above: Arrived Start: 06-21-2024 End: 06-21-2024 Patient encounter procedure [facility] Start: 06-20-2024 End: 06-20-2025 XR Shoulder - right 2 Views X-ray shoulder right minimum 2 views Imaging Routine Chronic osteomyelitis of right humerus ([facility]-HCC) Expected: 06/20/2024, Expires: 06/20/2025 [facility] Work Phone: Comment on above: Expected: 06/20/2024 , Expires: 06/20/2025 Start: 06-08-2024 End: 06-08-2024 Patient encounter procedure 06/08/2024 12:20 PM EST Office Visit [facility] [address] [place] [address] Arnold Hartley NP [address] [place] [address] [facility] Start: 06-04-2024 Medicare Annual Wellness (AWV) Medicare Annual Wellness (AWV) [facility] Start: 04-07-2024 End: 04-07-2025 Comprehensive metabolic 2000 panel - Serum or Plasma Comprehensive metabolic panel Lab Routine Elevated ALT measurement Expected: 04/07/2024 (Approximate), Expires: 04/07/2025 [facility] Work Phone: Comment on above: Expected: 04/07/2024 (Approximate), Expires: 04/07/2025 Start: 04-07-2024 End: 04-07-2024 Patient encounter procedure 04/07/2024 12:30 PM EDT Office Visit [facility] [address] [place] [address] Arnold Hartley CONDITIONER TUMBLER [address] [place] [address] Arrived [facility] Comment on above: Arrived Start: 04-05-2024 End: 04-05-2024 Patient encounter procedure 04/05/2024 1:30 PM EDT Office Visit [facility] [address] [place] [address] Arnold Hartley NP [address] [place] [address] [facility] Start: 03-19-2024 Influenza vaccination [facility] Start: 03-08-2024 End: 03-08-2025 Comprehensive metabolic 2000 panel - Serum or Plasma Comprehensive metabolic panel Lab Routine Medicare annual wellness visit, subsequent Screening for lipid disorders Screening for heart disease Expected: 03/08/2024 (Approximate), Expires: 03/08/2025 [facility] Comment on above: Expected: 03/08/2024 (Approximate), Expires: 03/08/2025 Start: 03-08-2024 End: 03-08-2025 Lipid 1996 panel - Serum or Plasma Lipid panel Lab Routine Medicare annual wellness visit, subsequent Screening for lipid disorders Screening for heart disease Expected: 03/08/2024 (Approximate), Expires: 03/08/2025 [facility] Work Phone: Comment on above: Expected: 03/08/2024 (Approximate), Expires: 03/08/2025 Start: 03-08-2024 End: 03-08-2024 Patient encounter procedure 03/08/2024 9:00 AM EDT Office Visit [facility] [address] [place] [id number] Arnold Hartley NP [address] [place] [address] [facility] Start: 1997 DTaP,Tdap and Td Vaccines (1 - Tdap) DTaP,Tdap and Td Vaccines (1 - Tdap) [facility] Start: 1996 Adult BMI Follow Up Plan Adult BMI Follow Up Plan [facility] Start: 1978 Screening for malignant neoplasm of colon [facility] Start: 1978 Tobacco Counseling Tobacco Counselin g [facility] Bacteria identified in Blood by Aerobe culture [facility] Work Phone: Bacteria identified in Unspecified specimen by Anaerobe culture [facility] End: 06-05-2025 CBC panel - Blood by Automated count CBC without diff Lab Routine Abscess of arm Once weekly for 6 Occurrences starting 06/05/2024 until 06/05/2025 [employer] Work Phone: Comment on above: Once weekly for 6 Oc currences starting 06/05/2024 until 06/05/2025 End: 06-05-2025 Comprehensive metabolic 2000 panel - Serum or Plasma Comprehensive metabolic panel Lab Routine Abscess of arm once weekly for 6 Occurrences starting 06/05/2024 until 06/05/2025 [facility] Comment on above: once weekly for 6 Oc currences starting 06/05/2024 until 06/05/2025 Fungus identified in Unspecified specimen by Culture [employer] End: 06-14-2025 Leukocytes [#/volume] in Blood WBC Lab Routine Leukocytosis, unspecified type 1 Occurrences starting 06/14/2024 until 06/14/2025 [employer] Work Phone: Comment on above: 1 Occurrences starti ng 06/14/2024 until 06/14/2025 End: 06-24-2025 Leukocytes [#/volume] in Blood WBC Lab Routine Leukocytosis, unspecified type 1 Occurrences starting 06/24/2024 until 06/24/2025 [employer] Work Phone: Comment on above: 1 Occurrences starti ng 06/24/2024 until 06/24/2025 End: 06-24-2025 Platelets [#/volume] in Blood Platelet count Lab Routine Leukocytosis, unspecified type 1 Occurrences starting 06/24/2024 until 06/24/2025 [employer] Comment on above: 1 Occurrences starti ng 06/24/2024 until 06/24/2025 Surgical Pathology Surgical Path ology Pathology and Cytology Routine Release Upon Ordering for 1 Occurrences starting 06/01/2024 [employer] Work Phone: Comment on above: Release Upon Orderin g for 1 Occurrences starting 06/01/2024 Immunizations Immunization Date Immunization Notes Care Provider Fa cility NEGATED: Highlighted row has not occurred!05-31-2024 influenza virus vaccine, unspecified formulation Philip Gunn [facility] Payers Date Payer Category Payer Medicare HMO ANTH MEDICARE [id number] 2023 Medicaid [id number] 2023 Medicare ANTHEM MEDICARE ADVANTAGE ANTHEM MEDICARE ADVANTAGE [id number] 2023-Present [address] [place] [address] [id number] 2023 Medicare (Managed Care) [facility] [id number] 2023 Unknown [id number] 2022 Medicaid [id number] 1978 Unknown [id number] 2.840.1.801618.3.579.2. 593 1978 Unknown [id number] 2.16840.1.325492.3.579.2 1978 Unknown [id number] 2.16840.1.190074.3.579.2 1978 Unknown [id number] 2.16840.1.746974.3.579.2 1978 Unknown [id number] 2.16840.1.527528.3.579.2 1978 Unknown [id number] 2.16840.1.703636.3.579.2 1978 Unknown [id number] 2.16.840.1.010585.3.579.2. 1978 Unknown [id number] 2.16.840.1.555957.3.579.2. 1978 Unknown [id number] 2.16.840.1.969373.3.579.2. 1978 Unknown [id number] 2.16.840.1.222773.3.579.2. 1285 1978 Unknown [id number] 2.16.840.1.509912.3.579.2. 1285 1978 Unknown [id number] 2.16.840.1.485771.3.579.2. 1285 1978 Unknown [id number] 2.16.840.1.288210.3.579.2. 1285 1978 Unknown [id number] 2.16.840.1.762887.3.579.2. 1285 1978 Unknown [id number] 2.16.840.1.596877.3.579.2. 1285 1978 Unknown [id number] 2.16.840.1.750698.3.579.2. 1285 1978 Unknown [id number] 2.16.840.1.234350.3.579.2. 1285 1978 Unknown [id number] 2.16.840.1.972088.3.579.2. 1285 1978 Unknown [id number] 2.16.840.1.617907.3.579.2. 1285 1978 Unknown [id number] 2.16.840.1.048374.3.579.2. 1285 1978 Unknown [id number] 2.16.840.1.022516.3.579.2. 1258 1978 Unknown [id number] 2.16.840.1.051713.3.579.2. 1259 1978 Unknown [id number] 2.16.840.1.645732.3.579.2. 9 1978 Unknown [id number] 2.16.840.1.013969.3.579.2. 9 1978 Unknown [id number] 2.16.840.1.894920.3.579.2. 9 1978 Unknown [id number] 2.16.840.1.447505.3.579.2. 1259 1959 Private Health Insurance [id number] Private Health Insurance Self Pay [id number] Private Health Insurance Self Pay [id number] Self-pay Self Pay [id number] Social History Date Type Detail Facility Tobacco smoking stat [facility] Unknown if ever smoked [facility] Start: 1978 End: 1978 Sex Assigned At Male [facility] Start: 03-08-2024 End: 04-07-2024 Sex Assigned At [facility] [employer] Other Start: 09-06-2020 End: 05-31-2024 Tobacco smoking status Heavy tobacco smoker (finding) [facility] Tobacco smoking status Never [facility] Start: 06-01-1995 End: 06-01-2024 Tobacco smoking status FLIS Smokes tobacco daily [facility] Start: 06-01-1995 History of tobacco use Cigarette Smo ker [facility] Start: 05-28-2023 Tobacco use and exposure Smokeless tobacco non-user [facility] Start: 03-08-2024 End: 04-07-2024 Alcoholic beverage intake Current drinker of alcohol (finding) [facility] Start: 03-08-2024 End: 04-07-2024 Alcoholic beverage intake [facility] Start: 05-27-2023 Tobacco Comment 6-10 cigs/day [facility] Start: 06-03-2023 Alcohol Comment Caffeine intak e: 2-3 cups per day, coffee, pepsi 2-3/day [facility] Start: 1978 Sex assigned at Not on file [facility] Start: 09-30-2022 Gender identity Identifies as male gender (finding) [facility] Has the electric, [employer], [employer], or water company threatened to shut off services in your home in past 12Mo No [facility] Start: 06-01-2024 Alcohol Comment rare months ago [facility] Start: 02-21-2015 Sex Male (finding) [facility] Medical Equipment Procedure Code Equipment Code Equipment Origin al Text Equipment Identifier Dates SHOULDER BICEPS TENODESIS Sukhjinder Marquis DO 04/12/20 Non Biological Shoulder R [id number] FDA Start: 04-12-2020 Cement Bn Bio 40 gm Rpl [id number] Start: 06-01-2024 Goals Date Patient Goal Desired Activity /State Personal health goal Comment on above: Formatting of this n ote might be different from the original. Evaluation of progress towards goal: Patient plans for safe discharge home with home care. Functional Status Date Assessment Result Facility 05-31-2024 Functional Status N/A [facility] 05-31-2024 Functional Status N/A [facility] 05-17-2024 Functional Status N/A [facility] 04-27-2024 Functional Status N/A [facility] 12-20-2022 Functional Status N/A [facility] Notes 09-29-2021 to 06-30-2024 [facility] 06/30/2024 2:43 PM Parris Scott APRNRASHAAD - 06/29/2024 2:40 PM [facility] 06/29/2024 2:40 PM Erik Hartley NP - 06/27/2024 11:20 AM EST Note Date & Type Note Facility 06-30-2024 History of Present illness Narrative Lab work reviewed with patient over the phone at this time. WBC has normalized - will continue to monitor NIKOLE Remy 06/30/24 1444 documented in this encounter [facility] 06-29-2024 History of Present illness Narrative Images from the original note were not included. Subjective Patient ID: Sergio Hernandez is a 43 y.o. male. Chief Complaint Right humerus osteo HPI Patient seen and treated for the following Right humerus osteo Right upper extremity infection with abscess Leukocytosis History of right shoulder superior labrum anterior to posterior repair complicated with osteomyelitis in 2020 treated by [facility] Electrolyte imbalance Hypertension Dyslipidemia Cigarette smoker June 01, 2024 Procedure(s) Performed: Irrigation and debridement right arm abscess shoulder, Removal of deep implants right arm Insertion antibiotic cement beads Partial excision humerus for treatment of osteomyelitis Bone culture finalized with [facility] Tissue culture finalized with [facility] Aspirate culture finalized with [facility] Awaiting fungal and anaerobic cultures Plan for cefazolin until July 12 as long as cultures remain negative for any other pathogen WBC platelets creatinine LFTs weekly while antibiotic Id clinic in 2 weeks Supportive care The following portions of the patient's history were reviewed and updated as appropriate: current medications, past family history, past medical history, past social history, past surgical history, problem list, and medication reconciliation was completed including current medication and post discharge medication. Review of Systems Constitutional: Positive for activity change (Limited ROM of right arm). Negative for fever and fatigue. HENT: Negative. Respiratory: Negative. Negative for cough and shortness of breath. Cardiovascular: Negative. Gastrointestinal: Negative. Negative for nausea, vomiting and diarrhea. Genitourinary: Negative. Musculoskeletal: Negative. Skin: Positive for wound (right upper arm). Neurological: Negative. Hematological: Negative. Psychiatric/Behavioral: Negative. Objective Physical Exam Constitutional He is oriented to person, place, and time. He appears well-developed and well-nourished. Vitals reviewed. HENT Head Normocephalic. Eyes: EOM are normal. Pupils are equal, round, and reactive to light. Neck Normal range of motion. Cardiovascular: Normal rate and regular rhythm. Pulmonary/Chest: Effort normal and breath sounds normal. Abdominal: Bowel sounds are normal. Soft. Musculoskeletal: Cervical back: Normal range of motion. Comments: See picture below Neurological He is alert and oriented to person, place, and time. Skin: Skin is warm and dry. Psychiatric: He has a normal mood and affect. Assessment/Plan Continue cefazolin until July 12 Lab work on 06/13/2024 with an external platelet count of 537 and white blood cell count of 15.3 Lab work on 06/21 revealing white blood cell count of 12.8 and platelets 493 Incomplete lab work/missing lab work Patient states he had lab work completed today with his home healthcare nurse which is pending at [facility] [place] called [facility] and labs are currently pending from today- our fax number has been provided Patient does report pain to the right upper arm He states he recently saw Dr. Tapia with orthopedic team. They are encouraging activity increased. They have provided patient with a prescription for physical therapy They plan for follow-up in 2 months with repeat x-rays to the right shoulder That I will touch base with [place] and obtain labs and discuss with Dr. Diana. Will call him tomorrow with an update Patient to be seen back in the infectious disease office in 2-3 weeks Sergio was seen today for follow-up. Diagnoses and all orders for this visit: Osteomyelitis, unspecified site, unspecified type ([facility]) NIKOLE Remy 06/29/24 1550 Attached media from the original note were not included. NIKOLE Remy 06/29/24 1550 documented in this encounter [facility] 06-27-2024 History of Present illness Narrative Images from the original note were not included. Sergio Hernandez is a 43 y.o. male presents with chief complaint of Follow-up HPI: History of Present Illness The patient presents for evaluation of pain. He reports experiencing pain every 8 hours, which has disrupted his sleep pattern. He describes the pain as radiating down the back of his arm and localized at the top of his shoulder, in the area of a previous tear. He expresses frustration with the current regimen, which requires him to remove the medication from the refrigerator an hour prior to administration, leading to multiple alarms and disrupted sleep. He also reports feeling fatigued due to the need to clean the PICC line with saline, administer the antibiotic, and then flush the line with heparin. He is currently on oxycodone 5 mg, prescribed by Dr. Tapia, but reports that it does not provide significant relief. He has been prescribed physical therapy but is unable to participate due to limited arm mobility and the presence of a PICC line. He had his sutures removed last week and has an upcoming appointment with Infectious Disease on . He has abstained from alcohol but continues to use marijuana, although at a reduced rate. He reports no suicidal ideations but admits to thoughts of harming others. SOCIAL HISTORY The patient smokes weed but does not drink alcohol. MEDICATIONS Current: Oxycodone, cefazolin MEDICATIONS: Current Outpatient Medications Medication Instructions acetaminophen (TYLENOL) 1,000 mg, Every 6 hours PRN albuterol HFA (ProAir HFA) 90 mcg/act inhaler 2 puffs, Inhalation, Every 4 hours PRN vnwpyiq-txokscznpjxrs-nwjyijqu (Excedrin Migraine) 250-250-65 MG tablet 2 tablets Orally q6 hrs PRN atorvastatin (LIPITOR) 10 mg, Oral, Daily calcium citrate (CALCITRATE) 400 mg, 3 times daily with meals ceFAZolin (ANCEF) 1 g, Every 8 hours cholecalciferol (VITAMIN D-3) 2,000 Units, Daily hydroCHLOROthiazide (HYDRODIURIL) 25 mg, Oral, Daily omeprazole (PRILOSEC) 20 mg, Oral, Daily before breakfast, Do not crush or chew. oxyCODONE (ROXICODONE) 5 mg, Oral, Every 6 hours PRN, dR. Tapia- SURGEON ALLERGIES: Allergies Allergen Reactions Penicillins Anaphylaxis Other Reaction(s): Anaphylactic reaction, Unknown Reaction Penicillin G Other Reaction(s): anaphylaxis as a child Review of Systems Medical, Surgical, Family, and Social History reviewed. General: Denies fever, chills, fatigue, BILLS or weight loss/gain CV: Denies CP, palpitations or swelling in legs Resp: denies cough, SOB or wheezing GI: Denies abd pain/n/v/c/d Skin: Denies rash Neuro: Denies LH or dizziness OBJECTIVE: Visit Vitals BP 142/68 (BP Location: Right arm, Patient Position: Sitting, BP Cuff Size: Adult) Pulse 90 Temp 98.2 F (Temporal) Ht 6' Wt 233 lb SpO2 98% BMI 31.60 kg/m Smoking Status Every Day BSA 2.32 m BP Readings from Last 3 Encounters: 06/27/24 142/68 05/31/24 152/88 04/07/24 128/80 Wt Readings from Last 3 Encounters: 06/27/24 233 lb 06/08/24 231 lb 12.8 oz 05/31/24 235 lb 3.2 oz Physical Exam Physical Exam General: alert & oriented, NAD Head: NC/AT Oral Cavity: MMM Skin: warm, dry Heart: RRR, No m/r/g, S1S2 nml Lungs: CTA b/l Abdomen: soft, ND/NT, BS wnl Musculoskeletal: normal gait Extremities: no clubbing, cyanosis or edema Neurological: nonfocal Psych: mood/affect full range Lungs are clear. Heart was examined. Results Laboratory Studies Platelet count has increased. White blood cell count has increased. ASSESSMENT AND PLAN: Assessment & Plan 1. Pain management. He is currently on oxycodone 5 mg for pain but reports that it is not effective. He experiences shooting pains down the back of his arm and at the top of his shoulder. He is advised to continue with his current pain management regimen and to follow up with Dr. Tapia, the surgeon, for further evaluation. 2. Infection. His white blood cell count has increased, indicating a possible ongoing infection. He is currently on cefazolin and has a PICC line in place. He reports that his home health nurse recently took blood samples, but additional blood work was requested by the infectious disease team. He is advised to follow up with the infectious disease specialist as scheduled. Follow-up The patient will follow up in 3 months. PROCEDURE Sutures were removed last week. Assessment/Plan Diagnoses and all orders for this visit: History of osteomyelitis Pain of right upper extremity Cellulitis of right upper extremity Anxiety Marijuana use Primary hypertension (CMS/HCC) Health Maintenance Due Topic Date Due Influenza Vaccine (1) Never done documented in this encounter [facility] 06-24-2024 History of Present illness Narrative Repeat order placed for WBC and platelets ID office to notify NIKOLE Remy 06/24/24 1504 documented in this encounter [facility] 06-21-2024 History of Present illness Narrative Orders placed to repeat WBC and platelets NIKOLE Remy 06/21/24 1453 documented in this encounter [facility] 06-21-2024 History of Present illness Narrative Images from the original note were not included. INTERVAL Hx: Sergio Hernandez is a 43 y.o. male presents 06/21/2024 for follow-up of his Chronic osteomyelitis of right humerus ([facility]) Abscess of right shoulder. He is 3 week(s) status post I&D Right shoulder abscess performed on 06/01/24. His pain is described as Throbbing and is improved since our last visit. Patient states that initially he had a rotator cuff repair in 2019 he had an abscess infection. This was debrided and he had 20 weeks of IV antibiotics. He did well for a period of time and then in 2021 he had ulnar nerve transposition. He again did well for a period of time and then it felt like the infection is upper arm a come back. He presented to [facility] where Dr. Ho irrigation debridement of right shoulder abscess. Additionally he resected bone concerning for osteomyelitis and placement of antibiotic beads. Patient states that he has been continuing to receive Ancef per Infectious Disease recommendations through the PICC line. He has had no fevers chills chest pain shortness of breath. He has had no discharge from the incision. He has had no erythema or edema thing that he knows. Patient does still endorse significant pain. He said it is better than prior to surgery. Additionally patient also intermittently will have diffuse right shoulder and posterior right arm pain he said this is fleeting and positional. Currently he does not endorse any symptoms. Patient is taking Tylenol, ibuprofen, and oxycodone for pain control. PMHx, PSHx, FamHx: were reviewed during this visit. Social History Occupational History Not on file Tobacco Use Smoking status: Every Day Current packs/day: 1.00 Average packs/day: 1 pack/day for 29.1 years (29.1 ttl pk-yrs) Types: Cigarettes Start date: 06/01/1995 Smokeless tobacco: Not on file Vaping Use Vaping status: Never Used Substance and Sexual Activity Alcohol use: Yes Comment: rare months ago Drug use: Yes Types: Marijuana Sexual activity: Defer MEDS & ALLERGIES: were reviewed at during this visit. ROS: Negative for Fever/Chills, Numbness/Tingling, Skin changes. PHYSICAL EXAM: Vitals: Temp 36.3 C (97.4 F) (Temporal) Ht 190.5 cm (6' 3 ) Wt 108 kg (238 lb) BMI 29.75 kg/m General: Well-nourished, Well-developed and Age appropriate LOC: awake and alert Orientation: oriented to person, place, time, and recent events Psych: Pleasant and Cooperative Station: Seated in chair Musculoskeletal: RIGHT UPPER EXTREMITY: Inspection incision over deltoid pack appears to be intact. No obvious erythema, edema or drainage. Steri-Strips in place. Sutures were removed. Palpation tender to palpation at incision site. Patient is nontender to glenohumeral joint, deltoid and triceps. No palpable loculations or fluid consolidations appreciated. ROM shoulder fwd flex: 160 deg shoulder abd: 110 deg elbow flexion / extension: 115 / 0 deg Motor intact EPL, flexion at IP joint, digital ABDuction, digital ADDuction, digital flexion Sensory intact to light touch: median, radial, ulna nerves IMAGING: I personally viewed X-ray images of right shoulder, which demonstrate: Antibiotic impregnated beads appeared to be maintained about resection site. No evidence of acute perioperative changes including degeneration of glenohumeral joint or fracture. Will review and confirm findings with the radiologist report when available. DIAGNOSIS: 43 year old male with right shoulder abscess and chronic osteomyelitis s/p Irrigation and debridement Chronic osteomyelitis of right humerus (CMS-HCC) Abscess of right shoulder PLAN: At this juncture patient appears to be progressing appropriately. We will continue antibiotics per Infectious Disease recommendations. He is currently on Ancef. Patient will begin physical therapy to improve his range of motion and activity status. We will not plan for any more washouts as long as he continues to do well clinically. We will give patient 1 more script of oxycodone encouraged him to wean from this and use Tylenol and ibuprofen. We will see him back in 2 months to re-evaluate. Follow-up 2 month(s) with new radiographs of right shoulder. All questions were addressed. Patient was satisfied with plan of care. Dash Lazar MD Orthopedic Surgery, PGY-4 Attending Attestation: I saw the patient. I performed the critical/grider portions of the service. I was directly involved in the management and treatment plan of the patient. I reviewed the resident's note. Additional Notes/Findings: He does have some complaints about fatigue. He also notes some burning pain extending down his arm from time to time. He has not been using it much as he was only 3 weeks from his operation. Complains of some discomfort in his left arm to because of the PICC line. Overall encouraging findings today on his exam. Swelling markedly improved. The skin is soft and pliable. No evidence of pitting edema. No evidence of cellulitis. His wound is well healed. Tolerates both active and passive range of motion through the shoulder though he does demonstrate weakness with the deltoid able to achieve only a proximally 110 of forward flexion. Strength 3+/5. He otherwise is motor and sensory intact. Continue with IV antibiotics per Infectious Disease. Clinically does not show any signs or symptoms of recurrence around the right shoulder. Encouraged activity increase. Will provide prescription for physical therapy in an effort to facilitate mobilization and activation of the deltoid musculature. Plan for follow-up in 2 months with repeat x-rays right shoulder VILLA TAPIA MD MDM: Global documented in this encounter [facility] 06-14-2024 History of Present illness Narrative Order placed to repeat WBC today Office staff to fax and notify of new order NIKOLE Remy 06/14/24 [id number] documented in this encounter [facility] 06-08-2024 History of Present illness Narrative Images from the original note were not included. Sergio Hernandez is a 43 y.o. male presents with chief complaint of hospital follow up HPI: History of Present Illness The patient is a 43-year-old male who comes in today post hospital admission, discharged on 06/05/2024. He was admitted to the hospital due to an infection in his right shoulder bone. Bone and blood cultures were taken, and he underwent surgery on afternoon. During the surgery, it was discovered that sutures from a previous surgery were still present. His biceps were detached and reattached with an anchor through an incision under his armpit. The anchor, which was inserted during a shoulder surgery between 03/2020 and 08/2020, was found to be unnecessary and was removed. His scar has doubled in size and feels tight. He is currently on a six-week course of cefazolin, administered every eight hours through a PICC line. He is responsible for cleaning and flushing the port with saline and heparin. A home health nurse visits once a week to check his incision site and change the dressing. He is also required to have weekly blood tests. He has been advised to wrap his arms while showering to prevent them from getting wet. He has a history of osteomyelitis in the right shoulder and cellulitis in his foot, which was treated with antibiotics. He also has carpal tunnel syndrome in both hands, which causes constant thumb pain. He has not worked since 09/2019 and is currently on short-term disability. He has a follow-up appointment with his surgeon in two weeks. SOCIAL HISTORY He does not drink alcohol. He barely smokes weed anymore. MEDICATIONS: Current Outpatient Medications Medication Instructions acetaminophen (TYLENOL) 1,000 mg, Every 6 hours PRN albuterol HFA (ProAir HFA) 90 mcg/act inhaler 2 puffs, Inhalation, Every 4 hours PRN ygpraws-xyuangirhlvav-lfzobeql (Excedrin Migraine) 250-250-65 MG tablet 2 tablets Orally q6 hrs PRN atorvastatin (LIPITOR) 10 mg, Oral, Daily calcium citrate (CALCITRATE) 400 mg, 3 times daily with meals ceFAZolin (ANCEF) 1 g, Every 8 hours cholecalciferol (VITAMIN D-3) 2,000 Units, Daily hydroCHLOROthiazide (HYDRODIURIL) 25 mg, Oral, Daily omeprazole (PRILOSEC) 20 mg, Oral, Daily before breakfast, Do not crush or chew. oxyCODONE (ROXICODONE) 10 mg, Every 6 hours PRN ALLERGIES: Allergies Allergen Reactions Penicillins Anaphylaxis Other Reaction(s): Anaphylactic reaction, Unknown Reaction Penicillin G Other Reaction(s): anaphylaxis as a child Review of Systems Medical, Surgical, Family, and Social History reviewed. General: Denies fever, chills, fatigue, BILLS or weight loss/gain CV: Denies CP, palpitations or swelling in legs Resp: denies cough, SOB or wheezing GI: Denies abd pain/n/v/c/d Skin: Denies rash Neuro: Denies LH or dizziness OBJECTIVE: Flowsheet Row Patient Outreach from 06/06/2024 in [facility] with Minerva Reddy LPN Hospital Information ED, Hospital or Care Home Facility Discharge? Hospital Patient has been contacted within two business days of discharge Yes Diagnosis Abscess of arm, hypovitaminosis D, right upper extremity MSSA humerus, osteomyelitis with associated deep tissue abscess Discharge Date 06/05/24 Discharged To: Home Setting Discharge Hospital [facility] [place] [facility] [place] Engagement Call Start Time 1450 Admission Date 05/31/24 Medications Discharge medications reviewed and reconciled from hospital? Yes [START: Cefazolin, Tylenol ES, Calcium citrate, Vit D3, Oxycodone] Is the patient having any side effects they believe may be caused by any medication additions or changes? No Does the patient have all medications ordered at discharge? Yes Nursing Interventions No intervention needed Is the patient taking all medications as directed (includes completed medication regime)? Yes Nursing Interventions Nurse provided patient education Appointments Does the patient have a primary care provider? Yes [Appt on 06/08] Nursing Interventions Verified appointment date/time/provider Has the patient kept scheduled appointments due by today? Yes Self Management What is the home health agency? [address] Has home health visited the patient within 72 hours of discharge? Yes [coming today] Patient Teaching Does the patient have access to their discharge instructions? Yes Nursing Interventions Reviewed instructions with patient What is the patient's perception of their health status since discharge? Improving Is the patient/caregiver able to teach back the hierarchy of who to call/visit for symptoms/problems? PCP, Specialist, Home Health nurse, Urgent Care, ED, 911 Yes Wrap Up Wrap Up Additional Comments Had I&D right upper arm abscess, removal deep implants, bone culture, insertion of antibiotic cement beads, partial excision of humerus, insertion PICC line upper left arm Call End Time 1456 Visit Vitals Pulse 93 Temp 98.7 F (Temporal) Ht 6' Wt 231 lb 12.8 oz SpO2 97% BMI 31.44 kg/m Smoking Status Every Day BSA 2.31 m Unable to take blood pressure due to picc line in left arm and surgical site on the right side BP Readings from Last 3 Encounters: 05/31/24 152/88 04/07/24 128/80 03/08/24 (!) 138/100 Wt Readings from Last 3 Encounters: 06/08/24 231 lb 12.8 oz 05/31/24 235 lb 3.2 oz 04/07/24 232 lb Physical Exam Physical Exam PICC line appears to be pulled slightly with blood around it. No streaking noted on the right surgical site. Sutures are present. General: alert & oriented, NAD Head: NC/AT Oral Cavity: MMM Skin: warm, dry Heart: RRR, No m/r/g, S1S2 nml Lungs: CTA b/l Musculoskeletal: normal gait Extremities: no clubbing, cyanosis or edema Neurological: nonfocal Psych: mood/affect full range Results ASSESSMENT AND PLAN: Assessment & Plan 1. Osteomyelitis. He underwent right shoulder surgery, including an incision and drainage (I&D) procedure and a bone sample was taken for osteomyelitis. He has been administering cefazolin every 8 hours via his PICC line located on his left arm. The PICC line appears to be slightly pulled with surrounding blood. No streaking is observed on the right surgical site, and sutures are present. A visiting nurse is scheduled to change the bandage tomorrow. He is advised to monitor for signs of infection and return to the ER if there are any concerns. 2. Methicillin-resistant Staphylococcus aureus (MRSA). MRSA was noted during his hospital stay. He is currently on cefazolin, which should help manage this infection. Continued monitoring and follow-up are necessary. Follow-up Patient return in 1 week for follow up. Assessment/Plan Diagnoses and all orders for this visit: History of osteomyelitis Pain of right upper extremity Cellulitis of right upper extremity Status post PICC central line placement Clinical Notes: Established patient 45-59 min (L4) , Total time on date of encounter spent by the physician and/or other QHP includes bbhl-zk-dnih and ebp-hzgd-wc-face time. Specifically this includes prep time for appointment, exam and evaluation, counseling and education of the patient and documenting clinical information in the EMR or health records. , Ordering medications, tests or procedures. , Obtaining/reviewing separate history. Health Maintenance Due Topic Date Due Influenza Vaccine (1) Never done documented in this encounter [facility] 06-07-2024 Note Microbiology PROCEDURE: Blood Culture Charcoal [R1] SOURCE: Blood BODY SITE: Arm L COLLECTED DATE/TIME: 05/31/2024 13:40 EST RECEIVED DATE/TIME: 05/31/2024 14:13 EST START DATE/TIME: 05/31/2024 14:13 EST FREE TEXT SOURCE: Noman Riggins, Yuval Tineo M.D., Yuval Conner FINAL REPORTS Final Report [] Verified Date/Time: 06/07/2024 15:00 EST No growth at 7 days. Performing Locations R1: This test was performed at: [facility], [address] [place] [address], [facility] , , [facility] Comment on above: Performed By: #### [id number] #### [facility] [address] [place] [address] 06-07-2024 Note Microbiology PROCEDURE: Blood Culture Charcoal [R1] SOURCE: Blood BODY SITE: Arm R COLLECTED DATE/TIME: 05/31/2024 13:46 EST RECEIVED DATE/TIME: 05/31/2024 14:13 EST START DATE/TIME: 05/31/2024 14:13 EST FREE TEXT SOURCE: Noman Riggins, Yuval Tineo M.D., Yuval Conner FINAL REPORTS Final Report [] Verified Date/Time: 06/07/2024 15:00 EST No growth at 7 days. Performing Locations R1: This test was performed at: [facility], [address] [place] [address], [id number] , , [facility] Comment on above: Performed By: #### 1 [id number] #### [facility] [address] [place] [id number] 06-05-2024 Progress note Formatting of t his note might be different from the original. DISCHARGE PLANNING NOTE CN sent IV antibiotic script to [facility] at 1056. CN notified patient of accepting home care agencies, patient would like to move forward with [address] CN confirmed 2pm start of care tomorrow (06/06) with Josey at [address] CN notified patient and [facility]. CN confirmed IV antibiotic delivery with [facility] for 5-9pm today, patient and home care updated. Patient states he feels comfortable administering 2200 and 0600 doses at home prior to home care start of care after teaching with [facility] today. Patient has transportation home at time of discharge. RN and MD updated. CN will continue to follow and is available should any further needs arise. - Iliana Silva RN 06/05/24 3:23 PM [facility] 06-05-2024 Miscellaneous Notes DISCHARGE PLANNING NOTE CN sent IV antibiotic script to [facility] at 1056. CN notified patient of accepting home care agencies, patient would like to move forward with [address] CN confirmed 2pm start of care tomorrow (06/06) with Josey at [address] CN notified patient and [facility]. CN confirmed IV antibiotic delivery with [facility] for 5-9pm today, patient and home care updated. Patient states he feels comfortable administering 2200 and 0600 doses at home prior to home care start of care after teaching with [facility]. Patient has transportation home at time of discharge. RN and MD updated. CN will continue to follow and is available should any further needs arise. - Iliana Silva RN 06/05/24 3:23 PM Problem: Pain Goal: Patient goal is pain score less than 4, able to rest, and participant in treatment plan as appropriate Description: INTERVENTIONS: 1. Encourage patient or legal bilingual sales representative to report early pain and ask for pain medicine when needed 2. Assess pain using appropriate pain scale and include the scale used when documenting 3. Administer analgesics based on type and severity of pain and evaluate response within appropriate time frame 4. Implement non-pharmacological measures as appropriate and evaluate response 5. Consider cultural and social influences on pain and pain management 6. Notify LIP if interventions ineffective or patient reports new pain 7. Monitor vital signs including pulse ox, end-tidal CO2 based on pain intervention 8. Reassess pain per policy 9. Teach patient or legal bilingual sales representative interventions for comforting Outcome: Progressing Note: Evaluation of progress towards goal: Patient reports 7/10 pain. Patient given PRN meds. Pain improved. Problem: Safety Goal: Patient will be injury free during hospitalization Description: INTERVENTIONS: 1. Assess patient's risk for falls and implement fall prevention plan of care per policy 2. Provide and maintain a safe environment 3. Proper use of double Identifiers 4. Medication administration using the 5 rights 5. Hand hygiene 6. Specimens are labeled at the bedside 7. Instruct patient/ patient bilingual sales representative about use of safety devices 8. Include patient/ patient bilingual sales representative in decisions related to safety Outcome: Progressing Note: Evaluation of progress towards goal: No falls or injury during shift. Patient uses call light appropriately and is independent in room. Problem: Infection Goal: Absence of infection during hospitalization Description: Interventions: 1. Assess and monitor for signs and symptoms of infection 2. Monitor lab/diagnostic results 3. Monitor all insertion sites i.e., indwelling lines, tubes and drains 4. Monitor endotracheal (as able) and nasal secretions for changes in amount and color 5. Administer medications as ordered 6. Instruct and encourage patient and family to use good hand hygiene technique 7. Identify and instruct patient/patient bilingual sales representative in use of appropriate isolation precautions for identified infection/symptoms 8. Provide and discuss with patient/patient bilingual sales representative on educational MDRO sheet 9. Encourage and monitor nutritional status daily and consult retail department manager if indicated 10. Implement neutropenic guidelines as needed 11. Review exposure to history of communicable disease and recent travel history on admission 12. Encourage annual influenza vaccine 13. Encourage pneumonia vaccine Outcome: Progressing Note: Evaluation of progress towards goal: afebrile during shift. Patient is receiving shelter IV antibiotics. DISCHARGE PLANNING NOTE Referral sent to multiple facilities or agencies due to patient insurance type/difficult placement/patient is without preference. DISCHARGE PLANNING NOTE Case discussed in daily transition rounds and chart reviewed by CN. Barriers to discharge include Home care acceptance, home antibiotic delivery. Discharge Plan remains: Home with home care for RN with home antibiotics. CN tasked [facility] [place] patient request. CN will continue to follow and is available should any further needs arise. - Shoshana Norris RN 06/05/24 10:23 AM CN sent CRF to [address] and [facility] Confirmed plan for discharge today. - Shoshana Norris RN 06/05/24 3:30 PM Problem: Pain Goal: Patient goal is pain score less than 4, able to rest, and participant in treatment plan as appropriate Description: INTERVENTIONS: 1. Encourage patient or legal bilingual sales representative to report early pain and ask for pain medicine when needed 2. Assess pain using appropriate pain scale and include the scale used when documenting 3. Administer analgesics based on type and severity of pain and evaluate response within appropriate time frame 4. Implement non-pharmacological measures as appropriate and evaluate response 5. Consider cultural and social influences on pain and pain management 6. Notify LIP if interventions ineffective or patient reports new pain 7. Monitor vital signs including pulse ox, end-tidal CO2 based on pain intervention 8. Reassess pain per policy 9. Teach patient or legal bilingual sales representative interventions for comforting Outcome: Progressing Note: Evaluation of progress towards goal: Patient's pain is being effectively managed using PRN and scheduled pain medications. Problem: Safety Goal: Patient will be injury free during hospitalization Description: INTERVENTIONS: 1. Assess patient's risk for falls and implement fall prevention plan of care per policy 2. Provide and maintain a safe environment 3. Proper use of double Identifiers 4. Medication administration using the 5 rights 5. Hand hygiene 6. Specimens are labeled at the bedside 7. Instruct patient/ patient bilingual sales representative about use of safety devices 8. Include patient/ patient bilingual sales representative in decisions related to safety Outcome: Progressing Note: Evaluation of progress towards goal: Patient has not sustained additional injuries since being admitted. Problem: Infection Goal: Absence of infection during hospitalization Description: Interventions: 1. Assess and monitor for signs and symptoms of infection 2. Monitor lab/diagnostic results 3. Monitor all insertion sites i.e., indwelling lines, tubes and drains 4. Monitor endotracheal (as able) and nasal secretions for changes in amount and color 5. Administer medications as ordered 6. Instruct and encourage patient and family to use good hand hygiene technique 7. Identify and instruct patient/patient bilingual sales representative in use of appropriate isolation precautions for identified infection/symptoms 8. Provide and discuss with patient/patient bilingual sales representative on educational MDRO sheet 9. Encourage and monitor nutritional status daily and consult retail department manager if indicated 10. Implement neutropenic guidelines as needed 11. Review exposure to history of communicable disease and recent travel history on admission 12. Encourage annual influenza vaccine 13. Encourage pneumonia vaccine Outcome: Progressing Note: Evaluation of progress towards goal: Patient's potential tissue infection is being managed using IV antibiotics. Problem: Knowledge Deficit Goal: Patient/patient bilingual sales representative demonstrates understanding of disease process, treatment plan, medications, and discharge instructions Description: INTERVENTIONS 1. Complete learning assessment and assess knowledge base 2. Provide teaching at level of understanding 3. Provide teaching via preferred learning method(s) Outcome: Progressing Note: Evaluation of progress towards goal: Patient understands treatment plan focused on long-term IV therapy following discharge. Problem: Discharge Planning Goal: Discharge to post-acute care, other facility, or home with appropriate resources Description: Patient's goal is: INTERVENTIONS 1. Conduct assessment to determine patient/family and health care team treatment goals, and need for post-acute services based on payer coverage, community resources, and patient preferences, and barriers to discharge 2. Coordinate with Social work, Care Navigation, and Utilization Review to arrange appropriate level of services according to patient's needs based on patient preference and payer coverage in collaboration with the physician and health care team 3. Address psychosocial, clinical, and financial barriers to discharge as identified in assessment in conjunction with the patient/family and health care team 4. Consult appropriate ancillary services (i.e.. PT/OT/ST, etc) as needed 5. Communicate with and update the patient/family, physician, and health care team regarding progress on the discharge plan 6. Identify discharge learning needs (meds, wound care, etc). 7. Arrange for needed discharge transportation as appropriate Outcome: Progressing Note: Evaluation of progress towards goal: Patient will return home upon discharge. Problem: Low Risk Fall Score Description: Toney Fall Score of 0 - 24 or indicated by [facility] Assessment Goal: Patient should be free from fall Description: Interventions: 1. Unity to environment 2. Hourly rounds addressing the 4 P's (Pain, Positioning, Possessions, Potty) 3. Clear area of hazards (spills, clutter, electrical cords, unnecessary equipment) 4. Place equipment (bed & TV controls, call light, phone, urinal) within reach 5. Encourage patient to wear glasses and hearing aides as appropriate 6. Maintain bed in lowest position 7. Lock wheels on bed/wheelchair 8. Provide adequate lighting, including night light 9. Assess need for additional bedding, food/fluids, pain med's prior to sleep/routinely 10. Provide gripper slippers or personal non-skid footwear 11. Teach patient and patient bilingual sales representative to maintain environment for safety and engage in all aspects of fall prevention program Outcome: Progressing Note: Evaluation of progress towards goal: Patient has not fallen during current admission. Problem: Compromised Skin Integrity Description: Use this problem when pressure ulcers are classified as stage I or II. Goal: Incisions, wounds, or drain sites healing without S/S of infection Description: INTERVENTIONS 1. ADMISSION & EVERY SHIFT: Assess and document risk factors for pressure ulcer development utilizing the Rober/Rober Q scale 2. Assess and document skin integrity 3. Assess and document dressing/incision, wound bed, drain sites and surrounding tissue 4. Implement wound care per orders 5. Initiate isolation precautions as appropriate 6. Initiate high risk precautions Outcome: Progressing Note: Evaluation of progress towards goal: Patient's surgical site remains clean and is healing properly. Problem: Pain Goal: Patient goal is pain score less than 4, able to rest, and participant in treatment plan as appropriate Description: INTERVENTIONS: 1. Encourage patient or legal bilingual sales representative to report early pain and ask for pain medicine when needed 2. Assess pain using appropriate pain scale and include the scale used when documenting 3. Administer analgesics based on type and severity of pain and evaluate response within appropriate time frame 4. Implement non-pharmacological measures as appropriate and evaluate response 5. Consider cultural and social influences on pain and pain management 6. Notify LIP if interventions ineffective or patient reports new pain 7. Monitor vital signs including pulse ox, end-tidal CO2 based on pain intervention 8. Reassess pain per policy 9. Teach patient or legal bilingual sales representative interventions for comforting Outcome: Progressing Note: Evaluation of progress towards goal: Pt will report decrease in surgical pain with PRN medications Problem: Safety Goal: Patient will be injury free during hospitalization Description: INTERVENTIONS: 1. Assess patient's risk for falls and implement fall prevention plan of care per policy 2. Provide and maintain a safe environment 3. Proper use of double Identifiers 4. Medication administration using the 5 rights 5. Hand hygiene 6. Specimens are labeled at the bedside 7. Instruct patient/ patient bilingual sales representative about use of safety devices 8. Include patient/ patient bilingual sales representative in decisions related to safety Outcome: Progressing Note: Evaluation of progress towards goal: Pt will remain free from injury Problem: Infection Goal: Absence of infection during hospitalization Description: Interventions: 1. Assess and monitor for signs and symptoms of infection 2. Monitor lab/diagnostic results 3. Monitor all insertion sites i.e., indwelling lines, tubes and drains 4. Monitor endotracheal (as able) and nasal secretions for changes in amount and color 5. Administer medications as ordered 6. Instruct and encourage patient and family to use good hand hygiene technique 7. Identify and instruct patient/patient bilingual sales representative in use of appropriate isolation precautions for identified infection/symptoms 8. Provide and discuss with patient/patient bilingual sales representative on educational MDRO sheet 9. Encourage and monitor nutritional status daily and consult retail department manager if indicated 10. Implement neutropenic guidelines as needed 11. Review exposure to history of communicable disease and recent travel history on admission 12. Encourage annual influenza vaccine 13. Encourage pneumonia vaccine Outcome: Progressing Note: Evaluation of progress towards goal: Pt's infection will be managed with ordered IV antibiotics Problem: Knowledge Deficit Goal: Patient/patient bilingual sales representative demonstrates understanding of disease process, treatment plan, medications, and discharge instructions Description: INTERVENTIONS 1. Complete learning assessment and assess knowledge base 2. Provide teaching at level of understanding 3. Provide teaching via preferred learning method(s) Outcome: Progressing Note: Evaluation of progress towards goal: Pt will verbalize understanding of new antibiotics and treatment plan for discharge Problem: Discharge Planning Goal: Discharge to post-acute care, other facility, or home with appropriate resources Description: Patient's goal is: INTERVENTIONS 1. Conduct assessment to determine patient/family and health care team treatment goals, and need for post-acute services based on payer coverage, community resources, and patient preferences, and barriers to discharge 2. Coordinate with Social work, Care Navigation, and Utilization Review to arrange appropriate level of services according to patient's needs based on patient preference and payer coverage in collaboration with the physician and health care team 3. Address psychosocial, clinical, and financial barriers to discharge as identified in assessment in conjunction with the patient/family and health care team 4. Consult appropriate ancillary services (i.e.. PT/OT/ST, etc) as needed 5. Communicate with and update the patient/family, physician, and health care team regarding progress on the discharge plan 6. Identify discharge learning needs (meds, wound care, etc). 7. Arrange for needed discharge transportation as appropriate Outcome: Progressing Note: Evaluation of progress towards goal: Pt will discharge home with resources needed for IV antibiotic treatment Problem: Low Risk Fall Score Description: Toney Fall Score of 0 - 24 or indicated by [facility] Assessment Goal: Patient should be free from fall Description: Interventions: 1. Unity to environment 2. Hourly rounds addressing the 4 P's (Pain, Positioning, Possessions, Potty) 3. Clear area of hazards (spills, clutter, electrical cords, unnecessary equipment) 4. Place equipment (bed & TV controls, call light, phone, urinal) within reach 5. Encourage patient to wear glasses and hearing aides as appropriate 6. Maintain bed in lowest position 7. Lock wheels on bed/wheelchair 8. Provide adequate lighting, including night light 9. Assess need for additional bedding, food/fluids, pain med's prior to sleep/routinely 10. Provide gripper slippers or personal non-skid footwear 11. Teach patient and patient bilingual sales representative to maintain environment for safety and engage in all aspects of fall prevention program Outcome: Progressing Note: Evaluation of progress towards goal: Pt will remain free from falls Problem: HH Open Wound Care Description: Care of Open Wound and or post op incision Goal: Skin integrity is maintained or improved Description: INTERVENTIONS 1. Perform initial skin assessment on admission and as needed 2. Turn patient every 2 hours and PRN 3. Relieve pressure to bony prominences 4. Avoid shearing 5. Keep skin clean and dry 6. Alternate a full bath with partial baths for elderly 7. Encourage use of lotion/moisturizer on skin 8. Monitor patient's hygiene practices 9. Obtain wound care consult 10. Collaborate with interdisciplinary team and initiate plans and interventions as needed Outcome: Progressing Note: Evaluation of progress towards goal: Pt will not have any skin breakdown Problem: Compromised Skin Integrity Description: Use this problem when pressure ulcers are classified as stage I or II. Goal: Incisions, wounds, or drain sites healing without S/S of infection Description: INTERVENTIONS 1. ADMISSION & EVERY SHIFT: Assess and document risk factors for pressure ulcer development utilizing the Rober/Rober Q scale 2. Assess and document skin integrity 3. Assess and document dressing/incision, wound bed, drain sites and surrounding tissue 4. Implement wound care per orders 5. Initiate isolation precautions as appropriate 6. Initiate high risk precautions Outcome: Progressing Note: Evaluation of progress towards goal: Pt's incision will continue to heal without signs of infection Problem: Pain Goal: Patient goal is pain score less than 4, able to rest, and participant in treatment plan as appropriate Description: INTERVENTIONS: 1. Encourage patient or legal bilingual sales representative to report early pain and ask for pain medicine when needed 2. Assess pain using appropriate pain scale and include the scale used when documenting 3. Administer analgesics based on type and severity of pain and evaluate response within appropriate time frame 4. Implement non-pharmacological measures as appropriate and evaluate response 5. Consider cultural and social influences on pain and pain management 6. Notify LIP if interventions ineffective or patient reports new pain 7. Monitor vital signs including pulse ox, end-tidal CO2 based on pain intervention 8. Reassess pain per policy 9. Teach patient or legal bilingual sales representative interventions for comforting Outcome: Progressing Note: Evaluation of progress towards goal: Patient's post-surgical pain is being managed using PRN and scheduled pain meds. Problem: Safety Goal: Patient will be injury free during hospitalization Description: INTERVENTIONS: 1. Assess patient's risk for falls and implement fall prevention plan of care per policy 2. Provide and maintain a safe environment 3. Proper use of double Identifiers 4. Medication administration using the 5 rights 5. Hand hygiene 6. Specimens are labeled at the bedside 7. Instruct patient/ patient bilingual sales representative about use of safety devices 8. Include patient/ patient bilingual sales representative in decisions related to safety Outcome: Progressing Note: Evaluation of progress towards goal: Patient has not sustained additional injuries since being admitted. Problem: Infection Goal: Absence of infection during hospitalization Description: Interventions: 1. Assess and monitor for signs and symptoms of infection 2. Monitor lab/diagnostic results 3. Monitor all insertion sites i.e., indwelling lines, tubes and drains 4. Monitor endotracheal (as able) and nasal secretions for changes in amount and color 5. Administer medications as ordered 6. Instruct and encourage patient and family to use good hand hygiene technique 7. Identify and instruct patient/patient bilingual sales representative in use of appropriate isolation precautions for identified infection/symptoms 8. Provide and discuss with patient/patient bilingual sales representative on educational MDRO sheet 9. Encourage and monitor nutritional status daily and consult retail department manager if indicated 10. Implement neutropenic guidelines as needed 11. Review exposure to history of communicable disease and recent travel history on admission 12. Encourage annual influenza vaccine 13. Encourage pneumonia vaccine Outcome: Progressing Note: Evaluation of progress towards goal: Patient's potential infection is being managed using IV vancomycin and cefepime. Problem: Knowledge Deficit Goal: Patient/patient bilingual sales representative demonstrates understanding of disease process, treatment plan, medications, and discharge instructions Description: INTERVENTIONS 1. Complete learning assessment and assess knowledge base 2. Provide teaching at level of understanding 3. Provide teaching via preferred learning method(s) Outcome: Progressing Note: Evaluation of progress towards goal: Patient understands current treatment plan focused on infection treatment following culture finalization. Problem: Discharge Planning Goal: Discharge to post-acute care, other facility, or home with appropriate resources Description: Patient's goal is: INTERVENTIONS 1. Conduct assessment to determine patient/family and health care team treatment goals, and need for post-acute services based on payer coverage, community resources, and patient preferences, and barriers to discharge 2. Coordinate with Social work, Care Navigation, and Utilization Review to arrange appropriate level of services according to patient's needs based on patient preference and payer coverage in collaboration with the physician and health care team 3. Address psychosocial, clinical, and financial barriers to discharge as identified in assessment in conjunction with the patient/family and health care team 4. Consult appropriate ancillary services (i.e.. PT/OT/ST, etc) as needed 5. Communicate with and update the patient/family, physician, and health care team regarding progress on the discharge plan 6. Identify discharge learning needs (meds, wound care, etc). 7. Arrange for needed discharge transportation as appropriate Outcome: Progressing Note: Evaluation of progress towards goal: Patient will return home upon discharge. Problem: Low Risk Fall Score Description: Toney Fall Score of 0 - 24 or indicated by [facility] Assessment Goal: Patient should be free from fall Description: Interventions: 1. Unity to environment 2. Hourly rounds addressing the 4 P's (Pain, Positioning, Possessions, Potty) 3. Clear area of hazards (spills, clutter, electrical cords, unnecessary equipment) 4. Place equipment (bed & TV controls, call light, phone, urinal) within reach 5. Encourage patient to wear glasses and hearing aides as appropriate 6. Maintain bed in lowest position 7. Lock wheels on bed/wheelchair 8. Provide adequate lighting, including night light 9. Assess need for additional bedding, food/fluids, pain med's prior to sleep/routinely 10. Provide gripper slippers or personal non-skid footwear 11. Teach patient and patient bilingual sales representative to maintain environment for safety and engage in all aspects of fall prevention program Outcome: Progressing Note: Evaluation of progress towards goal: Patient has not fallen during current admission. Problem: Compromised Skin Integrity Description: Use this problem when pressure ulcers are classified as stage I or II. Goal: Incisions, wounds, or drain sites healing without S/S of infection Description: INTERVENTIONS 1. ADMISSION & EVERY SHIFT: Assess and document risk factors for pressure ulcer development utilizing the Rober/Rober Q scale 2. Assess and document skin integrity 3. Assess and document dressing/incision, wound bed, drain sites and surrounding tissue 4. Implement wound care per orders 5. Initiate isolation precautions as appropriate 6. Initiate high risk precautions Outcome: Progressing Note: Evaluation of progress towards goal: Patient's wound is being treated with dressing changes as needed. Problem: Pain Goal: Patient goal is pain score less than 4, able to rest, and participant in treatment plan as appropriate Description: INTERVENTIONS: 1. Encourage patient or legal bilingual sales representative to report early pain and ask for pain medicine when needed 2. Assess pain using appropriate pain scale and include the scale used when documenting 3. Administer analgesics based on type and severity of pain and evaluate response within appropriate time frame 4. Implement non-pharmacological measures as appropriate and evaluate response 5. Consider cultural and social influences on pain and pain management 6. Notify LIP if interventions ineffective or patient reports new pain 7. Monitor vital signs including pulse ox, end-tidal CO2 based on pain intervention 8. Reassess pain per policy 9. Teach patient or legal bilingual sales representative interventions for comforting Outcome: Progressing Note: Evaluation of progress towards goal: Pt denies pain or states pain is controlled Problem: Pain Goal: Patient goal is pain score less than 4, able to rest, and participant in treatment plan as appropriate Description: INTERVENTIONS: 1. Encourage patient or legal bilingual sales representative to report early pain and ask for pain medicine when needed 2. Assess pain using appropriate pain scale and include the scale used when documenting 3. Administer analgesics based on type and severity of pain and evaluate response within appropriate time frame 4. Implement non-pharmacological measures as appropriate and evaluate response 5. Consider cultural and social influences on pain and pain management 6. Notify LIP if interventions ineffective or patient reports new pain 7. Monitor vital signs including pulse ox, end-tidal CO2 based on pain intervention 8. Reassess pain per policy 9. Teach patient or legal bilingual sales representative interventions for comforting Outcome: Progressing Note: Evaluation of progress towards goal: Pt denies pain or states pain is controlled Problem: Pain Goal: Patient goal is pain score less than 4, able to rest, and participant in treatment plan as appropriate Description: INTERVENTIONS: 1. Encourage patient or legal bilingual sales representative to report early pain and ask for pain medicine when needed 2. Assess pain using appropriate pain scale and include the scale used when documenting 3. Administer analgesics based on type and severity of pain and evaluate response within appropriate time frame 4. Implement non-pharmacological measures as appropriate and evaluate response 5. Consider cultural and social influences on pain and pain management 6. Notify LIP if interventions ineffective or patient reports new pain 7. Monitor vital signs including pulse ox, end-tidal CO2 based on pain intervention 8. Reassess pain per policy 9. Teach patient or legal bilingual sales representative interventions for comforting Outcome: Progressing Note: Evaluation of progress towards goal: Patient's post-surgical pain is being managed using PRN and scheduled pain meds. Problem: Safety Goal: Patient will be injury free during hospitalization Description: INTERVENTIONS: 1. Assess patient's risk for falls and implement fall prevention plan of care per policy 2. Provide and maintain a safe environment 3. Proper use of double Identifiers 4. Medication administration using the 5 rights 5. Hand hygiene 6. Specimens are labeled at the bedside 7. Instruct patient/ patient bilingual sales representative about use of safety devices 8. Include patient/ patient bilingual sales representative in decisions related to safety Outcome: Progressing Note: Evaluation of progress towards goal: Patient has not sustained additional injuries since being admitted. Problem: Infection Goal: Absence of infection during hospitalization Description: Interventions: 1. Assess and monitor for signs and symptoms of infection 2. Monitor lab/diagnostic results 3. Monitor all insertion sites i.e., indwelling lines, tubes and drains 4. Monitor endotracheal (as able) and nasal secretions for changes in amount and color 5. Administer medications as ordered 6. Instruct and encourage patient and family to use good hand hygiene technique 7. Identify and instruct patient/patient bilingual sales representative in use of appropriate isolation precautions for identified infection/symptoms 8. Provide and discuss with patient/patient bilingual sales representative on educational MDRO sheet 9. Encourage and monitor nutritional status daily and consult retail department manager if indicated 10. Implement neutropenic guidelines as needed 11. Review exposure to history of communicable disease and recent travel history on admission 12. Encourage annual influenza vaccine 13. Encourage pneumonia vaccine Outcome: Progressing Note: Evaluation of progress towards goal: Patient's potential infection is being managed using IV antibiotics. Problem: Knowledge Deficit Goal: Patient/patient bilingual sales representative demonstrates understanding of disease process, treatment plan, medications, and discharge instructions Description: INTERVENTIONS 1. Complete learning assessment and assess knowledge base 2. Provide teaching at level of understanding 3. Provide teaching via preferred learning method(s) Outcome: Progressing Note: Evaluation of progress towards goal: Patient understands current treatment plan focused on potential infection treatment. Problem: Discharge Planning Goal: Discharge to post-acute care, other facility, or home with appropriate resources Description: Patient's goal is: INTERVENTIONS 1. Conduct assessment to determine patient/family and health care team treatment goals, and need for post-acute services based on payer coverage, community resources, and patient preferences, and barriers to discharge 2. Coordinate with Social work, Care Navigation, and Utilization Review to arrange appropriate level of services according to patient's needs based on patient preference and payer coverage in collaboration with the physician and health care team 3. Address psychosocial, clinical, and financial barriers to discharge as identified in assessment in conjunction with the patient/family and health care team 4. Consult appropriate ancillary services (i.e.. PT/OT/ST, etc) as needed 5. Communicate with and update the patient/family, physician, and health care team regarding progress on the discharge plan 6. Identify discharge learning needs (meds, wound care, etc). 7. Arrange for needed discharge transportation as appropriate Outcome: Progressing Note: Evaluation of progress towards goal: Patient will return home upon discharge. Problem: Low Risk Fall Score Description: Toney Fall Score of 0 - 24 or indicated by [facility] Assessment Goal: Patient should be free from fall Description: Interventions: 1. Unity to environment 2. Hourly rounds addressing the 4 P's (Pain, Positioning, Possessions, Potty) 3. Clear area of hazards (spills, clutter, electrical cords, unnecessary equipment) 4. Place equipment (bed & TV controls, call light, phone, urinal) within reach 5. Encourage patient to wear glasses and hearing aides as appropriate 6. Maintain bed in lowest position 7. Lock wheels on bed/wheelchair 8. Provide adequate lighting, including night light 9. Assess need for additional bedding, food/fluids, pain med's prior to sleep/routinely 10. Provide gripper slippers or personal non-skid footwear 11. Teach patient and patient bilingual sales representative to maintain environment for safety and engage in all aspects of fall prevention program Outcome: Progressing Note: Evaluation of progress towards goal: Patient has not fallen during current admission. Problem: Compromised Skin Integrity Description: Use this problem when pressure ulcers are classified as stage I or II. Goal: Incisions, wounds, or drain sites healing without S/S of infection Description: INTERVENTIONS 1. ADMISSION & EVERY SHIFT: Assess and document risk factors for pressure ulcer development utilizing the Rober/Rober Q scale 2. Assess and document skin integrity 3. Assess and document dressing/incision, wound bed, drain sites and surrounding tissue 4. Implement wound care per orders 5. Initiate isolation precautions as appropriate 6. Initiate high risk precautions Outcome: Progressing Note: Evaluation of progress towards goal: Patient's skin remains intact with the assistance of pillow support and independent turns. Problem: Pain Goal: Patient goal is pain score less than 4, able to rest, and participant in treatment plan as appropriate Description: INTERVENTIONS: 1. Encourage patient or legal bilingual sales representative to report early pain and ask for pain medicine when needed 2. Assess pain using appropriate pain scale and include the scale used when documenting 3. Administer analgesics based on type and severity of pain and evaluate response within appropriate time frame 4. Implement non-pharmacological measures as appropriate and evaluate response 5. Consider cultural and social influences on pain and pain management 6. Notify LIP if interventions ineffective or patient reports new pain 7. Monitor vital signs including pulse ox, end-tidal CO2 based on pain intervention 8. Reassess pain per policy 9. Teach patient or legal bilingual sales representative interventions for comforting Outcome: Progressing Note: Evaluation of progress towards goal: Pt will report decrease in surgical pain with 1 hour assessment after medication administered Problem: Safety Goal: Patient will be injury free during hospitalization Description: INTERVENTIONS: 1. Assess patient's risk for falls and implement fall prevention plan of care per policy 2. Provide and maintain a safe environment 3. Proper use of double Identifiers 4. Medication administration using the 5 rights 5. Hand hygiene 6. Specimens are labeled at the bedside 7. Instruct patient/ patient bilingual sales representative about use of safety devices 8. Include patient/ patient bilingual sales representative in decisions related to safety Outcome: Progressing Note: Evaluation of progress towards goal: Pt will use call light for assistance with ambulation Problem: Infection Goal: Absence of infection during hospitalization Description: Interventions: 1. Assess and monitor for signs and symptoms of infection 2. Monitor lab/diagnostic results 3. Monitor all insertion sites i.e., indwelling lines, tubes and drains 4. Monitor endotracheal (as able) and nasal secretions for changes in amount and color 5. Administer medications as ordered 6. Instruct and encourage patient and family to use good hand hygiene technique 7. Identify and instruct patient/patient bilingual sales representative in use of appropriate isolation precautions for identified infection/symptoms 8. Provide and discuss with patient/patient bilingual sales representative on educational MDRO sheet 9. Encourage and monitor nutritional status daily and consult retail department manager if indicated 10. Implement neutropenic guidelines as needed 11. Review exposure to history of communicable disease and recent travel history on admission 12. Encourage annual influenza vaccine 13. Encourage pneumonia vaccine Outcome: Progressing Note: Evaluation of progress towards goal: Pt will not show signs of infection at surgical sight. Problem: Knowledge Deficit Goal: Patient/patient bilingual sales representative demonstrates understanding of disease process, treatment plan, medications, and discharge instructions Description: INTERVENTIONS 1. Complete learning assessment and assess knowledge base 2. Provide teaching at level of understanding 3. Provide teaching via preferred learning method(s) Outcome: Progressing Note: Evaluation of progress towards goal: Pt will verbalize understanding of treatment plan for infection with ordered IV/Oral antibiotics Problem: Low Risk Fall Score Description: Toney Fall Score of 0 - 24 or indicated by [facility] Assessment Goal: Patient should be free from fall Description: Interventions: 1. Unity to environment 2. Hourly rounds addressing the 4 P's (Pain, Positioning, Possessions, Potty) 3. Clear area of hazards (spills, clutter, electrical cords, unnecessary equipment) 4. Place equipment (bed & TV controls, call light, phone, urinal) within reach 5. Encourage patient to wear glasses and hearing aides as appropriate 6. Maintain bed in lowest position 7. Lock wheels on bed/wheelchair 8. Provide adequate lighting, including night light 9. Assess need for additional bedding, food/fluids, pain med's prior to sleep/routinely 10. Provide gripper slippers or personal non-skid footwear 11. Teach patient and patient bilingual sales representative to maintain environment for safety and engage in all aspects of fall prevention program Outcome: Progressing Note: Evaluation of progress towards goal: Pt will remain free from falls Problem: Compromised Skin Integrity Description: Use this problem when pressure ulcers are classified as stage I or II. Goal: Incisions, wounds, or drain sites healing without S/S of infection Description: INTERVENTIONS 1. ADMISSION & EVERY SHIFT: Assess and document risk factors for pressure ulcer development utilizing the Rober/Rober Q scale 2. Assess and document skin integrity 3. Assess and document dressing/incision, wound bed, drain sites and surrounding tissue 4. Implement wound care per orders 5. Initiate isolation precautions as appropriate 6. Initiate high risk precautions Outcome: Progressing Note: Evaluation of progress towards goal: Pt's surgical incision will begin to heal without signs of infection DISCHARGE PLANNING NOTE Referral sent to [facility] [employer]- [place], [place] [facility] - (P# ; F# ) Images from the original note were not included. DISCHARGE PLANNING NOTE Induction Heating Equipment Setter met with patient, introduced self, and explained role. Patient educated on safe discharge plan. Pt admitted 05/31/2024 with Abscess of arm [L02.419] per chart review. Consults: Orthopaedics Discharge Barriers per Daily Transition Rounds and chart review: Blood cultures pending, ID plan, IV antibiotics Past Medical History: Diagnosis Date Anxiety Arthritis Depression Headache Hyperlipidemia Hypertension Liver disease Other acute osteomyelitis, right humerus ([facility]) Prior to admission patient was living with family and self care. Medical equipment patient used prior to admission includes: None. Patient denies need for food/ prescription medication assistance resources. PCP: NIKOLE ALONSO Pharmacy: [place], [place] PCP and pharmacy confirmed with patient. CN offered to assist with follow up appointment arrangements; patient agreeable, tasked appointment to [facility]. NIKOLE ALONSO added to Follow Up Providers for Summary of Care communication. Per patient self-report: Drug use: Marijuana denies dependency Smokin pack/day. Denies resources ETOH Use: Denies dependency Current discharge plan is: Patient planning home with home care. [facility] for home infusion if IV antibiotics are needed. CN tasked [facility] for referral to [facility] per patient request. Lives with stepmom in a 2 story home, bedroom upstairs. Home care list given. Patient has had home care in the past. Unsure of agency. Services Requested: Services Requested Patient expects to be discharged to:: Home with home care Discharge Disposition: Home with home health services, Home Infusion Patient choice offered: Yes List Provided: Yes [facility] List Provided: Home Care Initial DC Assessment Completed: Yes Goals: Goals <enter goal here> (pt-stated) Evaluation of progress towards goal: Patient plans for safe discharge home with home care. Will continue to follow as plan of care develops. CN discussed benefits and importance of medication compliance and follow ups. Please feel free to reach out for any discharge planning questions. - Shoshana Norris RN 06/02/24 2:10 PM Physical Therapy PT Type of Visit: Discharge from Therapy Spoke with pt whom reported he is getting up independent and able to complete self care. No acute PT needs. Signing off at this time. Occupational Therapy OT Type of Visit: (P) Discharge from Therapy Per patient and JANUARY Capps, patient is up independently and has no therapy needs Problem: Pain Goal: Patient goal is pain score less than 4, able to rest, and participant in treatment plan as appropriate Description: INTERVENTIONS: 1. Encourage patient or legal bilingual sales representative to report early pain and ask for pain medicine when needed 2. Assess pain using appropriate pain scale and include the scale used when documenting 3. Administer analgesics based on type and severity of pain and evaluate response within appropriate time frame 4. Implement non-pharmacological measures as appropriate and evaluate response 5. Consider cultural and social influences on pain and pain management 6. Notify LIP if interventions ineffective or patient reports new pain 7. Monitor vital signs including pulse ox, end-tidal CO2 based on pain intervention 8. Reassess pain per policy 9. Teach patient or legal bilingual sales representative interventions for comforting Outcome: Progressing Note: Evaluation of progress towards goal: Patient's post-op pain is being managed using PRN and scheduled pain meds. Problem: Safety Goal: Patient will be injury free during hospitalization Description: INTERVENTIONS: 1. Assess patient's risk for falls and implement fall prevention plan of care per policy 2. Provide and maintain a safe environment 3. Proper use of double Identifiers 4. Medication administration using the 5 rights 5. Hand hygiene 6. Specimens are labeled at the bedside 7. Instruct patient/ patient bilingual sales representative about use of safety devices 8. Include patient/ patient bilingual sales representative in decisions related to safety Outcome: Progressing Note: Evaluation of progress towards goal: Patient has not sustained additional injuries since being admitted. Problem: Infection Goal: Absence of infection during hospitalization Description: Interventions: 1. Assess and monitor for signs and symptoms of infection 2. Monitor lab/diagnostic results 3. Monitor all insertion sites i.e., indwelling lines, tubes and drains 4. Monitor endotracheal (as able) and nasal secretions for changes in amount and color 5. Administer medications as ordered 6. Instruct and encourage patient and family to use good hand hygiene technique 7. Identify and instruct patient/patient bilingual sales representative in use of appropriate isolation precautions for identified infection/symptoms 8. Provide and discuss with patient/patient bilingual sales representative on educational MDRO sheet 9. Encourage and monitor nutritional status daily and consult retail department manager if indicated 10. Implement neutropenic guidelines as needed 11. Review exposure to history of communicable disease and recent travel history on admission 12. Encourage annual influenza vaccine 13. Encourage pneumonia vaccine Outcome: Progressing Note: Evaluation of progress towards goal: Patient's potential infection is being managed using IV antibiotics prior to blood culture results. Problem: Knowledge Deficit Goal: Patient/patient bilingual sales representative demonstrates understanding of disease process, treatment plan, medications, and discharge instructions Description: INTERVENTIONS 1. Complete learning assessment and assess knowledge base 2. Provide teaching at level of understanding 3. Provide teaching via preferred learning method(s) Outcome: Progressing Note: Evaluation of progress towards goal: Patient understands current treatment plan focused on potential infection management and post-op care. Problem: Discharge Planning Goal: Discharge to post-acute care, other facility, or home with appropriate resources Description: Patient's goal is: INTERVENTIONS 1. Conduct assessment to determine patient/family and health care team treatment goals, and need for post-acute services based on payer coverage, community resources, and patient preferences, and barriers to discharge 2. Coordinate with Social work, Care Navigation, and Utilization Review to arrange appropriate level of services according to patient's needs based on patient preference and payer coverage in collaboration with the physician and health care team 3. Address psychosocial, clinical, and financial barriers to discharge as identified in assessment in conjunction with the patient/family and health care team 4. Consult appropriate ancillary services (i.e.. PT/OT/ST, etc) as needed 5. Communicate with and update the patient/family, physician, and health care team regarding progress on the discharge plan 6. Identify discharge learning needs (meds, wound care, etc). 7. Arrange for needed discharge transportation as appropriate Outcome: Progressing Note: Evaluation of progress towards goal: Patient will return home upon discharge. Problem: Low Risk Fall Score Description: Toney Fall Score of 0 - 24 or indicated by [facility] Assessment Goal: Patient should be free from fall Description: Interventions: 1. Unity to environment 2. Hourly rounds addressing the 4 P's (Pain, Positioning, Possessions, Potty) 3. Clear area of hazards (spills, clutter, electrical cords, unnecessary equipment) 4. Place equipment (bed & TV controls, call light, phone, urinal) within reach 5. Encourage patient to wear glasses and hearing aides as appropriate 6. Maintain bed in lowest position 7. Lock wheels on bed/wheelchair 8. Provide adequate lighting, including night light 9. Assess need for additional bedding, food/fluids, pain med's prior to sleep/routinely 10. Provide gripper slippers or personal non-skid footwear 11. Teach patient and patient bilingual sales representative to maintain environment for safety and engage in all aspects of fall prevention program Outcome: Progressing Note: Evaluation of progress towards goal: Patient has not fallen during current admission. Problem: Compromised Skin Integrity Description: Use this problem when pressure ulcers are classified as stage I or II. Goal: Incisions, wounds, or drain sites healing without S/S of infection Description: INTERVENTIONS 1. ADMISSION & EVERY SHIFT: Assess and document risk factors for pressure ulcer development utilizing the Rober/Rober Q scale 2. Assess and document skin integrity 3. Assess and document dressing/incision, wound bed, drain sites and surrounding tissue 4. Implement wound care per orders 5. Initiate isolation precautions as appropriate 6. Initiate high risk precautions Note: Evaluation of progress towards goal: Patient's skin integrity is improving following implementation of wound care orders. OPERATIVE NOTE Name: Sergio Hernandez : 1980 Procedure Date: 06/01/2024 Surgeon: Surgeons and Role: * Villa Tapia MD - Primary Assistants: DHARMESH Toussaint and - in the absence of a qualified resident, the PA assisted intraoperatively with appropriate aspects of the procedure such as patient positioning, surgical exposure (e.g. retraction, suction, etc), wound closure and dressing application. Pre-op Diagnosis: RIGHT UPPER EXTREMITY ABSCESS Post-op Diagnosis: Right upper extremity abscess Procedure(s) Performed: Irrigation and debridement right arm abscess shoulder, CPT 85742 Removal of deep implants right arm, CPT 84764 Insertion antibiotic cement beads, CPT 10773 Partial excision humerus for treatment of osteomyelitis, CPT 36876 Anesthesia Type: General anesthesia without regional anesthetic. Complications: None Drains: None Estimated Blood Loss: * No values recorded between 06/01/2024 3:57 PM and 06/01/2024 6:15 PM * Total IV Fluids: See Anesthesia Records Urine Output:: 0 mL Findings: Thickened scarred dermis and subcutaneous tissue over the proximal aspect of the arm. Area of abscess noted within the skin and subcutaneous tissue. Additional area of abscess and purulence noted within the intramedullary canal posterior to the humeral shaft proximal aspect and just proximal to the pectoralis major insertion exiting the humeral shaft as well. Phlegmon removed from area deep to the pectoralis major tendon insertion. Endo button insert implant removed from the posterior aspect including all suture material. Saucerization humerus shaft anteriorly and curettage of the posterior opening to increase its diameter removing surrounding bone gaining access to the humeral shaft through both areas. Debridement of bone of the intramedullary canal for treatment of the osteomyelitis. Insertion antibiotic cement beads into the intramedullary canal made intraoperatively. Evidence of infection was visualized at the Deeper than the muscle level and was visualized at time of surgery as evidence by abscess, purulence/pus, and Osteomyelitis. Implants: Antibiotic cement beads with 2 g vancomycin and 2.4 g tobramycin on a 1. Prolene suture strand Condition: good Operative Indications: Sergio Hernandez is a 43 y.o. male presented to [facility] with complaints of right upper extremity pain swelling. 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 The risks, benefits, and alternatives to surgical management have been discussed with the patient - including but not limited to bleeding, infection, damage to surrounding structures, delayed/failure to heal bone/tendon/wounds, implant failure/breakage, development of arthritis, stiffness, loss of motion/function, potential for additional surgery, PE/DVT, cardiac complications, stroke or . Surgical consent was obtained and the plan is to proceed with irrigation and debridement right arm abscess, removal of deep implants, debridement of bone and insertion antibiotic beads. Description of Procedure: The patient was identified in the preoperative area. The correct right upper extremity was identified as the operative site and marked with my initials. All questions and concerns related to the procedure were addressed. We then proceeded to the operating room. Once in the operating room general anesthesia was induced and an airway was secured. The patient was positioned supine on the OR table. His bilateral lower extremities and the non operative arm were well-padded and safely secured to the OR table. The bed was rotated 90 to deliver the operative Right limb into the center of the surgical suite. An unsterile impervious U-drape was placed draping out his entire right upper extremity shoulder girdle. The limb was prepped using a chlorhexidine pre-scrub and rinsed, followed by sterile prep with Duraprep solution which was allowed to dry and then draped in a standard fashion. A 'Surgical-Pause' was performed by the OR team: stopping to review the patient's identity, confirm the surgical site and the procedure to be performed. He is receiving scheduled IV antibiotics on the floor. He is due for as treated him and Flagyl which we administered intraoperatively Began the procedure with an assessment of the skin and soft tissue envelope. He has an area of firm indurated erythema over his previous healed surgical incision distal to the pectoralis major insertion site. He has a widened thickened scar in this area. The scar was excised in an elliptical fashion sharply with a scalpel and then extended proximally. Dissection was then carried out through the adipose tissue. Areas of thickened indurated tissue were sharply excised as well using a combination of scalpel and Bovie down to the deep fascia. The proximal 3rd of this incision visible purulence was received and obtained as a fluid specimen. I then continued with the exposure of the dissection. This area developed directly down onto the proximal aspect of the biceps in the inferior margin of the pectoralis major tendinous insertion. Evaluation in this area found some thickened phlegmon appearing tissue over the surface of the biceps and leading edge inferiorly of the pectoralis major but was unable to identify the tenodesis site. Incision was extended proximally to assess over the proximal aspect of the pectoralis major insertion site. Deltoid pack interval was developed. There was no obvious cephalic vein within this interval at its distal extent but the deltoid insertion and packed insertion were clearly visualized and delineated. Working deep to the pectoralis major there was additional phlegmon noted and I was able to identify biceps tendon extending proximal to it. Single tendon identified though did not track it proximally sufficiently to identify short head versus long head though given his previous tenodesis surgery would anticipate this to be a short head. Fluoroscopy was used to localize position of the tenodesis tunnel and once the button was localized on the posterior aspect was able to gain access to it by internally rotating the arm maximally the placement of a Hohmann retractor and palpate the sulcus. This fluoro was then withdrawn from the field and I proceeded with sharp excision of the soft tissue overlying the sulcus. The button was visualized in it was removed without having to cut the sutures indicating it was no longer attached any tendinous tissue on the anterior surface. The button was removed as was areas of gross purulence and phlegmon appearing tissue from within the humeral shaft and lying on the surface. A curette was used to remove additional tissue as well as a rongeur and pituitary rongeur from within and around the humeral shaft posteriorly. Curette was used to dilate the posterior opening removing bits of cortical bone as well as additional purulent material from within the intramedullary canal. With this site located I then externally rotated the arm and was able to identify the anterior tenodesis entry site. Again only a bony hole was noted I do not appreciate any tendinous material or biceps entering into this area. Tenodesis may have failed due to prior infection or been previously debrided. Upon visualizing this opening there is a pale velázquez to bluish colored purulent material semi solid in nature emanating from the humeral shaft. This tissue was removed and sent for culture evaluation as a specimen as well. I then continued with a curette to open the humeral shaft removing the purulence and infected appearing material that was able to be extubated. Rongeur was used to remove the surrounding areas of phlegmon and tissue from around the humeral shaft opening. Given the entry site and the evidence for chronic osteomyelitis of the humerus a 3.5 mm drill was used to create a trough anteriorly followed by use of a curette to further open and a rongeur to remove bits of cortical bone to increase the diameter of the opening and allow improved debridement access to the intramedullary canal of the humerus. At this point a curette was used working circumferentially from proximal to distal followed by the use of a rongeur to remove the intramedullary canal contents. Specimens of bone were collected in ultimately were sent for culture evaluation as well as a separate specimen to be sent to pathology. Having performed the extensive debridement working both through the anterior cortex open crater and posteriorly through the open tenodesis drill hole felt we had gained good access and debrided the humeral shaft. There is no clear areas of further necrotic bone or infected material. Entire wound was then irrigated using 2 L of sterile saline through gravity drainage as well as bulb syringe irrigation. Reassessment found the soft tissue envelope to be improved in healthy to facilitate for primary closure. Prior to doing so however antibiotic beads were fashioned in the operating room and strong on a 1. Prolene in which I personally assisted. 2 g of vancomycin and 2.4 g of tobramycin were used to mix in with the cement. These were strong on a suture. Short strand of beads was inserted into the intramedullary canal leaving a few beads sitting proximally. Assessment posteriorly finds that the beads were just partially exiting the posterior humeral shaft. Care was taken to attempt to make the beads as little prominent as possible while still obtaining maximal number beads into the infected area. Hemostasis was obtained and well-maintained throughout the entirety of the procedure. The wound was then closed in layered fashion using #2-0 Monocryl in an inverted, interrupted fashion.The skin was re-approximated using #2-0 Nylon sutures, in a horizontal mattress technique. All counts were accurate at the conclusion of the case. A sterile dressing consisting of Xeroform gauze, 4 x 4 fluffs ABD and Tegaderm was applied to operative limb, followed by placement into a simple sling. The patient was woken from general anesthesia having tolerated the procedure without difficulty. There were no intraoperative complications. He was taken to PACU in stable condition. Post-Operative Plan: Patient will be transferred back to the inpatient floor. Continue with IV antibiotics per Infectious Disease. Will follow culture data as it becomes available. No further plan for surgical intervention at this point. Will continue to follow his inflammatory markers and assess for improvement in his infection. Plan for Weight bearing as tolerated on the operative limb though would avoid heavy lifting or strenuous activity at this point until 4-6 weeks postop to minimize stress across his proximal humeral shaft. May use his arm for simple activities of daily living.. Plan for PT, OT, SW evaluations for mobilization and optimization of safe discharge planning. DVT prophylaxis is not indicated upon discharge from the hospital Plan for follow-up in the office in approximately 2 weeks time for wound evaluation and anticipated suture removal. Would obtain right shoulder radiographs at his follow-up appointment pin Villa Tapia MD Reviewed labs from initial presentation. Potassium found at 2.9. Spoke with ER nurse who indicates medicine has ordered potassium replacement to be given in the next 10 minutes. We will plan for potassium recheck around noon. Previous labs were ordered to begin 06/02. Medicine team informed as well. Marlee Sterling PA-C 06/01/24 0957 documented in this encounter [facility] 06-05-2024 Plan of care note Problem: Pain Goal: Patient goal is pain score less than 4, able to rest, and participant in treatment plan as appropriate Description: INTERVENTIONS: 1. Encourage patient or legal bilingual sales representative to report early pain and ask for pain medicine when needed 2. Assess pain using appropriate pain scale and include the scale used when documenting 3. Administer analgesics based on type and severity of pain and evaluate response within appropriate time frame 4. Implement non-pharmacological measures as appropriate and evaluate response 5. Consider cultural and social influences on pain and pain management 6. Notify LIP if interventions ineffective or patient reports new pain 7. Monitor vital signs including pulse ox, end-tidal CO2 based on pain intervention 8. Reassess pain per policy 9. Teach patient or legal bilingual sales representative interventions for comforting Outcome: Progressing Note: Evaluation of progress towards goal: Patient reports 7/10 pain. Patient given PRN meds. Pain improved. Problem: Safety Goal: Patient will be injury free during hospitalization Description: INTERVENTIONS: 1. Assess patient's risk for falls and implement fall prevention plan of care per policy 2. Provide and maintain a safe environment 3. Proper use of double Identifiers 4. Medication administration using the 5 rights 5. Hand hygiene 6. Specimens are labeled at the bedside 7. Instruct patient/ patient bilingual sales representative about use of safety devices 8. Include patient/ patient bilingual sales representative in decisions related to safety Outcome: Progressing Note: Evaluation of progress towards goal: No falls or injury during shift. Patient uses call light appropriately and is independent in room. Problem: Infection Goal: Absence of infection during hospitalization Description: Interventions: 1. Assess and monitor for signs and symptoms of infection 2. Monitor lab/diagnostic results 3. Monitor all insertion sites i.e., indwelling lines, tubes and drains 4. Monitor endotracheal (as able) and nasal secretions for changes in amount and color 5. Administer medications as ordered 6. Instruct and encourage patient and family to use good hand hygiene technique 7. Identify and instruct patient/patient bilingual sales representative in use of appropriate isolation precautions for identified infection/symptoms 8. Provide and discuss with patient/patient bilingual sales representative on educational MDRO sheet 9. Encourage and monitor nutritional status daily and consult retail department manager if indicated 10. Implement neutropenic guidelines as needed 11. Review exposure to history of communicable disease and recent travel history on admission 12. Encourage annual influenza vaccine 13. Encourage pneumonia vaccine Outcome: Progressing Note: Evaluation of progress towards goal: afebrile during shift. Patient is receiving shelter IV antibiotics. [facility] 06-05-2024 Hospital course Narrative Images from the original note were not included. [facility] Medicine Discharge Summary Patient Name: Sergio Hernandez : 1980 PCP: Patient Care Team: Arnold Hartley APRN-RASHAAD as PCP - General (Family Medicine) DATE OF ADMISSION: 05/31/2024 DATE OF DISCHARGE: 06/05/2024 DISCHARGE DIAGNOSES: Right upper extremity MSSA humerus osteomyelitis with associated deep tissue abscess Hypovitaminosis D CONSULTANTS: Orthopedic Surgery Infectious Diseases PROCEDURES: Operative I and D right upper arm abscess, removal of deep implants, insertion of antibiotic cement beads, and partial excision of the humerus 06/01/2024 Left upper extremity PICC insertion HOSPITAL COURSE SUMMARY: Sergio Hernandez is a 43 y.o.male with medical history pertinent for primary hypertension, nicotine abuse, dyslipidemia, history of right shoulder SLAP repair complicated by osteomyelitis requiring surgical debridement and extended parenteral antibiotic therapy circa 2019 who was admitted as a transfer from [facility] due to worsening right upper arm pain, redness and swelling for past [address] scan at the outlying facility was concerning for a deep tissue abscess and possible bony involvement. He was admitted to the hospital medicine service and placed on broad-spectrum antimicrobial therapy. Patient underwent surgical procedure on 06/01/2024 as above. Surgical cultures including bone culture revealed MSSA. Antimicrobial therapy at direction of Infectious diseases team was narrowed to cefazolin for initial treatment course of 6 weeks, 1 g IV q.8 hours with end of therapy on 07/12/2024. Patient noted to have hypovitaminosis D was placed on appropriate vitamin-D and calcium repletion. He otherwise had an uncomplicated course. Patient deemed medically stable for discharge to home with home care services for OPAT. Patient issued a limited prescription of oxycodone immediate release x7 day course for acute pain related to primary hospital problem, counseled on risks/benefits/alternatives of opioid therapy. DISCHARGE INSTRUCTIONS: Disposition: Discharge to Home with homecare Condition:Good Activity: activity as tolerated Diet: Adult diet Regular Texture Adult diet FOLLOW-UP: Appointments: PCP, Ortho Labs/Imaging/Pathology: CBC, CMP weekly x6 weeks Medication Changes: Please see comprehensive list as below; cefazolin 1g IV q8h with EOT 07/12/2024 DISCHARGE MEDICATIONS: For most accurate medication list, please review the discharge medication summary. Medication List START taking these medications Instructions Last Dose Given Next Dose Due acetaminophen 500 mg tablet Commonly known as: TYLENOL EXTRA STRENGTH Take 2 tablets (1,000 mg total) by mouth every 6 (six) hours as needed for fever, headaches or pain. calcium citrate 200 mg (950 mg) tablet Commonly known as: CALCITRATE Take 2 tablets (400 mg total) by mouth in the morning and 2 tablets (400 mg total) at noon and 2 tablets (400 mg total) in the evening. Take with meals. Do all this for 90 days. ceFAZolin in 0.9 % sodium chloride 2000 mg/50 mL IVPB Premix Commonly known as: ANCEF Infuse 50 mL (2,000 mg total) into a venous catheter every 8 (eight) hours for 38 days. WBC, platelets, creatinine, LFTs weekly until 07/12/2025. Fax results to ID at [phone]. Remove PICC Line at end of treatment. cholecalciferol (vitamin D3) 2,000 units tablet Start taking on: June 06, 2024 Take 1 tablet (2,000 Units total) by mouth in the morning for 90 days. oxyCODONE 10 MG tablet immediate release tablet Commonly known as: ROXICODONE Take 1 tablet (10 mg total) by mouth every 6 (six) hours as needed for pain for up to 7 days. Max Daily Amount: 40 mg CONTINUE taking these medications Instructions Last Dose Given Next Dose Due atorvastatin 10 mg tablet Commonly known as: LIPITOR Take 1 tablet (10 mg total) by mouth in the morning. hydroCHLOROthiazide 25 mg tablet Commonly known as: HYDRODIURIL Take 1 tablet (25 mg total) by mouth daily. omeprazole 20 mg capsule Commonly known as: PriLOSEC Take 1 capsule (20 mg total) by mouth every morning before breakfast. ASK your doctor about these medications Instructions Last Dose Given Next Dose Due albuterol 90 mcg/actuation inhaler Commonly known as: PROVENTIL HFA;VENTOLIN HFA Inhale 2 puffs every 4 (four) hours as needed. EXCEDRIN EXTRA STRENGTH 250-250-65 mg per tablet Generic drug: ogytcqj-xxmiuamhmjkxp-mglnmpfy Take 2 tablets by mouth every 6 (six) hours as needed for headaches. Where to Get Your Medications You can get these medications from any pharmacy Bring a paper prescription for each of these medications calcium citrate 200 mg (950 mg) tablet ceFAZolin in 0.9 % sodium chloride 2000 mg/50 mL IVPB Premix cholecalciferol (vitamin D3) 2,000 units tablet oxyCODONE 10 MG tablet immediate release tablet Information about where to get these medications is not yet available Ask your nurse or doctor about these medications acetaminophen 500 mg tablet 50 minutes were spent on discharging this patient. documented in this encounter [facility] 06-05-2024 History of Present illness Narrative Images from the original note were not included. [facility] Infectious Diseases - Daily Progress Note Sergio Hernandez Admission date/time 05/31/2024 10:05 PM Today's Date and Time: 06/05/2024, 1:57 PM Impression : Right humerus osteo Right upper extremity infection with abscess Leukocytosis History of right shoulder superior labrum anterior to posterior repair complicated with osteomyelitis in 2020 treated by [facility] Electrolyte imbalance Hypertension Dyslipidemia Cigarette smoker Recommendations: May 01, 2024 Procedure(s) Performed: Irrigation and debridement right arm abscess shoulder, Removal of deep implants right arm Insertion antibiotic cement beads Partial excision humerus for treatment of osteomyelitis Bone culture finalized with MSSA Tissue culture finalized with MSSA Aspirate culture finalized with MSSA Awaiting fungal and anaerobic cultures Plan for cefazolin until July 12 as long as cultures remain negative for any other pathogen WBC platelets creatinine LFTs weekly while antibiotic Id clinic in 2 weeks Supportive care FOLLOW UP/chief complaints Osteo Interval History: Shoulder pain stable, no cough shortness of breath, no vomiting or diarrhea, no new rash On antibiotic ROS: Negative except as above Social History: Social History Socioeconomic History Marital status: Spouse name: Not on file Number of children: Not on file Years of education: Not on file Highest education level: Not on file Occupational History Not on file Tobacco Use Smoking status: Every Day Current packs/day: 1.00 Average packs/day: 1 pack/day for 29.0 years (29.0 ttl pk-yrs) Types: Cigarettes Start date: 06/01/1995 Smokeless tobacco: Not on file Substance and Sexual Activity Alcohol use: Yes Comment: rare months ago Drug use: Yes Types: Marijuana Sexual activity: Defer Other Topics Concern Not on file Social History Narrative Not on file Social Drivers of Health Financial Resource Strain: Not on file Food Insecurity: No Food Insecurity (06/01/2024) Hunger Screening Food Insecurity - Worry: Never True Food Insecurity - Inability: Never True Transportation Needs: No Transportation Needs (06/01/2024) PRAPARE - Transportation Lack of Transportation (Medical): No Lack of Transportation (Non-Medical): No Physical Activity: Not on file Stress: Not on file Social Connections: Not on file Interpersonal Safety: Patient Declined (06/01/2024) Humiliation, Afraid, Rape, and Kick questionnaire Fear of Current or Ex-Partner: Patient declined Emotionally Abused: Patient declined Physically Abused: Patient declined Sexually Abused: Patient declined Housing Instability: Low Risk (06/01/2024) Housing Instability Housing Instability: No Family History: Family History Problem Relation Age of Onset Hypertension Father Arthritis Father Physical Examination : Vitals: 06/05/24 0001 06/05/24 0600 06/05/24 0900 06/05/24 1200 BP: 111/69 99/57 124/67 111/70 Pulse: 66 65 60 Resp: 12 12 14 Temp: 36.8 C (98.3 F) 37.1 C (98.7 F) 36.8 C (98.2 F) 36.6 C (97.8 F) TempSrc: Oral Oral Oral Oral SpO2: 90% 90% 94% 94% Weight: Height: Temperature Range: Temp: 36.6 C (97.8 F) Temp Av.8 C (98.2 F) Min: 36.6 C (97.8 F) Max: 37.1 C (98.7 F) General Appearance: Awake, alert, and in no apparent distress Pulmonary/Chest: No accessory muscle use Abdomen: soft, non-tender, without masses or organomegaly, normal bowel sounds Extremities: No cyanosis, clubbing, edema, or effusions. Skin:no unusual rash Laboratory data: I have independently reviewed the following labs: Results from last 7 days Lab Units 06/05/24 0540 06/04/24 0659 06/03/24 0741 WBC X10E9/L 9.7 12.1* 12.1* HEMOGLOBIN g/dL 12.8* 12.3* 11.8* HEMATOCRIT % 39.2 36.8* 36.1* PLATELETS X10E9/L 402 368 352 Results from last 7 days Lab Units 06/05/24 0540 06/04/24 0659 06/03/24 0741 POTASSIUM mmol/L 3.7 3.9 4.2 CHLORIDE mmol/L 101 106 110* CO2 mmol/L 31 27 29 BUN mg/dL 14 12 16 CREATININE mg/dL 0.80 0.78 0.82 EGFR (CKD-EPI)NON-RACE DEPENDENT ml/min/1.73sq.m >90 >90 >90 CALCIUM mg/dL 8.6 8.2* 8.2* Invalid input(s): BILITOT , LABALBU Results from last 7 days Lab Units 06/04/24 0855 VANCOMYCIN TROUGH ug/mL 11.9 Lab Results Component Value Date CRP 4.1 (H) 05/31/2024 Lab Results Component Value Date SEDRATE 41 (H) 05/31/2024 Cultures: Microbiology Results Procedure Component Value Units Date/Time Anaerobic culture [[id number]] Collected: 06/01/241742 Specimen: Tissue from Other Updated: 06/05/24 0816 Specimen Notes SPECIMEN D Culture NO ANAEROBES ISOLATED AT 48 HOURS CULTURE IN PROGRESS Fungal culture includes fungal smear [[id number]] Collected: 06/01/241742 Specimen: Tissue from Other Updated: 06/02/24 0939 Specimen Notes SPECIMEN D Fungal smear TEST NOT PERFORMED Culture PENDING Bone culture [[id number]] (Abnormal) (Susceptibility) Collected: 06/01/241742 Specimen: Bone Updated: 06/04/24818 Specimen Notes SPECIMEN D Culture STAPHYLOCOCCUS AUREUS Susceptibility Staphylococcus Aureus ASYA METHOD Cefazolin SUSCEPTIBLE(DEDUCED) Clindamycin 0.25 Susceptible Doxycycline <=0.5 Susceptible [1] Oxacillin <=0.25 Susceptible TRIMETH/SULFAMETHOXAZOLE <=0.5/9.5 Susceptible Vancomycin 1 Susceptible [1] CLIA ID [id number] Anaerobic culture [[id number]] Collected: 06/01/241711 Specimen: Tissue from Other Updated: 06/04/24 1157 Specimen Notes SPECIMEN C Culture NO ANAEROBES ISOLATED AT 48 HOURS Fungal culture includes fungal smear [[id number]] Collected: 06/01/241711 Specimen: Tissue from Other Updated: 06/02/24 0950 Specimen Notes SPECIMEN C Fungal smear -- NO FUNGAL ELEMENTS SEEN ON DIRECT SMEAR Culture PENDING Tissue culture includes gram stain [[id number]] (Abnormal) (Susceptibility) Collected: 06/01/241711 Specimen: Tissue from Other Updated: 06/04/24 0816 Specimen Notes SPECIMEN C Gram Stain Result 1 to 9 WHITE BLOOD CELLS/LPF 0 SQUAMOUS EPITHELIAL CELLS/LPF NO ORGANISMS SEEN Culture RARE STAPHYLOCOCCUS AUREUS Susceptibility Staphylococcus Aureus ASYA METHOD Cefazolin SUSCEPTIBLE(DEDUCED) Clindamycin 0.25 Susceptible Doxycycline <=0.5 Susceptible [1] Oxacillin <=0.25 Susceptible TRIMETH/SULFAMETHOXAZOLE <=0.5/9.5 Susceptible Vancomycin 1 Susceptible [1] CLIA ID [id number] Anaerobic culture [[id number]] Collected: 06/01/24 1642 Specimen: Tissue from Other Updated: 06/04/24 1157 Specimen Notes SPECIMEN B Culture NO ANAEROBES ISOLATED AT 48 HOURS Fungal culture includes fungal smear [[id number]] Collected: 06/01/24 1642 Specimen: Tissue from Other Updated: 06/02/24 0950 Specimen Notes SPECIMEN B Fungal smear -- NO FUNGAL ELEMENTS SEEN ON DIRECT SMEAR Culture PENDING Tissue culture includes gram stain [[id number]] (Abnormal) Collected: 06/01/24 1642 Specimen: Tissue from Other Updated: 06/04/24 1145 Specimen Notes SPECIMEN B Gram Stain Result 1 to 9 WHITE BLOOD CELLS/LPF 0 SQUAMOUS EPITHELIAL CELLS/LPF NO ORGANISMS SEEN Culture RARE STAPHYLOCOCCUS AUREUS Isolate screened susceptible to Oxacillin. FOR SUSCEPTIBILITY, SEE PREVIOUS REPORT. Anaerobic culture [[id number]] Collected: 06/01/24 1640 Specimen: Tissue from Other Updated: 06/04/24 1148 Specimen Notes SPECIMEN A Culture NO ANAEROBES ISOLATED AT 48 HOURS Fungal culture includes fungal smear [[id number]] Collected: 06/01/24 1640 Specimen: Tissue from Other Updated: 06/02/24 0950 Specimen Notes SPECIMEN A Fungal smear -- NO FUNGAL ELEMENTS SEEN ON DIRECT SMEAR Culture PENDING Aspirate culture includes gram stain [[id number]] (Abnormal) (Susceptibility) Collected: 06/01/24 1640 Specimen: Aspirate Atr Updated: 06/04/24 0848 Specimen Notes SPECIMEN A Gram Stain Result 10 to 24 WHITE BLOOD CELLS/LPF 0 SQUAMOUS EPITHELIAL CELLS/LPF NO ORGANISMS SEEN Culture RARE STAPHYLOCOCCUS AUREUS Susceptibility Staphylococcus Aureus ASYA METHOD Cefazolin SUSCEPTIBLE(DEDUCED) Clindamycin 0.25 Susceptible Doxycycline <=0.5 Susceptible [1] Oxacillin 0.5 Susceptible TRIMETH/SULFAMETHOXAZOLE <=0.5/9.5 Susceptible Vancomycin 1 Susceptible [1] CLIA ID [id number] Blood culture #2 [[id number]] Collected: 06/01/24 1510 Specimen: Blood Updated: 06/04/24 1526 Culture NO GROWTH 3 DAYS Blood culture #1 [[id number]] Collected: 06/01/24 1502 Specimen: Blood Updated: 06/04/24 1528 Culture NO GROWTH 3 DAYS Imaging Studies: No results found. Medications: acetaminophen, 1,000 mg, oral, Q8H atorvastatin, 10 mg, oral, Daily calcium citrate, 400 mg, oral, TID with meals ceFAZolin (ANCEF) IV, 2,000 mg, intravenous, Q8H cholecalciferol (vitamin D3), 2,000 Units, oral, Daily enoxaparin (LOVENOX) injection, 40 mg, subcutaneous, Daily hydroCHLOROthiazide, 25 mg, oral, Daily nicotine, 1 patch, transdermal, Daily pantoprazole, 40 mg, oral, Daily [COMPLETED] Consult PICC nurse, , , Once AND sodium chloride, 10 mL, intravenous, Q12H AND sodium chloride, 10 mL, intravenous, PRN AND sodium chloride, 20 mL, intravenous, PRN sodium chloride, 3 mL, intravenous, Q12H KEARA Thank you for allowing us to participate in the care of this patient. Please call with questions. Kari Diana MD Perfect Serve messagin This note was completed using a voice cavalry officer system. Every effort was made to ensure accuracy. However, inadvertent computerized cavalry officer errors may be present. Images from the original note were not included. [facility] Hospitalists Progress Note 06/05/2024 Patient Name: Sergio Hernandez : 1980 Hospital Day: 6 SUBJECTIVE Follow-up for RUE SSTI/abscess/osteomyelitis No overnight events. Afebrile. Pain overall improved. No acute complaints today. OBJECTIVE Vital Signs: Temp: [36.7 C (98.1 F)-37.1 C (98.7 F)] 37.1 C (98.7 F) Pulse: [65-74] 65 Resp: [12-17] 12 BP: (99-115)/(57-78) 99/57 SpO2: [90 %-96 %] 90 % O2 Device: None (Room air) O2 Flow Rate (L/min): [0 L/min] 0 L/min Weight: Body mass index is 29.08 kg/m . Admission weight: 105.7 kg (233 lb) Wt Readings from Last 3 Encounters: 06/04/24 108.2 kg (238 lb 8.6 oz) Input/Output: Intake/Output Summary (Last 24 hours) at 06/05/2024 0740 Last data filed at 06/05/2024 0327 Gross per 24 hour Intake 738.31 ml Output 0 ml Net 738.31 ml Physical Exam: Gen: AOx3, NAD, non-toxic appearing. HEENT/Neck: Sclera anicteric. Conjunctivae normal. OP clear, MMM. Neck supple. No JVD. CV: RRR, no m/r/g. Radial/DP/PT pulses 2+ b/l. No carotid bruits auscultated. Resp/Chest: Chest wall non-tender to palpation. Symmetric chest expansion. CTAB w/o w/r/r. Abd: Abdomen soft, NT/ND, normoactive BSx4, no hepatosplenomegaly Extr: Right upper extremity dressed, appears clean/dry/intact. Left upper extremity PICC. Skin: Warm, dry, no exanthem or lesions visualized. Neuro/Psych: No gross neurologic motor or sensory deficits. Appropriate mood and affect. Labs/Imaging: Recent Results (from the past 24 hours) Vancomycin, trough Draw 30 min prior to dose scheduled 06/04 at 0930. *Draw both peak and trough* Collection Time: 06/04/24 8:55 AM Result Value Ref Range Vancomycin trough 11.9 5.0 - 20.0 ug/mL Vancomycin, random Collection Time: 06/04/24 11:35 AM Result Value Ref Range Vancomycin 42.9 (H) 5.0 - 40.0 ug/mL CBC auto differential Collection Time: 06/05/24 5:40 AM Result Value Ref Range White Blood Cells 9.7 4.0 - 11.0 X10E9/L RBC count 4.89 4.10 - 5.70 X10E12/L Hemoglobin 12.8 (L) 13.0 - 17.0 g/dL Hematocrit 39.2 39 - 49 % MCV 80 80 - 100 fL MCH 26.2 (L) 27 - 34 pg MCHC 32.7 32 - 36 g/dL RDW 14.4 11.5 - 15.0 % Platelets 402 150 - 450 X10E9/L MPV 7.7 7 - 12 fL % neutrophils 58.5 % % lymphocytes 25.9 % % monocytes 8.3 % % eosinophils 6.4 % % Basophils 0.9 % Neutrophils Absolute (A) 5.7 1.5 - 6.6 X10E9/L Lymphocytes Absolute 2.5 1.0 - 3.5 X10E9/L Monocytes Absolute 0.8 0 - 0.9 X10E9/L Eosinophils Absolute 0.6 (H) 0.0 - 0.4 X10E9/L Basophils Absolute 0.1 0.0 - 0.2 X10E9/L Basic Metabolic Panel Collection Time: 06/05/24 5:40 AM Result Value Ref Range Sodium 140 134 - 146 mmol/L Potassium, Bld 3.7 3.5 - 5.0 mmol/L Chloride 101 98 - 109 mmol/L CO2 31 22 - 32 mmol/L Anion gap 8 5 - 15 mmol/L BUN 14 5 - 23 mg/dL Creatinine 0.80 0.60 - 1.30 mg/dL Glucose 114 (H) 65 - 99 mg/dL Calcium 8.6 8.5 - 10.5 mg/dL eGFR (CKD-EPI)non-race dependent >90 >59 ml/min/1.73sq.m All available laboratory, imaging, and microbiology data has been personally reviewed in detail, and accessible in full per EMR. Medications: acetaminophen, 1,000 mg, oral, Q8H atorvastatin, 10 mg, oral, Daily calcium citrate, 400 mg, oral, TID with meals ceFAZolin (ANCEF) IV, 2,000 mg, intravenous, Q8H cholecalciferol (vitamin D3), 2,000 Units, oral, Daily enoxaparin (LOVENOX) injection, 40 mg, subcutaneous, Daily hydroCHLOROthiazide, 25 mg, oral, Daily nicotine, 1 patch, transdermal, Daily pantoprazole, 40 mg, oral, Daily [COMPLETED] Consult PICC nurse, , , Once AND sodium chloride, 10 mL, intravenous, Q12H AND sodium chloride, 10 mL, intravenous, PRN AND sodium chloride, 20 mL, intravenous, PRN sodium chloride, 3 mL, intravenous, Q12H KEARA ASSESSMENT Right upper extremity MSSA skin/soft tissue infection with clinical concern for abscess formation, possible recurrent osteomyelitis; status post operative I and D right upper arm abscess, removal of deep implants, insertion of antibiotic cement beads, and partial excision of the humerus 06/01/2024 History of right shoulder superior labrum anterior to posterior repair complicated by osteomyelitis in 2020 Primary hypertension, controlled Dyslipidemia Nicotine dependence Hypokalemia, resolved Hypovitaminosis D PLAN -IV cefazolin antimicrobial therapy, EOT 07/12/2024 -local wound care, daily dry dressing -weight-bearing as tolerated -vitamin-D, calcium repletion -analgesia as needed -remainder of background medical issues are stable DVT prophylaxis: LMWH, no need for long-term prophylaxis Diet: Regular Code status: Full Discharge planning: Home with home care/OPAT, medically stable for discharge once post-acute arrangements finalized Images from the original note were not included. [facility] - Daily Progress Note Sergio Hernandez Admission date/time 05/31/2024 10:05 PM Today's Date and Time: 06/04/2024, 5:12 PM Impression : Leukocytosis peaked at 21.5 Right upper extremity infection with abscess History of right shoulder superior labrum anterior to posterior repair complicated with osteomyelitis in 2020 treated by [facility] Electrolyte imbalance Hypertension Dyslipidemia Cigarette smoker Recommendations: May 01, 2024 Procedure(s) Performed: Irrigation and debridement right arm abscess shoulder, Removal of deep implants right arm Insertion antibiotic cement beads Partial excision humerus for treatment of osteomyelitis Bone culture finalized with MSSA Tissue culture finalized with MSSA Aspirate culture finalized with MSSA Awaiting fungal and anaerobic cultures Discontinue vancomycin, cefepime, and Flagyl Start cefazolin Patient will likely need 6 week of IV antibiotics Left prescription for cefazolin and lab orders through July 12, 2024 in patient's hard chart WBC, platelets, creatinine, LFTs weekly while on antibiotics He is tolerating cephalosporin without any itching or rash Follow-up WBC platelets creatinine LFTs Monitor temperatures: afebrile Supportive care FOLLOW UP/chief complaints Right upper extremity abscess and Staph infection Interval History: Patient resting in bed. Denies any nausea, vomiting, or diarrhea. No skin rash. Breathing is stable. Afebrile. WBC 12.1. Discussed plan of care with patient including change in antibiotics. ROS: Negative except as above Review of Systems Social History: Social History Socioeconomic History Marital status: Spouse name: Not on file Number of children: Not on file Years of education: Not on file Highest education level: Not on file Occupational History Not on file Tobacco Use Smoking status: Every Day Current packs/day: 1.00 Average packs/day: 1 pack/day for 29.0 years (29.0 ttl pk-yrs) Types: Cigarettes Start date: 06/01/1995 Smokeless tobacco: Not on file Substance and Sexual Activity Alcohol use: Yes Comment: rare months ago Drug use: Yes Types: Marijuana Sexual activity: Defer Other Topics Concern Not on file Social History Narrative Not on file Social Drivers of Health Financial Resource Strain: Not on file Food Insecurity: No Food Insecurity (06/01/2024) Hunger Screening Food Insecurity - Worry: Never True Food Insecurity - Inability: Never True Transportation Needs: No Transportation Needs (06/01/2024) PRAPARE - Transportation Lack of Transportation (Medical): No Lack of Transportation (Non-Medical): No Physical Activity: Not on file Stress: Not on file Social Connections: Not on file Interpersonal Safety: Patient Declined (06/01/2024) Humiliation, Afraid, Rape, and Kick questionnaire Fear of Current or Ex-Partner: Patient declined Emotionally Abused: Patient declined Physically Abused: Patient declined Sexually Abused: Patient declined Housing Instability: Low Risk (06/01/2024) Housing Instability Housing Instability: No Family History: Family History Problem Relation Age of Onset Hypertension Father Arthritis Father Physical Examination : Vitals: 06/04/24 0605 06/04/24 0733 06/04/24 1145 06/04/24 1614 BP: 113/81 115/71 115/78 115/72 Pulse: 60 60 74 71 Resp: Temp: 36.6 C (97.9 F) 36.7 C (98 F) 36.8 C (98.2 F) 36.7 C (98.1 F) TempSrc: Oral Oral Oral Oral SpO2: 96% 96% 95% 96% Weight: Height: Temperature Range: Temp: 36.7 C (98.1 F) Temp Av.7 C (98 F) Min: 36.6 C (97.8 F) Max: 36.8 C (98.2 F) Physical Exam CONSTITUTIONAL: awake, alert, cooperative, no apparent distress, LUNGS: No accessory muscle use CARDIOVASCULAR: regular rate and rhythm ABDOMEN: normal bowel sounds, soft, non-distended, non-tender MUSCULOSKELETAL: Dressing in place to right arm SKIN: no rash NEUROLOGIC: Awake, alert, oriented to name, place and time. Follow commands. Cranial nerves grossly intact Laboratory data: I have independently reviewed the following labs: Results from last 7 days Lab Units 06/04/24 0659 06/03/24 0741 06/02/24 0629 WBC X10E9/L 12.1* 12.1* 21.5* HEMOGLOBIN g/dL 12.3* 11.8* 12.9* HEMATOCRIT % 36.8* 36.1* 38.9* PLATELETS X10E9/L 368 352 403 Results from last 7 days Lab Units 06/04/24 0659 06/03/24 0741 06/02/24 0629 POTASSIUM mmol/L 3.9 4.2 4.0 CHLORIDE mmol/L 106 110* 105 CO2 mmol/L 27 29 25 BUN mg/dL 12 16 20 CREATININE mg/dL 0.78 0.82 0.92 EGFR (CKD-EPI)NON-RACE DEPENDENT ml/min/1.73sq.m >90 >90 >90 CALCIUM mg/dL 8.2* 8.2* 8.9 Invalid input(s): BILITOT , LABALBU Results from last 7 days Lab Units 06/04/24 0855 VANCOMYCIN TROUGH ug/mL 11.9 Lab Results Component Value Date CRP 4.1 (H) 05/31/2024 Lab Results Component Value Date SEDRATE 41 (H) 05/31/2024 Cultures: Microbiology Results Procedure Component Value Units Date/Time Anaerobic culture [[id number]] Collected: 06/01/241742 Specimen: Tissue from Other Updated: 06/04/24 1213 Specimen Notes SPECIMEN D Culture NO ANAEROBES ISOLATED AT 48 HOURS Fungal culture includes fungal smear [[id number]] Collected: 06/01/241742 Specimen: Tissue from Other Updated: 06/02/24 0939 Specimen Notes SPECIMEN D Fungal smear TEST NOT PERFORMED Culture PENDING Bone culture [[id number]] (Abnormal) (Susceptibility) Collected: 06/01/241742 Specimen: Bone Updated: 06/04/24 0819 Specimen Notes SPECIMEN D Culture STAPHYLOCOCCUS AUREUS Susceptibility Staphylococcus Aureus ASYA METHOD Cefazolin SUSCEPTIBLE(DEDUCED) Clindamycin 0.25 Susceptible Doxycycline <=0.5 Susceptible [1] Oxacillin <=0.25 Susceptible TRIMETH/SULFAMETHOXAZOLE <=0.5/9.5 Susceptible Vancomycin 1 Susceptible [1] CLIA ID [id number] Anaerobic culture [[id number]] Collected: 06/01/241711 Specimen: Tissue from Other Updated: 06/04/24 1157 Specimen Notes SPECIMEN C Culture NO ANAEROBES ISOLATED AT 48 HOURS Fungal culture includes fungal smear [[id number]] Collected: 06/01/241711 Specimen: Tissue from Other Updated: 06/02/24 0950 Specimen Notes SPECIMEN C Fungal smear -- NO FUNGAL ELEMENTS SEEN ON DIRECT SMEAR Culture PENDING Tissue culture includes gram stain [[id number]] (Abnormal) (Susceptibility) Collected: 06/01/241711 Specimen: Tissue from Other Updated: 06/04/24 0816 Specimen Notes SPECIMEN C Gram Stain Result 1 to 9 WHITE BLOOD CELLS/LPF 0 SQUAMOUS EPITHELIAL CELLS/LPF NO ORGANISMS SEEN Culture RARE STAPHYLOCOCCUS AUREUS Susceptibility Staphylococcus Aureus ASYA METHOD Cefazolin SUSCEPTIBLE(DEDUCED) Clindamycin 0.25 Susceptible Doxycycline <=0.5 Susceptible [1] Oxacillin <=0.25 Susceptible TRIMETH/SULFAMETHOXAZOLE <=0.5/9.5 Susceptible Vancomycin 1 Susceptible [1] CLIA ID [id number] Anaerobic culture [[id number]] Collected: 06/01/241641 Specimen: Tissue from Other Updated: 06/04/24 1157 Specimen Notes SPECIMEN B Culture NO ANAEROBES ISOLATED AT 48 HOURS Fungal culture includes fungal smear [[id number]] Collected: 06/01/241641 Specimen: Tissue from Other Updated: 06/02/24 0950 Specimen Notes SPECIMEN B Fungal smear -- NO FUNGAL ELEMENTS SEEN ON DIRECT SMEAR Culture PENDING Tissue culture includes gram stain [[id number]] (Abnormal) Collected: 06/01/241641 Specimen: Tissue from Other Updated: 06/04/24 1145 Specimen Notes SPECIMEN B Gram Stain Result 1 to 9 WHITE BLOOD CELLS/LPF 0 SQUAMOUS EPITHELIAL CELLS/LPF NO ORGANISMS SEEN Culture RARE STAPHYLOCOCCUS AUREUS Isolate screened susceptible to Oxacillin. FOR SUSCEPTIBILITY, SEE PREVIOUS REPORT. Anaerobic culture [[id number]] Collected: 06/01/24 1640 Specimen: Tissue from Other Updated: 06/04/24 1148 Specimen Notes SPECIMEN A Culture NO ANAEROBES ISOLATED AT 48 HOURS Fungal culture includes fungal smear [[id number]] Collected: 06/01/24 1640 Specimen: Tissue from Other Updated: 06/02/24 0950 Specimen Notes SPECIMEN A Fungal smear -- NO FUNGAL ELEMENTS SEEN ON DIRECT SMEAR Culture PENDING Aspirate culture includes gram stain [[id number]] (Abnormal) (Susceptibility) Collected: 06/01/24 1640 Specimen: Aspirate Atr Updated: 06/04/24 0848 Specimen Notes SPECIMEN A Gram Stain Result 10 to 24 WHITE BLOOD CELLS/LPF 0 SQUAMOUS EPITHELIAL CELLS/LPF NO ORGANISMS SEEN Culture RARE STAPHYLOCOCCUS AUREUS Susceptibility Staphylococcus Aureus ASYA METHOD Cefazolin SUSCEPTIBLE(DEDUCED) Clindamycin 0.25 Susceptible Doxycycline <=0.5 Susceptible [1] Oxacillin 0.5 Susceptible TRIMETH/SULFAMETHOXAZOLE <=0.5/9.5 Susceptible Vancomycin 1 Susceptible [1] CLIA ID [id number] Blood culture #2 [[id number]] Collected: 06/01/24 1510 Specimen: Blood Updated: 06/04/24 1526 Culture NO GROWTH 3 DAYS Blood culture #1 [[id number]] Collected: 06/01/24 1502 Specimen: Blood Updated: 06/04/24 1528 Culture NO GROWTH 3 DAYS Imaging Studies: X-ray shoulder right 1 view Result Date: 06/01/2024 XR SHOULDER RT 1 VW INDICATION: Hardware removal, shoulder pain FINDINGS: Intraoperative fluoroscopy for hardware removal. No radiologist present during the examination. Reference Air Kerma = 0.99 mGy Fluoroscopy time: 11 seconds Saved images: 2 IMPRESSION: Intraoperative fluoroscopy provided as above. See operative report for additional details. Finalized by Hesham Cormier on 06/01/2024 9:10 PM X-ray shoulder right minimum 2 views Result Date: 06/01/2024 XR SHOULDER RT MIN 2 VWS HISTORY: post op. Arm pain. COMPARISON: none IMPRESSION: Sequelae of biceps tenodesis, remove hardware, placement of radiopaque beads. Expected soft tissue emphysema. Finalized by Vernon Mendiola MD on 06/01/2024 8:37 PM Medications: acetaminophen, 1,000 mg, oral, Q8H atorvastatin, 10 mg, oral, Daily calcium citrate, 400 mg, oral, TID with meals ceFAZolin (ANCEF) IV, 2,000 mg, intravenous, Q8H cholecalciferol (vitamin D3), 2,000 Units, oral, Daily enoxaparin (LOVENOX) injection, 40 mg, subcutaneous, Daily hydroCHLOROthiazide, 25 mg, oral, Daily nicotine, 1 patch, transdermal, Daily pantoprazole, 40 mg, oral, Daily [COMPLETED] Consult PICC nurse, , , Once AND sodium chloride, 10 mL, intravenous, Q12H AND sodium chloride, 10 mL, intravenous, PRN AND sodium chloride, 20 mL, intravenous, PRN sodium chloride, 3 mL, intravenous, Q12H KEARA Thank you for allowing us to participate in the care of this patient. Please call with questions. Shruthi Pulido APRN, CNP [phone] This note was completed using a voice cavalry officer system. Every effort was made to ensure accuracy. However, inadvertent computerized cavalry officer errors may be present. NIKOLE Tan 06/04/24 1715 [facility] PROGRESS NOTE 06/04/2024 Patient Name: Sergio Hernandez : 1980 Hospital Day: 5 Chief complaint: Chief Complaint Patient presents with Abscess SUBJECTIVE Patient seen and examined bedside. No acute events overnight. Patient resting comfortably in bed Review of Systems Constitutional: Negative for fever and chills. Respiratory: Negative for cough, chest tightness and shortness of breath. Cardiovascular: Negative for chest pain, palpitations and leg swelling. Gastrointestinal: Negative for nausea, vomiting, abdominal pain and abdominal distention. OBJECTIVE Vital Signs: BP 115/78 Pulse 74 Temp 36.8 C (98.2 F) (Oral) Resp 14 Ht 192.9 cm (6' 3.95 ) Wt 108.2 kg (238 lb 8.6 oz) SpO2 95% BMI 29.08 kg/m Weight: Body mass index is 29.08 kg/m . Admission weight: 105.7 kg (233 lb) Wt Readings from Last 3 Encounters: 06/04/24 108.2 kg (238 lb 8.6 oz) Input/Output: Intake/Output Summary (Last 24 hours) at 06/04/2024 1247 Last data filed at 06/04/2024 0937 Gross per 24 hour Intake 1340 ml Output 3100 ml Net -1760 ml Physical Exam: Physical Exam Constitutional He is oriented to person, place, and time. No distress. Cardiovascular: Normal rate and regular rhythm. No murmur heard. Heart Sounds: normal heart sounds. Pulmonary/Chest: Effort normal and breath sounds normal. No respiratory distress. Abdominal: Bowel sounds are normal. He exhibits no distension. Soft. There is no abdominal tenderness. Musculoskeletal: General: No edema. Neurological He is alert and oriented to person, place, and time. Grossly normal Skin: He is not diaphoretic. Labs/Imaging: Recent Results (from the past 48 hours) CBC auto differential Collection Time: 06/03/24 7:41 AM Result Value Ref Range White Blood Cells 12.1 (H) 4.0 - 11.0 X10E9/L RBC count 4.52 4.10 - 5.70 X10E12/L Hemoglobin 11.8 (L) 13.0 - 17.0 g/dL Hematocrit 36.1 (L) 39 - 49 % MCV 80 80 - 100 fL MCH 26.2 (L) 27 - 34 pg MCHC 32.8 32 - 36 g/dL RDW 14.3 11.5 - 15.0 % Platelets 352 150 - 450 X10E9/L MPV 7.7 7 - 12 fL % neutrophils 62.6 % % lymphocytes 24.6 % % monocytes 8.8 % % eosinophils 3.1 % % Basophils 0.9 % Neutrophils Absolute (A) 7.6 (H) 1.5 - 6.6 X10E9/L Lymphocytes Absolute 3.0 1.0 - 3.5 X10E9/L Monocytes Absolute 1.1 (H) 0 - 0.9 X10E9/L Eosinophils Absolute 0.4 0.0 - 0.4 X10E9/L Basophils Absolute 0.1 0.0 - 0.2 X10E9/L Basic Metabolic Panel Collection Time: 06/03/24 7:41 AM Result Value Ref Range Sodium 143 134 - 146 mmol/L Potassium, Bld 4.2 3.5 - 5.0 mmol/L Chloride 110 (H) 98 - 109 mmol/L CO2 29 22 - 32 mmol/L Anion gap 4 (L) 5 - 15 mmol/L BUN 16 5 - 23 mg/dL Creatinine 0.82 0.60 - 1.30 mg/dL Glucose 95 65 - 99 mg/dL Calcium 8.2 (L) 8.5 - 10.5 mg/dL eGFR (CKD-EPI)non-race dependent >90 >59 ml/min/1.73sq.m Vancomycin, random Collection Time: 06/03/24 10:51 PM Result Value Ref Range Vancomycin 24.3 5.0 - 40.0 ug/mL CBC auto differential Collection Time: 06/04/24 6:59 AM Result Value Ref Range White Blood Cells 12.1 (H) 4.0 - 11.0 X10E9/L RBC count 4.63 4.10 - 5.70 X10E12/L Hemoglobin 12.3 (L) 13.0 - 17.0 g/dL Hematocrit 36.8 (L) 39 - 49 % MCV 80 80 - 100 fL MCH 26.6 (L) 27 - 34 pg MCHC 33.5 32 - 36 g/dL RDW 14.4 11.5 - 15.0 % Platelets 368 150 - 450 X10E9/L MPV 7.7 7 - 12 fL % neutrophils 62.9 % % lymphocytes 23.1 % % monocytes 7.5 % % eosinophils 5.1 % % Basophils 1.4 % Neutrophils Absolute (A) 7.6 (H) 1.5 - 6.6 X10E9/L Lymphocytes Absolute 2.8 1.0 - 3.5 X10E9/L Monocytes Absolute 0.9 0 - 0.9 X10E9/L Eosinophils Absolute 0.6 (H) 0.0 - 0.4 X10E9/L Basophils Absolute 0.2 0.0 - 0.2 X10E9/L Basic Metabolic Panel Collection Time: 06/04/24 6:59 AM Result Value Ref Range Sodium 142 134 - 146 mmol/L Potassium, Bld 3.9 3.5 - 5.0 mmol/L Chloride 106 98 - 109 mmol/L CO2 27 22 - 32 mmol/L Anion gap 9 5 - 15 mmol/L BUN 12 5 - 23 mg/dL Creatinine 0.78 0.60 - 1.30 mg/dL Glucose 102 (H) 65 - 99 mg/dL Calcium 8.2 (L) 8.5 - 10.5 mg/dL eGFR (CKD-EPI)non-race dependent >90 >59 ml/min/1.73sq.m Vancomycin, trough Draw 30 min prior to dose scheduled 06/04 at 0930. *Draw both peak and trough* Collection Time: 06/04/24 8:55 AM Result Value Ref Range Vancomycin trough 11.9 5.0 - 20.0 ug/mL Available imaging and microbiology data has been reviewed in detail and is available in full per EMR. Medications: Reviewed extensively, available in full per EMR ASSESSMENT Right upper extremity skin/soft tissue infection with clinical concern for abscess formation, possible recurrent osteomyelitis; status post operative I and D right upper arm abscess, removal of deep implants, insertion of antibiotic cement beads, and partial excision of the humerus 06/01/2024 History of right shoulder superior labrum anterior to posterior repair complicated by osteomyelitis in 2020 Primary hypertension, controlled Dyslipidemia Nicotine dependence Hypokalemia, resolved Hypovitaminosis D -started on supplementation PLAN Telemetry Continue vanc cefepime and Flagyl per ID. Operative cultures from bone and tissue growing MSSA. Taper antibiotics per ID. Follow ID for discharge plan PICC line cleared by ID. Placement today Wound care Blood pressure controlled-continue hydrochlorothiazide. Continue monitoring PT OT WBAT right upper extremity. Avoid heavy lifting/pushing/pulling/carrying. Sling p.r.n.. Appreciate ortho input DVT prophylaxis-heparin Code status-full code Discharge disposition- to be decided. Most likely home with home health care and infusion. Follow for final ID discharge plan. This note was created with the assistance of a speech-recognition program. Every effort was made to ensure accuracy; however, inadvertent computerized cavalry officer errors may be present. Electronically signed by: ANNIE ARENAS MD 06/04/2024 12:47 PM Images from the original note were not included. [facility] - Daily Progress Note Sergio Hernandez Admission date/time 05/31/2024 10:05 PM Today's Date and Time: 06/03/2024, 7:08 PM Impression : Leukocytosis peaked at 21.5 Right upper extremity infection with abscess History of right shoulder superior labrum anterior to posterior repair complicated with osteomyelitis in 2020 treated by [facility] Electrolyte imbalance Hypertension Dyslipidemia Cigarette smoker Recommendations: May 01, 2024 Procedure(s) Performed: Irrigation and debridement right arm abscess shoulder, Removal of deep implants right arm Insertion antibiotic cement beads Partial excision humerus for treatment of osteomyelitis Preliminary Surgical cultures growing Staph aureus, awaiting susceptibility reports Preliminary blood cultures no growth day 2 Continue vancomycin, cefepime and Flagyl Monitor vanc levels closely Patient will likely need 6 week of IV antibiotics He is tolerating cephalosporin without any itching or rash Follow-up WBC platelets creatinine LFTs WBC 12.1 Creatinine 0.82 Monitor temperatures: afebrile Supportive care FOLLOW UP/chief complaints Right upper extremity abscess and staph infection Interval History: Very drowsy today, resting in bed, breathing stable, no signs of distress or discomfort, he is afebrile, white blood cell count is improving down to 12.1, he denies vomiting or diarrhea, no skin rash, denies any skin itching, continues on antibiotics, no family currently at bedside ROS: Negative except as above Social History: Social History Socioeconomic History Marital status: Spouse name: Not on file Number of children: Not on file Years of education: Not on file Highest education level: Not on file Occupational History Not on file Tobacco Use Smoking status: Every Day Current packs/day: 1.00 Average packs/day: 1 pack/day for 29.0 years (29.0 ttl pk-yrs) Types: Cigarettes Start date: 06/01/1995 Smokeless tobacco: Not on file Substance and Sexual Activity Alcohol use: Yes Comment: rare months ago Drug use: Yes Types: Marijuana Sexual activity: Defer Other Topics Concern Not on file Social History Narrative Not on file Social Drivers of Health Financial Resource Strain: Not on file Food Insecurity: No Food Insecurity (06/01/2024) Hunger Screening Food Insecurity - Worry: Never True Food Insecurity - Inability: Never True Transportation Needs: No Transportation Needs (06/01/2024) PRAPARE - Transportation Lack of Transportation (Medical): No Lack of Transportation (Non-Medical): No Physical Activity: Not on file Stress: Not on file Social Connections: Not on file Interpersonal Safety: Patient Declined (06/01/2024) Humiliation, Afraid, Rape, and Kick questionnaire Fear of Current or Ex-Partner: Patient declined Emotionally Abused: Patient declined Physically Abused: Patient declined Sexually Abused: Patient declined Housing Instability: Low Risk (06/01/2024) Housing Instability Housing Instability: No Family History: Family History Problem Relation Age of Onset Hypertension Father Arthritis Father Physical Examination : Vitals: 06/03/24 0749 06/03/24 1153 06/03/24 1547 06/03/24 1849 BP: 121/78 129/82 112/63 Pulse: 72 75 82 71 Resp: 20 16 13 10 Temp: 36.7 C (98.1 F) 36.3 C (97.4 F) 36.9 C (98.4 F) TempSrc: Oral Oral Oral SpO2: 96% 96% 96% Weight: Height: Temperature Range: Temp: 36.9 C (98.4 F) Temp Av.7 C (98 F) Min: 36.3 C (97.4 F) Max: 36.9 C (98.4 F) General Appearance: Drowsy, and in no apparent distress Pulmonary/Chest: No accessory muscle use Abdomen: soft, nondistended Extremities: arm dressing Skin:no unusual rash LITHOSTRIPPER follow-commands Laboratory data: I have independently reviewed the following labs: Results from last 7 days Lab Units 06/03/24 0741 06/02/24 0629 05/31/24 2347 WBC X10E9/L 12.1* 21.5* 13.0* HEMOGLOBIN g/dL 11.8* 12.9* 13.6 HEMATOCRIT % 36.1* 38.9* 41.2 PLATELETS X10E9/L 352 403 374 Results from last 7 days Lab Units 06/03/24 0741 06/02/24 0629 06/01/24 1236 05/31/24 2347 POTASSIUM mmol/L 4.2 4.0 3.6 2.9* CHLORIDE mmol/L 110* 105 -- 98 CO2 mmol/L 29 25 -- 27 BUN mg/dL 16 20 -- 9 CREATININE mg/dL 0.82 0.92 -- 0.78 EGFR (CKD-EPI)NON-RACE DEPENDENT ml/min/1.73sq.m >90 >90 -- >90 CALCIUM mg/dL 8.2* 8.9 -- 8.7 Invalid input(s): BILITOT , LABALBU Lab Results Component Value Date CRP 4.1 (H) 05/31/2024 Lab Results Component Value Date SEDRATE 41 (H) 05/31/2024 Cultures: Microbiology Results Procedure Component Value Units Date/Time Anaerobic culture [[id number]] Collected: 06/01/241742 Specimen: Tissue from Other Updated: 06/02/24 0627 Specimen Notes SPECIMEN D Culture CULTURE IN PROGRESS Fungal culture includes fungal smear [[id number]] Collected: 06/01/241742 Specimen: Tissue from Other Updated: 06/02/24 0939 Specimen Notes SPECIMEN D Fungal smear TEST NOT PERFORMED Culture PENDING Bone culture [[id number]] (Abnormal) Collected: 06/01/241742 Specimen: Bone Updated: 06/03/24 1113 Specimen Notes SPECIMEN D Culture STAPHYLOCOCCUS AUREUS SUSCEPTIBILITY TESTING IN PROGRESS Anaerobic culture [[id number]] Collected: 06/01/241711 Specimen: Tissue from Other Updated: 06/02/24 0636 Specimen Notes SPECIMEN C Culture CULTURE IN PROGRESS Fungal culture includes fungal smear [[id number]] Collected: 06/01/241711 Specimen: Tissue from Other Updated: 06/02/24 0950 Specimen Notes SPECIMEN C Fungal smear -- NO FUNGAL ELEMENTS SEEN ON DIRECT SMEAR Culture PENDING Tissue culture includes gram stain [[id number]] (Abnormal) Collected: 06/01/241711 Specimen: Tissue from Other Updated: 06/03/24 1201 Specimen Notes SPECIMEN C Gram Stain Result 1 to 9 WHITE BLOOD CELLS/LPF 0 SQUAMOUS EPITHELIAL CELLS/LPF NO ORGANISMS SEEN Culture RARE STAPHYLOCOCCUS AUREUS SUSCEPTIBILITY TESTING IN PROGRESS Anaerobic culture [[id number]] Collected: 06/01/241641 Specimen: Tissue from Other Updated: 06/02/24 0636 Specimen Notes SPECIMEN B Culture CULTURE IN PROGRESS Fungal culture includes fungal smear [[id number]] Collected: 06/01/241641 Specimen: Tissue from Other Updated: 06/02/24 0950 Specimen Notes SPECIMEN B Fungal smear -- NO FUNGAL ELEMENTS SEEN ON DIRECT SMEAR Culture PENDING Tissue culture includes gram stain [[id number]] (Abnormal) Collected: 06/01/241641 Specimen: Tissue from Other Updated: 06/03/24 1205 Specimen Notes SPECIMEN B Gram Stain Result 1 to 9 WHITE BLOOD CELLS/LPF 0 SQUAMOUS EPITHELIAL CELLS/LPF NO ORGANISMS SEEN Culture RARE STAPHYLOCOCCUS AUREUS CULTURE IN PROGRESS Anaerobic culture [[id number]] Collected: 06/01/24 1640 Specimen: Tissue from Other Updated: 06/02/24 0636 Specimen Notes SPECIMEN A Culture CULTURE IN PROGRESS Fungal culture includes fungal smear [[id number]] Collected: 06/01/24 1640 Specimen: Tissue from Other Updated: 06/02/24 0950 Specimen Notes SPECIMEN A Fungal smear -- NO FUNGAL ELEMENTS SEEN ON DIRECT SMEAR Culture PENDING Aspirate culture includes gram stain [[id number]] (Abnormal) Collected: 06/01/24 1640 Specimen: Aspirate Atr Updated: 06/03/24 0926 Specimen Notes SPECIMEN A Gram Stain Result 10 to 24 WHITE BLOOD CELLS/LPF 0 SQUAMOUS EPITHELIAL CELLS/LPF NO ORGANISMS SEEN Culture RARE STAPHYLOCOCCUS AUREUS Blood culture #2 [[id number]] Collected: 06/01/24 1510 Specimen: Blood Updated: 06/03/24 1526 Culture NO GROWTH 2 DAYS Blood culture #1 [[id number]] Collected: 06/01/24 1502 Specimen: Blood Updated: 06/03/24 1528 Culture NO GROWTH 2 DAYS Imaging Studies: X-ray shoulder right 1 view Result Date: 06/01/2024 XR SHOULDER RT 1 VW INDICATION: Hardware removal, shoulder pain FINDINGS: Intraoperative fluoroscopy for hardware removal. No radiologist present during the examination. Reference Air Kerma = 0.99 mGy Fluoroscopy time: 11 seconds Saved images: 2 IMPRESSION: Intraoperative fluoroscopy provided as above. See operative report for additional details. Finalized by Hesham Cormier on 06/01/2024 9:10 PM X-ray shoulder right minimum 2 views Result Date: 06/01/2024 XR SHOULDER RT MIN 2 VWS HISTORY: post op. Arm pain. COMPARISON: none IMPRESSION: Sequelae of biceps tenodesis, remove hardware, placement of radiopaque beads. Expected soft tissue emphysema. Finalized by Vernon Mendiola MD on 06/01/2024 8:37 PM X-ray shoulder right minimum 2 views Result Date: 06/01/2024 XR SHOULDER RT MIN 2 VWS IMPRESSION: Clinical Information: eval right shoulder pain: AP, Grashey and Scap Y views Comparison: None. * No fracture. No dislocation. Mild degenerative changes. Prior biceps tenodesis. Finalized by Emerson Buchanan MD on 06/01/2024 7:00 AM Medications: acetaminophen, 1,000 mg, oral, Q8H atorvastatin, 10 mg, oral, Daily calcium citrate, 400 mg, oral, TID with meals [COMPLETED] cefepime (MAXIPIME) IV, 2,000 mg, intravenous, Once FOLLOWED BY cefepime (MAXIPIME) IV, 2,000 mg, intravenous, Q8H cholecalciferol (vitamin D3), 2,000 Units, oral, Daily enoxaparin (LOVENOX) injection, 40 mg, subcutaneous, Daily hydroCHLOROthiazide, 25 mg, oral, Daily metroNIDAZOLE, 500 mg, oral, Q8H KEARA nicotine, 1 patch, transdermal, Daily pantoprazole, 40 mg, oral, Daily sodium chloride, 3 mL, intravenous, Q12H KEARA [COMPLETED] vancomycin, 1,000 mg/kg, intravenous, Once FOLLOWED BY vancomycin, 15 mg/kg, intravenous, Q12H Thank you for allowing us to participate in the care of this patient. Please call with questions. Rosalind Ashton APRN MERCHANDISE SUPERVISOR [phone] This note was completed using a voice cavalry officer system. Every effort was made to ensure accuracy. However, inadvertent computerized cavalry officer errors may be present. NIKOLE Santillan 06/03/241912 [facility] PROGRESS NOTE 06/03/2024 Patient Name: Sergio Hernandez : 1980 Hospital Day: 4 Chief complaint: Chief Complaint Patient presents with Abscess SUBJECTIVE Patient seen and examined bedside. No acute events overnight. Patient resting comfortably in bed Review of Systems Constitutional: Negative for fever and chills. Respiratory: Negative for cough, chest tightness and shortness of breath. Cardiovascular: Negative for chest pain, palpitations and leg swelling. Gastrointestinal: Negative for nausea, vomiting, abdominal pain and abdominal distention. OBJECTIVE Vital Signs: BP 121/78 Pulse 72 Temp 36.7 C (98.1 F) (Oral) Resp 20 Ht 192.9 cm (6' 3.95 ) Wt 109.2 kg (240 lb 11.9 oz) SpO2 96% BMI 29.35 kg/m Weight: Body mass index is 29.35 kg/m . Admission weight: 105.7 kg (233 lb) Wt Readings from Last 3 Encounters: 06/03/24 109.2 kg (240 lb 11.9 oz) Input/Output: Intake/Output Summary (Last 24 hours) at 06/03/2024 1128 Last data filed at 06/03/2024 0932 Gross per 24 hour Intake 1445 ml Output 1700 ml Net -255 ml Physical Exam: Physical Exam Constitutional He is oriented to person, place, and time. No distress. Cardiovascular: Normal rate and regular rhythm. No murmur heard. Heart Sounds: normal heart sounds. Pulmonary/Chest: Effort normal and breath sounds normal. No respiratory distress. Abdominal: Bowel sounds are normal. He exhibits no distension. Soft. There is no abdominal tenderness. Musculoskeletal: General: No edema. Neurological He is alert and oriented to person, place, and time. Grossly normal Skin: He is not diaphoretic. Labs/Imaging: Recent Results (from the past 48 hours) Potassium Collection Time: 06/01/24 12:36 PM Result Value Ref Range Potassium, Bld 3.6 3.5 - 5.0 mmol/L Blood culture #1 Collection Time: 06/01/24 3:02 PM Specimen: Blood Result Value Ref Range Culture NO GROWTH 1 DAY Blood culture #2 Collection Time: 06/01/24 3:10 PM Specimen: Blood Result Value Ref Range Culture NO GROWTH 1 DAY Anaerobic culture Collection Time: 06/01/24 4:40 PM Specimen: Other; Tissue RIGHT~ARM~ABSCESS Result Value Ref Range Specimen Notes SPECIMEN A Culture CULTURE IN PROGRESS Fungal culture includes fungal smear Collection Time: 06/01/24 4:40 PM Specimen: Other; Tissue RIGHT~ARM~ABSCESS Result Value Ref Range Specimen Notes SPECIMEN A Fungal smear NO FUNGAL ELEMENTS SEEN ON DIRECT SMEAR Culture PENDING Aspirate culture includes gram stain Collection Time: 06/01/24 4:40 PM Specimen: Aspirate Atr RIGHT~ARM~ABSCESS Result Value Ref Range Specimen Notes SPECIMEN A Gram Stain Result 10 to 24 WHITE BLOOD CELLS/LPF Gram Stain Result 0 SQUAMOUS EPITHELIAL CELLS/LPF Gram Stain Result NO ORGANISMS SEEN Culture RARE STAPHYLOCOCCUS AUREUS (A) Anaerobic culture Collection Time: 06/01/24 4:42 PM Specimen: Other; Tissue RIGHT~ARM Result Value Ref Range Specimen Notes SPECIMEN B Culture CULTURE IN PROGRESS Fungal culture includes fungal smear Collection Time: 06/01/24 4:42 PM Specimen: Other; Tissue RIGHT~ARM Result Value Ref Range Specimen Notes SPECIMEN B Fungal smear NO FUNGAL ELEMENTS SEEN ON DIRECT SMEAR Culture PENDING Tissue culture includes gram stain Collection Time: 06/01/24 4:42 PM Specimen: Other; Tissue RIGHT~ARM Result Value Ref Range Specimen Notes SPECIMEN B Gram Stain Result 1 to 9 WHITE BLOOD CELLS/LPF Gram Stain Result 0 SQUAMOUS EPITHELIAL CELLS/LPF Gram Stain Result NO ORGANISMS SEEN Culture CULTURE IN PROGRESS Anaerobic culture Collection Time: 06/01/24 5:12 PM Specimen: Other; Tissue RIGHT~ANTERIOR~HUMERUS Result Value Ref Range Specimen Notes SPECIMEN C Culture CULTURE IN PROGRESS Fungal culture includes fungal smear Collection Time: 06/01/24 5:12 PM Specimen: Other; Tissue RIGHT~ANTERIOR~HUMERUS Result Value Ref Range Specimen Notes SPECIMEN C Fungal smear NO FUNGAL ELEMENTS SEEN ON DIRECT SMEAR Culture PENDING Tissue culture includes gram stain Collection Time: 06/01/24 5:12 PM Specimen: Other; Tissue RIGHT~ANTERIOR~HUMERUS Result Value Ref Range Specimen Notes SPECIMEN C Gram Stain Result 1 to 9 WHITE BLOOD CELLS/LPF Gram Stain Result 0 SQUAMOUS EPITHELIAL CELLS/LPF Gram Stain Result NO ORGANISMS SEEN Culture CULTURE IN PROGRESS Anaerobic culture Collection Time: 06/01/24 5:43 PM Specimen: Other; Tissue RIGHT~HUMERUS Result Value Ref Range Specimen Notes SPECIMEN D Culture CULTURE IN PROGRESS Fungal culture includes fungal smear Collection Time: 06/01/24 5:43 PM Specimen: Other; Tissue RIGHT~HUMERUS Result Value Ref Range Specimen Notes SPECIMEN D Fungal smear TEST NOT PERFORMED Culture PENDING Bone culture Collection Time: 06/01/24 5:43 PM Specimen: Bone RIGHT~HUMERUS Result Value Ref Range Specimen Notes SPECIMEN D Culture STAPHYLOCOCCUS AUREUS (A) Culture SUSCEPTIBILITY TESTING IN PROGRESS Basic Metabolic Panel Collection Time: 06/02/24 6:29 AM Result Value Ref Range Sodium 140 134 - 146 mmol/L Potassium, Bld 4.0 3.5 - 5.0 mmol/L Chloride 105 98 - 109 mmol/L CO2 25 22 - 32 mmol/L Anion gap 10 5 - 15 mmol/L BUN 20 5 - 23 mg/dL Creatinine 0.92 0.60 - 1.30 mg/dL Glucose 202 (H) 65 - 99 mg/dL Calcium 8.9 8.5 - 10.5 mg/dL eGFR (CKD-EPI)non-race dependent >90 >59 ml/min/1.73sq.m CBC auto differential Collection Time: 06/02/24 6:29 AM Result Value Ref Range White Blood Cells 21.5 (H) 4.0 - 11.0 X10E9/L RBC count 4.87 4.10 - 5.70 X10E12/L Hemoglobin 12.9 (L) 13.0 - 17.0 g/dL Hematocrit 38.9 (L) 39 - 49 % MCV 80 80 - 100 fL MCH 26.4 (L) 27 - 34 pg MCHC 33.1 32 - 36 g/dL RDW 14.1 11.5 - 15.0 % Platelets 403 150 - 450 X10E9/L MPV 8.1 7 - 12 fL % neutrophils 92.7 % % lymphocytes 4.0 % % monocytes 2.8 % % eosinophils 0.0 % % Basophils 0.5 % Neutrophils Absolute (A) 19.9 (H) 1.5 - 6.6 X10E9/L Lymphocytes Absolute 0.9 (L) 1.0 - 3.5 X10E9/L Monocytes Absolute 0.6 0 - 0.9 X10E9/L Eosinophils Absolute 0.0 0.0 - 0.4 X10E9/L Basophils Absolute 0.1 0.0 - 0.2 X10E9/L Vitamin D 25 hydroxy Collection Time: 06/02/24 6:29 AM Result Value Ref Range Vit D, 25-Hydroxy <7.0 (L) 30 - 100 ng/mL CBC auto differential Collection Time: 06/03/24 7:41 AM Result Value Ref Range White Blood Cells 12.1 (H) 4.0 - 11.0 X10E9/L RBC count 4.52 4.10 - 5.70 X10E12/L Hemoglobin 11.8 (L) 13.0 - 17.0 g/dL Hematocrit 36.1 (L) 39 - 49 % MCV 80 80 - 100 fL MCH 26.2 (L) 27 - 34 pg MCHC 32.8 32 - 36 g/dL RDW 14.3 11.5 - 15.0 % Platelets 352 150 - 450 X10E9/L MPV 7.7 7 - 12 fL % neutrophils 62.6 % % lymphocytes 24.6 % % monocytes 8.8 % % eosinophils 3.1 % % Basophils 0.9 % Neutrophils Absolute (A) 7.6 (H) 1.5 - 6.6 X10E9/L Lymphocytes Absolute 3.0 1.0 - 3.5 X10E9/L Monocytes Absolute 1.1 (H) 0 - 0.9 X10E9/L Eosinophils Absolute 0.4 0.0 - 0.4 X10E9/L Basophils Absolute 0.1 0.0 - 0.2 X10E9/L Basic Metabolic Panel Collection Time: 06/03/24 7:41 AM Result Value Ref Range Sodium 143 134 - 146 mmol/L Potassium, Bld 4.2 3.5 - 5.0 mmol/L Chloride 110 (H) 98 - 109 mmol/L CO2 29 22 - 32 mmol/L Anion gap 4 (L) 5 - 15 mmol/L BUN 16 5 - 23 mg/dL Creatinine 0.82 0.60 - 1.30 mg/dL Glucose 95 65 - 99 mg/dL Calcium 8.2 (L) 8.5 - 10.5 mg/dL eGFR (CKD-EPI)non-race dependent >90 >59 ml/min/1.73sq.m Available imaging and microbiology data has been reviewed in detail and is available in full per EMR. Medications: Reviewed extensively, available in full per EMR ASSESSMENT Right upper extremity skin/soft tissue infection with clinical concern for abscess formation, possible recurrent osteomyelitis; status post operative I and D right upper arm abscess, removal of deep implants, insertion of antibiotic cement beads, and partial excision of the humerus 06/01/2024 History of right shoulder superior labrum anterior to posterior repair complicated by osteomyelitis in 2020 Primary hypertension, controlled Dyslipidemia Nicotine dependence Hypokalemia, resolved Hypovitaminosis D -started on supplementation PLAN Telemetry Continue vanc aztreonam and Flagyl per ID. Follow operative cultures-growing Staphylococcus aureus. Follow for sensitivity Wound care Blood pressure controlled-continue hydrochlorothiazide. Continue monitoring PT OT WBAT right upper extremity. Avoid heavy lifting/pushing/pulling/carrying. Sling p.r.n.. Appreciate ortho input DVT prophylaxis-heparin Code status-full code Discharge disposition- to be decided. Most likely home with home health care and infusion. Follow for final ID discharge plan. Will need PICC line for long-term antibiotics This note was created with the assistance of a speech-recognition program. Every effort was made to ensure accuracy; however, inadvertent computerized cavalry officer errors may be present. Electronically signed by: ANNIE ARENAS MD 06/03/2024 11:28 AM Images from the original note were not included. Orthopedic Progress Note CC: RUE abscess Subjective Patient complains of denies complaints. Admits to some soreness of his arm but main concern is when he is able to discharge home. Objective BP 121/78 Pulse 72 Temp 36.7 C (98.1 F) (Oral) Resp 20 Ht 192.9 cm (6' 3.95 ) Wt 109.2 kg (240 lb 11.9 oz) SpO2 96% BMI 29.35 kg/m O2 Device: None (Room air) General: alert, appears stated age, and cooperative Neurovascular: Sensation grossly intact to median, radial and ulnar nerves. Motor function intact for median, radial, ulnar, AIN, and PIN nerves right upper extremity. 2+ radial pulse present right upper extremity. Extremity Exam: Surgical incision with dressing changed at bedside with sutures c/d/i and without surrounding erythema or drainage. DVT/Comparment Exam: upper arm compartments soft and compressible. No evidence of compartment syndrome. No pain with passive stretch all fingers. LABS Lab Results Component Value Date WBC 12.1 (H) 06/03/2024 HGB 11.8 (L) 06/03/2024 HCT 36.1 (L) 06/03/2024 MCV 80 06/03/2024 PLT 352 06/03/2024 Lab Results Component Value Date CRP 4.1 (H) 05/31/2024 Lab Results Component Value Date SEDRATE 41 (H) 05/31/2024 Lab Results Component Value Date GLU 95 06/03/2024 CALCIUM 8.2 (L) 06/03/2024 K 4.2 06/03/2024 CO2 29 06/03/2024 BUN 16 06/03/2024 CREATININE 0.82 06/03/2024 Microbiology Results Procedure Component Value Units Date/Time Anaerobic culture [[id number]] Collected: 06/01/241742 Specimen: Tissue from Other Updated: 06/02/24626 Specimen Notes SPECIMEN D Culture CULTURE IN PROGRESS Fungal culture includes fungal smear [[id number]] Collected: 06/01/241742 Specimen: Tissue from Other Updated: 06/02/2439 Specimen Notes SPECIMEN D Fungal smear TEST NOT PERFORMED Culture PENDING Bone culture [[id number]] Collected: 06/01/241742 Specimen: Bone Updated: 06/02/24625 Specimen Notes SPECIMEN D Culture CULTURE IN PROGRESS Anaerobic culture [[id number]] Collected: 06/01/241711 Specimen: Tissue from Other Updated: 06/02/2436 Specimen Notes SPECIMEN C Culture CULTURE IN PROGRESS Fungal culture includes fungal smear [[id number]] Collected: 06/01/241711 Specimen: Tissue from Other Updated: 06/02/24 0950 Specimen Notes SPECIMEN C Fungal smear -- NO FUNGAL ELEMENTS SEEN ON DIRECT SMEAR Culture PENDING Tissue culture includes gram stain [[id number]] Collected: 06/01/241711 Specimen: Tissue from Other Updated: 06/03/24 0814 Specimen Notes SPECIMEN C Gram Stain Result 1 to 9 WHITE BLOOD CELLS/LPF 0 SQUAMOUS EPITHELIAL CELLS/LPF NO ORGANISMS SEEN Culture CULTURE IN PROGRESS Anaerobic culture [[id number]] Collected: 06/01/241641 Specimen: Tissue from Other Updated: 06/02/2436 Specimen Notes SPECIMEN B Culture CULTURE IN PROGRESS Fungal culture includes fungal smear [[id number]] Collected: 06/01/241641 Specimen: Tissue from Other Updated: 06/02/24 0950 Specimen Notes SPECIMEN B Fungal smear -- NO FUNGAL ELEMENTS SEEN ON DIRECT SMEAR Culture PENDING Tissue culture includes gram stain [[id number]] Collected: 06/01/241641 Specimen: Tissue from Other Updated: 06/03/24 0814 Specimen Notes SPECIMEN B Gram Stain Result 1 to 9 WHITE BLOOD CELLS/LPF 0 SQUAMOUS EPITHELIAL CELLS/LPF NO ORGANISMS SEEN Culture CULTURE IN PROGRESS Anaerobic culture [[id number]] Collected: 06/01/24 1640 Specimen: Tissue from Other Updated: 06/02/2436 Specimen Notes SPECIMEN A Culture CULTURE IN PROGRESS Fungal culture includes fungal smear [[id number]] Collected: 06/01/24 1640 Specimen: Tissue from Other Updated: 06/02/24 0950 Specimen Notes SPECIMEN A Fungal smear -- NO FUNGAL ELEMENTS SEEN ON DIRECT SMEAR Culture PENDING Aspirate culture includes gram stain [[id number]] (Abnormal) Collected: 06/01/24 1640 Specimen: Aspirate Atr Updated: 06/03/24 0926 Specimen Notes SPECIMEN A Gram Stain Result 10 to 24 WHITE BLOOD CELLS/LPF 0 SQUAMOUS EPITHELIAL CELLS/LPF NO ORGANISMS SEEN Culture RARE STAPHYLOCOCCUS AUREUS Blood culture #2 [[id number]] Collected: 06/01/24 1510 Specimen: Blood Updated: 06/02/24 1526 Culture NO GROWTH 1 DAY Blood culture #1 [[id number]] Collected: 06/01/24 1502 Specimen: Blood Updated: 06/02/24 1528 Culture NO GROWTH 1 DAY Assessment/Plan Post-Operative Day: 2 Days Post-Op Status post- Procedure(s): INCISION DRAINAGE RIGHT UPPER EXTREMITY/ ANTIBIOTIC BEADS/ PARTIAL EXCISION HUMERAL BONE (Right) - Wound Class: Dirty or Infected REMOVAL HARDWARE UPPER EXTREMITY (Right) - Wound Class: Dirty or Infected PLAN Bone health with calcium and vit D supplementation as able PT/OT WBAT RUE- avoid heavy lifting/pushing/pulling/carrying ROM RUE Sling prn Daily dry dressing RUE incision Abx per ID service- cultures pending- now positive for rare staph aureus- currently on cefepime, vanco, flagyl - plan for 6 weeks IV abx Leukocytosis improving DVT prophylaxis- lovenox while inpt- no need for prophylaxis upon discharge Pain well controlled Dispo planning home with home care when abx plan finalized Tammy Nichols PA-C LOS: 3 days JOSE ENRIQUE Pérez 06/03/24 1008 Cosigned by John Vee MD at 06/03/2024 1:24 PM EST Orthopedic Progress Note Subjective Patient Lying in bed supine comfortably. He denies fever or chills. Objective BP 116/71 Pulse 80 Temp 36.7 C (98.1 F) (Oral) Resp 14 Ht 192.9 cm (6' 3.95 ) Wt 102.2 kg (225 lb 5 oz) SpO2 95% BMI 27.47 kg/m O2 Device: None (Room air) General: alert, appears stated age, and cooperative Neurovascular: Sensation grossly intact to axillary, median, radial and ulnar nerves RUE. Motor function intact for median, radial, ulnar, AIN, and PIN nerves right upper extremity. 2+ radial pulse present right upper extremity. Extremity Exam: Surgical incision / dressing c/d/i and without surrounding erythema or drainage. Compartments soft and compressible. LABS Lab Results Component Value Date WBC 21.5 (H) 06/02/2024 HGB 12.9 (L) 06/02/2024 HCT 38.9 (L) 06/02/2024 MCV 80 06/02/2024 PLT 403 06/02/2024 Lab Results Component Value Date CRP 4.1 (H) 05/31/2024 Lab Results Component Value Date SEDRATE 41 (H) 05/31/2024 Lab Results Component Value Date GLU 202 (H) 06/02/2024 CALCIUM 8.9 06/02/2024 K 4.0 06/02/2024 CO2 25 06/02/2024 BUN 20 06/02/2024 CREATININE 0.92 06/02/2024 Microbiology Results Procedure Component Value Units Date/Time Anaerobic culture [[id number]] Collected: 06/01/241742 Specimen: Tissue from Other Updated: 06/02/24626 Specimen Notes SPECIMEN D Culture CULTURE IN PROGRESS Fungal culture includes fungal smear [[id number]] Collected: 06/01/241742 Specimen: Tissue from Other Updated: 06/02/24 0939 Specimen Notes SPECIMEN D Fungal smear TEST NOT PERFORMED Culture PENDING Bone culture [[id number]] Collected: 06/01/241742 Specimen: Bone Updated: 06/02/2426 Specimen Notes SPECIMEN D Culture CULTURE IN PROGRESS Anaerobic culture [[id number]] Collected: 06/01/241711 Specimen: Tissue from Other Updated: 06/02/24 0636 Specimen Notes SPECIMEN C Culture CULTURE IN PROGRESS Fungal culture includes fungal smear [[id number]] Collected: 06/01/241711 Specimen: Tissue from Other Updated: 06/02/24 0950 Specimen Notes SPECIMEN C Fungal smear -- NO FUNGAL ELEMENTS SEEN ON DIRECT SMEAR Culture PENDING Tissue culture includes gram stain [[id number]] Collected: 06/01/241711 Specimen: Tissue from Other Updated: 06/01/24 2234 Specimen Notes SPECIMEN C Gram Stain Result 1 to 9 WHITE BLOOD CELLS/LPF 0 SQUAMOUS EPITHELIAL CELLS/LPF NO ORGANISMS SEEN Culture PENDING Anaerobic culture [[id number]] Collected: 06/01/241641 Specimen: Tissue from Other Updated: 06/02/24 0636 Specimen Notes SPECIMEN B Culture CULTURE IN PROGRESS Fungal culture includes fungal smear [[id number]] Collected: 06/01/241641 Specimen: Tissue from Other Updated: 06/02/24 0950 Specimen Notes SPECIMEN B Fungal smear -- NO FUNGAL ELEMENTS SEEN ON DIRECT SMEAR Culture PENDING Tissue culture includes gram stain [[id number]] Collected: 06/01/241641 Specimen: Tissue from Other Updated: 06/01/245 Specimen Notes SPECIMEN B Gram Stain Result 1 to 9 WHITE BLOOD CELLS/LPF 0 SQUAMOUS EPITHELIAL CELLS/LPF NO ORGANISMS SEEN Culture PENDING Anaerobic culture [[id number]] Collected: 06/01/24 1640 Specimen: Tissue from Other Updated: 06/02/24 0636 Specimen Notes SPECIMEN A Culture CULTURE IN PROGRESS Fungal culture includes fungal smear [[id number]] Collected: 06/01/24 1640 Specimen: Tissue from Other Updated: 06/02/24 0950 Specimen Notes SPECIMEN A Fungal smear -- NO FUNGAL ELEMENTS SEEN ON DIRECT SMEAR Culture PENDING Aspirate culture includes gram stain [[id number]] Collected: 06/01/24 1640 Specimen: Aspirate Atr Updated: 06/02/24 1156 Specimen Notes SPECIMEN A Gram Stain Result 10 to 24 WHITE BLOOD CELLS/LPF 0 SQUAMOUS EPITHELIAL CELLS/LPF NO ORGANISMS SEEN Culture CULTURE IN PROGRESS Blood culture #2 [[id number]] Collected: 06/01/24 1510 Specimen: Blood Updated: 06/02/24 0326 Culture NO GROWTH <24 HRS Blood culture #1 [[id number]] Collected: 06/01/24 1502 Specimen: Blood Updated: 06/02/24 0328 Culture NO GROWTH <24 HRS Assessment/Plan Post-Operative Day: 1 Day Post-Op Status post- Procedure(s): INCISION DRAINAGE RIGHT UPPER EXTREMITY/ ANTIBIOTIC BEADS/ PARTIAL EXCISION HUMERAL BONE (Right) - Wound Class: Dirty or Infected REMOVAL HARDWARE UPPER EXTREMITY (Right) - Wound Class: Dirty or Infected PLAN Weightbearing status - weightbearing as tolerated to the right upper extremity however the patient should avoid any heavy lifting, pushing, pulling, or carrying. Okay to perform range of motion as tolerated. Sling as needed for comfort. All surgical cultures including bone cultures and pathology are pending at this time. Antibiotics per Infectious Disease. Patient currently on cefepime, vancomycin, and Flagyl. Ice/elevation PT/OT DVT prophylaxis - Lovenox while inpatient, no plans for DVT prophylaxis upon discharge Pain well controlled Bone health with calcium and vit D supplementation as able Dispo planning - pending antibiotic plan Cecily Haskins PA-C LOS: 2 days Cecily Haskins PA-C 06/02/24 1438 Cosigned by Villa Tapia MD at 06/05/2024 7:00 AM EST [facility] - Daily Progress Note Sergio Hernandez Admission date/time 05/31/2024 10:05 PM Today's Date and Time: 06/02/2024, 11:06 AM Impression : Leukocytosis Right upper extremity infection with reported abscess Reported History of right shoulder superior labrum anterior to posterior repair complicated with osteomyelitis in 2020 treated by [facility] Electrolyte imbalance History of hypertension History of dyslipidemia History of nicotine/tobacco use Recommendations: May 01 Procedure(s) Performed: Irrigation and debridement right arm abscess shoulder, CPT 58422 Removal of deep implants right arm, CPT 99344 Insertion antibiotic cement beads, CPT 56295 Partial excision humerus for treatment of osteomyelitis, CPT 26908 Awaiting cultures Patient has tolerated cephalosporins as per the ID pharmacy Change aztreonam to cefepime Continue vanco and Flagyl Follow-up WBC platelets creatinine LFTs Vanco level Supportive care Likely need 6 weeks of IV antibiotic FOLLOW UP/chief complaints Right upper extremity infection Interval History: Right arm pain No cough shortness of breath, no vomiting or diarrhea, no new rash On antibiotic ROS: Negative except as above Social History: Social History Socioeconomic History Marital status: Spouse name: Not on file Number of children: Not on file Years of education: Not on file Highest education level: Not on file Occupational History Not on file Tobacco Use Smoking status: Every Day Current packs/day: 1.00 Average packs/day: 1 pack/day for 29.0 years (29.0 ttl pk-yrs) Types: Cigarettes Start date: 06/01/1995 Smokeless tobacco: Not on file Substance and Sexual Activity Alcohol use: Yes Comment: rare months ago Drug use: Yes Types: Marijuana Sexual activity: Defer Other Topics Concern Not on file Social History Narrative Not on file Social Drivers of Health Financial Resource Strain: Not on file Food Insecurity: No Food Insecurity (06/01/2024) Hunger Screening Food Insecurity - Worry: Never True Food Insecurity - Inability: Never True Transportation Needs: No Transportation Needs (06/01/2024) PRAPARE - Transportation Lack of Transportation (Medical): No Lack of Transportation (Non-Medical): No Physical Activity: Not on file Stress: Not on file Social Connections: Not on file Interpersonal Safety: Patient Declined (06/01/2024) Humiliation, Afraid, Rape, and Kick questionnaire Fear of Current or Ex-Partner: Patient declined Emotionally Abused: Patient declined Physically Abused: Patient declined Sexually Abused: Patient declined Housing Instability: Low Risk (06/01/2024) Housing Instability Housing Instability: No Family History: Family History Problem Relation Age of Onset Hypertension Father Arthritis Father Physical Examination : Vitals: 06/01/24 2340 06/02/24 0500 06/02/24 0542 06/02/24 0905 BP: 119/63 120/69 112/66 Pulse: 91 73 72 Resp: 14 15 12 Temp: 36.4 C (97.6 F) 36.8 C (98.2 F) 37 C (98.6 F) TempSrc: Oral Oral Oral SpO2: 96% 93% 94% Weight: 102.2 kg (225 lb 5 oz) Height: Temperature Range: Temp: 37 C (98.6 F) Temp Av.4 C (97.6 F) Min: 36 C (96.8 F) Max: 37 C (98.6 F) General Appearance: Awake, alert, and in no apparent distress Pulmonary/Chest: No accessory muscle use Abdomen: soft, nondistended Extremities: arm dressing Skin:no unusual rash LITHOSTRIPPER follow-commands Laboratory data: I have independently reviewed the following labs: Results from last 7 days Lab Units 06/02/24 0629 05/31/24 2347 WBC X10E9/L 21.5* 13.0* HEMOGLOBIN g/dL 12.9* 13.6 HEMATOCRIT % 38.9* 41.2 PLATELETS X10E9/L 403 374 Results from last 7 days Lab Units 06/02/24 0629 06/01/24 1236 05/31/24 2347 POTASSIUM mmol/L 4.0 3.6 2.9* CHLORIDE mmol/L 105 -- 98 CO2 mmol/L 25 -- 27 BUN mg/dL 20 -- 9 CREATININE mg/dL 0.92 -- 0.78 EGFR (CKD-EPI)NON-RACE DEPENDENT ml/min/1.73sq.m >90 -- >90 CALCIUM mg/dL 8.9 -- 8.7 Invalid input(s): BILITOT , LABALBU Lab Results Component Value Date CRP 4.1 (H) 05/31/2024 Lab Results Component Value Date SEDRATE 41 (H) 05/31/2024 Cultures: Microbiology Results Procedure Component Value Units Date/Time Anaerobic culture [[id number]] Collected: 06/01/241742 Specimen: Tissue from Other Updated: 06/02/2427 Specimen Notes SPECIMEN D Culture CULTURE IN PROGRESS Fungal culture includes fungal smear [[id number]] Collected: 06/01/241742 Specimen: Tissue from Other Updated: 06/02/24 0939 Specimen Notes SPECIMEN D Fungal smear TEST NOT PERFORMED Culture PENDING Bone culture [[id number]] Collected: 06/01/241742 Specimen: Bone Updated: 06/02/2426 Specimen Notes SPECIMEN D Culture CULTURE IN PROGRESS Anaerobic culture [[id number]] Collected: 06/01/241711 Specimen: Tissue from Other Updated: 06/02/24 0636 Specimen Notes SPECIMEN C Culture CULTURE IN PROGRESS Fungal culture includes fungal smear [[id number]] Collected: 06/01/241711 Specimen: Tissue from Other Updated: 06/02/24 0950 Specimen Notes SPECIMEN C Fungal smear -- NO FUNGAL ELEMENTS SEEN ON DIRECT SMEAR Culture PENDING Tissue culture includes gram stain [[id number]] Collected: 06/01/241711 Specimen: Tissue from Other Updated: 06/01/24 2234 Specimen Notes SPECIMEN C Gram Stain Result 1 to 9 WHITE BLOOD CELLS/LPF 0 SQUAMOUS EPITHELIAL CELLS/LPF NO ORGANISMS SEEN Culture PENDING Anaerobic culture [[id number]] Collected: 06/01/24 1642 Specimen: Tissue from Other Updated: 06/02/24 0636 Specimen Notes SPECIMEN B Culture CULTURE IN PROGRESS Fungal culture includes fungal smear [[id number]] Collected: 06/01/24 1642 Specimen: Tissue from Other Updated: 06/02/24 0950 Specimen Notes SPECIMEN B Fungal smear -- NO FUNGAL ELEMENTS SEEN ON DIRECT SMEAR Culture PENDING Tissue culture includes gram stain [[id number]] Collected: 06/01/24 164 Specimen: Tissue from Other Updated: 06/01/24 2235 Specimen Notes SPECIMEN B Gram Stain Result 1 to 9 WHITE BLOOD CELLS/LPF 0 SQUAMOUS EPITHELIAL CELLS/LPF NO ORGANISMS SEEN Culture PENDING Anaerobic culture [[id number]] Collected: 06/01/24 1640 Specimen: Tissue from Other Updated: 06/02/24 0636 Specimen Notes SPECIMEN A Culture CULTURE IN PROGRESS Fungal culture includes fungal smear [[id number]] Collected: 06/01/24 1640 Specimen: Tissue from Other Updated: 06/02/24 0950 Specimen Notes SPECIMEN A Fungal smear -- NO FUNGAL ELEMENTS SEEN ON DIRECT SMEAR Culture PENDING Aspirate culture includes gram stain [[id number]] Collected: 06/01/24 1640 Specimen: Aspirate Atr Updated: 06/02/24 0613 Specimen Notes SPECIMEN A Gram Stain Result 10 to 24 WHITE BLOOD CELLS/LPF 0 SQUAMOUS EPITHELIAL CELLS/LPF NO ORGANISMS SEEN Culture NO GROWTH <24 HRS Blood culture #2 [[id number]] Collected: 06/01/24 1510 Specimen: Blood Updated: 06/02/24 0326 Culture NO GROWTH <24 HRS Blood culture #1 [[id number]] Collected: 06/01/24 1502 Specimen: Blood Updated: 06/02/24 0328 Culture NO GROWTH <24 HRS Imaging Studies: X-ray shoulder right 1 view Result Date: 06/01/2024 XR SHOULDER RT 1 VW INDICATION: Hardware removal, shoulder pain FINDINGS: Intraoperative fluoroscopy for hardware removal. No radiologist present during the examination. Reference Air Kerma = 0.99 mGy Fluoroscopy time: 11 seconds Saved images: 2 IMPRESSION: Intraoperative fluoroscopy provided as above. See operative report for additional details. Finalized by Hesham Cormier on 06/01/2024 9:10 PM X-ray shoulder right minimum 2 views Result Date: 06/01/2024 XR SHOULDER RT MIN 2 VWS HISTORY: post op. Arm pain. COMPARISON: none IMPRESSION: Sequelae of biceps tenodesis, remove hardware, placement of radiopaque beads. Expected soft tissue emphysema. Finalized by Vernon Mendiola MD on 06/01/2024 8:37 PM X-ray shoulder right minimum 2 views Result Date: 06/01/2024 XR SHOULDER RT MIN 2 VWS IMPRESSION: Clinical Information: eval right shoulder pain: AP, Grashey and Scap Y views Comparison: None. * No fracture. No dislocation. Mild degenerative changes. Prior biceps tenodesis. Finalized by Emerson Buchanan MD on 06/01/2024 7:00 AM Medications: acetaminophen, 1,000 mg, oral, Q8H atorvastatin, 10 mg, oral, Daily calcium citrate, 400 mg, oral, TID with meals cefepime (MAXIPIME) IV, 2,000 mg, intravenous, Once FOLLOWED BY [START ON 06/03/2024] cefepime (MAXIPIME) IV, 2,000 mg, intravenous, Q8H cholecalciferol (vitamin D3), 2,000 Units, oral, Daily enoxaparin (LOVENOX) injection, 40 mg, subcutaneous, Daily hydroCHLOROthiazide, 25 mg, oral, Daily metroNIDAZOLE, 500 mg, oral, Q8H KEARA nicotine, 1 patch, transdermal, Daily pantoprazole, 40 mg, oral, Daily sodium chloride, 3 mL, intravenous, Q12H KEARA [COMPLETED] vancomycin, 1,000 mg/kg, intravenous, Once FOLLOWED BY vancomycin, 15 mg/kg, intravenous, Q12H Thank you for allowing us to participate in the care of this patient. Please call with questions. Kari Diana MD Perfect Serve messagin This note was completed using a voice cavalry officer system. Every effort was made to ensure accuracy. However, inadvertent computerized cavalry officer errors may be present. Images from the original note were not included. [facility] Progress Note 06/02/2024 Patient Name: Sergio Hernandez : 1980 Hospital Day: 3 SUBJECTIVE Follow-up for RUE SSTI/abscess/osteomyelitis. No overnight events. Afebrile. Postoperative day 1. Pain is adequately controlled. Denies dyspnea, chest discomfort, rash or leg swelling. No acute complaints today. OBJECTIVE Vital Signs: Temp: [36 C (96.8 F)-36.8 C (98.2 F)] 36.8 C (98.2 F) Pulse: [64-91] 73 Resp: [10-23] 15 BP: (118-137)/(63-94) 120/69 SpO2: [87 %-99 %] 93 % O2 Device: None (Room air) O2 Flow Rate (L/min): [3 L/min-6 L/min] 3 L/min Weight: Body mass index is 27.47 kg/m . Admission weight: 105.7 kg (233 lb) Wt Readings from Last 3 Encounters: 06/02/24 102.2 kg (225 lb 5 oz) Input/Output: Intake/Output Summary (Last 24 hours) at 06/02/2024 0731 Last data filed at 06/02/2024 0314 Gross per 24 hour Intake 855 ml Output 230 ml Net 625 ml Physical Exam: Gen: AOx3, NAD, non-toxic appearing. HEENT/Neck: Sclera anicteric. Conjunctivae normal. OP clear, MMM. Neck supple. No JVD. CV: RRR, no m/r/g. Radial/DP/PT pulses 2+ b/l. No carotid bruits auscultated. Resp/Chest: Chest wall non-tender to palpation. Symmetric chest expansion. CTAB w/o w/r/r. Abd: Abdomen soft, NT/ND, normoactive BSx4, no hepatosplenomegaly Extr: Right upper extremity in sling, dressed, clean/dry/intact. Neurovascularly intact. No bilateral lower extremity peripheral edema. Skin: Warm, dry, no exanthem or lesions visualized. Neuro/Psych: No gross neurologic motor or sensory deficits. Appropriate mood and affect. Labs/Imaging: Recent Results (from the past 24 hours) Potassium Collection Time: 06/01/24 12:36 PM Result Value Ref Range Potassium, Bld 3.6 3.5 - 5.0 mmol/L Blood culture #1 Collection Time: 06/01/24 3:02 PM Specimen: Blood Result Value Ref Range Culture NO GROWTH <24 HRS Blood culture #2 Collection Time: 06/01/24 3:10 PM Specimen: Blood Result Value Ref Range Culture NO GROWTH <24 HRS Anaerobic culture Collection Time: 06/01/24 4:40 PM Specimen: Other; Tissue RIGHT~ARM~ABSCESS Result Value Ref Range Specimen Notes SPECIMEN A Culture CULTURE IN PROGRESS Aspirate culture includes gram stain Collection Time: 06/01/24 4:40 PM Specimen: Aspirate Atr RIGHT~ARM~ABSCESS Result Value Ref Range Specimen Notes SPECIMEN A Gram Stain Result 10 to 24 WHITE BLOOD CELLS/LPF Gram Stain Result 0 SQUAMOUS EPITHELIAL CELLS/LPF Gram Stain Result NO ORGANISMS SEEN Culture NO GROWTH <24 HRS Anaerobic culture Collection Time: 06/01/24 4:42 PM Specimen: Other; Tissue RIGHT~ARM Result Value Ref Range Specimen Notes SPECIMEN B Culture CULTURE IN PROGRESS Tissue culture includes gram stain Collection Time: 06/01/24 4:42 PM Specimen: Other; Tissue RIGHT~ARM Result Value Ref Range Specimen Notes SPECIMEN B Gram Stain Result 1 to 9 WHITE BLOOD CELLS/LPF Gram Stain Result 0 SQUAMOUS EPITHELIAL CELLS/LPF Gram Stain Result NO ORGANISMS SEEN Culture PENDING Anaerobic culture Collection Time: 06/01/24 5:12 PM Specimen: Other; Tissue RIGHT~ANTERIOR~HUMERUS Result Value Ref Range Specimen Notes SPECIMEN C Culture CULTURE IN PROGRESS Tissue culture includes gram stain Collection Time: 06/01/24 5:12 PM Specimen: Other; Tissue RIGHT~ANTERIOR~HUMERUS Result Value Ref Range Specimen Notes SPECIMEN C Gram Stain Result 1 to 9 WHITE BLOOD CELLS/LPF Gram Stain Result 0 SQUAMOUS EPITHELIAL CELLS/LPF Gram Stain Result NO ORGANISMS SEEN Culture PENDING Anaerobic culture Collection Time: 06/01/24 5:43 PM Specimen: Other; Tissue RIGHT~HUMERUS Result Value Ref Range Specimen Notes SPECIMEN D Culture CULTURE IN PROGRESS Bone culture Collection Time: 06/01/24 5:43 PM Specimen: Bone RIGHT~HUMERUS Result Value Ref Range Specimen Notes SPECIMEN D Culture CULTURE IN PROGRESS All available laboratory, imaging, and microbiology data has been personally reviewed in detail, and accessible in full per EMR. Medications: acetaminophen, 1,000 mg, oral, Q8H atorvastatin, 10 mg, oral, Daily aztreonam, 1,000 mg, intravenous, Q8H calcium citrate, 400 mg, oral, TID with meals cholecalciferol (vitamin D3), 2,000 Units, oral, Daily hydroCHLOROthiazide, 25 mg, oral, Daily metroNIDAZOLE, 500 mg, oral, Q8H KEARA nicotine, 1 patch, transdermal, Daily pantoprazole, 40 mg, oral, Daily sodium chloride, 3 mL, intravenous, Q12H KEARA [COMPLETED] vancomycin, 1,000 mg/kg, intravenous, Once FOLLOWED BY vancomycin, 15 mg/kg, intravenous, Q12H ASSESSMENT Right upper extremity skin/soft tissue infection with clinical concern for abscess formation, possible recurrent osteomyelitis; status post operative I and D right upper arm abscess, removal of deep implants, insertion of antibiotic cement beads, and partial excision of the humerus 06/01/2024 History of right shoulder superior labrum anterior to posterior repair complicated by osteomyelitis in 2020 Primary hypertension, controlled Dyslipidemia Nicotine dependence Hypokalemia, resolved Hypovitaminosis D PLAN -Appreciate Ortho input -F/u Cx data including operative cultures -local wound care -per transfer record, received vancomycin and ceftriaxone antimicrobial coverage prior to transfer; -ID service consulted on admission; appreciate input, currently on broad-spectrum coverage including vancomycin/aztreonam (possible penicillin allergy)/Flagyl -continue home HCTZ, statin -Vitamin D3, calcium repletion DVT prophylaxis: Start LMWH today Diet: Regular Code status: Full Discharge planning: To be determined pending clinical course, anticipate home with finalized antibiotic regimen Pharmacokinetic Consult - Vancomycin Dosing Sergio Hernandez is a 43 y.o. male for whom pharmacy has been consulted for vancomycin dosing for osteo with concerns for bacteremia, blood cultures in process . Today is day 1 of vancomycin therapy. Relevant clinical data and objective history reviewed: Allergies: Penicillin Results from last 3 days Lab Units 05/31/24 2347 CREATININE mg/dL 0.78 BUN mg/dL 9 WBC X10E9/L 13.0* HEMOGLOBIN g/dL 13.6 HEMATOCRIT % 41.2 MCV fL 79* Temp Readings from Last 3 Encounters: 06/01/24 36 C (96.8 F) Renal Parameters: I/O last 3 completed shifts: In: 500 [I.V.:500] Out: - Calculated CrCl (IBW) 146 mL/min Culture Data: Microbiology Results Procedure Component Value Units Date/Time Anaerobic culture [[id number]] Collected: 06/01/241742 Specimen: Tissue from Other Updated: 06/01/241958 Fungal culture includes fungal smear [[id number]] Collected: 06/01/241742 Specimen: Tissue from Other Updated: 06/01/241958 Anaerobic culture [[id number]] Collected: 06/01/241711 Specimen: Tissue from Other Updated: 06/01/241913 Fungal culture includes fungal smear [[id number]] Collected: 06/01/241711 Specimen: Tissue from Other Updated: 06/01/241913 Tissue culture includes gram stain [[id number]] Collected: 06/01/241711 Specimen: Tissue from Other Updated: 06/01/241912 Anaerobic culture [[id number]] Collected: 06/01/241641 Specimen: Tissue from Other Updated: 06/01/241911 Fungal culture includes fungal smear [[id number]] Collected: 06/01/241641 Specimen: Tissue from Other Updated: 06/01/241911 Tissue culture includes gram stain [[id number]] Collected: 06/01/24 164 Specimen: Tissue from Other Updated: 06/01/241911 Anaerobic culture [[id number]] Collected: 06/01/24 1640 Specimen: Tissue from Other Updated: 06/01/242002 Fungal culture includes fungal smear [[id number]] Collected: 06/01/24 1640 Specimen: Tissue from Other Updated: 06/01/24 1908 Blood culture #2 [[id number]] Resulted: 06/01/24 151 Specimen: Blood, Peripheral Draw Updated: 06/01/24 151 Blood culture #1 [[id number]] Resulted: 06/01/24 1503 Specimen: Blood, Peripheral Draw Updated: 06/01/24 1504 Concurrent Antibiotics: Anti-infectives (From admission, onward) Start Dose/Rate Route Frequency Ordered Stop 06/02/24 0515 vancomycin (VANCOCIN) 1,500 mg in sodium chloride 0.9 % 500 mL IVPB-MBP Placed in Followed by Linked Group 15 mg/kg 105.7 kg 333 mL/hr over 90 Minutes intravenous Every 12 hours 06/01/24 1700 06/01/24 1700 vancomycin (VANCOCIN) IVPB 2000 mg in 500 mL sodium chloride 0.9% (CMPD premix) Placed in Followed by Linked Group 20 mg/kg 105.7 kg 270 mL/hr over 120 Minutes intravenous Once 06/01/24 1700 06/01/24 1435 aztreonam (AZACTAM) 1,000 mg in sodium chloride 0.9 % 50 mL IVPB-MBP 1,000 mg 100 mL/hr over 30 Minutes intravenous Every 8 hours 06/01/24 1432 06/01/24 1435 metroNIDAZOLE (FLAGYL) tablet 500 mg 500 mg oral Every 8 hours scheduled 06/01/24 1432 Recent Vancomycin Serum Concentrations: Indication: osteomyelitis Goal Vancomycin Range: AUC 400-600 mcg*hr/mL Assessment . Patient is being initiated on vancomycin therapy Renal function assessment: Stable No vancomycin level as been collected for this patient Patient-specific risk-factors for nephrotoxicity include: concomitant nephrotoxic medications and dehydration. Plan Will initiate vancomycin loading dose of 1000 mg IV x 1 dose as patient just had a 1000 mg injection during procedure at 1700 today to get to a total loading dose of 2000 mg, followed by a maintenance dose of vancomycin 1500 mg IV with a dosing interval of every 12 hours Please see electronic record for orders Pharmacy Dosing Service to follow serum concentrations and adjust as needed based on the patient's clinical status. Thank you for consulting. Josey Sanabria PharmD Images from the original note were not included. DAILY PROGRESS NOTE: Subjective Sergio Hernandez has no new complaints and no events overnight. I reviewed his presentation and complaints. He states he has had a long history of problems with his right upper extremity since the initial infection. He states he has had the previous surgery and several serial MRIs to evaluate. He has also had follow-up at [facility] to evaluate for possible malignant process that was ruled out. He now presents again complaining of swelling to his right upper extremity and associated pain. Imaging studies from the outside hospital were obtained and personally viewed demonstrating recurrence of an abscess and osseous changes around the biceps tenodesis site. He does not currently complain of any fevers. He does have limited arm range of motion at due to his pain complaints Objective Physical Exam: Vitals: BP 118/75 Pulse 68 Temp 36.5 C (97.7 F) (Oral) Resp 20 Ht 182.9 cm (6') Wt 105.7 kg (233 lb) SpO2 94% BMI 31.60 kg/m General: Well-nourished, Well-developed and Age appropriate LOC: awake and alert Orientation: oriented to person, place, time, and recent events Psych: Pleasant and Cooperative Station: Lying supine on hospital bed Musculoskeletal: RIGHT UPPER EXTREMITY: Skin is intact with a well healed surgical incision over the proximal aspect of his right arm. Arthroscopy portals around his shoulder are also well healed. Localized erythema around the incision anteriorly is present. Tenderness to palpation but no areas of open wounds or expressible drainage. He tolerates gentle internal external rotation. He has pain with flexion extension of his elbow localized to the bicipital pick to her Makenzie major insertional area. He is motor and sensory intact throughout his right upper extremity including median radial ulnar and axillary nerve distribution. 2+ palpable radial pulse with warm well-perfused digits. Intact EPL IP flexion abduction adduction and finger flexion. Labs: Lab Results Component Value Date WBC 13.0 (H) 05/31/2024 HGB 13.6 05/31/2024 HCT 41.2 05/31/2024 MCV 79 (L) 05/31/2024 PLT 374 05/31/2024 Lab Results Component Value Date GLU 107 (H) 05/31/2024 CALCIUM 8.7 05/31/2024 K 3.6 06/01/2024 CO2 27 05/31/2024 BUN 9 05/31/2024 CREATININE 0.78 05/31/2024 No results found for: VITD25 Imaging: Right shoulder CT from the outside hospital and right shoulder radiographs obtained ordered personally were personally viewed. Demonstrate previous biceps tenodesis with button in an appropriate position in the proximal humeral area. CT scan however demonstrates a fluid collection in the subcutaneous tissue just distal to the tenodesis area. Does appear to be tracking proximally but seems to thin down just distal to the area of tenodesis button. There are some osseous changes of the intramedullary canal with a thin cortical rim that is formed within the humerus in the area of the tenodesis button. Unclear if this is postoperative changes from the tenodesis effect verses chronic low-grade indolent infection within the intramedullary canal canal consistent with chronic osteomyelitis. Assessment/Plan Sergio Hernandez is a 43 y.o. 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 Plan for removal of the implants in his much suture material as possible. Discussed that this will also likely result in some removal of the tenodesis tendon and released this portion of the long head unless it has stabilized through other attachment sites. Discussed that we would be difficult to do an adequate debridement and culture and clean the area of humerus without removal of the area of suture and long head of the tendon that is in the intramedullary canal. Discussed the potential limitations and impact of this portion of the procedure. He also anticipate obtaining bone cultures and pathology specimens. Will also anticipate placement of antibiotic beads for local delivery of antibiotics. Surgical consent was reviewed and discussed with the patient. It was signed. Right upper extremity marked and signed as the operative site. Anticipate ID consult for guidance and assistance with antibiotic selection and duration. All questions were addressed and answered. LOS: 1 day Villa Tapia MD Images from the original note were not included. [facility] Progress Note 06/01/2024 Patient Name: Sergio Hernandez : 1980 Hospital Day: 2 SUBJECTIVE Follow-up for SSTI. Admitted overnight. Afebrile, vital signs stable. Continues to complain of chronic stable pain in affected extremity. Neurovascularly intact, denies numbness or tingling or motor weakness. No other new acute complaints today. OBJECTIVE Vital Signs: Temp: [36.5 C (97.7 F)-36.6 C (97.8 F)] 36.5 C (97.7 F) Heart Rate: [64-88] 64 Resp: [16-20] 18 BP: (105-139)/(71-94) 129/83 SpO2: [94 %-97 %] 95 % O2 Device: None (Room air) Weight: There is no height or weight on file to calculate BMI. Admission weight: Wt Readings from Last 3 Encounters: No data found for Wt Input/Output: No intake or output data in the 24 hours ending 06/01/24 0843 Physical Exam: Gen: AOx3, NAD, non-toxic appearing. HEENT/Neck: Sclera anicteric. Conjunctivae normal. OP clear, MMM. Neck supple. No JVD. CV: RRR, no m/r/g. Radial/DP/PT pulses 2+ b/l. No carotid bruits auscultated. Resp/Chest: Chest wall non-tender to palpation. Symmetric chest expansion. CTAB w/o w/r/r. Abd: Abdomen soft, NT/ND, normoactive BSx4, no hepatosplenomegaly Extr: Circumferential erythema about the right upper arm without gross purulence or fluctuance, prior healed surgical scar appreciated on anterolateral arm Skin: Warm, dry, no exanthem or lesions visualized. Neuro/Psych: No gross neurologic motor or sensory deficits. Appropriate mood and affect. Labs/Imaging: Recent Results (from the past 24 hours) CBC auto differential Collection Time: 05/31/24 11:47 PM Result Value Ref Range White Blood Cells 13.0 (H) 4.0 - 11.0 X10E9/L RBC count 5.23 4.10 - 5.70 X10E12/L Hemoglobin 13.6 13.0 - 17.0 g/dL Hematocrit 41.2 39 - 49 % MCV 79 (L) 80 - 100 fL MCH 26.0 (L) 27 - 34 pg MCHC 32.9 32 - 36 g/dL RDW 14.3 11.5 - 15.0 % Platelets 374 150 - 450 X10E9/L MPV 7.6 7 - 12 fL % neutrophils 70.0 % % lymphocytes 19.4 % % monocytes 7.4 % % eosinophils 2.3 % % Basophils 0.9 % Neutrophils Absolute (A) 9.1 (H) 1.5 - 6.6 X10E9/L Lymphocytes Absolute 2.5 1.0 - 3.5 X10E9/L Monocytes Absolute 1.0 (H) 0 - 0.9 X10E9/L Eosinophils Absolute 0.3 0.0 - 0.4 X10E9/L Basophils Absolute 0.1 0.0 - 0.2 X10E9/L Basic Metabolic Panel Collection Time: 05/31/24 11:47 PM Result Value Ref Range Sodium 136 134 - 146 mmol/L Potassium, Bld 2.9 (L) 3.5 - 5.0 mmol/L Chloride 98 98 - 109 mmol/L CO2 27 22 - 32 mmol/L Anion gap 11 5 - 15 mmol/L BUN 9 5 - 23 mg/dL Creatinine 0.78 0.60 - 1.30 mg/dL Glucose 107 (H) 65 - 99 mg/dL Calcium 8.7 8.5 - 10.5 mg/dL eGFR (CKD-EPI)non-race dependent >90 >59 ml/min/1.73sq.m Protime & INR Collection Time: 05/31/24 11:47 PM Result Value Ref Range Protime 12.5 9.8 - 13.2 sec Inr 1.1 0.8 - 1.1 APTT Collection Time: 05/31/24 11:47 PM Result Value Ref Range aPTT 31 26 - 37 sec Erythrocyte Sedimentation Rate (ESR) Collection Time: 05/31/24 11:47 PM Result Value Ref Range Sed Rate 41 (H) 0 - 15 mm/h C-reactive protein Collection Time: 05/31/24 11:47 PM Result Value Ref Range CRP 4.1 (H) 0.000 - 0.744 mg/dL All available laboratory, imaging, and microbiology data has been personally reviewed in detail, and accessible in full per EMR. Medications: nicotine, 1 patch, transdermal, Daily sodium chloride, 3 mL, intravenous, Q12H KEARA ASSESSMENT Right upper extremity skin/soft tissue infection with clinical concern for abscess formation, possible recurrent osteomyelitis History of right shoulder superior labrum anterior to posterior repair complicated by osteomyelitis in 2020 Primary hypertension Dyslipidemia Nicotine dependence Hypokalemia PLAN -Appreciate Ortho input; Plan for OR on 06/01/24 for irrigation debridement of right upper extremity, possible insertion of antibiotic beads, and possible hardware removal -F/u Cx data including operative cultures -per transfer record, received vancomycin and ceftriaxone antimicrobial coverage prior to transfer; given lack of florid sepsis, agree that is reasonable to hold further antibiotics until surgical cultures obtained in very near term -ID service consulted on admission -replete hypokalemia, orders written pre-operatively for IV/PO replacement -Medication reconciliation to be completed once verified; background medical comorbidities appear stable/quiescent DVT prophylaxis: Anticipate starting pharmacologic prophylaxis postoperatively Diet: NPO preoperatively Code status: Full Discharge planning: To be determined pending clinical course, anticipate home documented in this encounter [facility] 06-05-2024 Progress note Formatting of t his note might be different from the original. DISCHARGE PLANNING NOTE Referral sent to multiple facilities or agencies due to patient insurance type/difficult placement/patient is without preference. [facility] 06-05-2024 Progress note Formatting of t his note might be different from the original. DISCHARGE PLANNING NOTE Case discussed in daily transition rounds and chart reviewed by CN. Barriers to discharge include Home care acceptance, home antibiotic delivery. Discharge Plan remains: Home with home care for RN with home antibiotics. CN tasked [facility] for [facility] per patient request. CN will continue to follow and is available should any further needs arise. - Shoshana Norris RN 06/05/24 10:23 AM CN sent CRF to [address] [facility] Confirmed plan for discharge today. - Shoshana Norris RN 06/05/24 3:30 PM [facility] 06-05-2024 Plan of care note Problem: Pain Goal: Patient goal is pain score less than 4, able to rest, and participant in treatment plan as appropriate Description: INTERVENTIONS: 1. Encourage patient or legal bilingual sales representative to report early pain and ask for pain medicine when needed 2. Assess pain using appropriate pain scale and include the scale used when documenting 3. Administer analgesics based on type and severity of pain and evaluate response within appropriate time frame 4. Implement non-pharmacological measures as appropriate and evaluate response 5. Consider cultural and social influences on pain and pain management 6. Notify LIP if interventions ineffective or patient reports new pain 7. Monitor vital signs including pulse ox, end-tidal CO2 based on pain intervention 8. Reassess pain per policy 9. Teach patient or legal bilingual sales representative interventions for comforting Outcome: Progressing Note: Evaluation of progress towards goal: Patient's pain is being effectively managed using PRN and scheduled pain medications. Problem: Safety Goal: Patient will be injury free during hospitalization Description: INTERVENTIONS: 1. Assess patient's risk for falls and implement fall prevention plan of care per policy 2. Provide and maintain a safe environment 3. Proper use of double Identifiers 4. Medication administration using the 5 rights 5. Hand hygiene 6. Specimens are labeled at the bedside 7. Instruct patient/ patient bilingual sales representative about use of safety devices 8. Include patient/ patient bilingual sales representative in decisions related to safety Outcome: Progressing Note: Evaluation of progress towards goal: Patient has not sustained additional injuries since being admitted. Problem: Infection Goal: Absence of infection during hospitalization Description: Interventions: 1. Assess and monitor for signs and symptoms of infection 2. Monitor lab/diagnostic results 3. Monitor all insertion sites i.e., indwelling lines, tubes and drains 4. Monitor endotracheal (as able) and nasal secretions for changes in amount and color 5. Administer medications as ordered 6. Instruct and encourage patient and family to use good hand hygiene technique 7. Identify and instruct patient/patient bilingual sales representative in use of appropriate isolation precautions for identified infection/symptoms 8. Provide and discuss with patient/patient bilingual sales representative on educational MDRO sheet 9. Encourage and monitor nutritional status daily and consult retail department manager if indicated 10. Implement neutropenic guidelines as needed 11. Review exposure to history of communicable disease and recent travel history on admission 12. Encourage annual influenza vaccine 13. Encourage pneumonia vaccine Outcome: Progressing Note: Evaluation of progress towards goal: Patient's potential tissue infection is being managed using IV antibiotics. Problem: Knowledge Deficit Goal: Patient/patient bilingual sales representative demonstrates understanding of disease process, treatment plan, medications, and discharge instructions Description: INTERVENTIONS 1. Complete learning assessment and assess knowledge base 2. Provide teaching at level of understanding 3. Provide teaching via preferred learning method(s) Outcome: Progressing Note: Evaluation of progress towards goal: Patient understands treatment plan focused on long-term IV therapy following discharge. Problem: Discharge Planning Goal: Discharge to post-acute care, other facility, or home with appropriate resources Description: Patient's goal is: INTERVENTIONS 1. Conduct assessment to determine patient/family and health care team treatment goals, and need for post-acute services based on payer coverage, community resources, and patient preferences, and barriers to discharge 2. Coordinate with Social work, Care Navigation, and Utilization Review to arrange appropriate level of services according to patient's needs based on patient preference and payer coverage in collaboration with the physician and health care team 3. Address psychosocial, clinical, and financial barriers to discharge as identified in assessment in conjunction with the patient/family and health care team 4. Consult appropriate ancillary services (i.e.. PT/OT/ST, etc) as needed 5. Communicate with and update the patient/family, physician, and health care team regarding progress on the discharge plan 6. Identify discharge learning needs (meds, wound care, etc). 7. Arrange for needed discharge transportation as appropriate Outcome: Progressing Note: Evaluation of progress towards goal: Patient will return home upon discharge. Problem: Low Risk Fall Score Description: Toney Fall Score of 0 - 24 or indicated by [facility] Assessment Goal: Patient should be free from fall Description: Interventions: 1. Unity to environment 2. Hourly rounds addressing the 4 P's (Pain, Positioning, Possessions, Potty) 3. Clear area of hazards (spills, clutter, electrical cords, unnecessary equipment) 4. Place equipment (bed & TV controls, call light, phone, urinal) within reach 5. Encourage patient to wear glasses and hearing aides as appropriate 6. Maintain bed in lowest position 7. Lock wheels on bed/wheelchair 8. Provide adequate lighting, including night light 9. Assess need for additional bedding, food/fluids, pain med's prior to sleep/routinely 10. Provide gripper slippers or personal non-skid footwear 11. Teach patient and patient bilingual sales representative to maintain environment for safety and engage in all aspects of fall prevention program Outcome: Progressing Note: Evaluation of progress towards goal: Patient has not fallen during current admission. Problem: Compromised Skin Integrity Description: Use this problem when pressure ulcers are classified as stage I or II. Goal: Incisions, wounds, or drain sites healing without S/S of infection Description: INTERVENTIONS 1. ADMISSION & EVERY SHIFT: Assess and document risk factors for pressure ulcer development utilizing the Rober/Rober Q scale 2. Assess and document skin integrity 3. Assess and document dressing/incision, wound bed, drain sites and surrounding tissue 4. Implement wound care per orders 5. Initiate isolation precautions as appropriate 6. Initiate high risk precautions Outcome: Progressing Note: Evaluation of progress towards goal: Patient's surgical site remains clean and is healing properly. [facility] 06-04-2024 Plan of care note Problem: Pain Goal: Patient goal is pain score less than 4, able to rest, and participant in treatment plan as appropriate Description: INTERVENTIONS: 1. Encourage patient or legal bilingual sales representative to report early pain and ask for pain medicine when needed 2. Assess pain using appropriate pain scale and include the scale used when documenting 3. Administer analgesics based on type and severity of pain and evaluate response within appropriate time frame 4. Implement non-pharmacological measures as appropriate and evaluate response 5. Consider cultural and social influences on pain and pain management 6. Notify LIP if interventions ineffective or patient reports new pain 7. Monitor vital signs including pulse ox, end-tidal CO2 based on pain intervention 8. Reassess pain per policy 9. Teach patient or legal bilingual sales representative interventions for comforting Outcome: Progressing Note: Evaluation of progress towards goal: Pt will report decrease in surgical pain with PRN medications Problem: Safety Goal: Patient will be injury free during hospitalization Description: INTERVENTIONS: 1. Assess patient's risk for falls and implement fall prevention plan of care per policy 2. Provide and maintain a safe environment 3. Proper use of double Identifiers 4. Medication administration using the 5 rights 5. Hand hygiene 6. Specimens are labeled at the bedside 7. Instruct patient/ patient bilingual sales representative about use of safety devices 8. Include patient/ patient bilingual sales representative in decisions related to safety Outcome: Progressing Note: Evaluation of progress towards goal: Pt will remain free from injury Problem: Infection Goal: Absence of infection during hospitalization Description: Interventions: 1. Assess and monitor for signs and symptoms of infection 2. Monitor lab/diagnostic results 3. Monitor all insertion sites i.e., indwelling lines, tubes and drains 4. Monitor endotracheal (as able) and nasal secretions for changes in amount and color 5. Administer medications as ordered 6. Instruct and encourage patient and family to use good hand hygiene technique 7. Identify and instruct patient/patient bilingual sales representative in use of appropriate isolation precautions for identified infection/symptoms 8. Provide and discuss with patient/patient bilingual sales representative on educational MDRO sheet 9. Encourage and monitor nutritional status daily and consult retail department manager if indicated 10. Implement neutropenic guidelines as needed 11. Review exposure to history of communicable disease and recent travel history on admission 12. Encourage annual influenza vaccine 13. Encourage pneumonia vaccine Outcome: Progressing Note: Evaluation of progress towards goal: Pt's infection will be managed with ordered IV antibiotics Problem: Knowledge Deficit Goal: Patient/patient bilingual sales representative demonstrates understanding of disease process, treatment plan, medications, and discharge instructions Description: INTERVENTIONS 1. Complete learning assessment and assess knowledge base 2. Provide teaching at level of understanding 3. Provide teaching via preferred learning method(s) Outcome: Progressing Note: Evaluation of progress towards goal: Pt will verbalize understanding of new antibiotics and treatment plan for discharge Problem: Discharge Planning Goal: Discharge to post-acute care, other facility, or home with appropriate resources Description: Patient's goal is: INTERVENTIONS 1. Conduct assessment to determine patient/family and health care team treatment goals, and need for post-acute services based on payer coverage, community resources, and patient preferences, and barriers to discharge 2. Coordinate with Social work, Care Navigation, and Utilization Review to arrange appropriate level of services according to patient's needs based on patient preference and payer coverage in collaboration with the physician and health care team 3. Address psychosocial, clinical, and financial barriers to discharge as identified in assessment in conjunction with the patient/family and health care team 4. Consult appropriate ancillary services (i.e.. PT/OT/ST, etc) as needed 5. Communicate with and update the patient/family, physician, and health care team regarding progress on the discharge plan 6. Identify discharge learning needs (meds, wound care, etc). 7. Arrange for needed discharge transportation as appropriate Outcome: Progressing Note: Evaluation of progress towards goal: Pt will discharge home with resources needed for IV antibiotic treatment Problem: Low Risk Fall Score Description: Toney Fall Score of 0 - 24 or indicated by [facility] Assessment Goal: Patient should be free from fall Description: Interventions: 1. Unity to environment 2. Hourly rounds addressing the 4 P's (Pain, Positioning, Possessions, Potty) 3. Clear area of hazards (spills, clutter, electrical cords, unnecessary equipment) 4. Place equipment (bed & TV controls, call light, phone, urinal) within reach 5. Encourage patient to wear glasses and hearing aides as appropriate 6. Maintain bed in lowest position 7. Lock wheels on bed/wheelchair 8. Provide adequate lighting, including night light 9. Assess need for additional bedding, food/fluids, pain med's prior to sleep/routinely 10. Provide gripper slippers or personal non-skid footwear 11. Teach patient and patient bilingual sales representative to maintain environment for safety and engage in all aspects of fall prevention program Outcome: Progressing Note: Evaluation of progress towards goal: Pt will remain free from falls Problem: HH Open Wound Care Description: Care of Open Wound and or post op incision Goal: Skin integrity is maintained or improved Description: INTERVENTIONS 1. Perform initial skin assessment on admission and as needed 2. Turn patient every 2 hours and PRN 3. Relieve pressure to bony prominences 4. Avoid shearing 5. Keep skin clean and dry 6. Alternate a full bath with partial baths for elderly 7. Encourage use of lotion/moisturizer on skin 8. Monitor patient's hygiene practices 9. Obtain wound care consult 10. Collaborate with interdisciplinary team and initiate plans and interventions as needed Outcome: Progressing Note: Evaluation of progress towards goal: Pt will not have any skin breakdown Problem: Compromised Skin Integrity Description: Use this problem when pressure ulcers are classified as stage I or II. Goal: Incisions, wounds, or drain sites healing without S/S of infection Description: INTERVENTIONS 1. ADMISSION & EVERY SHIFT: Assess and document risk factors for pressure ulcer development utilizing the Rober/Rober Q scale 2. Assess and document skin integrity 3. Assess and document dressing/incision, wound bed, drain sites and surrounding tissue 4. Implement wound care per orders 5. Initiate isolation precautions as appropriate 6. Initiate high risk precautions Outcome: Progressing Note: Evaluation of progress towards goal: Pt's incision will continue to heal without signs of infection [facility] 06-04-2024 Plan of care note Problem: Pain Goal: Patient goal is pain score less than 4, able to rest, and participant in treatment plan as appropriate Description: INTERVENTIONS: 1. Encourage patient or legal bilingual sales representative to report early pain and ask for pain medicine when needed 2. Assess pain using appropriate pain scale and include the scale used when documenting 3. Administer analgesics based on type and severity of pain and evaluate response within appropriate time frame 4. Implement non-pharmacological measures as appropriate and evaluate response 5. Consider cultural and social influences on pain and pain management 6. Notify LIP if interventions ineffective or patient reports new pain 7. Monitor vital signs including pulse ox, end-tidal CO2 based on pain intervention 8. Reassess pain per policy 9. Teach patient or legal bilingual sales representative interventions for comforting Outcome: Progressing Note: Evaluation of progress towards goal: Patient's post-surgical pain is being managed using PRN and scheduled pain meds. Problem: Safety Goal: Patient will be injury free during hospitalization Description: INTERVENTIONS: 1. Assess patient's risk for falls and implement fall prevention plan of care per policy 2. Provide and maintain a safe environment 3. Proper use of double Identifiers 4. Medication administration using the 5 rights 5. Hand hygiene 6. Specimens are labeled at the bedside 7. Instruct patient/ patient bilingual sales representative about use of safety devices 8. Include patient/ patient bilingual sales representative in decisions related to safety Outcome: Progressing Note: Evaluation of progress towards goal: Patient has not sustained additional injuries since being admitted. Problem: Infection Goal: Absence of infection during hospitalization Description: Interventions: 1. Assess and monitor for signs and symptoms of infection 2. Monitor lab/diagnostic results 3. Monitor all insertion sites i.e., indwelling lines, tubes and drains 4. Monitor endotracheal (as able) and nasal secretions for changes in amount and color 5. Administer medications as ordered 6. Instruct and encourage patient and family to use good hand hygiene technique 7. Identify and instruct patient/patient bilingual sales representative in use of appropriate isolation precautions for identified infection/symptoms 8. Provide and discuss with patient/patient bilingual sales representative on educational MDRO sheet 9. Encourage and monitor nutritional status daily and consult retail department manager if indicated 10. Implement neutropenic guidelines as needed 11. Review exposure to history of communicable disease and recent travel history on admission 12. Encourage annual influenza vaccine 13. Encourage pneumonia vaccine Outcome: Progressing Note: Evaluation of progress towards goal: Patient's potential infection is being managed using IV vancomycin and cefepime. Problem: Knowledge Deficit Goal: Patient/patient bilingual sales representative demonstrates understanding of disease process, treatment plan, medications, and discharge instructions Description: INTERVENTIONS 1. Complete learning assessment and assess knowledge base 2. Provide teaching at level of understanding 3. Provide teaching via preferred learning method(s) Outcome: Progressing Note: Evaluation of progress towards goal: Patient understands current treatment plan focused on infection treatment following culture finalization. Problem: Discharge Planning Goal: Discharge to post-acute care, other facility, or home with appropriate resources Description: Patient's goal is: INTERVENTIONS 1. Conduct assessment to determine patient/family and health care team treatment goals, and need for post-acute services based on payer coverage, community resources, and patient preferences, and barriers to discharge 2. Coordinate with Social work, Care Navigation, and Utilization Review to arrange appropriate level of services according to patient's needs based on patient preference and payer coverage in collaboration with the physician and health care team 3. Address psychosocial, clinical, and financial barriers to discharge as identified in assessment in conjunction with the patient/family and health care team 4. Consult appropriate ancillary services (i.e.. PT/OT/ST, etc) as needed 5. Communicate with and update the patient/family, physician, and health care team regarding progress on the discharge plan 6. Identify discharge learning needs (meds, wound care, etc). 7. Arrange for needed discharge transportation as appropriate Outcome: Progressing Note: Evaluation of progress towards goal: Patient will return home upon discharge. Problem: Low Risk Fall Score Description: Toney Fall Score of 0 - 24 or indicated by [facility] Assessment Goal: Patient should be free from fall Description: Interventions: 1. Unity to environment 2. Hourly rounds addressing the 4 P's (Pain, Positioning, Possessions, Potty) 3. Clear area of hazards (spills, clutter, electrical cords, unnecessary equipment) 4. Place equipment (bed & TV controls, call light, phone, urinal) within reach 5. Encourage patient to wear glasses and hearing aides as appropriate 6. Maintain bed in lowest position 7. Lock wheels on bed/wheelchair 8. Provide adequate lighting, including night light 9. Assess need for additional bedding, food/fluids, pain med's prior to sleep/routinely 10. Provide gripper slippers or personal non-skid footwear 11. Teach patient and patient bilingual sales representative to maintain environment for safety and engage in all aspects of fall prevention program Outcome: Progressing Note: Evaluation of progress towards goal: Patient has not fallen during current admission. Problem: Compromised Skin Integrity Description: Use this problem when pressure ulcers are classified as stage I or II. Goal: Incisions, wounds, or drain sites healing without S/S of infection Description: INTERVENTIONS 1. ADMISSION & EVERY SHIFT: Assess and document risk factors for pressure ulcer development utilizing the Rober/Rober Q scale 2. Assess and document skin integrity 3. Assess and document dressing/incision, wound bed, drain sites and surrounding tissue 4. Implement wound care per orders 5. Initiate isolation precautions as appropriate 6. Initiate high risk precautions Outcome: Progressing Note: Evaluation of progress towards goal: Patient's wound is being treated with dressing changes as needed. [facility] Plan of care note Problem: Pain Goal: Patient goal is pain score less than 4, able to rest, and participant in treatment plan as appropriate Description: INTERVENTIONS: 1. Encourage patient or legal bilingual sales representative to report early pain and ask for pain medicine when needed 2. Assess pain using appropriate pain scale and include the scale used when documenting 3. Administer analgesics based on type and severity of pain and evaluate response within appropriate time frame 4. Implement non-pharmacological measures as appropriate and evaluate response 5. Consider cultural and social influences on pain and pain management 6. Notify LIP if interventions ineffective or patient reports new pain 7. Monitor vital signs including pulse ox, end-tidal CO2 based on pain intervention 8. Reassess pain per policy 9. Teach patient or legal bilingual sales representative interventions for comforting Outcome: Progressing Note: Evaluation of progress towards goal: Pt denies pain or states pain is controlled Problem: Pain Goal: Patient goal is pain score less than 4, able to rest, and participant in treatment plan as appropriate Description: INTERVENTIONS: 1. Encourage patient or legal bilingual sales representative to report early pain and ask for pain medicine when needed 2. Assess pain using appropriate pain scale and include the scale used when documenting 3. Administer analgesics based on type and severity of pain and evaluate response within appropriate time frame 4. Implement non-pharmacological measures as appropriate and evaluate response 5. Consider cultural and social influences on pain and pain management 6. Notify LIP if interventions ineffective or patient reports new pain 7. Monitor vital signs including pulse ox, end-tidal CO2 based on pain intervention 8. Reassess pain per policy 9. Teach patient or legal bilingual sales representative interventions for comforting Outcome: Progressing Note: Evaluation of progress towards goal: Pt denies pain or states pain is controlled [facility] [[email or web address]] [employer] [facility] 06-03-2024 Plan of care note Problem: Pain Goal: Patient goal is pain score less than 4, able to rest, and participant in treatment plan as appropriate Description: INTERVENTIONS: 1. Encourage patient or legal bilingual sales representative to report early pain and ask for pain medicine when needed 2. Assess pain using appropriate pain scale and include the scale used when documenting 3. Administer analgesics based on type and severity of pain and evaluate response within appropriate time frame 4. Implement non-pharmacological measures as appropriate and evaluate response 5. Consider cultural and social influences on pain and pain management 6. Notify LIP if interventions ineffective or patient reports new pain 7. Monitor vital signs including pulse ox, end-tidal CO2 based on pain intervention 8. Reassess pain per policy 9. Teach patient or legal bilingual sales representative interventions for comforting Outcome: Progressing Note: Evaluation of progress towards goal: Patient's post-surgical pain is being managed using PRN and scheduled pain meds. Problem: Safety Goal: Patient will be injury free during hospitalization Description: INTERVENTIONS: 1. Assess patient's risk for falls and implement fall prevention plan of care per policy 2. Provide and maintain a safe environment 3. Proper use of double Identifiers 4. Medication administration using the 5 rights 5. Hand hygiene 6. Specimens are labeled at the bedside 7. Instruct patient/ patient bilingual sales representative about use of safety devices 8. Include patient/ patient bilingual sales representative in decisions related to safety Outcome: Progressing Note: Evaluation of progress towards goal: Patient has not sustained additional injuries since being admitted. Problem: Infection Goal: Absence of infection during hospitalization Description: Interventions: 1. Assess and monitor for signs and symptoms of infection 2. Monitor lab/diagnostic results 3. Monitor all insertion sites i.e., indwelling lines, tubes and drains 4. Monitor endotracheal (as able) and nasal secretions for changes in amount and color 5. Administer medications as ordered 6. Instruct and encourage patient and family to use good hand hygiene technique 7. Identify and instruct patient/patient bilingual sales representative in use of appropriate isolation precautions for identified infection/symptoms 8. Provide and discuss with patient/patient bilingual sales representative on educational MDRO sheet 9. Encourage and monitor nutritional status daily and consult retail department manager if indicated 10. Implement neutropenic guidelines as needed 11. Review exposure to history of communicable disease and recent travel history on admission 12. Encourage annual influenza vaccine 13. Encourage pneumonia vaccine Outcome: Progressing Note: Evaluation of progress towards goal: Patient's potential infection is being managed using IV antibiotics. Problem: Knowledge Deficit Goal: Patient/patient bilingual sales representative demonstrates understanding of disease process, treatment plan, medications, and discharge instructions Description: INTERVENTIONS 1. Complete learning assessment and assess knowledge base 2. Provide teaching at level of understanding 3. Provide teaching via preferred learning method(s) Outcome: Progressing Note: Evaluation of progress towards goal: Patient understands current treatment plan focused on potential infection treatment. Problem: Discharge Planning Goal: Discharge to post-acute care, other facility, or home with appropriate resources Description: Patient's goal is: INTERVENTIONS 1. Conduct assessment to determine patient/family and health care team treatment goals, and need for post-acute services based on payer coverage, community resources, and patient preferences, and barriers to discharge 2. Coordinate with Social work, Care Navigation, and Utilization Review to arrange appropriate level of services according to patient's needs based on patient preference and payer coverage in collaboration with the physician and health care team 3. Address psychosocial, clinical, and financial barriers to discharge as identified in assessment in conjunction with the patient/family and health care team 4. Consult appropriate ancillary services (i.e.. PT/OT/ST, etc) as needed 5. Communicate with and update the patient/family, physician, and health care team regarding progress on the discharge plan 6. Identify discharge learning needs (meds, wound care, etc). 7. Arrange for needed discharge transportation as appropriate Outcome: Progressing Note: Evaluation of progress towards goal: Patient will return home upon discharge. Problem: Low Risk Fall Score Description: Toney Fall Score of 0 - 24 or indicated by [facility] Assessment Goal: Patient should be free from fall Description: Interventions: 1. Unity to environment 2. Hourly rounds addressing the 4 P's (Pain, Positioning, Possessions, Potty) 3. Clear area of hazards (spills, clutter, electrical cords, unnecessary equipment) 4. Place equipment (bed & TV controls, call light, phone, urinal) within reach 5. Encourage patient to wear glasses and hearing aides as appropriate 6. Maintain bed in lowest position 7. Lock wheels on bed/wheelchair 8. Provide adequate lighting, including night light 9. Assess need for additional bedding, food/fluids, pain med's prior to sleep/routinely 10. Provide gripper slippers or personal non-skid footwear 11. Teach patient and patient bilingual sales representative to maintain environment for safety and engage in all aspects of fall prevention program Outcome: Progressing Note: Evaluation of progress towards goal: Patient has not fallen during current admission. Problem: Compromised Skin Integrity Description: Use this problem when pressure ulcers are classified as stage I or II. Goal: Incisions, wounds, or drain sites healing without S/S of infection Description: INTERVENTIONS 1. ADMISSION & EVERY SHIFT: Assess and document risk factors for pressure ulcer development utilizing the Rober/Rober Q scale 2. Assess and document skin integrity 3. Assess and document dressing/incision, wound bed, drain sites and surrounding tissue 4. Implement wound care per orders 5. Initiate isolation precautions as appropriate 6. Initiate high risk precautions Outcome: Progressing Note: Evaluation of progress towards goal: Patient's skin remains intact with the assistance of pillow support and independent turns. [facility] [[email or web address]] [employer] 06-02-2024 Plan of care note Problem: Pain Goal: Patient goal is pain score less than 4, able to rest, and participant in treatment plan as appropriate Description: INTERVENTIONS: 1. Encourage patient or legal bilingual sales representative to report early pain and ask for pain medicine when needed 2. Assess pain using appropriate pain scale and include the scale used when documenting 3. Administer analgesics based on type and severity of pain and evaluate response within appropriate time frame 4. Implement non-pharmacological measures as appropriate and evaluate response 5. Consider cultural and social influences on pain and pain management 6. Notify LIP if interventions ineffective or patient reports new pain 7. Monitor vital signs including pulse ox, end-tidal CO2 based on pain intervention 8. Reassess pain per policy 9. Teach patient or legal bilingual sales representative interventions for comforting Outcome: Progressing Note: Evaluation of progress towards goal: Pt will report decrease in surgical pain with 1 hour assessment after medication administered Problem: Safety Goal: Patient will be injury free during hospitalization Description: INTERVENTIONS: 1. Assess patient's risk for falls and implement fall prevention plan of care per policy 2. Provide and maintain a safe environment 3. Proper use of double Identifiers 4. Medication administration using the 5 rights 5. Hand hygiene 6. Specimens are labeled at the bedside 7. Instruct patient/ patient bilingual sales representative about use of safety devices 8. Include patient/ patient bilingual sales representative in decisions related to safety Outcome: Progressing Note: Evaluation of progress towards goal: Pt will use call light for assistance with ambulation Problem: Infection Goal: Absence of infection during hospitalization Description: Interventions: 1. Assess and monitor for signs and symptoms of infection 2. Monitor lab/diagnostic results 3. Monitor all insertion sites i.e., indwelling lines, tubes and drains 4. Monitor endotracheal (as able) and nasal secretions for changes in amount and color 5. Administer medications as ordered 6. Instruct and encourage patient and family to use good hand hygiene technique 7. Identify and instruct patient/patient bilingual sales representative in use of appropriate isolation precautions for identified infection/symptoms 8. Provide and discuss with patient/patient bilingual sales representative on educational MDRO sheet 9. Encourage and monitor nutritional status daily and consult retail department manager if indicated 10. Implement neutropenic guidelines as needed 11. Review exposure to history of communicable disease and recent travel history on admission 12. Encourage annual influenza vaccine 13. Encourage pneumonia vaccine Outcome: Progressing Note: Evaluation of progress towards goal: Pt will not show signs of infection at surgical sight. Problem: Knowledge Deficit Goal: Patient/patient bilingual sales representative demonstrates understanding of disease process, treatment plan, medications, and discharge instructions Description: INTERVENTIONS 1. Complete learning assessment and assess knowledge base 2. Provide teaching at level of understanding 3. Provide teaching via preferred learning method(s) Outcome: Progressing Note: Evaluation of progress towards goal: Pt will verbalize understanding of treatment plan for infection with ordered IV/Oral antibiotics Problem: Low Risk Fall Score Description: Toney Fall Score of 0 - 24 or indicated by [facility] Assessment Goal: Patient should be free from fall Description: Interventions: 1. Unity to environment 2. Hourly rounds addressing the 4 P's (Pain, Positioning, Possessions, Potty) 3. Clear area of hazards (spills, clutter, electrical cords, unnecessary equipment) 4. Place equipment (bed & TV controls, call light, phone, urinal) within reach 5. Encourage patient to wear glasses and hearing aides as appropriate 6. Maintain bed in lowest position 7. Lock wheels on bed/wheelchair 8. Provide adequate lighting, including night light 9. Assess need for additional bedding, food/fluids, pain med's prior to sleep/routinely 10. Provide gripper slippers or personal non-skid footwear 11. Teach patient and patient bilingual sales representative to maintain environment for safety and engage in all aspects of fall prevention program Outcome: Progressing Note: Evaluation of progress towards goal: Pt will remain free from falls Problem: Compromised Skin Integrity Description: Use this problem when pressure ulcers are classified as stage I or II. Goal: Incisions, wounds, or drain sites healing without S/S of infection Description: INTERVENTIONS 1. ADMISSION & EVERY SHIFT: Assess and document risk factors for pressure ulcer development utilizing the Rober/Rober Q scale 2. Assess and document skin integrity 3. Assess and document dressing/incision, wound bed, drain sites and surrounding tissue 4. Implement wound care per orders 5. Initiate isolation precautions as appropriate 6. Initiate high risk precautions Outcome: Progressing Note: Evaluation of progress towards goal: Pt's surgical incision will begin to heal without signs of infection [facility] Progress note Formatting of t his note might be different from the original. DISCHARGE PLANNING NOTE Referral sent to [facility] [employer]- [place], [place] [facility] - (P# ; F# ) [facility] [[email or web address]] [employer] [facility] 06-02-2024 Progress note Formatting of t his note is different from the original. Images from the original note were not included. DISCHARGE PLANNING NOTE Induction Heating Equipment Setter met with patient, introduced self, and explained role. Patient educated on safe discharge plan. Pt admitted 05/31/2024 with Abscess of arm [L02.419] per chart review. Consults: Orthopaedics Discharge Barriers per Daily Transition Rounds and chart review: Blood cultures pending, ID plan, IV antibiotics Past Medical History: Diagnosis Date Anxiety Arthritis Depression Headache Hyperlipidemia Hypertension Liver disease Other acute osteomyelitis, right humerus ([facility]) Prior to admission patient was living with family and self care. Medical equipment patient used prior to admission includes: None. Patient denies need for food/ prescription medication assistance resources. PCP: NIKOLE ALONSO Pharmacy: [place], [place] PCP and pharmacy confirmed with patient. CN offered to assist with follow up appointment arrangements; patient agreeable, tasked appointment to [facility]. NIKOLE ALONSO added to Follow Up Providers for Summary of Care communication. Per patient self-report: Drug use: Marijuana denies dependency Smokin pack/day. Denies resources ETOH Use: Denies dependency Current discharge plan is: Patient planning home with home care. [facility] for home infusion if IV antibiotics are needed. CN tasked [facility] for referral to [facility] per patient request. Lives with stepmom in a 2 story home, bedroom upstairs. Home care list given. Patient has had home care in the past. Unsure of agency. Services Requested: Services Requested Patient expects to be discharged to:: Home with home care Discharge Disposition: Home with home health services, Home Infusion Patient choice offered: Yes List Provided: Yes [facility] List Provided: Home Care Initial DC Assessment Completed: Yes Goals: Goals (pt-stated) Evaluation of progress towards goal: Patient plans for safe discharge home with home care. Will continue to follow as plan of care develops. CN discussed benefits and importance of medication compliance and follow ups. Please feel free to reach out for any discharge planning questions. - Shoshana Norris RN 06/02/24 2:10 PM [facility] [[email or web address]] [employer] [facility] 06-02-2024 Progress note Formatting of t his note is different from the original. Physical Therapy PT Type of Visit: Discharge from Therapy Spoke with pt whom reported he is getting up independent and able to complete self care. No acute PT needs. Signing off at this time. [facility] [[email or web address]] [employer] [facility] 06-02-2024 Progress note Formatting of t his note is different from the original. Occupational Therapy OT Type of Visit: (P) Discharge from Therapy Per patient and JANUARY Capps, patient is up independently and has no therapy needs [facility] [[email or web address]] [employer] [facility] 06-02-2024 Plan of care note Problem: Pain Goal: Patient goal is pain score less than 4, able to rest, and participant in treatment plan as appropriate Description: INTERVENTIONS: 1. Encourage patient or legal bilingual sales representative to report early pain and ask for pain medicine when needed 2. Assess pain using appropriate pain scale and include the scale used when documenting 3. Administer analgesics based on type and severity of pain and evaluate response within appropriate time frame 4. Implement non-pharmacological measures as appropriate and evaluate response 5. Consider cultural and social influences on pain and pain management 6. Notify LIP if interventions ineffective or patient reports new pain 7. Monitor vital signs including pulse ox, end-tidal CO2 based on pain intervention 8. Reassess pain per policy 9. Teach patient or legal bilingual sales representative interventions for comforting Outcome: Progressing Note: Evaluation of progress towards goal: Patient's post-op pain is being managed using PRN and scheduled pain meds. Problem: Safety Goal: Patient will be injury free during hospitalization Description: INTERVENTIONS: 1. Assess patient's risk for falls and implement fall prevention plan of care per policy 2. Provide and maintain a safe environment 3. Proper use of double Identifiers 4. Medication administration using the 5 rights 5. Hand hygiene 6. Specimens are labeled at the bedside 7. Instruct patient/ patient bilingual sales representative about use of safety devices 8. Include patient/ patient bilingual sales representative in decisions related to safety Outcome: Progressing Note: Evaluation of progress towards goal: Patient has not sustained additional injuries since being admitted. Problem: Infection Goal: Absence of infection during hospitalization Description: Interventions: 1. Assess and monitor for signs and symptoms of infection 2. Monitor lab/diagnostic results 3. Monitor all insertion sites i.e., indwelling lines, tubes and drains 4. Monitor endotracheal (as able) and nasal secretions for changes in amount and color 5. Administer medications as ordered 6. Instruct and encourage patient and family to use good hand hygiene technique 7. Identify and instruct patient/patient bilingual sales representative in use of appropriate isolation precautions for identified infection/symptoms 8. Provide and discuss with patient/patient bilingual sales representative on educational MDRO sheet 9. Encourage and monitor nutritional status daily and consult retail department manager if indicated 10. Implement neutropenic guidelines as needed 11. Review exposure to history of communicable disease and recent travel history on admission 12. Encourage annual influenza vaccine 13. Encourage pneumonia vaccine Outcome: Progressing Note: Evaluation of progress towards goal: Patient's potential infection is being managed using IV antibiotics prior to blood culture results. Problem: Knowledge Deficit Goal: Patient/patient bilingual sales representative demonstrates understanding of disease process, treatment plan, medications, and discharge instructions Description: INTERVENTIONS 1. Complete learning assessment and assess knowledge base 2. Provide teaching at level of understanding 3. Provide teaching via preferred learning method(s) Outcome: Progressing Note: Evaluation of progress towards goal: Patient understands current treatment plan focused on potential infection management and post-op care. Problem: Discharge Planning Goal: Discharge to post-acute care, other facility, or home with appropriate resources Description: Patient's goal is: INTERVENTIONS 1. Conduct assessment to determine patient/family and health care team treatment goals, and need for post-acute services based on payer coverage, community resources, and patient preferences, and barriers to discharge 2. Coordinate with Social work, Care Navigation, and Utilization Review to arrange appropriate level of services according to patient's needs based on patient preference and payer coverage in collaboration with the physician and health care team 3. Address psychosocial, clinical, and financial barriers to discharge as identified in assessment in conjunction with the patient/family and health care team 4. Consult appropriate ancillary services (i.e.. PT/OT/ST, etc) as needed 5. Communicate with and update the patient/family, physician, and health care team regarding progress on the discharge plan 6. Identify discharge learning needs (meds, wound care, etc). 7. Arrange for needed discharge transportation as appropriate Outcome: Progressing Note: Evaluation of progress towards goal: Patient will return home upon discharge. Problem: Low Risk Fall Score Description: Toney Fall Score of 0 - 24 or indicated by [facility] Assessment Goal: Patient should be free from fall Description: Interventions: 1. Unity to environment 2. Hourly rounds addressing the 4 P's (Pain, Positioning, Possessions, Potty) 3. Clear area of hazards (spills, clutter, electrical cords, unnecessary equipment) 4. Place equipment (bed & TV controls, call light, phone, urinal) within reach 5. Encourage patient to wear glasses and hearing aides as appropriate 6. Maintain bed in lowest position 7. Lock wheels on bed/wheelchair 8. Provide adequate lighting, including night light 9. Assess need for additional bedding, food/fluids, pain med's prior to sleep/routinely 10. Provide gripper slippers or personal non-skid footwear 11. Teach patient and patient bilingual sales representative to maintain environment for safety and engage in all aspects of fall prevention program Outcome: Progressing Note: Evaluation of progress towards goal: Patient has not fallen during current admission. Problem: Compromised Skin Integrity Description: Use this problem when pressure ulcers are classified as stage I or II. Goal: Incisions, wounds, or drain sites healing without S/S of infection Description: INTERVENTIONS 1. ADMISSION & EVERY SHIFT: Assess and document risk factors for pressure ulcer development utilizing the Rober/Rober Q scale 2. Assess and document skin integrity 3. Assess and document dressing/incision, wound bed, drain sites and surrounding tissue 4. Implement wound care per orders 5. Initiate isolation precautions as appropriate 6. Initiate high risk precautions Note: Evaluation of progress towards goal: Patient's skin integrity is improving following implementation of wound care orders. [facility] 06-01-2024 Procedure note OPERATIVE NOTE Name: Sergio Hernandez : 1980 Procedure Date: 06/01/2024 Surgeon: Surgeons and Role: * Villa Tapia MD - Primary Assistants: DHARMESH Toussaint and - in the absence of a qualified resident, the PA assisted intraoperatively with appropriate aspects of the procedure such as patient positioning, surgical exposure (e.g. retraction, suction, etc), wound closure and dressing application. Pre-op Diagnosis: RIGHT UPPER EXTREMITY ABSCESS Post-op Diagnosis: Right upper extremity abscess Procedure(s) Performed: Irrigation and debridement right arm abscess shoulder, CPT 04343 Removal of deep implants right arm, CPT 35901 Insertion antibiotic cement beads, CPT 50220 Partial excision humerus for treatment of osteomyelitis, CPT 42782 Anesthesia Type: General anesthesia without regional anesthetic. Complications: None Drains: None Estimated Blood Loss: * No values recorded between 06/01/2024 3:57 PM and 06/01/2024 6:15 PM * Total IV Fluids: See Anesthesia Records Urine Output:: 0 mL Findings: Thickened scarred dermis and subcutaneous tissue over the proximal aspect of the arm. Area of abscess noted within the skin and subcutaneous tissue. Additional area of abscess and purulence noted within the intramedullary canal posterior to the humeral shaft proximal aspect and just proximal to the pectoralis major insertion exiting the humeral shaft as well. Phlegmon removed from area deep to the pectoralis major tendon insertion. Endo button insert implant removed from the posterior aspect including all suture material. Saucerization humerus shaft anteriorly and curettage of the posterior opening to increase its diameter removing surrounding bone gaining access to the humeral shaft through both areas. Debridement of bone of the intramedullary canal for treatment of the osteomyelitis. Insertion antibiotic cement beads into the intramedullary canal made intraoperatively. Evidence of infection was visualized at the Deeper than the muscle level and was visualized at time of surgery as evidence by abscess, purulence/pus, and Osteomyelitis. Implants: Antibiotic cement beads with 2 g vancomycin and 2.4 g tobramycin on a 1. Prolene suture strand Condition: good Operative Indications: Sergio Hernandez is a 43 y.o. male presented to [facility] with complaints of right upper extremity pain swelling. 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 The risks, benefits, and alternatives to surgical management have been discussed with the patient - including but not limited to bleeding, infection, damage to surrounding structures, delayed/failure to heal bone/tendon/wounds, implant failure/breakage, development of arthritis, stiffness, loss of motion/function, potential for additional surgery, PE/DVT, cardiac complications, stroke or . Surgical consent was obtained and the plan is to proceed with irrigation and debridement right arm abscess, removal of deep implants, debridement of bone and insertion antibiotic beads. Description of Procedure: The patient was identified in the preoperative area. The correct right upper extremity was identified as the operative site and marked with my initials. All questions and concerns related to the procedure were addressed. We then proceeded to the operating room. Once in the operating room general anesthesia was induced and an airway was secured. The patient was positioned supine on the OR table. His bilateral lower extremities and the non operative arm were well-padded and safely secured to the OR table. The bed was rotated 90 to deliver the operative Right limb into the center of the surgical suite. An unsterile impervious U-drape was placed draping out his entire right upper extremity shoulder girdle. The limb was prepped using a chlorhexidine pre-scrub and rinsed, followed by sterile prep with Duraprep solution which was allowed to dry and then draped in a standard fashion. A 'Surgical-Pause' was performed by the OR team: stopping to review the patient's identity, confirm the surgical site and the procedure to be performed. He is receiving scheduled IV antibiotics on the floor. He is due for as treated him and Flagyl which we administered intraoperatively Began the procedure with an assessment of the skin and soft tissue envelope. He has an area of firm indurated erythema over his previous healed surgical incision distal to the pectoralis major insertion site. He has a widened thickened scar in this area. The scar was excised in an elliptical fashion sharply with a scalpel and then extended proximally. Dissection was then carried out through the adipose tissue. Areas of thickened indurated tissue were sharply excised as well using a combination of scalpel and Bovie down to the deep fascia. The proximal 3rd of this incision visible purulence was received and obtained as a fluid specimen. I then continued with the exposure of the dissection. This area developed directly down onto the proximal aspect of the biceps in the inferior margin of the pectoralis major tendinous insertion. Evaluation in this area found some thickened phlegmon appearing tissue over the surface of the biceps and leading edge inferiorly of the pectoralis major but was unable to identify the tenodesis site. Incision was extended proximally to assess over the proximal aspect of the pectoralis major insertion site. Deltoid pack interval was developed. There was no obvious cephalic vein within this interval at its distal extent but the deltoid insertion and packed insertion were clearly visualized and delineated. Working deep to the pectoralis major there was additional phlegmon noted and I was able to identify biceps tendon extending proximal to it. Single tendon identified though did not track it proximally sufficiently to identify short head versus long head though given his previous tenodesis surgery would anticipate this to be a short head. Fluoroscopy was used to localize position of the tenodesis tunnel and once the button was localized on the posterior aspect was able to gain access to it by internally rotating the arm maximally the placement of a Hohmann retractor and palpate the sulcus. This fluoro was then withdrawn from the field and I proceeded with sharp excision of the soft tissue overlying the sulcus. The button was visualized in it was removed without having to cut the sutures indicating it was no longer attached any tendinous tissue on the anterior surface. The button was removed as was areas of gross purulence and phlegmon appearing tissue from within the humeral shaft and lying on the surface. A curette was used to remove additional tissue as well as a rongeur and pituitary rongeur from within and around the humeral shaft posteriorly. Curette was used to dilate the posterior opening removing bits of cortical bone as well as additional purulent material from within the intramedullary canal. With this site located I then externally rotated the arm and was able to identify the anterior tenodesis entry site. Again only a bony hole was noted I do not appreciate any tendinous material or biceps entering into this area. Tenodesis may have failed due to prior infection or been previously debrided. Upon visualizing this opening there is a pale velázquez to bluish colored purulent material semi solid in nature emanating from the humeral shaft. This tissue was removed and sent for culture evaluation as a specimen as well. I then continued with a curette to open the humeral shaft removing the purulence and infected appearing material that was able to be extubated. Rongeur was used to remove the surrounding areas of phlegmon and tissue from around the humeral shaft opening. Given the entry site and the evidence for chronic osteomyelitis of the humerus a 3.5 mm drill was used to create a trough anteriorly followed by use of a curette to further open and a rongeur to remove bits of cortical bone to increase the diameter of the opening and allow improved debridement access to the intramedullary canal of the humerus. At this point a curette was used working circumferentially from proximal to distal followed by the use of a rongeur to remove the intramedullary canal contents. Specimens of bone were collected in ultimately were sent for culture evaluation as well as a separate specimen to be sent to pathology. Having performed the extensive debridement working both through the anterior cortex open crater and posteriorly through the open tenodesis drill hole felt we had gained good access and debrided the humeral shaft. There is no clear areas of further necrotic bone or infected material. Entire wound was then irrigated using 2 L of sterile saline through gravity drainage as well as bulb syringe irrigation. Reassessment found the soft tissue envelope to be improved in healthy to facilitate for primary closure. Prior to doing so however antibiotic beads were fashioned in the operating room and strong on a 1. Prolene in which I personally assisted. 2 g of vancomycin and 2.4 g of tobramycin were used to mix in with the cement. These were strong on a suture. Short strand of beads was inserted into the intramedullary canal leaving a few beads sitting proximally. Assessment posteriorly finds that the beads were just partially exiting the posterior humeral shaft. Care was taken to attempt to make the beads as little prominent as possible while still obtaining maximal number beads into the infected area. Hemostasis was obtained and well-maintained throughout the entirety of the procedure. The wound was then closed in layered fashion using #2-0 Monocryl in an inverted, interrupted fashion.The skin was re-approximated using #2-0 Nylon sutures, in a horizontal mattress technique. All counts were accurate at the conclusion of the case. A sterile dressing consisting of Xeroform gauze, 4 x 4 fluffs ABD and Tegaderm was applied to operative limb, followed by placement into a simple sling. The patient was woken from general anesthesia having tolerated the procedure without difficulty. There were no intraoperative complications. He was taken to PACU in stable condition. Post-Operative Plan: Patient will be transferred back to the inpatient floor. Continue with IV antibiotics per Infectious Disease. Will follow culture data as it becomes available. No further plan for surgical intervention at this point. Will continue to follow his inflammatory markers and assess for improvement in his infection. Plan for Weight bearing as tolerated on the operative limb though would avoid heavy lifting or strenuous activity at this point until 4-6 weeks postop to minimize stress across his proximal humeral shaft. May use his arm for simple activities of daily living.. Plan for PT, OT, SW evaluations for mobilization and optimization of safe discharge planning. DVT prophylaxis is not indicated upon discharge from the hospital Plan for follow-up in the office in approximately 2 weeks time for wound evaluation and anticipated suture removal. Would obtain right shoulder radiographs at his follow-up appointment pin Villa Tapia MD [facility] 06-01-2024 Hospital Discharge instructions Cecily Haskins PA-C - 06/01/2024 3:38 PM EST ORTHOPAEDIC DISCHARGE INSTRUCTIONS Diagnosis: right upper extremity abscess, right humeral osteomyelitis Procedure: irrigation debridement right upper extremity abscess, removal of hardware from previous biceps tenodesis, insertion antibiotic beads Follow-Up Appointment: Dr. Tapia on Future Appointments Date Time Provider Department Center 06/21/2024 1:15 PM Villa Tapia MD [facility] Office Location: [place] [address] RN: Salima Dobson RN: Ekaterina Tapia RN: Lety Morin RN: Vale Neal Call 911 immediately if you experience: Chest pain, difficulty breathing, or shortness of breath. Call the office for concerns related to: calf pain, leg swelling, fever/chills, redness or drainage around the incision sites, prolong numbness/tingling, or increased pain-that is not relieved with medications, ice and elevation. Weight-bearing instructions: Right Upper Extremity Weight bearing as tolerated on limb however should avoid any heavy lifting, pushing, pulling or carrying Incision care: Keep clean and dry. Replace with clean and dry dressing if applicable. Do not soak submerge or get wounds wet. Do not apply creams or ointments to incision unless instructed to do so. Perform dressing changes after washing her hands and practicing good personal hygiene. Suture and staple care: Do not remove. They will be removed at your postop appointment. Exercises and range of motion: Wiggle (flex and extend) fingers/toes of affected extremity frequently with gentle range of motion. For upper extremity injuries, passively and actively make full fists with the fingers of the operative side. Use your other hand to assist with achieving full flexion & extension. Placed ice bag on affected extremity: 20 minutes on every 2-4 hours. You may not 'feel the cold' because of your dressing, but it is still beneficial to reduce the swelling Elevate the affected extremity above the heart to reduce swelling. For ankle & foot injuries concentrate on elevating your 'toes above your nose' Medications: Refer to discharge medication reconciliation form for complete discharge medication list. Vitamins/supplements It is recommended to take Calcium and Vitamin D for bone health. Please refer to the medication reconciliation form for exact doses. Pain medications Pain medicine has been prescribed for management of your pain symptoms. Please refer to the medication reconciliation form for exact doses. Prevention of blood clots Many orthopedic conditions can predispose you to blood clots. Medications for prevention of blood clots may be appropriate. If prescribed, they will be detailed on the Discharge Medication Reconciliation. Zoë Hodge - 06/02/2024 4:13 PM EST YOUR SCHEDULED APPOINTMENTS Please make note of this in your schedule as to not miss or call to reschedule. Thank you! ARNOLD HARTLEY, VAT PACKER-MERCHANDISE SUPERVISOR PCP - General Family Medicine [phone] [place] [address] [place] [id number] Next Steps: Go on 06/08/2024 Instructions: 12:20pm Pt. should bring the following to appointment; Discharge paperwork Picture ID, Insurance card, co-pay, and all current medications in their bottles. Please provide a 24 hour notice for cancellation. Failure to do so will result in the practice declining to see pt. in the future. If you have insurance copay you must bring with you to the appointment. Please arrive about 15 minutes prior to appointment for check-in/registration. For NEW PATIENT APPOINTMENTS, please arrive 30 minutes early to complete new patient paperwork. For NEW patients, MD will not prescribe shelter pain medication. The following attachments cannot be sent through Care Everywhere.Cefazolin, ADULT ([place])documented in this encounter [facility] Consult note Associated Order (s): IP CONSULT TO INFECTIOUS DISEASES [facility] Infectious Diseases - Initial Consult Note Sergio Hernandez Admit date/time 05/31/2024 10:05 PM Today's Date and Time: 06/01/2024, 1:53 PM Impression: Leukocytosis Right upper extremity infection with reported abscess Reported History of right shoulder superior labrum anterior to posterior repair complicated with osteomyelitis in 2020 treated by [facility] Electrolyte imbalance History of hypertension History of dyslipidemia History of nicotine/tobacco use Recommendations X-ray of the right shoulder completed today No fracture. No dislocation. Mild degenerative changes. Prior biceps tenodesis. It is reported that Emergency room workup at [facility] revealed 2.5 x 1.6 x 4 cm fluid collection within the proximal right arm suspicious for abscess. Nonspecific bony proximal humeral diaphysis lucency around the tenodesis graft possibly chronic bone knee change versus recurrent osteomyelitis Check blood cultures Orthopedic team on consult planning for OR on today for irrigation debridement of the right upper extremity with possibility of insertion of antibiotic beads and hardware removal Will follow post surgical cultures Follow CBC and creatinine WBC 13.0 today Creatinine 0.78 C-reactive protein 4.1 on 05/31/2024 ESR 41 on 05/31/2024 Discussed his allergy listed for PCN noting anaphylaxis - he states this is a true allergy to his knowledge and does not know if he has ever tolerated any cephalosporins following his allergic response Start Vanco (pharm to dose) Start Aztreo and flagyl Follow temps Supportive care Reason for consultation: Right upper arm swelling pain and erythema Chief complaint Evaluation of right upper arm History of Present Illness: Sergio Hernandez is a 43 y.o.-year-old male who was initially admitted on 05/31/2024 requested evaluation of the right upper arm with swelling and pain. Reportedly he presented from [facility] emergency department. Approximately 2 weeks ago he developed erythema at prior surgical site that then resolved. 2 days prior to current presentation he noticed that his surgical scar began to swell and become very painful. He states that the pain began to worsen restricting movement to this extremity. He did report to his PCP who sent him to the emergency room with concern of infection. He denies any recent injury to his arm. However he does have a history of osteomyelitis after a shoulder arthroplasty and tendinitis repair. At that time patient required operative intervention that included drainage and debridement. He was put on antibiotics at that time with a PICC line in place and reports that this was in 2020. ID was consulted this admission for antibiotic management I have personally reviewed the past medical history, past surgical history, medications, social history, and family history, and I have updated the database accordingly. Past Medical History: Past Medical History: Diagnosis Date Anxiety Arthritis Depression Headache Hyperlipidemia Hypertension Liver disease Other acute osteomyelitis, right humerus ([facility]) Past Surgical History: Past Surgical History: Procedure Laterality Date SHOULDER SURGERY Medications: atorvastatin, 10 mg, oral, Daily [START ON 06/02/2024] hydroCHLOROthiazide, 25 mg, oral, Daily nicotine, 1 patch, transdermal, Daily pantoprazole, 40 mg, oral, Daily sodium chloride, 3 mL, intravenous, Q12H KEARA Social History: Social History Socioeconomic History Marital status: Spouse name: Not on file Number of children: Not on file Years of education: Not on file Highest education level: Not on file Occupational History Not on file Tobacco Use Smoking status: Every Day Current packs/day: 1.00 Average packs/day: 1 pack/day for 29.0 years (29.0 ttl pk-yrs) Types: Cigarettes Start date: 06/01/1995 Smokeless tobacco: Not on file Substance and Sexual Activity Alcohol use: Yes Comment: rare months ago Drug use: Yes Types: Marijuana Sexual activity: Defer Other Topics Concern Not on file Social History Narrative Not on file Social Drivers of Health Financial Resource Strain: Not on file Food Insecurity: No Food Insecurity (06/01/2024) Hunger Screening Food Insecurity - Worry: Never True Food Insecurity - Inability: Never True Transportation Needs: No Transportation Needs (06/01/2024) PRAPARE - Transportation Lack of Transportation (Medical): No Lack of Transportation (Non-Medical): No Physical Activity: Not on file Stress: Not on file Social Connections: Not on file Interpersonal Safety: Patient Declined (06/01/2024) Humiliation, Afraid, Rape, and Kick questionnaire Fear of Current or Ex-Partner: Patient declined Emotionally Abused: Patient declined Physically Abused: Patient declined Sexually Abused: Patient declined Housing Instability: Low Risk (06/01/2024) Housing Instability Housing Instability: No Family History: Family History Problem Relation Age of Onset Hypertension Father Arthritis Father Allergies: Penicillin Review of Systems: CONSTITUTIONAL: negative EYES: negative HEENT: negative RESPIRATORY: negative CARDIOVASCULAR: negative GASTROINTESTINAL: negative GENITOURINARY: negative INTEGUMENT/BREAST: negative HEMATOLOGIC/LYMPHATIC: negative ALLERGIC/IMMUNOLOGIC: negative ENDOCRINE: negative MUSCULOSKELETAL: Right upper arm erythema, swelling, pain NEUROLOGICAL: negative BEHAVIOR/PSYCH: negative Physical Examination : BP 118/75 Pulse 68 Temp 36.5 C (97.7 F) (Oral) Resp 20 Ht 182.9 cm (6') Wt 105.7 kg (233 lb) SpO2 94% BMI 31.60 kg/m Temperature Range: Temp: 36.5 C (97.7 F) Temp Av.5 C (97.7 F) Min: 36.5 C (97.7 F) Max: 36.6 C (97.8 F) CONSTITUTIONAL: awake, alert, cooperative, no apparent distress, EYES:rt and left eyes Lids and lashes normal, sclera clear, conjunctiva normal ENT: Normocephalic, without obvious abnormality, atraumatic, oral pharynx with moist mucus membranes, rt and left ear with no deformity NECK: Supple, symmetrical, trachea midline, no thyroid deformity LUNGS: No increased work of breathing, good air exchange, clear to auscultation bilaterally, no crackles or wheezing CARDIOVASCULAR: regular rate and rhythm, normal S1 and S2, and no murmur noted ABDOMEN: normal bowel sounds, soft, non-distended, non-tender, no masses palpated, no hepatosplenomegally, MUSCULOSKELETAL: Right upper arm erythema and warmth NEUROLOGIC: Awake, alert, oriented to name, place and time. Follow commands. Cranial nerves grossly intact SKIN: no rash Medical Decision Making: I have independently reviewed/ordered the following labs: CBC with Differential: Results from last 7 days Lab Units 05/31/24 2347 WBC X10E9/L 13.0* HEMOGLOBIN g/dL 13.6 HEMATOCRIT % 41.2 PLATELETS X10E9/L 374 BMP: Results from last 7 days Lab Units 06/01/24 1236 05/31/24 2347 POTASSIUM mmol/L 3.6 2.9* CHLORIDE mmol/L -- 98 CO2 mmol/L -- 27 BUN mg/dL -- 9 CREATININE mg/dL -- 0.78 EGFR (CKD-EPI)NON-RACE DEPENDENT ml/min/1.73sq.m -- >90 CALCIUM mg/dL -- 8.7 LFTs: Invalid input(s): BILITOT , LABALBU Vanco: Inflam markers: Lab Results Component Value Date CRP 4.1 (H) 05/31/2024 Lab Results Component Value Date SEDRATE 41 (H) 05/31/2024 Cultures: Microbiology Results No results found for the last 168 hours. Imaging Studies: X-ray shoulder right minimum 2 views Result Date: 06/01/2024 Narrative: XR SHOULDER RT MIN 2 VWS IMPRESSION: Clinical Information: eval right shoulder pain: AP, Grashey and Scap Y views Comparison: None. * No fracture. No dislocation. Mild degenerative changes. Prior biceps tenodesis. Finalized by Emerson Buchanan MD on 06/01/2024 7:00 AM Thank you for allowing us to participate in the care of this patient. Please call with questions. Cele Scott APRN, KRISTA-C [phone] This note was completed using a voice cavalry officer system. Every effort was made to ensure accuracy. However, inadvertent computerized cavalry officer errors may be present. NIKOLE Remy 06/01/24 1435 NIKOLE Remy 06/01/24 1437 [employer] Work Phone: 06-01-2024 Consult note Associated Order (s): IP CONSULT TO INFECTIOUS DISEASES [facility] Infectious Diseases - Initial Consult Note Sergio Hernandez Admit date/time 05/31/2024 10:05 PM Today's Date and Time: 06/01/2024, 1:53 PM Impression: Leukocytosis Right upper extremity infection with reported abscess Reported History of right shoulder superior labrum anterior to posterior repair complicated with osteomyelitis in 2020 treated by [facility] Electrolyte imbalance History of hypertension History of dyslipidemia History of nicotine/tobacco use Recommendations X-ray of the right shoulder completed today No fracture. No dislocation. Mild degenerative changes. Prior biceps tenodesis. It is reported that Emergency room workup at [facility] revealed 2.5 x 1.6 x 4 cm fluid collection within the proximal right arm suspicious for abscess. Nonspecific bony proximal humeral diaphysis lucency around the tenodesis graft possibly chronic bone knee change versus recurrent osteomyelitis Check blood cultures Orthopedic team on consult planning for OR on today for irrigation debridement of the right upper extremity with possibility of insertion of antibiotic beads and hardware removal Will follow post surgical cultures Follow CBC and creatinine WBC 13.0 today Creatinine 0.78 C-reactive protein 4.1 on 05/31/2024 ESR 41 on 05/31/2024 Discussed his allergy listed for PCN noting anaphylaxis - he states this is a true allergy to his knowledge and does not know if he has ever tolerated any cephalosporins following his allergic response Start Vanco (pharm to dose) Start Aztreo and flagyl Follow temps Supportive care Reason for consultation: Right upper arm swelling pain and erythema Chief complaint Evaluation of right upper arm History of Present Illness: Sergio Hernandez is a 43 y.o.-year-old male who was initially admitted on 05/31/2024 requested evaluation of the right upper arm with swelling and pain. Reportedly he presented from [facility] emergency department. Approximately 2 weeks ago he developed erythema at prior surgical site that then resolved. 2 days prior to current presentation he noticed that his surgical scar began to swell and become very painful. He states that the pain began to worsen restricting movement to this extremity. He did report to his PCP who sent him to the emergency room with concern of infection. He denies any recent injury to his arm. However he does have a history of osteomyelitis after a shoulder arthroplasty and tendinitis repair. At that time patient required operative intervention that included drainage and debridement. He was put on antibiotics at that time with a PICC line in place and reports that this was in 2020. ID was consulted this admission for antibiotic management I have personally reviewed the past medical history, past surgical history, medications, social history, and family history, and I have updated the database accordingly. Past Medical History: Past Medical History: Diagnosis Date Anxiety Arthritis Depression Headache Hyperlipidemia Hypertension Liver disease Other acute osteomyelitis, right humerus ([facility]) Past Surgical History: Past Surgical History: Procedure Laterality Date SHOULDER SURGERY Medications: atorvastatin, 10 mg, oral, Daily [START ON 06/02/2024] hydroCHLOROthiazide, 25 mg, oral, Daily nicotine, 1 patch, transdermal, Daily pantoprazole, 40 mg, oral, Daily sodium chloride, 3 mL, intravenous, Q12H KEARA Social History: Social History Socioeconomic History Marital status: Spouse name: Not on file Number of children: Not on file Years of education: Not on file Highest education level: Not on file Occupational History Not on file Tobacco Use Smoking status: Every Day Current packs/day: 1.00 Average packs/day: 1 pack/day for 29.0 years (29.0 ttl pk-yrs) Types: Cigarettes Start date: 06/01/1995 Smokeless tobacco: Not on file Substance and Sexual Activity Alcohol use: Yes Comment: rare months ago Drug use: Yes Types: Marijuana Sexual activity: Defer Other Topics Concern Not on file Social History Narrative Not on file Social Drivers of Health Financial Resource Strain: Not on file Food Insecurity: No Food Insecurity (06/01/2024) Hunger Screening Food Insecurity - Worry: Never True Food Insecurity - Inability: Never True Transportation Needs: No Transportation Needs (06/01/2024) PRAPARE - Transportation Lack of Transportation (Medical): No Lack of Transportation (Non-Medical): No Physical Activity: Not on file Stress: Not on file Social Connections: Not on file Interpersonal Safety: Patient Declined (06/01/2024) Humiliation, Afraid, Rape, and Kick questionnaire Fear of Current or Ex-Partner: Patient declined Emotionally Abused: Patient declined Physically Abused: Patient declined Sexually Abused: Patient declined Housing Instability: Low Risk (06/01/2024) Housing Instability Housing Instability: No Family History: Family History Problem Relation Age of Onset Hypertension Father Arthritis Father Allergies: Penicillin Review of Systems: CONSTITUTIONAL: negative EYES: negative HEENT: negative RESPIRATORY: negative CARDIOVASCULAR: negative GASTROINTESTINAL: negative GENITOURINARY: negative INTEGUMENT/BREAST: negative HEMATOLOGIC/LYMPHATIC: negative ALLERGIC/IMMUNOLOGIC: negative ENDOCRINE: negative MUSCULOSKELETAL: Right upper arm erythema, swelling, pain NEUROLOGICAL: negative BEHAVIOR/PSYCH: negative Physical Examination : BP 118/75 Pulse 68 Temp 36.5 C (97.7 F) (Oral) Resp 20 Ht 182.9 cm (6') Wt 105.7 kg (233 lb) SpO2 94% BMI 31.60 kg/m Temperature Range: Temp: 36.5 C (97.7 F) Temp Av.5 C (97.7 F) Min: 36.5 C (97.7 F) Max: 36.6 C (97.8 F) CONSTITUTIONAL: awake, alert, cooperative, no apparent distress, EYES:rt and left eyes Lids and lashes normal, sclera clear, conjunctiva normal ENT: Normocephalic, without obvious abnormality, atraumatic, oral pharynx with moist mucus membranes, rt and left ear with no deformity NECK: Supple, symmetrical, trachea midline, no thyroid deformity LUNGS: No increased work of breathing, good air exchange, clear to auscultation bilaterally, no crackles or wheezing CARDIOVASCULAR: regular rate and rhythm, normal S1 and S2, and no murmur noted ABDOMEN: normal bowel sounds, soft, non-distended, non-tender, no masses palpated, no hepatosplenomegally, MUSCULOSKELETAL: Right upper arm erythema and warmth NEUROLOGIC: Awake, alert, oriented to name, place and time. Follow commands. Cranial nerves grossly intact SKIN: no rash Medical Decision Making: I have independently reviewed/ordered the following labs: CBC with Differential: Results from last 7 days Lab Units 05/31/24 2347 WBC X10E9/L 13.0* HEMOGLOBIN g/dL 13.6 HEMATOCRIT % 41.2 PLATELETS X10E9/L 374 BMP: Results from last 7 days Lab Units 06/01/24 1236 05/31/24 2347 POTASSIUM mmol/L 3.6 2.9* CHLORIDE mmol/L -- 98 CO2 mmol/L -- 27 BUN mg/dL -- 9 CREATININE mg/dL -- 0.78 EGFR (CKD-EPI)NON-RACE DEPENDENT ml/min/1.73sq.m -- >90 CALCIUM mg/dL -- 8.7 LFTs: Invalid input(s): BILITOT , LABALBU Vanco: Inflam markers: Lab Results Component Value Date CRP 4.1 (H) 05/31/2024 Lab Results Component Value Date SEDRATE 41 (H) 05/31/2024 Cultures: Microbiology Results No results found for the last 168 hours. Imaging Studies: X-ray shoulder right minimum 2 views Result Date: 06/01/2024 Narrative: XR SHOULDER RT MIN 2 VWS IMPRESSION: Clinical Information: eval right shoulder pain: AP, Grashey and Scap Y views Comparison: None. * No fracture. No dislocation. Mild degenerative changes. Prior biceps tenodesis. Finalized by Emerson Buchanan MD on 06/01/2024 7:00 AM Thank you for allowing us to participate in the care of this patient. Please call with questions. Cele Scott APRN, [employer] COACH-C [phone] This note was completed using a voice cavalry officer system. Every effort was made to ensure accuracy. However, inadvertent computerized cavalry officer errors may be present. NIKOLE Remy 06/01/24 1435 NIKOLE Remy 06/01/24 1437 ORTHOPAEDIC SURGERY CONSULTATION CHIEF COMPLAINT: Abscess HPI: Sergio Hernandez is a 43 y.o. male with complaint of right arm pain. Orthopaedic surgery is consulted for possible infection to the right upper extremity. Patient was a transfer from [facility] due to CT scan findings concerning for a right upper extremity abscess. On evaluation patient states he started noting pain in his right upper arm roughly 2 weeks prior. The pain had subsided, however it had returned yesterday. He also noted that his arm began turning red. Because of this he was evaluated at [facility] where he underwent further workup. He states that he has had an infection in this arm and was told he had osteomyelitis in 2019 which required surgical debridement as well as 21 weeks of IV antibiotics with a PICC line. This occurred after a right shoulder SLAP repair. The patient overall did well with this treatment and did not have symptoms until the present symptoms began. Denies any injuries to the right upper extremity. Denies any history of blood clots. Denies any history of IV drug use. Denies any new numbness/tingling/weakness. Denies any fevers/sweats/chills or other constitutional symptoms. No past surgical history on file. History reviewed. No pertinent past medical history. Pertinent Social Hx: Denies any history of IV drug use. Chronic smoker. Currently taking any blood thinners: No History reviewed. No pertinent past medical history. No past surgical history on file. No Known Allergies No current facility-administered medications for this encounter. No current outpatient medications on file. Social History Socioeconomic History Marital status: Spouse name: Not on file Number of children: Not on file Years of education: Not on file Highest education level: Not on file Occupational History Not on file Tobacco Use Smoking status: Not on file Smokeless tobacco: Not on file Substance and Sexual Activity Alcohol use: Not on file Drug use: Not on file Sexual activity: Not on file Other Topics Concern Not on file Social History Narrative Not on file Social Drivers of Health Financial Resource Strain: Not on file Food Insecurity: No Food Insecurity (05/31/2024) Hunger Screening Food Insecurity - Worry: Never True Food Insecurity - Inability: Never True Transportation Needs: Not on file Physical Activity: Not on file Stress: Not on file Social Connections: Not on file Interpersonal Safety: Not on file Housing Instability: Not on file History reviewed. No pertinent family history. Pertinent review of systems negative except for what is documented in the HPI. Physical exam: Vitals: 05/31/24 2213 BP: (!) 139/94 Pulse: 88 Resp: 16 Temp: 36.6 C (97.8 F) SpO2: 97% General: AOx3, mild distress 2/2 pain RUE: Anterior right upper arm is erythematous and warm to the touch. It is blanchable on palpation. There was a prior surgical scar within the area of erythema. There was no dehiscence or drainage from the wound. He is tender to palpation about the area of erythema. There is a small area of induration at the proximal aspect of the prior surgical scar. No fluctuant fluid noted. Has full range of motion of the shoulder, elbow, wrist, and digits. Sensation is intact to light touch throughout his entire right upper extremity. Compartments were soft and compressible. 2+ radial pulse with brisk capillary refill x5. Labs: Results from last 7 days Lab Units 05/31/24 2347 WBC X10E9/L 13.0* HEMOGLOBIN g/dL 13.6 HEMATOCRIT % 41.2 MCV fL 79* PLATELETS X10E9/L 374 Imaging No results found. Assessment/Plan Assessment: Sergio Hernandez is a 43 y.o. male with concern for abscess in the right upper extremity. Plan: Plan for OR on 06/01/24 for irrigation debridement of right upper extremity, possible insertion of antibiotic beads, and possible hardware removal. Admit to hospitalist service WBAT RUE NPO midnight Antibiotics: Perioperative Ancef. Further antibiotics pending surgical findings DVT ppx: Hold for OR in a.m. Pain management: Per primary Ice, elevate extremity as appropriate This plan was discussed in detail with Dr. Tapia. Donald Menjivar MD Orthopaedic Surgery Resident, PGY-2 06/01/24 12:28 AM I am available via [employer] 6a-6p. Cosigned by Villa Tapia MD at 06/02/2024 12:11 PM EST Associated attestation - Villa Tapia MD - 06/02/2024 12:11 PM EST ATTENDING STATEMENT: I reviewed the resident's note and discussed the case with the resident. This specific service will not be billed. Additional findings/notes: No new findings VILLA TAPIA MD [facility] Progress note Formatting of t his note might be different from the original. Reviewed labs from initial presentation. Potassium found at 2.9. Spoke with ER nurse who indicates medicine has ordered potassium replacement to be given in the next 10 minutes. We will plan for potassium recheck around noon. Previous labs were ordered to begin 06/02. Medicine team informed as well. Marlee Sterling PA-C 06/01/24 0957 [employer] Work Phone: 06-01-2024 Emergency department Note Bed: 35 Expected date: Expected time: Means of arrival: Comments: 10 [facility] 06-01-2024 Emergency department Note Bed: 35 Expected date: Expected time: Means of arrival: Comments: 10 Images from the original note were not included. History Chief Complaint Patient presents with Abscess Patient with a past medical history of alcoholic liver disease, smoking, osteomyelitis presents for evaluation of an arm abscess. The patient states he had redness to his right upper extremity 2 weeks ago that resolved after a few days but returned a few days ago. States increasing redness and pain especially with motion. Denies any fevers, nausea, vomiting, chest pain, shortness of breath, abdominal pain, or bowel or bladder symptoms. States increasing redness and pain to his right upper extremity with warmth. He was seen at an outside facility and they did a CT scan of the right upper extremity at that did demonstrate an abscess, 4 cm. Patient received a dose of vancomycin and ceftriaxone at the outside facility. Abscess Associated symptoms: no fatigue and no nausea Problem List Items Addressed This Visit Other * (Principal) Abscess of arm - Primary History reviewed. No pertinent past medical history. No past surgical history on file. Travel Screening No screening recorded since 05/28/242204 Travel History Travel since 04/30/24 No documented travel since 04/30/24 History reviewed. No pertinent family history. Social History Substance and Sexual Activity Drug Use Not on file Review of Systems Constitutional: Negative for diaphoresis and fatigue. HENT: Negative for ear discharge and ear pain. Eyes: Negative for pain and redness. Respiratory: Negative for cough and choking. Cardiovascular: Negative for chest pain/discomfort and syncope. Gastrointestinal: Negative for diarrhea and nausea. Genitourinary: Negative for difficulty urinating and flank pain. Musculoskeletal: Negative for neck pain and neck stiffness. Skin: Positive for color change. Negative for pallor and rash. Neurological: Negative for facial asymmetry and speech difficulty. Physical Exam ED Triage Vitals [05/31/24 2213] Temp Heart Rate Resp BP SpO2 36.6 C (97.8 F) 88 16 (!) 139/94 97 % Temp Source Heart Rate Source Patient Position BP Location FiO2 (%) Oral Pulse Ox Sitting Left arm -- Vitals: 05/31/24 2213 BP: (!) 139/94 Temp: 36.6 C (97.8 F) TempSrc: Oral Pulse: 88 Resp: 16 SpO2: 97% Physical Exam Vitals reviewed. Constitutional: General: He is not in acute distress. Appearance: He is well-developed. HENT: Head: Normocephalic and atraumatic. Eyes: Pupils: Pupils are equal, round, and reactive to light. Cardiovascular: Rate and Rhythm: Normal rate and regular rhythm. Pulses: Normal pulses. Heart sounds: Normal heart sounds, S1 normal and S2 normal. Pulmonary: Effort: Pulmonary effort is normal. Breath sounds: Normal breath sounds. No decreased breath sounds or wheezing. Abdominal: General: Bowel sounds are normal. Palpations: Abdomen is soft. Musculoskeletal: General: No deformity. Normal range of motion. Cervical back: Normal range of motion and neck supple. Right lower leg: No edema. Left lower leg: No edema. Comments: Noted postsurgical scar to the right upper extremity with a large area of erythema to the proximal medial aspect of the right upper extremity consistent with cellulitis. There is warmth. No obvious fluctuance or induration, compartments are soft. Skin: General: Skin is warm and dry. Neurological: General: No focal deficit present. Mental Status: He is alert and oriented to person, place, and time. Cranial Nerves: Cranial nerves 2-12 are intact. No cranial nerve deficit. Sensory: Sensation is intact. No sensory deficit. Psychiatric: Behavior: Behavior normal. Thought Content: Thought content normal. Judgment: Judgment normal. Procedure Procedures Re-Evaluation Re-Evaluation ED Course ED Course as of 05/31/242358May 31, [id number] I discussed the case with ortho, who will evaluate. [JM] 2327 Ortho requested the patient be admitted to the hospitalist. I discussed this with the hospitalist, who is agreeable to the plan of care. I updated the patient and he is also agreeable to the plan of care. [JM] ED Course User Index [JM] Tra Bridges MD Clinical Impressions as of 05/31/242358 Abscess of arm MDM Medical Decision Making Patient with a past medical history of alcoholic liver disease, smoking, osteomyelitis presents for evaluation of an arm abscess. The patient states he had redness to his right upper extremity 2 weeks ago that resolved after a few days but returned a few days ago. States increasing redness and pain especially with motion. Denies any fevers, nausea, vomiting, chest pain, shortness of breath, abdominal pain, or bowel or bladder symptoms. States increasing redness and pain to his right upper extremity with warmth. He was seen at an outside facility and they did a CT scan of the right upper extremity at that did demonstrate an abscess, 4 cm. Patient received a dose of vancomycin and ceftriaxone at the outside facility. On exam, the patient's heart rate is regular with a normal rhythm in his lungs are clear to auscultation bilaterally. Abdomen is soft and nontender and nondistended. Intact distal pulses, intact strength and sensation bilaterally and diffusely. Noted postsurgical scar to the right upper extremity with a large area of erythema to the proximal medial aspect of the right upper extremity consistent with cellulitis. There is warmth. No obvious fluctuance or induration, compartments are soft. Differential diagnosis includes abscess, cellulitis. I will discuss the case with ortho, likely admission. Patient is agreeable to the plan of care and all questions were answered at this time. ----- I, Cesar Cohn (scribe), documented on behalf of Dr. Bxo. 11:57 PM Sergio Hernandez is a 43 y.o. m presenting to the ED for chief complaint of abscess. Dr. Box personally saw and evaluated the patient. Dr. Box discussed the plan with the ARIEL/ Resident. Dr. Box personally made/approved the management plan for this patient and takes responsibility for the patient management. Exam findings as follows: Constitutional: Awake and alert HENT: Normocephalic and atraumatic Eyes: Conjunctiva unremarkable Cardiovascular: Heart rate regular Pulmonary: Easy work of breathing, speaking in full sentences Abdominal: Flat and non-distended Skin: Warm and dry, right arm is tender and swollen Musculoskeletal: Moving all extremities spontaneously ----- RESULTS Labs: Labs Reviewed CBC WITH AUTO DIFFERENTIAL BASIC METABOLIC PANEL PROTIME & INR APTT ERYTHROCYTE SEDIMENTATION RATE (ESR) C-REACTIVE PROTEIN Radiology: No results found. NURSING NOTES AND VITALS REVIEWED The nursing notes within the ED encounter and vital signs as below have been reviewed. BP (!) 139/94 Pulse 88 Temp 36.6 C (97.8 F) (Oral) Resp 16 SpO2 97% --------- PROGRESS NOTES --------- The plan of care has been discussed with patient including today s results, in addition to providing specific details regarding counseling pertaining to the diagnosis and prognosis. All questions were answered at this time and they are agreeable with the plan ADDITIONAL PROVIDER NOTES At this time the patient has objective evidence of an acute process requiring hospitalization or inpatient management. Medications - No data to display Medication List None Diagnosis: 1. Abscess of arm Disposition: Patient's disposition: Admit Patient's condition is stable. Attestation Provider Statement I performed a history and physical exam on this patient and discussed his or her management with the resident. I reviewed the residents's note and agree with the documented findings and plan of care with the following exceptions: None Provider Statement: By electronically signing this emergency patient record, the Emergency Physician/CONDITIONER TUMBLER/PA-C attests that all entries made into the electronic medical record by the scribe prior to the Physician/CONDITIONER TUMBLER/PA-C signature reflect an accurate accounting of the evaluation and care rendered by that Emergency Physician/CONDITIONER TUMBLER/PA-C. The Emergency Physician/CONDITIONER TUMBLER/PA-C assumes full responsibility for those entries. Tra Bridges MD Resident 05/31/24 7229 Cesar Cohn 05/31/24 7385 Tra Bridges MD Resident 06/01/24 0115 Cosigned by Tai Box MD at 06/02/2024 4:27 AM EST Sergio Hernandez, 43 M Hx surgery to upper arm in 2020, abscess following surgery that was treated Today comes to ED with 2 week history of pain and swelling to same area CT shows fluid collection, possible abscess Dr. Tapia, ortho chemist instrumentation at [facility] aware of patient Ceftriaxone and vanco given at [facility] Coming by local transport, 2 hour ETA Any questions call Access at [id number] male right arm surg 2019 osteomyleistis Arm swelling and pain today Abscess Po K given Tachy upon arrival Aox4 vanco Patient to ED by EMS transfer for c/o upper arm abscess with possible osteomyelitis. VSS, NAD noted, afebrile at time of arrival to [facility] ED. . documented in this encounter [facility] 05-31-2024 History and physical note Images from the original note were not included. [facility] Physician Hospitalists History & Physical Examination [facility] Department of Internal Medicine 06/01/2024 Patient Name: Sergio Hernandez : 1980 Chief Complaint Patient presents with Abscess HPI Sergio Hernandez is a 43 y.o. male medical history significant for liver disease, hypertension, hyperlipidemia, obesity, previous history osteomyelitis of the right humerus, who presented to [facility] emergency department for evaluation of right upper arm swelling and pain. Patient states that 2 weeks ago he developed some erythema on a prior surgical site that resolved. He states that 2 days ago a surgical scar on his right upper arm became swollen and painful. He states he woke up today with worsening pain in the right arm pain with all movements. He followed up with his PCP today who sent him to the emergency department due to concern for infection. Patient denies any injury to the right upper arm. He has a history of osteomyelitis after a shoulder arthroplasty and tendinous repair. Patient required operative intervention at that time via drainage and debridement, he was put on antibiotics via PICC line for many weeks and this was in 2020. He states that since that time he was had no problems with infections in the right arm. Emergency room workup revealed 2.5 x 1.6 x 4 cm fluid collection within the proximal right arm suspicious for abscess. Nonspecific bony proximal humeral diaphysis lucency around the tenodesis graft possibly chronic bone knee change versus recurrent osteomyelitis. White blood cell count elevated at 15.6. Currently still admitting to pain in the upper right arm but denies any fevers or chills. Past Medical History: Diagnosis Date Anxiety Arthritis Depression Headache Hyperlipidemia Hypertension Liver disease Other acute osteomyelitis, right humerus ([facility]) Past Surgical History: Procedure Laterality Date SHOULDER SURGERY Allergy: Penicillin Prior to Admission medications Not on File reports that he has been smoking cigarettes. He does not have any smokeless tobacco history on file. He reports current alcohol use. He reports current drug use. Drug: Marijuana. Family History Problem Relation Age of Onset Hypertension Father Arthritis Father Review of Systems Constitutional: Negative for fever, chills, diaphoresis; positive for fatigue. HENT: Negative for rhinorrhea and vision change. Respiratory: Negative for cough, shortness of breath and wheezing. Cardiovascular: Negative for chest pain, palpitations and leg swelling. Gastrointestinal: Negative for nausea, vomiting, abdominal pain. Genitourinary: Negative for dysuria, urgency, frequency, decreased urine volume and difficulty urinating. Musculoskeletal: Positive for myalgias and arthralgias of the right arm and shoulder. Skin: Negative for pallor. Positive for right upper arm rash. Allergic/Immunologic: Negative for immunocompromised state. Neurological: Negative for dizziness, syncope, speech difficulty, weakness, light-headedness, numbness and headaches. Hematological: Negative for adenopathy. Psychiatric/Behavioral: Negative for suicidal ideas, hallucinations, behavioral problems and agitation. Exam BP 125/85 Pulse 81 Temp 36.6 C (97.8 F) (Oral) Resp 20 SpO2 94% Constitutional: Oriented to person, place and time. Appears well-developed and well-nourished. No distress. HENT: Normocephalic and atraumatic. Nose normal. Eyes: Conjunctivae and EOM are normal. Pupils are equal, round, and reactive to light. No scleral icterus. Neck: Neck supple. No stridor and no tracheal deviation present. Cardiovascular: Normal rate, regular rhythm, normal heart sounds and intact distal pulses. Exam reveals no gallop and no friction rub. No murmur heard. No JVD. Pulmonary/Chest: Effort normal and breath sounds normal. No respiratory distress. No wheezes. No rales. No tenderness. Abdominal: Soft. Bowel sounds are normal. No distension and no mass. There is no tenderness. Musculoskeletal: Normal range of motion. Positive edema and tenderness of the right upper arm and shoulder. Neurological: Alert and oriented to person, place, and time. No cranial nerve deficit. Normal muscle tone. Strength 5/5 in all extremities. Skin: Skin is warm and dry. Non diaphoretic. No pallor. Significant erythema noted around prior surgical site. Psychiatric: Normal mood and affect. Behavior is normal. Judgment and thought content normal. No intake or output data in the 24 hours ending 06/01/24 0220 Labs Recent Results (from the past 48 hours) CBC auto differential Collection Time: 05/31/24 11:47 PM Result Value Ref Range White Blood Cells 13.0 (H) 4.0 - 11.0 X10E9/L RBC count 5.23 4.10 - 5.70 X10E12/L Hemoglobin 13.6 13.0 - 17.0 g/dL Hematocrit 41.2 39 - 49 % MCV 79 (L) 80 - 100 fL MCH 26.0 (L) 27 - 34 pg MCHC 32.9 32 - 36 g/dL RDW 14.3 11.5 - 15.0 % Platelets 374 150 - 450 X10E9/L MPV 7.6 7 - 12 fL % neutrophils 70.0 % % lymphocytes 19.4 % % monocytes 7.4 % % eosinophils 2.3 % % Basophils 0.9 % Neutrophils Absolute (A) 9.1 (H) 1.5 - 6.6 X10E9/L Lymphocytes Absolute 2.5 1.0 - 3.5 X10E9/L Monocytes Absolute 1.0 (H) 0 - 0.9 X10E9/L Eosinophils Absolute 0.3 0.0 - 0.4 X10E9/L Basophils Absolute 0.1 0.0 - 0.2 X10E9/L Basic Metabolic Panel Collection Time: 05/31/24 11:47 PM Result Value Ref Range Sodium 136 134 - 146 mmol/L Potassium, Bld 2.9 (L) 3.5 - 5.0 mmol/L Chloride 98 98 - 109 mmol/L CO2 27 22 - 32 mmol/L Anion gap 11 5 - 15 mmol/L BUN 9 5 - 23 mg/dL Creatinine 0.78 0.60 - 1.30 mg/dL Glucose 107 (H) 65 - 99 mg/dL Calcium 8.7 8.5 - 10.5 mg/dL eGFR (CKD-EPI)non-race dependent >90 >59 ml/min/1.73sq.m Protime & INR Collection Time: 05/31/24 11:47 PM Result Value Ref Range Protime 12.5 9.8 - 13.2 sec Inr 1.1 0.8 - 1.1 APTT Collection Time: 05/31/24 11:47 PM Result Value Ref Range aPTT 31 26 - 37 sec Erythrocyte Sedimentation Rate (ESR) Collection Time: 05/31/24 11:47 PM Result Value Ref Range Sed Rate 41 (H) 0 - 15 mm/h C-reactive protein Collection Time: 05/31/24 11:47 PM Result Value Ref Range CRP 4.1 (H) 0.000 - 0.744 mg/dL Imaging No results found. Principal Problem: Abscess of arm Assessment and Plan 1. Right upper arm cellulitis and abscess Rule out osteomyelitis Transferred from [facility] ER for orthopedic eval CT revealed 2.5 x 1.6 x 4 cm fluid collection within the proximal right arm suspicious for abscess. Nonspecific bony proximal humeral diaphysis lucency around the tenodesis graft possibly chronic bone knee change versus recurrent osteomyelitis. Orthopedic surgery consult NPO for planned orthopedic intervention Previously administered IV vanco and rocephin prior to transfer - will hold further antibiotics until surgical cultures obtained Consult ID 2. Hypokalemia Replace per sliding scale 3. History of osteomyelitis post shoulder arthroscopic intervention 2020 4. HTN Restart home meds when available for review 5. HLD 6. Tobacco use disorder DVT prophylaxis with SCD's Full code Electronically signed by: Nedra Meneses DO This note was created with the assistance of a speech-recognition program. Although the intention is to generate a document that actually reflects the content of the visit, no guarantees can be provided that every mistake has been identified and corrected by editing/ [facility] [employer] [facility] 05-31-2024 History and physical note Images from the original note were not included. [facility] History & Physical Examination [facility] Department of Internal Medicine 06/01/2024 Patient Name: Sergio Hernandez : 1980 Chief Complaint Patient presents with Abscess HPI Sergio Hernandez is a 43 y.o. male medical history significant for liver disease, hypertension, hyperlipidemia, obesity, previous history osteomyelitis of the right humerus, who presented to [facility] emergency department for evaluation of right upper arm swelling and pain. Patient states that 2 weeks ago he developed some erythema on a prior surgical site that resolved. He states that 2 days ago a surgical scar on his right upper arm became swollen and painful. He states he woke up today with worsening pain in the right arm pain with all movements. He followed up with his PCP today who sent him to the emergency department due to concern for infection. Patient denies any injury to the right upper arm. He has a history of osteomyelitis after a shoulder arthroplasty and tendinous repair. Patient required operative intervention at that time via drainage and debridement, he was put on antibiotics via PICC line for many weeks and this was in 2020. He states that since that time he was had no problems with infections in the right arm. Emergency room workup revealed 2.5 x 1.6 x 4 cm fluid collection within the proximal right arm suspicious for abscess. Nonspecific bony proximal humeral diaphysis lucency around the tenodesis graft possibly chronic bone knee change versus recurrent osteomyelitis. White blood cell count elevated at 15.6. Currently still admitting to pain in the upper right arm but denies any fevers or chills. Past Medical History: Diagnosis Date Anxiety Arthritis Depression Headache Hyperlipidemia Hypertension Liver disease Other acute osteomyelitis, right humerus ([facility]) Past Surgical History: Procedure Laterality Date SHOULDER SURGERY Allergy: Penicillin Prior to Admission medications Not on File reports that he has been smoking cigarettes. He does not have any smokeless tobacco history on file. He reports current alcohol use. He reports current drug use. Drug: Marijuana. Family History Problem Relation Age of Onset Hypertension Father Arthritis Father Review of Systems Constitutional: Negative for fever, chills, diaphoresis; positive for fatigue. HENT: Negative for rhinorrhea and vision change. Respiratory: Negative for cough, shortness of breath and wheezing. Cardiovascular: Negative for chest pain, palpitations and leg swelling. Gastrointestinal: Negative for nausea, vomiting, abdominal pain. Genitourinary: Negative for dysuria, urgency, frequency, decreased urine volume and difficulty urinating. Musculoskeletal: Positive for myalgias and arthralgias of the right arm and shoulder. Skin: Negative for pallor. Positive for right upper arm rash. Allergic/Immunologic: Negative for immunocompromised state. Neurological: Negative for dizziness, syncope, speech difficulty, weakness, light-headedness, numbness and headaches. Hematological: Negative for adenopathy. Psychiatric/Behavioral: Negative for suicidal ideas, hallucinations, behavioral problems and agitation. Exam BP 125/85 Pulse 81 Temp 36.6 C (97.8 F) (Oral) Resp 20 SpO2 94% Constitutional: Oriented to person, place and time. Appears well-developed and well-nourished. No distress. HENT: Normocephalic and atraumatic. Nose normal. Eyes: Conjunctivae and EOM are normal. Pupils are equal, round, and reactive to light. No scleral icterus. Neck: Neck supple. No stridor and no tracheal deviation present. Cardiovascular: Normal rate, regular rhythm, normal heart sounds and intact distal pulses. Exam reveals no gallop and no friction rub. No murmur heard. No JVD. Pulmonary/Chest: Effort normal and breath sounds normal. No respiratory distress. No wheezes. No rales. No tenderness. Abdominal: Soft. Bowel sounds are normal. No distension and no mass. There is no tenderness. Musculoskeletal: Normal range of motion. Positive edema and tenderness of the right upper arm and shoulder. Neurological: Alert and oriented to person, place, and time. No cranial nerve deficit. Normal muscle tone. Strength 5/5 in all extremities. Skin: Skin is warm and dry. Non diaphoretic. No pallor. Significant erythema noted around prior surgical site. Psychiatric: Normal mood and affect. Behavior is normal. Judgment and thought content normal. No intake or output data in the 24 hours ending 06/01/24 0220 Labs Recent Results (from the past 48 hours) CBC auto differential Collection Time: 05/31/24 11:47 PM Result Value Ref Range White Blood Cells 13.0 (H) 4.0 - 11.0 X10E9/L RBC count 5.23 4.10 - 5.70 X10E12/L Hemoglobin 13.6 13.0 - 17.0 g/dL Hematocrit 41.2 39 - 49 % MCV 79 (L) 80 - 100 fL MCH 26.0 (L) 27 - 34 pg MCHC 32.9 32 - 36 g/dL RDW 14.3 11.5 - 15.0 % Platelets 374 150 - 450 X10E9/L MPV 7.6 7 - 12 fL % neutrophils 70.0 % % lymphocytes 19.4 % % monocytes 7.4 % % eosinophils 2.3 % % Basophils 0.9 % Neutrophils Absolute (A) 9.1 (H) 1.5 - 6.6 X10E9/L Lymphocytes Absolute 2.5 1.0 - 3.5 X10E9/L Monocytes Absolute 1.0 (H) 0 - 0.9 X10E9/L Eosinophils Absolute 0.3 0.0 - 0.4 X10E9/L Basophils Absolute 0.1 0.0 - 0.2 X10E9/L Basic Metabolic Panel Collection Time: 05/31/24 11:47 PM Result Value Ref Range Sodium 136 134 - 146 mmol/L Potassium, Bld 2.9 (L) 3.5 - 5.0 mmol/L Chloride 98 98 - 109 mmol/L CO2 27 22 - 32 mmol/L Anion gap 11 5 - 15 mmol/L BUN 9 5 - 23 mg/dL Creatinine 0.78 0.60 - 1.30 mg/dL Glucose 107 (H) 65 - 99 mg/dL Calcium 8.7 8.5 - 10.5 mg/dL eGFR (CKD-EPI)non-race dependent >90 >59 ml/min/1.73sq.m Protime & INR Collection Time: 05/31/24 11:47 PM Result Value Ref Range Protime 12.5 9.8 - 13.2 sec Inr 1.1 0.8 - 1.1 APTT Collection Time: 05/31/24 11:47 PM Result Value Ref Range aPTT 31 26 - 37 sec Erythrocyte Sedimentation Rate (ESR) Collection Time: 05/31/24 11:47 PM Result Value Ref Range Sed Rate 41 (H) 0 - 15 mm/h C-reactive protein Collection Time: 05/31/24 11:47 PM Result Value Ref Range CRP 4.1 (H) 0.000 - 0.744 mg/dL Imaging No results found. Principal Problem: Abscess of arm Assessment and Plan 1. Right upper arm cellulitis and abscess Rule out osteomyelitis Transferred from [facility] ER for orthopedic eval CT revealed 2.5 x 1.6 x 4 cm fluid collection within the proximal right arm suspicious for abscess. Nonspecific bony proximal humeral diaphysis lucency around the tenodesis graft possibly chronic bone knee change versus recurrent osteomyelitis. Orthopedic surgery consult NPO for planned orthopedic intervention Previously administered IV vanco and rocephin prior to transfer - will hold further antibiotics until surgical cultures obtained Consult ID 2. Hypokalemia Replace per sliding scale 3. History of osteomyelitis post shoulder arthroscopic intervention 2020 4. HTN Restart home meds when available for review 5. HLD 6. Tobacco use disorder DVT prophylaxis with SCD's Full code Electronically signed by: Nedra Meneses DO This note was created with the assistance of a speech-recognition program. Although the intention is to generate a document that actually reflects the content of the visit, no guarantees can be provided that every mistake has been identified and corrected by editing/ documented in this encounter [facility] 05-31-2024 Consult note Formatting of th is note is different from the original. ORTHOPAEDIC SURGERY CONSULTATION CHIEF COMPLAINT: Abscess HPI: Sergio Hernandez is a 43 y.o. male with complaint of right arm pain. Orthopaedic surgery is consulted for possible infection to the right upper extremity. Patient was a transfer from [facility] due to CT scan findings concerning for a right upper extremity abscess. On evaluation patient states he started noting pain in his right upper arm roughly 2 weeks prior. The pain had subsided, however it had returned yesterday. He also noted that his arm began turning red. Because of this he was evaluated at [facility] where he underwent further workup. He states that he has had an infection in this arm and was told he had osteomyelitis in 2019 which required surgical debridement as well as 21 weeks of IV antibiotics with a PICC line. This occurred after a right shoulder SLAP repair. The patient overall did well with this treatment and did not have symptoms until the present symptoms began. Denies any injuries to the right upper extremity. Denies any history of blood clots. Denies any history of IV drug use. Denies any new numbness/tingling/weakness. Denies any fevers/sweats/chills or other constitutional symptoms. No past surgical history on file. History reviewed. No pertinent past medical history. Pertinent Social Hx: Denies any history of IV drug use. Chronic smoker. Currently taking any blood thinners: No History reviewed. No pertinent past medical history. No past surgical history on file. No Known Allergies No current facility-administered medications for this encounter. No current outpatient medications on file. Social History Socioeconomic History Marital status: Spouse name: Not on file Number of children: Not on file Years of education: Not on file Highest education level: Not on file Occupational History Not on file Tobacco Use Smoking status: Not on file Smokeless tobacco: Not on file Substance and Sexual Activity Alcohol use: Not on file Drug use: Not on file Sexual activity: Not on file Other Topics Concern Not on file Social History Narrative Not on file Social Drivers of Health Financial Resource Strain: Not on file Food Insecurity: No Food Insecurity (05/31/2024) Hunger Screening Food Insecurity - Worry: Never True Food Insecurity - Inability: Never True Transportation Needs: Not on file Physical Activity: Not on file Stress: Not on file Social Connections: Not on file Interpersonal Safety: Not on file Housing Instability: Not on file History reviewed. No pertinent family history. Pertinent review of systems negative except for what is documented in the HPI. Physical exam: Vitals: 05/31/24 2213 BP: (!) 139/94 Pulse: 88 Resp: 16 Temp: 36.6 C (97.8 F) SpO2: 97% General: AOx3, mild distress 2/2 pain RUE: Anterior right upper arm is erythematous and warm to the touch. It is blanchable on palpation. There was a prior surgical scar within the area of erythema. There was no dehiscence or drainage from the wound. He is tender to palpation about the area of erythema. There is a small area of induration at the proximal aspect of the prior surgical scar. No fluctuant fluid noted. Has full range of motion of the shoulder, elbow, wrist, and digits. Sensation is intact to light touch throughout his entire right upper extremity. Compartments were soft and compressible. 2+ radial pulse with brisk capillary refill x5. Labs: Results from last 7 days Lab Units 05/31/24 2347 WBC X10E9/L 13.0* HEMOGLOBIN g/dL 13.6 HEMATOCRIT % 41.2 MCV fL 79* PLATELETS X10E9/L 374 Imaging No results found. Assessment/Plan Assessment: Sergio Hernandez is a 43 y.o. male with concern for abscess in the right upper extremity. Plan: Plan for OR on 06/01/24 for irrigation debridement of right upper extremity, possible insertion of antibiotic beads, and possible hardware removal. Admit to hospitalist service WBAT RUE NPO midnight Antibiotics: Perioperative Ancef. Further antibiotics pending surgical findings DVT ppx: Hold for OR in a.m. Pain management: Per primary Ice, elevate extremity as appropriate This plan was discussed in detail with Dr. Tapia. Donald Menjivar MD Orthopaedic Surgery Resident, PGY-2 06/01/24 12:28 AM I am available via [employer] 6a-6p. Cosigned by Villa Tapia MD at 06/02/2024 12:11 PM EST Associated attestation - Villa Tapia MD - 06/02/2024 12:11 PM EST ATTENDING STATEMENT: I reviewed the resident's note and discussed the case with the resident. This specific service will not be billed. Additional findings/notes: No new findings VILLA TAPIA MD [facility] Work Phone: 05-31-2024 Physician Emergency department Note Images from the original note were not included. History Chief Complaint Patient presents with Abscess Patient with a past medical history of alcoholic liver disease, smoking, osteomyelitis presents for evaluation of an arm abscess. The patient states he had redness to his right upper extremity 2 weeks ago that resolved after a few days but returned a few days ago. States increasing redness and pain especially with motion. Denies any fevers, nausea, vomiting, chest pain, shortness of breath, abdominal pain, or bowel or bladder symptoms. States increasing redness and pain to his right upper extremity with warmth. He was seen at an outside facility and they did a CT scan of the right upper extremity at that did demonstrate an abscess, 4 cm. Patient received a dose of vancomycin and ceftriaxone at the outside facility. Abscess Associated symptoms: no fatigue and no nausea Problem List Items Addressed This Visit Other * (Principal) Abscess of arm - Primary History reviewed. No pertinent past medical history. No past surgical history on file. Travel Screening No screening recorded since 05/28/242204 Travel History Travel since 04/30/24 No documented travel since 04/30/24 History reviewed. No pertinent family history. Social History Substance and Sexual Activity Drug Use Not on file Review of Systems Constitutional: Negative for diaphoresis and fatigue. HENT: Negative for ear discharge and ear pain. Eyes: Negative for pain and redness. Respiratory: Negative for cough and choking. Cardiovascular: Negative for chest pain/discomfort and syncope. Gastrointestinal: Negative for diarrhea and nausea. Genitourinary: Negative for difficulty urinating and flank pain. Musculoskeletal: Negative for neck pain and neck stiffness. Skin: Positive for color change. Negative for pallor and rash. Neurological: Negative for facial asymmetry and speech difficulty. Physical Exam ED Triage Vitals [05/31/242212] Temp Heart Rate Resp BP SpO2 36.6 C (97.8 F) 88 16 (!) 139/94 97 % Temp Source Heart Rate Source Patient Position BP Location FiO2 (%) Oral Pulse Ox Sitting Left arm -- Vitals: 05/31/243 BP: (!) 139/94 Temp: 36.6 C (97.8 F) TempSrc: Oral Pulse: 88 Resp: 16 SpO2: 97% Physical Exam Vitals reviewed. Constitutional: General: He is not in acute distress. Appearance: He is well-developed. HENT: Head: Normocephalic and atraumatic. Eyes: Pupils: Pupils are equal, round, and reactive to light. Cardiovascular: Rate and Rhythm: Normal rate and regular rhythm. Pulses: Normal pulses. Heart sounds: Normal heart sounds, S1 normal and S2 normal. Pulmonary: Effort: Pulmonary effort is normal. Breath sounds: Normal breath sounds. No decreased breath sounds or wheezing. Abdominal: General: Bowel sounds are normal. Palpations: Abdomen is soft. Musculoskeletal: General: No deformity. Normal range of motion. Cervical back: Normal range of motion and neck supple. Right lower leg: No edema. Left lower leg: No edema. Comments: Noted postsurgical scar to the right upper extremity with a large area of erythema to the proximal medial aspect of the right upper extremity consistent with cellulitis. There is warmth. No obvious fluctuance or induration, compartments are soft. Skin: General: Skin is warm and dry. Neurological: General: No focal deficit present. Mental Status: He is alert and oriented to person, place, and time. Cranial Nerves: Cranial nerves 2-12 are intact. No cranial nerve deficit. Sensory: Sensation is intact. No sensory deficit. Psychiatric: Behavior: Behavior normal. Thought Content: Thought content normal. Judgment: Judgment normal. Procedure Procedures Re-Evaluation Re-Evaluation ED Course ED Course as of 05/31/242358May 31, [id number] I discussed the case with ortho, who will evaluate. [JM] 2327 Ortho requested the patient be admitted to the hospitalist. I discussed this with the hospitalist, who is agreeable to the plan of care. I updated the patient and he is also agreeable to the plan of care. [JM] ED Course User Index [JM] Tra Bridges MD Clinical Impressions as of 05/31/242358 Abscess of arm MDM Medical Decision Making Patient with a past medical history of alcoholic liver disease, smoking, osteomyelitis presents for evaluation of an arm abscess. The patient states he had redness to his right upper extremity 2 weeks ago that resolved after a few days but returned a few days ago. States increasing redness and pain especially with motion. Denies any fevers, nausea, vomiting, chest pain, shortness of breath, abdominal pain, or bowel or bladder symptoms. States increasing redness and pain to his right upper extremity with warmth. He was seen at an outside facility and they did a CT scan of the right upper extremity at that did demonstrate an abscess, 4 cm. Patient received a dose of vancomycin and ceftriaxone at the outside facility. On exam, the patient's heart rate is regular with a normal rhythm in his lungs are clear to auscultation bilaterally. Abdomen is soft and nontender and nondistended. Intact distal pulses, intact strength and sensation bilaterally and diffusely. Noted postsurgical scar to the right upper extremity with a large area of erythema to the proximal medial aspect of the right upper extremity consistent with cellulitis. There is warmth. No obvious fluctuance or induration, compartments are soft. Differential diagnosis includes abscess, cellulitis. I will discuss the case with ortho, likely admission. Patient is agreeable to the plan of care and all questions were answered at this time. ----- I, Cesar Cohn (scribe), documented on behalf of Dr. Box. 11:57 PM Sergio Hernandez is a 43 y.o. m presenting to the ED for chief complaint of abscess. Dr. Box personally saw and evaluated the patient. Dr. Box discussed the plan with the ARIEL/ Resident. Dr. Box personally made/approved the management plan for this patient and takes responsibility for the patient management. Exam findings as follows: Constitutional: Awake and alert HENT: Normocephalic and atraumatic Eyes: Conjunctiva unremarkable Cardiovascular: Heart rate regular Pulmonary: Easy work of breathing, speaking in full sentences Abdominal: Flat and non-distended Skin: Warm and dry, right arm is tender and swollen Musculoskeletal: Moving all extremities spontaneously ----- RESULTS Labs: Labs Reviewed CBC WITH AUTO DIFFERENTIAL BASIC METABOLIC PANEL PROTIME & INR APTT ERYTHROCYTE SEDIMENTATION RATE (ESR) C-REACTIVE PROTEIN Radiology: No results found. NURSING NOTES AND VITALS REVIEWED The nursing notes within the ED encounter and vital signs as below have been reviewed. BP (!) 139/94 Pulse 88 Temp 36.6 C (97.8 F) (Oral) Resp 16 SpO2 97% --------- PROGRESS NOTES --------- The plan of care has been discussed with patient including today s results, in addition to providing specific details regarding counseling pertaining to the diagnosis and prognosis. All questions were answered at this time and they are agreeable with the plan ADDITIONAL PROVIDER NOTES At this time the patient has objective evidence of an acute process requiring hospitalization or inpatient management. Medications - No data to display Medication List None Diagnosis: 1. Abscess of arm Disposition: Patient's disposition: Admit Patient's condition is stable. Attestation Provider Statement I performed a history and physical exam on this patient and discussed his or her management with the resident. I reviewed the residents's note and agree with the documented findings and plan of care with the following exceptions: None Provider Statement: By electronically signing this emergency patient record, the Emergency Physician/CONDITIONER TUMBLER/PA-C attests that all entries made into the electronic medical record by the scribe prior to the Physician/CONDITIONER TUMBLER/PA-C signature reflect an accurate accounting of the evaluation and care rendered by that Emergency Physician/CONDITIONER TUMBLER/PA-C. The Emergency Physician/CONDITIONER TUMBLER/PA-C assumes full responsibility for those entries. Tra Bridges MD Resident 05/31/24 [id number] Cesar Cohn 05/31/24 [id number] Tra Bridges MD Resident 06/01/24 [id number] Cosigned by Tai Box MD at 06/02/2024 4:27 AM EST ealth 05-31-2024 Emergency department Note Sergio Hernandez, 43 M Hx surgery to upper arm in 2020, abscess following surgery that was treated Today comes to ED with 2 week history of pain and swelling to same area CT shows fluid collection, possible abscess Dr. Tapia, ortho chemist instrumentation at [facility] aware of patient Ceftriaxone and vanco given at [facility] Coming by local transport, 2 hour ETA Any questions call Access at [id number] male right arm surg 2019 osteomyleistis Arm swelling and pain today Abscess Po K given Tachy upon arrival Aox4 vanco ealth 05-31-2024 Emergency department Triage note Patient to ED by EMS transfer for c/o upper arm abscess with possible osteomyelitis. VSS, NAD noted, afebrile at time of arrival to [facility] ED. ealth 05-31-2024 Emergency department Note . ealth 05-31-2024 Evaluation + Plan note Extrac liseth from: Title:ED Note Author:Noman Riggins, Yuval Burnett te:05/31/24 1. Abscess of upper arm (L02 .419: Cutaneous abscess of limb, unspecified) 2. Systemic inflammatory response syndrome (SIRS) (R65.10: Systemic inflammatory response syndrome (SIRS) of non-infectious origin without acute organ dysfunction) 3. Hypokalemia (E87.6: Hypokalemia) Orders: ceftriaxone + Sodium Chloride 0.9% intravenous solution 50 mL, 2,000 mg = 1 EA, Injection, IV Piggyback, Once, Stop date 05/31/24 15:14:00 EST, STAT, Start date 05/31/24 15:14:00 EST, 100 mL/hr, Infuse over 30 minute(s) morphine, 4 mg = 1 mL, Injection, IV Push, Once, Stop date 05/31/24 15:26:00 EST, STAT, Start date 05/31/24 15:26:00 EST, 05/31/24 15:26:00 EST morphine, 4 mg = 1 mL, Injection, IV Push, Once, Stop date 05/31/24 13:32:00 EST, STAT, Start date 05/31/24 13:32:00 EST, 05/31/24 13:32:00 EST nicotine, 14 mg, 1 patch(es), Patch-ER, TransDermal, Once, Stop date 05/31/24 16:57:00 EST, STAT, Start date 05/31/24 16:57:00 EST potassium chloride, 40 mEq = 2 tab(s), Tab-ER, Oral, Once, Stop date 05/31/24 16:36:00 EST, STAT, Start date 05/31/24 16:36:00 EST, 05/31/24 16:36:00 EST vancomycin + Generic Diluent 350 mL, 1,750 mg = 350 mL, Soln-IV, IV Piggyback, Once, Stop date 05/31/24 15:16:00 EST, STAT, Start date 05/31/24 15:16:00 EST, 175 mL/hr, Infuse over 2 hour(s) Basic Metabolic Panel Blood Culture Charcoal Blood Culture Charcoal C-Reactive Protein CBC w/ Auto Diff CT Upper Extremity w/ Contrast Right eGFR Lactic Acid Lactic Acid Sedimentation Rate Automated Transfer Patient Diagnostic Tests Pending * Blood Culture Charcoal 05/31/24 * Blood Culture Charcoal 05/31/24 Future Scheduled Tests Laboratory* HCV Antibody RFX to Quant PCR 04/27/24 * CBC w/ Auto Diff 04/27/24 * Comprehensive Metabolic Panel 04/27/24 [facility] 11-13-2024 History of Present illness Narrative* Arnold Hartley NP - 05/31/2024 12:20 PM EST Images from the original note were not included. Sergio Hernandez is a 43 y.o. male presents with chief complaint of Arm Pain (Right Arm) HPI: History of Present Illness The patient presents for evaluation of right bicep pain. He underwent surgery in 2019 to repair his shoulder, labrum, and rotator cuff, which involved disconnecting and reconnecting his bicep through his armpit. Following the surgery, he began physical therapy in March 2020. However, he noticed a growing lump in his bicep, which eventually reached the size of a golf ball. An MRI revealed an infection, leading to an emergency surgery in August 2020 for osteomyelitis. This resulted in a large scar on his bicep and a drain hole. A PICC line was inserted for 20 weeks to prevent the spread of the osteomyelitis. Recently, he has been experiencing tightness and soreness in the area, which he attributes to the scar. He describes the sensation as if something is trying to grow but is restricted by the tightness. The lump became so large that it felt like razor blades when touched or when he put on a shirt. Onthe day of his surgery, he felt the lump burst after a hot shower, causing fluid to run down his arm. He was concerned about the possibility of sepsis. He was hospitalized for 3 to 4 days and had a PICC line inserted for 12 weeks. He administered his own antibiotics daily. He was on long-term disability and was unable to see an orthopedic doctor due to his infection. He was referred to Dr. Marquis, who suspected bone cancer. Dr. Marquis performed surgery on his elbow, moved his ulnar nerve, and treated his carpal tunnel. He believes he needs another MRI as he feels something is wrong. He has been dealing with this issue for a long time and is familiar with his body's signals. He has had x-rays and measurements taken at the office, but the cause of his symptoms remains unknown. He has been unable to sleep for the past few nights due to the pain. He reports no recent injury. He first noticed the symptoms a couple of weeks ago, but they subsided and then returned. He has beenin pain for several consecutive days and is unable to move his arm. Today is the first day he has noticed redness in the area. He recently had a colonoscopy and has been experiencing difficulty moving and lifting his arm. He can barely lift it now. He is able to drive himself to the hospital. A year ago, he bumped his matos and suddenly his right foot swelled up and became very tight, appearing as if it was going to pop. He went to the ER and was diagnosed with diabetes. His right foot wasvery red and started peeling due to the swelling. He was administered antibiotics and discharged after 3 hours. He thought he was going to need surgery. His blood pressure was great at his last appointment. He was in pain and had to wait for an hour, which made him upset for 2 minutes just to be told everything is great. MEDICATIONS: Current Outpatient Medications Medication Instructions albuterol HFA (ProAir HFA) 90 mcg/act inhaler 2 puffs, Inhalation, Every 4 hours PRN cpbhqqc-cnlketlwckshk-pgfmgidj (Excedrin Migraine) 250-250-65 MG tablet 2 tablets Orally q6 hrs PRN atorvastatin (LIPITOR) 10 mg, Oral, Daily hydroCHLOROthiazide (HYDRODIURIL) 25 mg, Oral, Daily omeprazole (PRILOSEC) 20 mg, Oral, Daily before breakfast, Do not crush or chew. ALLERGIES: Allergies Allergen Reactions Penicillins Anaphylaxis Other Reaction(s): Anaphylactic reaction, Unknown Reaction Penicillin G Other Reaction(s): anaphylaxis as a child Review of Systems Medical, Surgical, Family, and Social History reviewed. General: Denies fever, chills, fatigue, BILLS or weight loss/gain CV: Denies CP, palpitations or swelling in legs Resp: denies cough, SOB or wheezing GI: Denies abd pain/n/v/c/d Skin: Denies rash Neuro: Denies LH or dizziness OBJECTIVE: Visit Vitals BP 152/88 (BP Location: Left arm, Patient Position: Sitting, BP Cuff Size: Adult) Pulse (!) 111 Temp 98.6 F (Temporal) Wt 235 lb 3.2 oz SpO2 97% BMI 31.90 kg/m Smoking Status Every Day BSA 2.33 m BP Readings from Last 3 Encounters: 05/31/24 152/88 04/07/24 128/80 03/08/24 (!) 138/100 Wt Readings from Last 3 Encounters: 05/31/24 235 lb 3.2 oz 04/07/24 232 lb 03/08/24 226 lb Physical Exam Physical Exam General: alert & oriented, NAD Head: NC/AT Oral Cavity: MMM Skin: right upper arm swelling and redness noted around the scar. Heart: RRR, No m/r/g, S1S2 nml Lungs: CTA b/l Musculoskeletal: normal gait Extremities: no clubbing, cyanosis or edema Neurological: nonfocal Psych: mood/affect full range Vital Signs Blood pressure reading is 150/88. Results ASSESSMENT AND PLAN: Assessment & Plan 1. Right bicep pain. The presence of redness and warmth in the affected area suggests a possible infection. Given his history of osteomyelitis in the same arm, immediate medical attention is warranted. An emergency room visit is recommended for further evaluation and treatment. It is crucial that he informs the ER staff about his previous osteomyelitis diagnosis, the 20-week PICC line treatment, and the recent onset of redness, warmth, and swelling in the arm. The ER staff should be informed that the redness appeared today, and the arm has been swollen and painful for the past few days. He is advised to mention that there was no recent injury to the arm. Assessment/Plan Diagnoses and all orders for this visit: History of osteomyelitis Pain of right upper extremity Cellulitis of right upper extremity [place] [facility] [place] [facility] [place] Maintenance Due Topic Date Due Influenza Vaccine (1) Never done documented in [facility]Saint [id number] Hospital Discharge instructions Patient Education 05/17/2024 15:12:57 Endoscopy, Care After Procedure [facility] [place] Endoscopy Care After Procedure Please read the instructions outlined below and refer to this sheet in the next few weeks. These discharge instructions provide you with general information on caring for yourself after you leave thehospital. Your doctor may also give you specific instructions. While your treatment has been planned according to the most current medical practices available, unavoidable complications occasionally occur. If you have any problems or questions after discharge, please call your doctor. ACTIVITY You may resume your regular activity but move at a slower pace for the next 24 hours. Take frequent rest periods for the next 24 hours. Walking will help expel (get rid of) the air and reduce the bloated feeling in your abdomen. No driving for 24 hours (because of the anesthesia (medicine) used during the test). You may shower. Do not sign any important legal documents or operate any machinery for 24 hours (because of the anesthesia used during the test). NUTRITION Drink plenty of fluids. You may resume your normal diet. Begin with a light meal and progress to your normal diet. Avoid alcoholic beverages for 24 hours or as instructed by your caregiver. MEDICATIONS You may resume your normal medications unless your caregiver tells you otherwise. WHAT YOU CAN EXPECT TODAY You may experience abdominal discomfort such as a feeling of fullness or gas pains. FOLLOW-UP Your doctor will discuss the results of your test with you. SEEK IMMEDIATE MEDICAL ATTENTION IF ANY OF THE FOLLOWING OCCUR: Excessive nausea (feeling sick to your stomach) and/or vomiting. Severe abdominal pain and distention (swelling). Trouble swallowing. Temperature over 100 F (37.8 C). Rectal bleeding or vomiting of blood. Document Released: 02/16/2005 Document Re-Released: 12/27/2006 [employer] Patient Information 2010 [employer] 05/17/2024 15:12:51 Diverticulosis [facility] (CUSTOM) Diverticulosis Many people have small pouches in their colon called diverticulum. The diverticulum bulge outward through weak spots in the colon. You could have one or more of these pouches in the colon. The condition of having these pouches in the colon is called diverticulosis or diverticular disease. Diverticulosis is usually diagnosed by tests to evaluate something else. For example, you may have had a colonoscopy to screen for colon cancer when the diverticulosis was found. Most people with diverticulosis do not have any discomfort or problems. If symptoms develop, they may include mild cramps, bloating, and constipation. A complication of this condition is called diverticulitis. This is when the diverticulum become inflamed and infected. How to treat diverticulosis: Increasing the amount of fiber in the diet may reduce symptoms of diverticulosis and prevent complications such as diverticulitis (infected diverticuli). Fiber keeps stool soft and lowers pressure inside the colon so that bowel contents can move througheasily. You should eat 20 to 35 grams of fiber each day. The table below shows the amount of fiber in some foods that you can easily add to your diet. Adding fiber slowly may decrease the bloating and fullness sometimes felt with an immediate high fiber diet. The doctor may also recommend taking a fiber product such as Citrucel or Metamucil once a day. In the past people with diverticulosis were to avoid nuts, corn, and seeds. This has not been foundto be true. If you find that certain foods create cramping or bloating, avoid that food. Foods high in fiber include: Fresh fruits, fresh vegetables, legumes (beans), whole wheat bread, bran muffins or cereal, and nuts. See the table below for examples of high fiber foods. Remember, your goal is 20- 35 grams per day. Amount of fiber in different foods Food Serving Grams of fiber Fruits Apple (with skin) 1 medium apple 4.4 Banana 1 medium banana 3.1 Oranges 1 orange 3.1 Prunes 1 cup, pitted 12.4 Juices Apple, unsweetened, w/added ascorbic acid 1 cup 0.5 Grapefruit, white, canned, sweetened 1 cup 0.2 Grape, unsweetened, w/added ascorbic acid 1 cup 0.5 Early 1 cup 0.7 Vegetables Cooked Green beans 1 cup 4.0 Carrots 1/2 cup sliced 2.3 Peas 1 cup 8.8 Potato (baked, with skin) 1 medium potato 3.8 Raw [place] (with peel) 1 cucumber 1.5 Lettuce 1 cup shredded 0.5 Tomato 1 medium tomato 1.5 Spinach 1 cup 0.7 Legumes Baked beans, canned, no salt added 1 cup 13.9 Kidney beans, canned 1 cup 13.6 Gilliam beans, canned 1 cup 11.6 Lentils, boiled 1 cup 15.6 Breads, pastas, flours Bran muffins 1 medium muffin 5.2 Oatmeal, cooked 1 cup 4.0 White bread 1 slice 0.6 Whole-wheat bread 1 slice 1.9 Pasta and rice, cooked Macaroni 1 cup 2.5 Rice, brown 1 cup 3.5 Rice, white 1 cup 0.6 Spaghetti (regular) 1 cup 2.5 Nuts Almonds 1/2 cup 8.7 Peanuts 1/2 cup 7.9 Chart from [facility] 2013. SEEK IMMEDIATE MEDICAL CARE IF: You develop abdominal (belly) pain. An oral temperature above _ 101 F__develops. Repeated vomiting occurs. Blood is being passed in stools (bright red or black tarry stools). You develop any bowel problems or changes which you have not had before. Extra Information: To learn how much fiber and other nutrients are in different foods, visit the [place] Department of Agriculture (USDA) National Nutrient Database at: http://www.nal.usda.gov/fnic/foodcomp/search/ Created using data from the USDA National Nutrient Database for Standard Reference. Available at http://www.nal.usda.gov/fnic/foodcomp/search/. Information adapted from: [facility] Patient Information 2009 [employer] 2012 http://www.[employer]/contents/dexvavfofbzo-nrmrake-lymzhl-the-basics 05/17/2024 15:12:45 Hemorrhoids, Ancu-xv-Fkeq Hemorrhoids Hemorrhoids are swollen veins that may form: In the butt (rectum). These are called internal hemorrhoids. Around the opening of the butt (anus). These are called external hemorrhoids. Most hemorrhoids do not cause very bad problems. They often get better with changes to your lifestyle and what you eat. What are the causes? Having trouble pooping (constipation) or watery poop (diarrhea). Pushing too hard when you poop. . Being very overweight (obese). Sitting for too long. Riding a bike for a long time. Heavy lifting or other things that take a lot of effort. Anal sex. What are the signs or symptoms? Pain. Itching or soreness in the butt. Bleeding from the butt. Leaking poop. Swelling. One or more lumps around the opening of your butt. How is this treated? In most cases, hemorrhoids can be treated at home. You may be told to: Change what you eat. Make changes to your lifestyle. If these treatments do not help, you may need to have a procedure done. Your doctor may need to: Place rubber bands at the bottom of the hemorrhoids to make them fall off. Put medicine into the hemorrhoids to shrink them. Shine a type of light on the hemorrhoids to cause them to fall off. Do surgery to get rid of the hemorrhoids. Follow these instructions at home: Medicines Take mdic-elg-wkpvuxw and prescription medicines only as told by your doctor. Use creams with medicine in them or medicines that you put in your butt as told by your doctor. Eating and drinking Eat foods that have a lot of fiber in them. These include whole grains, beans, nuts, fruits, and vegetables. Ask your doctor about taking products that have fiber added to them (fibersupplements). Take in less fat. You can do this by: ?Eating low-fat dairy products. ?Eating less red meat. ?Staying away from processed foods. Drink enough fluid to keep your pee (urine) pale yellow. Managing pain and swelling Take a warm-water bath (sitz bath) for 20 minutes to ease pain. Do this 3 4 times a day. You may dothis in a bathtub. You may also use a portable sitz bath that fits over the toilet. If told, put ice on the painful area. It may help to use ice between your warm baths. ?Put ice in a plastic bag. ?Place a towel between your skin and the bag. ?Leave the ice on for 20 minutes, 2 3 times a day. If your skin turns bright red, take off the ice right away to prevent skin damage. The risk of damage is higher if you cannot feel pain, heat, or cold. General instructions Exercise. Ask your doctor how much and what kind of exercise is best for you. Go to the bathroom when you need to poop. Do not wait. Try not to push too hard when you poop. Keep your butt dry and clean. Use wet toilet paper or moist towelettes after you poop. Do not sit on the toilet for a long time. Contact a doctor if: You have pain and swelling that do not get better with treatment. You have trouble pooping. You cannot poop. You have pain or swelling outside the area of the hemorrhoids. Get help right away if: You have bleeding from the butt that will not stop. This information is not intended to replace advice given to you by your health care provider. Make sure you discuss any questions you have with your health care provider. Document Revised: 03/17/2023 Document Reviewed: 03/17/2023 [employer] Patient Education 2023 [employer] 05/17/2024 15:12:42 Colonoscopy, Care After Surgery [facility] ([facility]UST[facility]) Colonoscopy Care After Surgery Please read the instructions outlined below and refer to this sheet in the next few weeks. These discharge instructions provide you with general information on caring for yourself after you leave thehospital. Your doctor may also give you specific instructions. While your treatment has been planned according to the most current medical practices available, unavoidable complications occasionally occur. If you have any problems or questions after discharge, please call your doctor. ACTIVITY You may resume your regular activity, but move at a slower pace for the next 24 hours. Take frequent rest periods for the next 24 hours. Walking will help get rid of the air and reduce the bloated feeling in your abdomen (belly). No driving for 24 hours (because of the anesthesia (medicine) used during the test). You may shower. Do not sign any important legal documents or operate any machinery for 24 hours (because of the anesthesia used during the test). NUTRITION Drink plenty of fluids. You may resume your normal diet as instructed by your doctor. Begin with a light meal and progress to your normal diet. Heavy or fried foods are harder to digestand may make you feel nauseated (sick to your stomach). Avoid alcoholic beverages for 24 hours or as instructed. MEDICATIONS You may resume your normal medications unless your doctor tells you otherwise. WHAT YOU CAN EXPECT TODAY Some feelings of bloating in the abdomen. Passage of more gas than usual. Spotting of blood in your stool or on the toilet paper. FOLLOW-UP Your doctor will discuss the results of your test with you. SEEK IMMEDIATE MEDICAL ATTENTION IF: There is more than a spotting of blood in your stool. There is abdominal distention (your abdomen is swollen). There is vomiting. You have a temperature over 101.5 F. There is abdominal pain or discomfort that is severe or gets worse throughout the day. Follow Up Care 04/27/2024 12:39:05 With:Velia BRASWELL, Philip Riley [facility] Address: When: Unknown Comments:Call for any problems. Office will call to schedule follow up appointment [facility] 10-30-2024 NoteProgress Note-Physician Patient: SERGIO HERNANDEZ Age: 43 years Sex: Male : 1980 Associated Diagnoses: None Author: Ramone Ludwig Jr., DO Postoperative Information Postoperative disposition: Postoperative disposition: Home. Optimetrix number: Optimetrix number [id number]. Anesthetic utilized: General. Physical Examination Vital Signs 05/17/2024 15:20 EDT Heart Rate Monitored 71 bpm Respiratory Rate Monitored 15 br/min Systolic Blood Pressure 116 mmHg Diastolic Blood Pressure 73 mmHg Mean Arterial Pressure, Cuff 87 mmHg SpO2 97 % 05/17/2024 15:15 EDT Heart Rate Monitored 66 bpm Respiratory Rate Monitored 16 br/min Systolic Blood Pressure 109 mmHg Diastolic Blood Pressure 79 mmHg Mean Arterial Pressure, Cuff 89 mmHg SpO2 97 % 05/17/2024 15:05 EDT Heart Rate Monitored 68 bpm Respiratory Rate Monitored 16 br/min Systolic Blood Pressure 103 mmHg Diastolic Blood Pressure 72 mmHg Mean Arterial Pressure, Cuff 82 mmHg SpO2 96 % 05/17/2024 14:55 EDT Temperature Temporal Artery 36.4 DegC Heart Rate Monitored 75 bpm Respiratory Rate Monitored 19 br/min Systolic Blood Pressure 99 mmHg Diastolic Blood Pressure 69 mmHg Mean Arterial Pressure, Cuff 79 mmHg SpO2 94 % Pain Assessment: Controlled. General: Awake, Alert, Appropriate. Respiratory: Adequate air exchange, Non-labored. Cardiovascular: Stable, Normal peripheral perfusion. Neurological: Neurologic exam at baseline. No changes.. Assessment Anesthetic outcome No anesthetic complications noted. No nausea/vomiting. Review / Management Condition: Stable. Plan Transfer/Discharge: Transfer/Discharge Discharge when meets criteria ( From PACU to Ambulatory Surgery Unit, and To home ).[facility]Result Comment: Electronically Signed By: Ramone Ludwig Jr., DO.lakia\Date and Time Signed: 05/17/24 16:46 [id number] NotePatient Education - Text Endoscopy Care After Procedure Please read the instructions outlined below and refer to this sheet in the next few weeks. These discharge instructions provide you with general information on caring for yourself after you leave thespital. Your doctor may also give you specific instructions. While your treatment has been planned according to the most current medical practices available, unavoidable complications occasionally occur. If you have any problems or questions after discharge, please call your doctor. ACTIVITY ??? You may resume your regular activity but move at a slower pace for the next 24 hours. ??? Take frequent rest periods for the next 24 hours. ??? Walking will help expel (get rid of) the air and reduce the bloated feeling in your abdomen. ??? No driving for 24 hours (because of the anesthesia (medicine) used during the test). ??? You may shower. ??? Do not sign any important legal documents or operate any machinery for 24 hours (because of theanesthesia used during the test). NUTRITION ??? Drink plenty of fluids. ??? You may resume your normal diet. ??? Begin with a light meal and progress to your normal diet. ??? Avoid alcoholic beverages for 24 hours or as instructed by your caregiver. MEDICATIONS ??? You may resume your normal medications unless your caregiver tells you otherwise. WHAT YOU CAN EXPECT TODAY ??? You may experience abdominal discomfort such as a feeling of fullness or ???gas??? pains. FOLLOW-UP ??? Your doctor will discuss the results of your test with you. seek immediate medical attention if any of the following occur: ??? Excessive nausea (feeling sick to your stomach) and/or vomiting. ??? Severe abdominal pain and distention (swelling). ??? Trouble swallowing. ??? Temperature over 100 F (37.8??? C). ??? Rectal bleeding or vomiting of blood. Document Released: 02/16/2005 Document Re-Released: 12/27/2006 [employer]??? Patient Information ???2009 [employer] Diverticulosis Many people have small pouches in their colon called diverticulum. The diverticulum bulge outward through weak spots in the colon. You could have one or more of these pouches in the colon. The condition of having these pouches in the colon is called diverticulosis or diverticular disease. Diverticulosis is usually diagnosed by tests to evaluate something else. For example, you may have had a colonoscopy to screen for colon cancer when the diverticulosis was found. Most people with diverticulosis do not have any discomfort or problems. If symptoms develop, they may include mild cramps, bloating, and constipation. A complication of this condition is called diverticulitis. This is when the diverticulum become inflamed and infected. How to treat diverticulosis: Increasing the amount of fiber in the diet may reduce symptoms of diverticulosis and prevent complications such as diverticulitis (infected diverticuli). Fiber keeps stool soft and lowers pressure inside the colon so that bowel contents can move througheasily. You should eat 20 to 35 grams of fiber each day. The table below shows the amount of fiber in some foods that you can easily add to your diet. Adding fiber slowly may decrease the bloating and fullness sometimes felt with an immediate high fiber diet. The doctor may also recommend taking a fiber product such as Citrucel or Metamucil once a day. In the past people with diverticulosis were to avoid nuts, corn, and seeds. This has not been foundto be true. If you find that certain foods create cramping or bloating, avoid that food. Foods high in fiber include: Fresh fruits, fresh vegetables, legumes (beans), whole wheat bread, bran muffins or cereal, and nuts. See the table below for examples of high fiber foods. Remember, your goal is 20- 35 grams per day. Amount of fiber in different foods Food Serving Grams of fiber Fruits Apple (with skin) 1 medium apple 4.4 Banana 1 medium banana 3.1 Oranges 1 orange 3.1 Prunes 1 cup, pitted 12.4 Juices Apple, unsweetened, w/added ascorbic acid 1 cup 0.5 Grapefruit, white, canned, sweetened 1 cup 0.2 Grape, unsweetened, w/added ascorbic acid 1 cup 0.5 Early 1 cup 0.7 Vegetables Cooked Green beans 1 cup 4.0 Carrots 1/2 cup sliced 2.3 Peas 1 cup 8.8 Potato (baked, with skin) 1 medium potato 3.8 Raw [place] (with peel) 1 cucumber 1.5 Lettuce 1 cup shredded 0.5 Tomato 1 medium tomato 1.5 Spinach 1 cup 0.7 Legumes Baked beans, canned, no salt added 1 cup 13.9 Kidney beans, canned 1 cup 13.6 Gilliam beans, canned 1 cup 11.6 Lentils, boiled 1 cup 15.6 Breads, pastas, flours Bran muffins 1 medium muffin 5.2 Oatmeal, cooked 1 cup 4.0 White bread 1 slice 0.6 Whole-wheat bread 1 slice 1.9 Pasta and rice, cooked Macaroni 1 cup 2.5 Rice, brown 1 cup 3.5 Rice, white 1 cup 0.6 Spaghetti (regular) 1 cup 2.5 Nuts Almonds 1/2 cup 8.7 Peanuts 1/2 cup 7.9 (more content not included)...[facility] 05-17-2024 NoteEndoscopic Procedure Report - Other Patient: SERGIO HERNANDEZ Age: 43 years Sex: Male : 1980 Associated Diagnoses: None Author: Philip Gunn MD Pre-Procedure Procedure Date 05/17/2024 14:50:00 . Procedure Type: Colonoscopy. Procedure provider Performed by Philip Gunn MD. Current history and physical Documented on chart. Arthroscopy of shoulder, bicep tenodesis ([id number]) on 04/12/2020 at 39 Years. Comments: 04/12/2020 19:20 Theresa Phillip RN SHOULDER BICEPS TENODESIS Colonoscopy ([id number]).. Past Medical History No active or resolved past medical history items have been selected or recorded.. Family History Malignant neoplasm of colon Grandparent Grandparent . Procedure History Arthroscopy of shoulder, bicep tenodesis ([id number]) on 04/12/2020 at 39 Years. Comments: 04/12/2020 19:20 Theresa Phillip RN SHOULDER BICEPS TENODESIS Colonoscopy ([id number]).. Colorectal neoplasm risk assessment Average risk. Informed Consent After discussing the rationale, risks and benefits, and alternatives to this procedure, the patient provided signed consent for the procedure. Pre-procedure diagnosis: Screening. Medications (Selected) Inpatient Medications Ordered Sodium Chloride 0.9% IV Ale 1000 mL 1,000 mL: 1,000 mL, IV, 20 mL/hr, Routine, Start date 05/17/24 6:47:00 EDT, 50 hour(s), Total volume (mL): 1,000, 108 kg, 2.34, m2 Documented Medications Documented atorvastatin 10 mg Tab: Refills(s) 0, High cholesterol hydrochlorothiazide 25 mg Tab: TAKE 1 TABLET BY MOUTH EVERY DAY, diuretic/water pill omeprazole 20 mg Cap-DR: TAKE 1 CAPSULE BY MOUTH IN THE MORNING BEFORE MEALS, DO NOT CRUSH, CHEW, OR SPLIT, Control of stomach acid Anticoagulant/antiplatelet None. ASA Classification: Class II. . Monitoring: See anesthesia record. . Procedure The procedure was performed in the hospital. See anesthesia record for sedation given during procedure. The patient was positioned starting in the left lateral decubitus position. Endoscope type usedwas an adult-size. The endoscope was lubricated then introduced through the anus. The scope was advanced to the terminal ileum. No difficulties encountered during the procedure. The bowel preparationquality was adequate (see polyps greater than or equal to 6 millimeters). The patient tolerated theprocedure well. Time to Cecum: 2 min Withdrawal time 8 min Last colonoscopy: none Findings 1. Normal rectal exam 2. Mild sigmoid diverticulosis. Otherwise normal exam 3. Normal examined terminal ileum Post-Procedure Complications: none. Estimated blood loss: none. Specimens: none. Devices/ implants: none left in place. Impression and Plan 1. Normal rectal exam 2. Mild sigmoid diverticulosis. Otherwise normal exam 3. Normal examined terminal ileum Recommendations: Repeat colonoscopy:: In 10 years. Follow-up:: With primary care as previously scheduled. Diet:: Previous. Medication resumption:: Continue current medications, Avoid NSAIDs. Return to activities:: After 24 hours. Education and Follow-up: Counseled: Patient, Family.[facility] Comment on above:Result Comment: Electronically Signed By: Philip Gunn MD\.br\Date and Time Signed: 05/17/24 14:51 [id number] NoteEndoscopic Procedure Report - Other Patient: SERGIO HERNANDEZ Age: 43 years Sex: Male : 1980 Associated Diagnoses: None Author: Philip Gunn MD Pre-Procedure Procedure Date 05/17/2024 14:37:00 . Procedure Type: Esophagogastroduodenoscopy with biopsy. Procedure provider Performed by Philip Gunn MD. Current history and physical Documented on chart. Informed Consent After discussing the rationale, risks and benefits, and alternatives to this procedure, the patient provided signed consent for the procedure. Pre-procedure diagnosis: Alcohol use disorder. Medications Anticoagulant/antiplatelet None. ASA Classification: Class II. . Monitoring: See anesthesia record. . Procedure The procedure was performed in the hospital. See anesthesia record for sedation given during procedure. The patient was positioned starting in the left lateral decubitus position and with safety measures. Endoscope type used was an adult- size, introduced orally, advanced to the 3rd portion of the duodenum. No difficulty was encountered during the procedure. Views were excellent. The patient tolerated the procedure well. Findings 1. Normal esophagus 2. Normal examined stomach 3. Thickened fold in the duodenal sweep, otherwise normal examined duodenum. Biopsied the duodenal fold to rule out adenoma Images Procedure images: Rec1_hd_video___[id number].jpg Rec1_hd_video__46_[id number].jpg Rec1_hd_video__46_[id number].jpg Rec1_hd_video___46_30_[id number].jpg Rec1_hd_video___[id number]_20_[id number].jpg Rec1_hd_video__45_43_[id number].jpg Rec1_hd_video__45_33_214.jpg Rec1_hd_video__3_[id number].jpg Rec1_hd_video__44_42_[id number].jpg Rec1_hd_video_3_44_23_744.jpg Rec1_hd_video_3_44_13_169.jpg . Post-Procedure Complications: none. Estimated blood loss: minimal. Specimens: sent to pathology. Devices/ implants: none left in place. Impression and Plan 1. Normal esophagus 2. Normal examined stomach 3. Thickened fold in the duodenal sweep, otherwise normal examined duodenum. Biopsied the duodenal fold to rule out adenoma Recommendations: -Resume previous diet -Resume home medications -Await pathology results, follow in GI clinic in 1-2 after dischargeP[facility] HospitalComment on above:Result Comment: Electronically Signed By: Velia BRASWELL, Philip Riley\.br\Date and Time Signed: 05/17/24 14:38 EDTOther Comment: Missing Attachment - attachment storage system not supported [id number] Can be viewed in source systemMissing Attachment - attachment storage system not supported [id number] Can be viewed insource systemMissing Attachment - attachment storage system not supported [id number] Can be viewed in source systemMissing Attachment - attachment storage system not supported [id number] Can be viewed in so urce systemMissing Attachment - attachment storage system not supported [id number] Can be viewed in source systemMissing Attachment - attachment storage system not supported [id number] Can be viewed in source systemMissing Attachment - attachment storage system not supported [id number] Can be viewed in source systemMissing Attachment - attachment storage system not supported [id number] Can be viewed in source systemMissing Attachment - attachment storage system not supported [id number] Can be viewed in sourcesystemMissing Attachment - attachment storage system not supported [id number] Can be viewed in source systemMissing Attachment - attachment storage system not supported [id number] Can be viewed in source system 05-17-2024 NoteProgress Note-Physician Patient: SERGIO HERNANDEZ Age: 43 years Sex: Male : 1980 Associated Diagnoses: None Author: Ramone Ludwig Jr., DO Preoperative Information Anesthesia history: Patient history: No prior anesthetic problems. Informed consent: Signed by patient. Re-evaluation prior to induction: Initial evaluation reviewed: No significant change. Review of Systems Respiratory: Negative except as documented in history of present illness. Cardiovascular: Negative except as documented in history of present illness. Health Status Allergies: Allergic Reactions (Selected) Severity Not Documented Penicillins- Anaphylactic reaction., Allergies (1) Active Severity Reaction penicillins Anaphylactic reaction Current medications: (Selected) Inpatient Medications Ordered Sodium Chloride 0.9% IV Ale 1000 mL 1,000 mL: 1,000 mL, IV, 20 mL/hr, Routine, Start date 05/17/24 6:47:00 EDT, 50 hour(s), Total volume (mL): 1,000, 108 kg, 2.34, m2 Documented Medications Documented atorvastatin 10 mg Tab: Refills(s) 0, High cholesterol hydrochlorothiazide 25 mg Tab: TAKE 1 TABLET BY MOUTH EVERY DAY, diuretic/water pill omeprazole 20 mg Cap-DR: TAKE 1 CAPSULE BY MOUTH IN THE MORNING BEFORE MEALS, DO NOT CRUSH, CHEW, OR SPLIT, Control of stomach acid, Home Medications (3) Active atorvastatin 10 mg Tab hydrochlorothiazide 25 mg Tab omeprazole 20 mg Cap-DR , Medications (1) Active Scheduled: (0) Continuous: (1) Sodium Chloride 0.9% 1,000 mL 1,000 mL, IV, 20 mL/hr PRN: (0) Problem list: All Problems Alcoholic liver disease / SNOMED CT 57059621 / Confirmed Arthritis / SNOMED CT 0648516 / Confirmed Carpal tunnel syndrome / SNOMED CT 25358641 / Confirmed Cellulitis / SNOMED CT 111214376 / Confirmed Deformity of cervical vertebra / SNOMED CT 410787306 / Confirmed Gastroenteritis / SNOMED CT 22144464 / Confirmed Headache disorder / SNOMED CT 450846444 / Confirmed Herpes zoster ophthalmicus / SNOMED CT 184119956 / Confirmed Infection of prosthetic total shoulder joint / SNOMED CT 3400948844 / Confirmed Mononeuropathy of upper limb / SNOMED CT 6004243843 / Confirmed Osteomyelitis / SNOMED CT 44459049 / Confirmed Recurrent major depressive episodes, mild / SNOMED CT 262576780 / Confirmed 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 Spondylosis / SNOMED CT 99866757 / Confirmed Thoracic outlet syndrome / SNOMED CT 496217632 / Confirmed Torticollis / SNOMED CT 691326199 / Confirmed Histories Past Medical History: No active or resolved past medical history items have been selected or recorded. Procedure history: Arthroscopy of shoulder, bicep tenodesis ([id number]) on 04/12/2020 at 39 Years. Comments: 04/12/2020 19:20 EDT - Jairo SIN, Theresa Watts SHOULDER BICEPS TENODESIS Colonoscopy ([id number]). Social History Social & Psychosocial Habits Alcohol 05/17/2024 Risk Assessment: Medium Risk 05/17/2024 Use: Current Type: Beer, Wine Frequency: 3-5 times per week Comment: 6 pack at a time - 04/05/2020 08:23 - Idania Kimball RN Comment: beer and liquor almost daily - 12/20/2022 13:41 - Dacia Marinelli RN Comment: has cut back quite a bit just occasionally now. - 04/27/2024 12:08 - Kathy Barillas I Substance Abuse 05/17/2024 Use: Current Type: Marijuana Frequency: Daily Previous treatment: None IV drug use: No Comment: for pain - 04/05/2020 08:24 - Idania Kimball RN 05/17/2024 Type: Cocaine, Marijuana 05/17/2024 Use: Current Type: Marijuana Frequency: Daily Tobacco 05/17/2024 Risk Assessment: High Risk 05/17/2024 Tobacco Use: 10 or more cigarettes (1/ Type: Cigarettes Started at age: 16.0 Years 05/17/2024 Tobacco Use: 10 or more cigarettes (1/ Smokeless tobacco use: Never Type: Cigarettes Smoking Cessation Yes . Physical Examination Vital Signs 05/17/2024 13:41 EDT Temperature Temporal Artery 36.3 DegC Heart Rate Monitored 78 bpm Respiratory Rate Monitored 19 br/min Systolic Blood Pressure 139 mmHg Diastolic Blood Pressure 85 mmHg Blood Pressure Location Left arm SpO2 95 % Measurements from flowsheet : Measurements 05/17/2024 13:36 EDT Height/Length Measured 182 cm Height/Length Dosing 182.0 cm Weight Dosing 108.0 kg BSA Measured 2.34 m2 Body Mass Index Measured 32.6 kg/m2 Weight Measured 108 kg Airway: Mallampati classification: II (soft palate, fauces, uvula visible). Respiratory: Lungs are clear to auscultation, Respirations are non-labored. Cardiovascular: Regular rhythm. Plan [place] [employer] (ASA) physical status classification: Class II. Anesthetic Preoperative P (more content not included)...[facility]:Result Comment: Electronically Signed By: Ramone Ludwig Jr., DO.lakia\Date and Time Signed: 05/17/24 14:37 [id number] NoteHistory and Physical Patient: SERGIO HERNANDEZ Brian Age: 43 years Sex: Male : 1980 Associated Diagnoses: None Author: Philip Gunn MD Preoperative Information Indication for procedure and diagnosis: Cirrhosis, Screening for colon cancer Chief Complaint as above Review of Systems All systems reviewed, negative except as mentioned above Health Status Current medications: (Selected) Inpatient Medications Ordered Sodium Chloride 0.9% IV Ale 1000 mL 1,000 mL: 1,000 mL, IV, 20 mL/hr, Routine, Start date 05/17/24 6:47:00 EDT, 50 hour(s), Total volume (mL): 1,000, 108 kg, 2.34, m2 Documented Medications Documented atorvastatin 10 mg Tab: Refills(s) 0, High cholesterol hydrochlorothiazide 25 mg Tab: TAKE 1 TABLET BY MOUTH EVERY DAY, diuretic/water pill omeprazole 20 mg Cap-DR: TAKE 1 CAPSULE BY MOUTH IN THE MORNING BEFORE MEALS, DO NOT CRUSH, CHEW, OR SPLIT, Control of stomach acid, Home Medications (3) Active atorvastatin 10 mg Tab hydrochlorothiazide 25 mg Tab omeprazole 20 mg Cap-DR Problem list: All Problems Smoker 18-JAN-2014 12:37:00<$> / SNOMED CT [id number] / Confirmed Added secondary to documentation in Social History. Arthritis / SNOMED CT 7247188 / Confirmed Cellulitis / SNOMED CT 308710877 / Confirmed Herpes zoster ophthalmicus / SNOMED CT 610280726 / Confirmed Headache disorder / SNOMED CT 079686183 / Confirmed Gastroenteritis / SNOMED CT 01010558 / Confirmed Deformity of cervical vertebra / SNOMED CT 413490907 / Confirmed Carpal tunnel syndrome / SNOMED CT 50747112 / Confirmed Mononeuropathy of upper limb / SNOMED CT 1420471629 / Confirmed Torticollis / SNOMED CT 243970502 / Confirmed Spondylosis / SNOMED CT 97026205 / Confirmed Thoracic outlet syndrome / SNOMED CT 999438590 / Confirmed Scapulocostal syndrome / SNOMED CT 699830635 / Confirmed Skin sensation disturbance / SNOMED CT 127650252 / Confirmed Recurrent major depressive episodes, mild / SNOMED CT 497086521 / Confirmed Osteomyelitis / SNOMED CT 90168516 / Confirmed Alcoholic liver disease / SNOMED CT 47135499 / Confirmed Screen for colon cancer / SNOMED CT 870314263 / Confirmed Infection of prosthetic total shoulder joint / SNOMED CT 3713141735 / Confirmed Histories Past Medical History: No active or resolved past medical history items have been selected or recorded. Family History: Grandparent Malignant neoplasm of colon Grandparent Malignant neoplasm of colon Procedure history: Arthroscopy of shoulder, bicep tenodesis ([id number]) on 04/12/2020 at 39 Years. Comments: 04/12/2020 19:20 FUNMILAYOT - Jairo SIN, Theresa Watts SHOULDER BICEPS TENODESIS Colonoscopy ([id number]). Social History Social & Psychosocial Habits Alcohol 05/17/2024 Risk Assessment: Medium Risk 05/17/2024 Use: Current Type: Beer, Wine Frequency: 3-5 times per week Comment: 6 pack at a time - 04/05/2020 08:23 - Idania Kimball RN Comment: beer and liquor almost daily - 12/20/2022 13:41 - Dacia Marinelli RN Comment: has cut back quite a bit just occasionally now. - 04/27/2024 12:08 - Kathy Barillas I Substance Abuse 05/17/2024 Use: Current Type: Marijuana Frequency: Daily Previous treatment: None IV drug use: No Comment: for pain - 04/05/2020 08:24 - Idania Kimball RN 05/17/2024 Type: Cocaine, Marijuana 05/17/2024 Use: Current Type: Marijuana Frequency: Daily Tobacco 05/17/2024 Risk Assessment: High Risk 05/17/2024 Tobacco Use: 10 or more cigarettes (1/ Type: Cigarettes Started at age: 16.0 Years 05/17/2024 Tobacco Use: 10 or more cigarettes (1/ Smokeless tobacco use: Never Type: Cigarettes Smoking Cessation Yes . Physical Examination Vital Signs (last 24 hrs) Last Charted Temp Temporal 36.3 DegC (MAY 17:41) Heart Rate Monitored 78 bpm (MAY 17:41) Resp Rate 19 br/min (MAY 17:41) SBP 139 mmHg (MAY 17:41) DBP 85 mmHg (MAY 17:41) Weight 108 kg (MAY 17:36) BMI 32.6 (OCT 30 13:36) General: in Nad Abdomen: Soft, NTND Impression and Plan Impression: Cirrhosis, Screening for colon cancer Plan: -EGD and ColonoscopyPike [facility] HospitalComment on above:Result Comment: Electronically Signed By: Velia BRASWELL, Philip Riley\.br\Date and Time Signed: 05/17/24 14:29 [id number] Evaluation + Plan noteExtracted from: Title:ANES Post-operative Note - General Author: Ramone Ludwig Jr., DO Date:05/17/24 Plan Transfer/Discharge: Transfer/Discharge Discharge when meets criteria ( From PACU to Ambulatory Surgery Unit, and To home ). Extracted from: Title:ANES Pre-operative Note - Endo Author:Ramone Chaves Jr., DO Date:05/17/24 Plan [place] [employer] (ASA) physical status classification: Class II. Anesthetic Preoperative Plan: Anesthesia General, and -TIVA. Extracted from: Title:1Preop H&P Author:Philip Gunn MD Date:05/17/24 Impression and Plan Impression: Cirrhosis, Screening for colon cancer Plan: -EGD and Colonoscopy Future Scheduled Tests Laboratory* HCV Antibody RFX to Quant PCR 04/27/24 * CBC w/ Auto Diff 04/27/24 * Comprehensive Metabolic Panel 04/27/24 [facility] 10-10-2024 Evaluation + Plan note Future Scheduled Tests Laboratory* HCV Antibody RFX to Quant PCR 04/27/24 * CBC w/ Auto Diff 04/27/24 * Comprehensive Metabolic Panel 04/27/24 [facility] 09-20-2024 Telephone encounter Note* Telephone Encounter - Francine Alicia - 04/07/2024 4:31 PM EDT [facility] and states that ubrelvy or close relation to it are in no way shot or tablet are going to be covered, please advise [facility] you [facility] [id number] Miscellaneous Notes* Telephone Encounter - Francine Alicia - 04/07/2024 4:31 PM EDT [facility] calls and states that ubrelvy or close relation to it are in no way shot or tablet are going to be covered, please advise thank you documented in this encounterSaint [facility] [id number] History of Present illness Narrative* Arnold Hartley NP - 04/07/2024 12:30 PM EDT Sergio Hernandez is a 43 y.o. male presents with chief complaint of Med Refill HPI: HPI Pt here for follow up on Ubrelvy. Will give 4 dosages in office. allison prophylactic medications: imitrex Failed acute/abortive medications: imitrex- These were taken for at least 90 days at max tolerated dose without successful treatment. Discussed use of CGRP antagonist is indicated given failure of above medications for acute treatment of migraine. This is a new abortive medication continuing treatment for him. Discussed precautionsre medication overuse headache and he is not abusing abortive medication which would cause medication overuse headaches. Patient is having 12 severe migraine days per month which cause impairment and these episodes last greater than 6 hours. he also does admit to frequent phono/photophobia and nausea. Pt states he is feeling like garbage the last 2 weeks, pt states he probably had covid a couple weeks ago. Pt states his eyes are watering, pt is still coughing, pt denies any fever. Pt does admit to nasal congestion- which he has had for 2 weeks. Pt denies ever testing himself for covid and thought it would just go away. Pt states he does not feel any different with the use of zoloft. SUBJECTIVE: MEDICATIONS: Current Outpatient Medications Medication Instructions albuterol HFA (ProAir HFA) 90 mcg/act inhaler 2 puffs, Inhalation, Every 4 hours PRN ukrpswq-pqmijiuypxwcy-lxleqruv (Excedrin Migraine) 250-250-65 MG tablet 2 tablets Orally q6 hrs PRN atorvastatin (LIPITOR) 10 mg, Oral, Daily azithromycin (Zithromax) 250 MG tablet 2 tabs PO day 1, 1 tab PO day 2-5 hydroCHLOROthiazide (HYDRODIURIL) 25 mg, Oral, Daily omeprazole (PRILOSEC) 20 mg, Oral, Daily before breakfast, Do not crush or chew. sertraline (ZOLOFT) 50 mg, Oral, Daily Ubrelvy 100 mg, Oral, As needed ALLERGIES: Allergies Allergen Reactions Penicillins Anaphylaxis Other Reaction(s): Anaphylactic reaction, Unknown Reaction Penicillin G Other Reaction(s): anaphylaxis as a child REVIEW OF SYMPTOMS: Review of Systems OBJECTIVE: Visit Vitals BP 128/80 (BP Location: Left arm, Patient Position: Sitting, BP Cuff Size: Large adult) Pulse 93 Temp 98 F (Temporal) Ht 6' Wt 232 lb SpO2 95% BMI 31.46 kg/m Smoking Status Every Day BSA 2.31 m BP Readings from Last 3 Encounters: 04/07/24 128/80 03/08/24 (!) 138/100 06/04/23 128/82 Wt Readings from Last 3 Encounters: 04/07/24 232 lb 03/08/24 226 lb 06/04/23 211 lb 9.6 oz No results found for: HGBA1C Lab Results Component Value Date LDLCALC 156 (H) 03/08/2024 CREATININE 0.76 03/08/2024 Physical Exam General: alert & oriented, NAD Head: NC/AT Oral Cavity: MMM Skin: warm, dry Heart: RRR, No m/r/g, S1S2 nml Lungs:wheezing noted in the lobes Abdomen: soft, ND/NT, BS wnl Musculoskeletal: normal gait Extremities: no clubbing, cyanosis or edema Neurological: nonfocal Psych: mood/affect full range ASSESSMENT AND PLAN: Assessment/Plan Diagnoses and all orders for this visit: Nasal congestion - azithromycin (Zithromax) 250 MG tablet; 2 tabs PO day 1, 1 tab PO day 2-5 Anxiety - sertraline (Zoloft) 50 MG tablet; Take 1 tablet (50 mg) by mouth Daily Marijuana use Primary hypertension (CMS/HCC) Mild episode of recurrent major depressive disorder (HCC) (CMS/HCC) - sertraline (Zoloft) 50 MG tablet; Take 1 tablet (50 mg) by mouth Daily Migraine without aura and without status migrainosus, not intractable (CMS/HCC) - Ubrogepant (Ubrelvy) 100 MG tablet; Take 100 mg by mouth if needed (for migraines) Elevated ALT measurement - Comprehensive metabolic panel; Future Wheezing - albuterol HFA (ProAir HFA) 90 mcg/act inhaler; Inhale 2 puffs every 4 (four) hours if needed for wheezing Blood pressure is controlled now. Will increase zoloft to 50mg at this time. Pt denies any suicidal ideations at this time. documented in this encounter[facility] [id number] Telephone encounter Note* Telephone Encounter - Poornima Dee - 03/30/2024 3:29 PM EDT Approving, but needs appt for additional refills. [facility] [id number] Miscellaneous Notes* Telephone Encounter - Poornima Dee - 03/30/2024 3:29 PM EDT Approving, but needs appt for additional refills. documented in this encounterSaint [facility] [id number] History of Present illness Narrative* Arnold Hartley NP - 03/08/2024 2:00 PM EDT Sergio Hernandez is a 43 y.o. male presents with chief complaint of Medicare Annual Wellness Visit Subsequent HPI: HPI Pt here for MAWV. Pt has history of migraines from 1st grade through sophomore everyday. Pt would still get them after that but it was a few times a week. Recently, since 2019 he has had migraines, pain focused on the back of the head. Pt states he sometimes gets them around his eyes. Pt has tried Imitrex but could not keep up with the cost. Pt has gotten shots as well for migraines. Pt states the only thing that has worked was Excedrin. Pt states he gets 10-12 migraines a month. Pt has tried, aleve, imitrex and shots with no relief. Pt denies taking multiple medications other then weed and caffeine and Excedrin. Pt experiences light sensitivity, sound sensitivity. Denies nausea SUBJECTIVE: MEDICATIONS: Current Outpatient Medications Medication Instructions fossmmz-iteswwxtomybq-blmccbht (Excedrin Migraine) 250-250-65 MG tablet 2 tablets Orally q6 hrs PRN hydroCHLOROthiazide (HYDRODIURIL) 25 mg, Oral, Daily omeprazole (PRILOSEC) 20 mg, Oral, Daily before breakfast, Do not crush or chew. sertraline (ZOLOFT) 25 mg, Oral, Daily Ubrelvy 100 mg, Oral, Daily PRN ALLERGIES: Allergies Allergen Reactions Penicillins Anaphylaxis Other Reaction(s): Anaphylactic reaction, Unknown Reaction Penicillin G Other Reaction(s): anaphylaxis as a child REVIEW OF SYMPTOMS: Review of Systems General: Denies fever, chills, fatigue, BILLS or weight loss/gain CV: Denies CP, palpitations or swelling in legs Resp: denies cough, SOB or wheezing GI: Denies abd pain/n/v/c/d Skin: Denies rash Neuro: Denies LH or dizziness OBJECTIVE: Visit Vitals BP (!) 138/100 Pulse 94 Temp 98.5 F Ht 5' 11 Wt 226 lb SpO2 97% BMI 31.52 kg/m Smoking Status Every Day BSA 2.27 m BP Readings from Last 3 Encounters: 03/08/24 (!) 138/100 06/04/23 128/82 05/28/23 134/78 Wt Readings from Last 3 Encounters: 03/08/24 226 lb 06/04/23 211 lb 9.6 oz 05/28/23 214 lb No results found for: HGBA1C Lab Results Component Value Date CREATININE 0.8 08/20/2021 Medicare Wellness Over the past 2 weeks, how often have you been bothered by any of the following problems? Little interest or pleasure in doing things: Not at all Feeling down, depressed, or hopeless: Not at all Patient Health Questionnaire-2 Score: 0 Toney Fall Risk History of Falling, Immediate or Within 3 Months: No Health Risk Assessment Form Do you need help eating, bathing, using the toilet, dressing, or getting around your home?: No Can you prepare your own meals?: Yes Can you do your own housework without help?: Yes Can you shop for groceries or clothes without help?: Yes Do you exercise for about 20 minutes 3 or more days a week?: Yes Cognitive Screening Three Word Registration: Shila FentonMadhavi Clock Drawing: Normal Clock - 2 Three Word Recall: All 3 words correct - 3 Total Score (0-5 Points): 5 Pain Assessment Pain Score: 5 - Moderate pain Advance Care Planning Do you have a living will?: No Do you have a medical power of senior attorney?: No Physical Exam General: alert & oriented, NAD Head: NC/AT Oral Cavity: MMM Skin: warm, dry Heart: RRR, No m/r/g, S1S2 nml Lungs: CTA b/l Abdomen: soft, ND/NT, BS wnl Musculoskeletal: normal gait Extremities: no clubbing, cyanosis or edema Neurological: nonfocal Psych: mood/affect full range ASSESSMENT AND PLAN: Assessment/Plan Diagnoses and all orders for this visit: Medicare annual wellness visit, subsequent - Lipid panel; Future - Comprehensive metabolic panel; Future Screening for lipid disorders - Lipid panel; Future - Comprehensive metabolic panel; Future Screening for heart disease - Lipid panel; Future - Comprehensive metabolic panel; Future Migraine without aura and without status migrainosus, not intractable (CMS/HCC) - Ubrogepant (Ubrelvy) 100 MG tablet; Take 100 mg by mouth Daily as needed (take one for migraines and then a second on in 2 hours if needed) Marijuana use Heartburn - omeprazole (PriLOSEC) [address] capsule; Take 1 capsule (20 mg) by mouth in the morning. Take before meals. Do not crush or chew.. Primary hypertension (CMS/HCC) - hydroCHLOROthiazide (HYDRODiuril) 25 MG tablet; Take 1 tablet (25 mg) by mouth Daily Anxiety - sertraline (Zoloft) 25 MG tablet; Take 1 tablet (25 mg) by mouth Daily Mild episode of recurrent major depressive disorder (HCC) (CMS/HCC) - sertraline (Zoloft) 25 MG tablet; Take 1 tablet (25 mg) by mouth Daily Cardiovascular risk factor Pt denies any thoughts of hurting self. Pt denies wanting to talk with a counselor. Counseling is recommended. Expressed the importance of the need to be seen in the ER for suicidal/homicidal ideation. Instructed to stay active, completing as many activities she enjoys as possible. Encouraged to increase daily relaxation time, such as reading, listening to motivational speakers, and daily meditation. Explained the 5 breathing technique. Encouraged to start taking a B-ComplexVitamin daily. Instructed to continue with current medications. The patient was strongly encouragedto avoid alcohol and drug substances while on medications. Patient informed that this can cause adverse reactions and ineffectiveness of medications. Instructed to contact my office if symptoms worsen. The patient expressed understanding Failed prophylactic medications: imitrex Failed acute/abortive medications: imitrex- These were taken for at least 90 days at max tolerated dose without successful treatment. Discussed use of CGRP antagonist is indicated given failure of above medications for acute treatment of migraine. This is a new abortive medication continuing treatment for him. Discussed precautionsre medication overuse headache and he is not abusing abortive medication which would cause medication overuse headaches. Patient is having 12 severe migraine days per month which cause impairment and these episodes last greater than 6 hours. he also does admit to frequent phono/photophobia and nausea. documented in this [facility]08-20-2024 Telephone encounter Note* Telephone Encounter - Sayra Dasilva - 03/07/2024 1:34 PM EDT Pt sched, closing enc [facility] [id number] Miscellaneous Notes* Telephone Encounter - Sayra Dasilva - 03/07/2024 1:34 PM EDT Pt sched, closing enc * Telephone Encounter - Sayra Dasilva - 03/06/2024 12:01 PM EDT Lm for mawv per OM documented in this [facility]08-19-2024 Telephone encounter Note* Telephone Encounter - Sayra Dasilva - 03/06/2024 12:01 PM EDT Lm for mawv per OM [facility] [id number] Hospital Discharge instructions Patient Education 12/20/2022 15:16:45 Cellulitis, Adult Cellulitis, Adult Cellulitis is a skin infection. The infected area is usually warm, red, swollen, and tender. This condition occurs most often in the arms and lower legs. The infection can travel to the muscles, blood, and underlying tissue and become serious. It is very important to get treated for this condition. What are the causes? Cellulitis is caused by bacteria. The bacteria enter through a break in the skin, such as a cut, burn, insect bite, open sore, or crack. What increases the risk? This condition is more likely to occur in people who: Have a weak body defense system (immune system). Have open wounds on the skin, such as cuts, cannon, bites, and scrapes. Bacteria can enter the body through these open wounds. Are older than 60 years of age. Have diabetes. Have a type of long-lasting (chronic) liver disease (cirrhosis) or kidney disease. Are obese. Have a skin condition such as: ?Itchy rash (eczema). ?Slow movement of blood in the veins (venous stasis). ?Fluid buildup below the skin (edema). Have had radiation therapy. Use IV drugs. What are the signs or symptoms? Symptoms of this condition include: Redness, streaking, or spotting on the skin. Swollen area of the skin. Tenderness or pain when an area of the skin is touched. Warm skin. A fever. Chills. Blisters. How is this diagnosed? This condition is diagnosed based on a medical history and physical exam. You may also have tests, including: Blood tests. Imaging tests. How is this treated? Treatment for this condition may include: Medicines, such as antibiotic medicines or medicines to treat allergies (antihistamines). Supportive care, such as rest and application of cold or warm cloths (compresses) to the skin. Hospital care, if the condition is severe. The infection usually starts to get better within 1 2 days of treatment. Follow these instructions at home: Medicines Take zpjh-clu-tmwjlen and prescription medicines only as told by your health care provider. If you were prescribed an antibiotic medicine, take it as told by your health care provider. Do notstop taking the antibiotic even if you start to feel better. General instructions Drink enough fluid to keep your urine pale yellow. Do not touch or rub the infected area. Raise (elevate) the infected area above the level of your heart while you are sitting or lying down. Apply warm or cold compresses to the affected area as told by your health care provider. Keep all follow-up visits as told by your health care provider. This is important. These visits letyour health care provider make sure a more serious infection is not developing. Contact a health care provider if: You have a fever. Your symptoms do not begin to improve within 1 2 days of starting treatment. Your bone or joint underneath the infected area becomes painful after the skin has healed. Your infection returns in the same area or another area. You notice a swollen bump in the infected area. You develop new symptoms. You have a general ill feeling (malaise) with muscle aches and pains. Get help right away if: Your symptoms get worse. You feel very sleepy. You develop vomiting or diarrhea that persists. You notice red streaks coming from the infected area. Your red area gets larger or turns dark in color. These symptoms may represent a serious problem that is an emergency. Do not wait to see if the symptoms will go away. Get medical help right away. Call your local emergency services (911 in the [place] Do not drive yourself to the hospital. Summary Cellulitis is a skin infection. This condition occurs most often in the arms and lower legs. Treatment for this condition may include medicines, such as antibiotic medicines or antihistamines. Take vwqd-dsa-jqxmqpr and prescription medicines only as told by your health care provider. If you were prescribed an antibiotic medicine, do not stop taking the antibiotic even if you start to feel better. Contact a health care provider if your symptoms do not begin to improve within 1 2 days of startingtreatment or your symptoms get worse. Keep all follow-up visits as told by your health care provider. This is important. These visits letyour health care provider make sure that a more serious infection is not developing. This information is not intended to replace advice given to you by your health care provider. Make sure you discuss any questions you have with your health care provider. Document Revised: 04/16/2022 Document Reviewed: 04/16/2022 [employer] Patient Education 2022 [employer] Follow Up Care 12/20/2022 12:23:28 With:Sukhjinder Marquis Address: [address] [place] [address]- Business (1) When:12/23/2022 13:56:00 [facility]03-14-2022 Evaluation note* Encounter Date Diagnosis Assessment Notes Treatment Notes Treatment Clinical Notes Sep, DDD (degenerative disc disease), cervical (ICD-10 - M50.30) Proceed with current treatment plan. Sep, Cervical spondylosis (ICD-10 - M47.812) 40 year old male here for follow up for chronic pain. He was last seen February 2020. He voices complaints of neck and right shoulder pain. He also complains of lower back pain. He states since his last office visit he has had 2 shoulder surgeries as well as carpal tunnel surgery and release of the ulnar nerve. MRI of the cervical spine was reviewed and discussed with the patient in detail which shows mild degenerative changes as well as some small disc bulges and arthritis of the cervical spine. Anatomy of spine as well as different treatment options were discussed in detail with patient in regards to patients condition. I encouraged the patient to talk to his surgeon for clearance to proceed with injections with his history of recent infection following surgery. Patient is a candidate to proceed with cervical facet mbb under fluoroscopic guidance. Risks and benefits of procedure explained to patient; patient verbalizes understanding. 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 Follow up with surgeon- no injecitons Hx of infections. Sep, Chronic pain (ICD-10 - G89.29) Continue with current treatment plan. [employer] for iPhone and Android Other Evaluation + Plan note No data available for this section [facility] Future Appointments Appointment Date:04/28/2024 08:30:00 AM Scheduled Provider: Location:.[facility] Appointment Type:US Abdominal/Pelvis (FT) Appointment Date:05/17/2024 01:30:00 PM Scheduled Provider: Location:[facility] Appointment Type:Surgery FT Appointment Date:05/17/2024 02:45:00 PM Scheduled Provider: Location:[facility] Appointment Type:Surgery FT Future Scheduled Tests Laboratory* HCV Antibody RFX to Quant PCR 04/27/24 * CBC w/ Auto Diff 04/27/24 * Comprehensive Metabolic Panel 04/27/24 Radiology* US Liver 04/28/24 [facility] Evaluation + Plan note Future Appointments Appointment Date:05/17/2024 01:30:00 PM Scheduled Provider: Location:[facility] Appointment Type:Surgery FT Appointment Date:05/17/2024 02:45:00 PM Scheduled Provider: Location:[facility] Appointment Type:Surgery FT Future Scheduled Tests Laboratory* HCV Antibody RFX to Quant PCR 04/27/24 * CBC w/ Auto Diff 04/27/24 * Comprehensive Metabolic Panel 04/27/24 [facility] Evaluation noteNo Assessments Information Available [facility] Diagnosis Migraine without aura and without status migrainosus, not intractable (CMS/HCC)- Primary Anxiety Anxiety state, unspecified Mild episode of recurrent major depressive disorder (HCC) (CMS/HCC) documented in this encounter [facility]* Diagnosis Chronic osteomyelitis of right humerus (CMS-HCC)- Primary Abscess of arm Abscess of arm [facility] Diagnosis History of osteomyelitis- Primary Personal history of other musculoskeletal disorders Pain of right upper extremity Cellulitis of right upper extremity Status post PICC central line placement Other postprocedural status documented in this encounter [facility]* Diagnosis History of osteomyelitis- Primary Personal history of other musculoskeletal disorders Pain of right upper extremity Cellulitis of right upper extremity documented in this encounter [facility]* Diagnosis Leukocytosis, unspecified type- Primary [facility]* Diagnosis Chronic osteomyelitis of right humerus (CMS-HCC)- Primary [facility]* Diagnosis Chronic osteomyelitis of right humerus (CMS-HCC)- Primary Abscess of right shoulder [facility]* Diagnosis Leukocytosis, unspecified type- Primary [facility]* Diagnosis Leukocytosis, unspecified type- Primary [facility] Diagnosis History of osteomyelitis- Primary Personal history of other musculoskeletal disorders Pain of right upper extremity Cellulitis of right upper extremity Anxiety Anxiety state, unspecified Marijuana use Primary hypertension (CMS/HCC) Unspecified essential hypertension [facility]* Diagnosis Osteomyelitis, unspecified site, unspecified type (CMS-HCC)- Primary [facility]* Diagnosis Heartburn documented in [facility]* Diagnosis Medicare annual wellness visit, subsequent- Primary Screening for lipid disorders Screening for heart disease Screening for other and unspecified cardiovascular conditions Migraine without aura and without status migrainosus, not intractable (CMS/HCC) Marijuana use Heartburn Primary hypertension (CMS/HCC) Unspecified essential hypertension Anxiety Anxiety state, unspecified Mild episode of recurrent major depressive disorder (HCC) (CMS/HCC) Cardiovascular risk factor [facility]* Diagnosis Hyperlipidemia, unspecified hyperlipidemia type (CMS/HCC)- Primary [facility]* Diagnosis Nasal congestion- Primary Other diseases of nasal cavity and sinuses Anxiety Anxiety state, unspecified Marijuana use Primary hypertension (CMS/HCC) Unspecified essential hypertension Mild episode of recurrent major depressive disorder (HCC) (CMS/HCC) Migraine without aura and without status migrainosus, not intractable (CMS/HCC) Elevated ALT measurement Wheezing documented [facility]* Diagnosis Alcoholic liver disease (CMS/HCC)- Primary Unspecified alcoholic liver damage Heartburn Anxiety Anxiety state, unspecified Mild episode of recurrent major depressive disorder (HCC) (CMS/HCC) Alcohol use Other problems related to lifestyle documented [facility] Narrative - Reported* Type Description Date Medical History migraines Medical History cervical spondylosis Medical History thoracic outlet syndrome Surgical History r shoulder 2020 Surgical History bilateral carpal tunnel Surgical History right ulnar nerve release Surgical History right shoulder surgery X2 Hospitalization History abdominal pain 2007 [employer] for [employer] and Android Other History of Present illness Narrative* Arnold Hartley NP - 05/03/2024 2:00 PM EDT Images from the original note were not included. Sergio Hernandez is a 43 y.o. male presents with chief complaint of follow up HPI: History of Present Illness The patient is a 43-year-old male who comes in for a follow-up regarding his use of Zoloft 50 mg and migraine medication. He has been prescribed Ubrelvy and Nurtec for his migraines, which he reports Nurtec as effective. Ubrelvy was not approved through insurance. He is currently on Zoloft 50 mg but is considering discontinuing it due to a perceived increase in depressive symptoms. He reports no suicidal ideation but feels unusual upon waking up. His sleep is disrupted, with him waking up every few hours. He has not sought counseling or psychiatric help, expressing a lack of belief in these services. He has previously tried other medications for depressionbut cannot recall their names. He had an ultrasound of his liver through gastroenterology. He is scheduled to have a colonoscopy and endoscopy on 05/17/2024. SOCIAL HISTORY The patient has decreased alcohol intake. MEDICATIONS: Current Outpatient Medications Medication Instructions albuterol HFA (ProAir HFA) 90 mcg/act inhaler 2 puffs, Inhalation, Every 4 hours PRN apxefxr-ocvrxctkirawk-xbsyisdq (Excedrin Migraine) 250-250-65 MG tablet 2 tablets Orally q6 hrs PRN atorvastatin (LIPITOR) 10 mg, Oral, Daily hydroCHLOROthiazide (HYDRODIURIL) 25 mg, Oral, Daily Nurtec 75 mg, Oral, Every other day omeprazole (PRILOSEC) 20 mg, Oral, Daily before breakfast, Do not crush or chew. ALLERGIES: Allergies Allergen Reactions Penicillins Anaphylaxis Other Reaction(s): Anaphylactic reaction, Unknown Reaction Penicillin G Other Reaction(s): anaphylaxis as a child Review of Systems Medical, Surgical, Family, and Social History reviewed. General: Denies fever, chills, fatigue, BILLS or weight loss/gain CV: Denies CP, palpitations or swelling in legs Resp: denies cough, SOB or wheezing GI: Denies abd pain/n/v/c/d Skin: Denies rash Neuro: Denies LH or dizziness OBJECTIVE: Visit Vitals Smoking Status Every Day BP Readings from Last 3 Encounters: 04/07/24 128/80 03/08/24 (!) 138/100 06/04/23 128/82 Wt Readings from Last 3 Encounters: 04/07/24 232 lb 03/08/24 226 lb 06/04/23 211 lb 9.6 oz Physical Exam Pulmonary: Effort: Pulmonary effort is normal. Neurological: Mental Status: He is alert and oriented to person, place, and time. Psychiatric: Mood and Affect: Mood normal. Judgment: Judgment normal. Physical Exam Results ASSESSMENT AND PLAN: Assessment & Plan 1. Migraine. He is currently using DocASAP for migraine management which worked in 2 hours 2. Depression. He reports feeling more depressed and experiencing physical symptoms such as grogginess and a hungover feeling since starting Zoloft 50 mg. Discontinuation of Zoloft was recommended. Genetic testing was suggested to identify the most suitable medication for his condition. A consultation with a psychiatrist was also proposed. He was advised to decrease or discontinue the use of alcohol. Pt denies wanting to talk to a counselor or a psychiatrist. 3. Liver condition. He recently had an ultrasound and is awaiting results. He is scheduled for a colonoscopy and an endoscopy on 05/17/2024. Assessment/Plan There are no diagnoses linked to this encounter. Health Maintenance Due Topic Date Due Colorectal Cancer Screening Never done Influenza Vaccine (1) Never done This visit was conducting via phone communication- All issues were discussed and addressed but no physical exam was conducted. If it is determined that the patient should be evaluated in the clinic, the patient will be directed to the appropriate clinic or venue. The patient or their guardian verbally consented to this visit. Phone time was 12 minutes discussing health issues with counseling and coordination of care. [facility] No data available for this section [facility] CenterInstructionsNot on filedocumented in this encounter [facility]ructionsNot on filedocumented in [facility] encounter [facility] SystemInstructionsNot on filedocumented in this encounter [facility] System[facility]ructionsNot on filedocumented in this encounter [facility] SystemInstructionsNot on filedocumented in this encounter [facility] SystemInstructionsNot on filedocumented in this encounter [facility]Progress note No data available for this section [facility] CenterReason for referral (narrative)* Consultation (Routine) - Pending Review Specialty Diagnoses / Procedures Referred By Denisa monahan Referred To Contact Gastroenterology Diagnoses Alcoholic liver disease (CMS/HCC) Alcohol use Procedures [place] OFFICE/OUTPATIENT NEW HIGH MDM 60 MINUTES Arnold Hartley NP [address] [place] [address] Referral ID Status Reason Start Date Expiration Date Visits Requested Visits Authorized [id number] Pending Review Specialty Services Required 04/11/2024 10/08/2024 1 1 [facility] Advance Directives Advance Directive Response Recorded Date/ Time Advance Directives No December 27 12:25pm Advance Directive Response Recorded Date/ Time Advance Directives No December 27 1:25pm Date Activated Date Inactivated Comments 06/01/2024 1:23 AM 06/05/2024 7:15 PM Date Activated Date Inactivated Comments 06/01/2024 1:23 AM 06/05/2024 7:15 PM Assessments No Assessments Information AvailableNo Assessments Information AvailableNo Assessments Information AvailableNo Assessments Information AvailableNo Assessments Information Available Family History Relationship Condition Age at Onset Recorded Date/T daniel father Degeneration of intervertebral disc Unkno wn Hypertension Unknown grandparent Diabetes mellitus Unknown Heart disease Unknown grandparent Malignant neoplasm of colon Unknown Chief Complaint and Reason for Visit Chief Complaint M36.121 Chief Complaint M36.121 M86.121 L02.91 Chief Complaint M36.121 M86.121 L02.91 L02.413,M86.121 Chief Complaint M36.121 M86.121 L02.91 L02.413,M86.121 M86.121 sent for dx 04/07 Chief Complaint M36.121 M86.121 L02.91 L02.413,M86.121 M86.121 sent for dx 04/07 L02.413 M66.121 Summary Purpose Additional Source Comments (unrecognized sect ion and content) No Status Records FoundNo Status Records FoundNo Status Records FoundNo Status Records FoundNo Status Records FoundNo Status Records FoundNo Status Records FoundNo Status Records FoundNo Status Records FoundNo Status Records FoundNo Status Records FoundNo Status Records FoundNo Status Records FoundNo Status Records FoundNo Status Records FoundNo Status Records FoundNo Status Records FoundNo Status Records Found INFORMATION SOURCE (unrecogn ized section and content) DATE CREATED AUTHOR 12/19/2020 [facility] DATE CREATED AUTHOR AUTHOR'S ORGANIZ ATION 09/07/2021 [facility] DATE CREATED AUTHOR AUTHOR'S ORGANIZ ATION 09/11/2022 [facility]ical Specialist DATE CREATED AUTHOR AUTHOR'S ORGANIZ ATION 05/19/2024 [facility] DATE CREATED AUTHOR AUTHOR'S ORGANIZ ATION 05/26/2024 [facility] DATE CREATED AUTHOR AUTHOR'S ORGANIZ ATION 06/02/2024 [facility] DATE CREATED AUTHOR AUTHOR'S ORGANIZ ATION 06/03/2024 [facility] DATE CREATED AUTHOR AUTHOR'S ORGANIZ ATION 06/08/2024 [facility] DATE CREATED AUTHOR AUTHOR'S ORGANIZ ATION 06/10/2024 [facility] DATE CREATED AUTHOR AUTHOR'S ORGANIZ ATION 06/29/2024 [facility] DATE CREATED AUTHOR AUTHOR'S ORGANIZ ATION 06/30/2024 [facility] dical Specialists EPIC REASON FOR VISIT (unrecogniz ed section and content) Reason Comments Abscess Specialty Diagnoses / Procedures Referred By Contac t Referred To Contact Diagnoses Abscess of arm Nedra Meneses, DO [address], [address] [place] [address] Phone: tel: fax: Referral ID Status Reason Start Date Expiration Date Visits Re quested Visits Authorized [id number] 1 1 Reason Comments Arm Pain Right Arm Reason Comments Post-op Suture / Staple Removal Reason Comments Follow-up Reason Comments Med Refill Reason Comments Medicare Annual Wellness Visit Subsequen t Reason Onset Date Comments Appointment Request 03/06/2024 Reason Onset Date Comments Medication Question 04/07/2024 Reason Comments Med Change Request Care Team (unrecognized sect ion and content) Global Human Resources Director Relationship Specialty Start Date End Date Miriam Reardon MD [address] [place] [address] PCP - General Family Medicine 12/21/22 Arnold Hartley NP [address] [place] [address] PCP - Diane VILLAGOMEZ 09/17/23 Global Human Resources Director Relationship Specialty Start Date End Date Arnold Hartley, VAT PACKER-MERCHANDISE SUPERVISOR [address] [place] [address] PCP - General Family Medicine 05/31/24 Global Human Resources Director Relationship Specialty Start Date End Date Miriam Reardon MD [address] [place] [address] PCP - General Family Medicine 12/21/22 Arnold Hartley CONDITIONER TUMBLER [address] [place] [address] PCP - Diane VILLAGOMEZ 09/17/23 Global Human Resources Director Relationship Specialty Start Date End Date Miriam Reardon MD [address] [place] [address] PCP - General Family Medicine 12/21/22 Arnold Hartley, CONDITIONER TUMBLER [address] [place] [address] PCP - Diane VILLAGOMEZ 09/17/23 Global Human Resources Director Relationship Specialty Start Date End Date Miriam Reardon MD [address] [place] [address] PCP - General Family Medicine 12/21/22 Arnold Hartley, CONDITIONER TUMBLER [address] [place] [address] PCP - Diane VILLAGOMEZ 09/17/23 Global Human Resources Director Relationship Specialty Start Date End Date Miriam Reardon MD [address] [place] [address] PCP - General Family Medicine 12/21/22 Arnold Hartley CONDITIONER TUMBLER [address] [place] [address] PCP - Diane VILLAGOMEZ 09/17/23 Global Human Resources Director Relationship Specialty Start Date End Date Arnold Hartley APRN-MERCHANDISE SUPERVISOR [address] [place] [address] PCP - General Family Medicine 05/31/24 Global Human Resources Director Relationship Specialty Start Date End Date Arnold Hartley VAT PACKER-MERCHANDISE SUPERVISOR [address] [place] [address] PCP - General [facility] Medicine 05/31/24 Global Human Resources Director Relationship Specialty Start Date End Date Arnold Hartley APRN-MERCHANDISE SUPERVISOR [address] [place] [address] PCP - [facility] 05/31/24 Global Human Resources Director Relationship Specialty Start Date End Date Arnold Hartley VAT PACKER[employer]MERCHANDISE SUPERVISOR [address] [place] [address] PCP - [facility] Medicine 05/31/24 Global Human Resources Director Relationship Specialty Start Date End Date Miriam Reardon MD [address] [place] [address] PCP - General Family Medicine 12/21/22 Arnold Hartley, CONDITIONER TUMBLER [address] [place] [address] PCP - Diane VILLAGOMEZ 09/17/23 Global Human Resources Director Relationship Specialty Start Date End Date Arnold Hartley VAT PACKER-MERCHANDISE SUPERVISOR [address] [place] [address] PCP - General Family Medicine 05/31/24 Global Human Resources Director Relationship Specialty Start Date End Date Miriam Reardon MD [address] [place] [address] PCP - General Family Medicine 12/21/22 Arnold Hartley, CONDITIONER TUMBLER [address] [place] [address] PCP - Diane VILLAGOMEZ 09/17/23 Global Human Resources Director Relationship Specialty Start Date End Date Miriam Reardon MD [address] [place] [address] PCP - General Family Medicine 12/21/22 Arnold Hartley, CONDITIONER TUMBLER [address] [place] [address] PCP - Diane VILLAGOMEZ 09/17/23 Global Human Resources Director Relationship Specialty Start Date End Date Miriam Reardon MD [address] [place] [address] PCP - General Family Medicine 12/21/22 Arnold Hartley, CONDITIONER TUMBLER [address] [place] [address] PCP - Diane VILLAGOMEZ 09/17/23 Global Human Resources Director Relationship Specialty Start Date End Date Miriam Reardon MD [address] [place] [address] PCP - General Family Medicine 12/21/22 Arnold Hartley, CONDITIONER TUMBLER [address] [place] [address] PCP - Diane VILLAGOMEZ 09/17/23 Global Human Resources Director Relationship Specialty Start Date End Date Miriam Reardon MD [address] [place] [address] PCP - General Family Medicine 12/21/22 Arnold Hartley NP [address] [place] [address] PCP - Diane VILLAGOMEZ 09/17/23 Global Human Resources Director Relationship Specialty Start Date End Date Miriam Reardon MD [address] [place] [address] PCP - General Family Medicine 12/21/22 Arnold Hartley, CONDITIONER TUMBLER [address] [place] [address] PCP - Diane VILLAGOMEZ 09/17/23 Global Human Resources Director Relationship Specialty Start Date End Date Miriam Reardon MD [address] [place] [address] PCP - General Family Medicine 12/21/22 Arnold Hartley NP [address] [place] [address] PCP - Diane VILLAGOMEZ 09/17/23 Global Human Resources Director Relationship Specialty Start Date End Date Miriam Reardon MD [address] [place] [address] PCP - General Family Medicine 12/21/22 Arnold Hartley, REHANA [address] [place] [address] PCP - Diane VILLAGOMEZ 09/17/23 Scheduled Active and Recently Administ ered Medications (unrecognized section and content) Medication Order 06/03/2024 06/04/2024 06/05/2024 acetaminophen (TYLENOL EXTRA STRENGTH) tablet 1,000 mg 1,000 mg, oral, Every 8 hours, First dose (after last reorder) on Sara 06/01/24 at 2100, PACU & Post-op 0537 (Given - Provider: Ben Shahid RN)1317 (Given - Provider: Patricia Montalvo, JANUARY)2213 (Given - Provider: Ben Shahid RN) 0605 (Given - Provider: Ben Shahid RN)1409 (Given - Provider: eJfry Isbell RN)2151 (Given - Provider: Ben Shahid, RN) 0553 (Given - Provider: Ben Shahid, RN)1423 (Given - Provider: Mitzi Moore RN) atorvastatin (LIPITOR) tablet 10 mg 10 mg, oral, Daily, First dose on Wed06/02/24 at 0900, Look-alike/sound-alike medication - verify indication for use. 0928 (Given - Provider: Patricia Montalvo RN) 0938 (Given - Provider: Jefry Isbell RN) 0940 (Given - Provider: Mitzi Moore, RN) calcium citrate (CALCITRATE) tablet 400 mg 400 mg, oral, 3 times daily with meals, First dose on Sara 06/01/24 at 2030, PACU & Post-op 0927 (Given - Provider: Patricia Montalvo, JANUARY)1316 (Given - Provider: Patricia Montalvo, JANUARY)1727 (Given - Provider: Patricia Montalvo, JANUARY) 0938 (Given - Provider: Jefry Isbell RN)1200 (Not Given - Provider: Jefry Isbell, JANUARY - Reason: Patient/family refused)1612 (Given - Provider: Jefry Isbell RN) 0940 (Given - Provider: Mitzi Moore, RN)1225 (Given - Provider: Mitzi Moore, RN)1700 (Canceled Entry - Provider: Mitzi Moore, RN) ceFAZolin (ANCEF) IVPB 2000 mg in 50 mL sodium chloride 0.9% (CMPD premix) 2,000 mg, intravenous, at 100 mL/hr, Administer over 30 Minutes, Every 8 hours, First dose on 06/04/24 at 1400, Look-alike/sound-alike medication - verify indication for use., Indication: Osteoarticular 1451 (New Bag - Provider: Jefry Isbell RN)1521 (Stop Bag - Provider: Jefry Isbell RN)2151 (New Bag - Provider: Ben Shahid RN)2221 (Stop Bag - Provider: Ben Shahid, JANUARY) 0600 (New Bag - Provider: Ben Shahid RN)0630 (Stop Bag - Provider: Ben Shahid RN)1420 (New Bag - Provider: Mitzi Moore RN)1450 (Stop Bag - Provider: Mitzi Moore RN) cefEPime (MAXIPIME) 2,000 mg in sodium chloride 0.9 % 100 mL IVPB-MBP (CANCELED)(Linked Group 1) 2,000 mg, intravenous, at 25 mL/hr, Administer over 4 Hours, Every 8 hours, First dose on 06/03/24 at 0200, ADD-VANTAGE/MBP- Discard 24 hours after activating; dissolve drug prior to administration. Protect dry powder vial from light., Indication: Other, Specify: abscess 0111 (New Bag - Provider: Ben Shahid RN)0511 (Stop Bag - Provider: Ben Shahid RN)1106 (New Bag - Provider: Patricia Montalvo RN)1506 (Stop Bag - Provider: Patricia Montalvo, JANUARY)1729 (New Bag - Provider: Patricia Montalvo, RN)2129 (Stop Bag - Provider: Ben Shahid RN) 0425 (New Bag - Provider: Ben Shahid RN)0825 (Stop Bag - Provider: Jefry Isbell RN)1200 (Not Given - Provider: Jefry Isbell RN - Reason: See Provider Order - Comment: orders changed while awaiting line to be placed.) cholecalciferol (vitamin D3) tablet 2,000 Units 2,000 Units, oral, Daily, First dose on Sara 06/01/24 at 2030, PACU & Post-op 0927 (Given - Provider: Patricia Montalvo RN) 0938 (Given - Provider: Jefry Isbell RN) 0943 (Given - Provider: Mitzi Moore RN) enoxaparin (LOVENOX) syringe 40 mg 40 mg, subcutaneous, Daily, First dose on Wed06/02/24 at 1015, Look-alike/sound-alike medication - verify indication for use. 0928 (Given - Provider: Patricia Montalvo RN) 0937 (Given - Provider: Jefry Isbell RN) 0941 (Given - Provider: Mitzi oMore RN) hydroCHLOROthiazide (HYDRODIURIL) tablet 25 mg 25 mg, oral, Daily, First dose on Wed06/02/24 at 0900, Look-alike/sound-alike medication - verify indication for use. 0927 (Given - Provider: Patricia Montalvo RN) 0938 (Given - Provider: Jefry Isbell RN) 0943 (Given - Provider: Mitzi Moore RN) metroNIDAZOLE (FLAGYL) tablet 500 mg (CANCELED) 500 mg, oral, Every 8 hours scheduled, First dose on Wed06/01/24 at 1435, Food-Drug Interaction Education Required Look-alike/sound-alike medication - verify indication for use Ethanol: Use of ethanol is contraindicated during therapy and for 3 days after therapy discontinuation, Indication: Osteoarticular 0537 (Given - Provider: Ben Shahid RN)1317 (Given - Provider: Patricia Montalvo RN)2214 (Given - Provider: Ben Shahid RN) 0605 (Given - Provider: Ben Shahid, JANUARY) nicotine (NICODERM CQ) 14 mg/24 hr 1 patch 1 patch, transdermal, Administer over 24 Hours, Daily, First dose on Wed06/01/24 at 0900, Remove patch prior to MRI procedure as serious cannon may occur- patch may be reapplied. Remove previous patch, if present, before applying new. 0859 (Medication Removed - Provider: Patricia Montalvo RN)0926 (Medication Applied - Provider: Patricia Montalvo RN) 0859 (Medication Removed - Provider: Jefry Isbell RN)0938 (Medication Applied - Provider: Jefry Isbell RN) 0940 (Medication Applied - Provider: Mitzi Moore RN)0941 (Medication Removed - Provider: Mitzi Moore RN)1710 (Due: Medication Removed - Provider: Automatic Discharge Provider - Comment: Time automatically adjusted from order being discontinued) pantoprazole (PROTONIX) EC tablet 40 mg 40 mg, oral, Daily, First dose on Wed06/02/24 at 0600, Look-alike/sound-alike medication - verify indication for use. If patient is receiving enteral feeding, consider alternative PPI or continue IV pantoprazole until the delayed-release tablet can be taken orally, Indication: GERD 0537 (Given - Provider: Ben Shahid RN) 0605 (Given - Provider: Ben Shahid, RN) 0552 (Given - Provider: Ben Shahid, RN) sodium chloride 0.9 % flush 10 mL(Linked Group 2) 10 mL, intravenous, Every 12 hours, First dose on Wed06/04/24 at 1230, PICC line. Administer 10 mL per lumen; 10 mL total (for single lumen flush) 1410 (Given - Provider: Jefry Isbell RN) 0030 (Given - Provider: Ben Shahid RN)1238 (Given - Provider: Mitzi Moore RN) sodium chloride 0.9 % flush 3 mL 3 mL, intravenous, Every 12 hours scheduled, First dose on Sara 06/01/24 at 0125 0928 (Given - Provider: Patricia Montalvo RN)2214 (Given - Provider: Ben Shahid RN) 0900 (Not Given - Provider: Jefry Isbell RN - Reason: IV infusing)2151 (Given - Provider: Ben Shahid RN) 0943 (Given - Provider: Mitzi Moore RN) vancomycin (VANCOCIN) IVPB 1500 mg/500 mL in 0.9% sodium chloride (premix) (CANCELED)(Linked Group 3) 1,500 mg (rounded from 1,585.5 mg = 15 mg/kg 105.7 kg), intravenous, at 333 mL/hr, Administer over 90 Minutes, Every 12 hours, First dose (after last reorder) on Wed06/02/24 at 0845, VESICANT (YELLOW), Indication: Other, Specify: Osteo with concern for bacteremia 0932 (New Bag - Provider: Patricia Montalvo, RN)1102 (Stop Bag - Provider: Patricia Montalvo RN)2235 (New Bag - Provider: Ben Shahid RN) 0005 (Stop Bag - Provider: Ben Shahid RN)0937 (New Bag - Provider: Jefry Isbell, RN)1107 (Stop Bag - Provider: Jefry Isbell RN) PRN Medication Order 06/03/2024 06/04/2024 06/05/2024 acetaminophen (TYLENOL EXTRA STRENGTH) tablet 1,000 mg 1,000 mg, oral, Every 6 hours PRN, mild pain - pain scale 1-3, temperature greater than 38 C, Temperature greater than 38.3 C, Starting on Sara 06/01/24 at 0123, [Warning: Total Acetaminophen not to exceed more than 4 grams (4000 mg) in 24 hours] calcium carbonate (TUMS) 200 mg elemental (500 mg) chewable tablet 200 mg 200 mg, oral, Daily PRN, indigestion, heartburn, Starting on Wed06/02/24 at 2114, Ordered as elemental calcium. 200 mg elemental calcium = 500 mg calcium carbonate dextrose (GLUTOSE) 40 % gel 15 g 15 g, oral, As needed, low blood sugar, blood glucose less than 70 mg/dL, Starting on Sara 06/01/24 at 0123, If patient conscious and taking PO. If blood glucose is not greater than 70 mg/dL after initial treatment, repeat treatment. dextrose 5 % (D5W) infusion 100 mL/hr, intravenous, Continuous PRN, blood glucose less than 70 mg/dL, Starting on Sara 06/01/24 at 0123, Use immediately following dextrose 50% or glucagon treatment for patients who are unconscious or NPO. Contact prescriber for additional orders. If blood glucose is not greater than 70 mg/dL after initial treatment, repeat treatment. dextrose 50 % in water (D50W) 50% solution 25 mL 25 mL, intravenous, As needed, low blood sugar, blood glucose less than 70 mg/dL and unconscious or NPO with IV access, Starting on Sara 06/01/24 at 0123, Push over 1-3 minutes STAT. If conscious and not NPO, immediately follow with meal tray or high protein (7 grams) snack if tray not available. If NPO, initiate 5% dextrose in water at 100 mL/hr and contact prescriber for additional orders. If blood glucose is not greater than 70 mg/dL after initial treatment, repeat treatment. VESICANT (RED) Warning: HYPERTONIC solution. glucagon HCL injection 1 mg 1 mg, intramuscular, As needed, low blood sugar, blood glucose less than 70 mg/dL and unconscious or NPO without IV access., Starting on Sara 06/01/24 at 0123, If conscious and not NPO, immediately follow with meal tray or high protein (7Grams) snack if tray not available. If NPO, initiate IV 5% Dextrose/Water at 100 mL/hr and contact prescriber for additional orders. If blood glucose is not greater than 70 mg/dL after initial treatment, repeat treatment. ketorolac (TORADOL) injection 30 mg 30 mg, intravenous, Every 6 hours PRN, moderate pain - pain scale 4-6, For pain unrelieved by oral pain meds, Starting on Sara 06/01/24 at 2016, For 5 days, PACU & Post-op, Look-alike/sound-alike medication - verify indication for use. Duration of therapy is not to exceed 5 days. Maximum recommended dose + 120mg/24 hours. 1230 (Given - Provider: Mitzi Moore RN) magnesium sulfate IVPB 2000 mg/50 mL in iso-osmotic water (40 mg/mL premix) 2,000 mg, intravenous, at 25 mL/hr, Administer over 120 Minutes, As needed, Magnesium level 1.7 to 1.9 mg/dL, or Ionized Magnesium level 0.45 to 0.5 mmol/L., Starting on Sara 06/01/24 at 0200, Recheck magnesium level 4 hours after infusion complete. With each magnesium result continue the replacement orders as needed. magnesium sulfate IVPB 4000 mg/100 mL in iso-osmotic water (40 mg/mL premix) 4,000 mg, intravenous, at 25 mL/hr, Administer over 240 Minutes, As needed, Magnesium level 1.6 mg/dL or less, or Ionized Magnesium level 0.44 mmol/L or less, Starting on Sara 06/01/24 at 0200, Recheck magnesium level 4 hours after infusion complete. With each magnesium result continue the replacement orders as needed. melatonin (CIRCADIN) tablet 10 mg 10 mg, oral, Nightly PRN, sleep, Starting on 06/04/24 at 1729 2151 (Given - Provider: Ben Shahid, JANUARY) melatonin (CIRCADIN) tablet 5 mg (CANCELED) 5 mg, oral, Nightly PRN, sleep, Starting on 06/03/24 at 2152 2213 (Given - Provider: Ben Shahid, RN) morphine injection 2 mg 2 mg, intravenous, Every 4 hours PRN, severe pain - pain scale 7-10, For Breakthrough pain 7-10, Starting on 06/03/24 at 1350, Look-alike/sound-alike medication - verify indication for use. oxyCODONE (ROXICODONE) immediate release tablet 10 mg(Linked Group 4) 10 mg, oral, Every 4 hours PRN, severe pain - pain scale 7-10, Starting on Sara 06/01/24 at 1757, PACU & Post-op, Look-alike/sound-alike medication - verify indication for use. Immediate release. 0106 (Given - Provider: Ben Shahid RN)0537 (Given - Provider: Ben Shahid RN)0946 (Given - Provider: Patricia Montalvo, JANUARY)1356 (Given - Provider: Patricia Montalvo, JANUARY)1804 (Given - Provider: Patricia Montalvo, RN)2213 (Given - Provider: Ben Shahid RN) 0605 (Given - Provider: Ben Shahid RN)0945 (Given - Provider: Jefry Isbell, JANUARY)1409 (Given - Provider: Jefry Isbell RN)2151 (Given - Provider: Ben Shahid RN) 0939 (Given - Provider: Mitzi Moore, RN)1553 (Given - Provider: Mitzi Moore, RN) oxyCODONE (ROXICODONE) immediate release tablet 5 mg(Linked Group 4) 5 mg, oral, Every 4 hours PRN, moderate pain - pain scale 4-6, Starting on Sara 06/01/24 at 1757, PACU & Post-op, Look-alike/sound-alike medication - verify indication for use. Immediate release. 0106 (See Alternative - Provider: Ben Shahid RN)0537 (See Alternative - Provider: Ben A Kleber, RN)0946 (See Alternative - Provider: Patricia Montalvo, RN)1356 (See Alternative - Provider: Patricia Montalvo, RN)1804 (See Alternative - Provider: Patricia Montalvo, RN)2213 (See Alternative - Provider: Ben Shahid, JANUARY) 0605 (See Alternative - Provider: Ben Shahid, RN)0945 (See Alternative - Provider: Jefry Isbell, RN)1409 (See Alternative - Provider: Jefry Isbell, RN)2151 (See Alternative - Provider: Ben Shahid, RN) 0939 (See Alternative - Provider: Mitzi Moore, RN)1553 (See Alternative - Provider: Mitzi Moore, RN) potassium chloride (K-TAB,KLOR-CON) CR tablet 30-50 mEq(Linked Group 5) 30-50 mEq, oral, As needed, Potassium Supplementation, Starting on Wed06/05/24 at 1207, Progress to oral potassium replacement when patient tolerating oral intake. If dose administered, recheck potassium level 4 hours after last dose. For potassium level 3.4 to 3.8 mmol/L and GFR 30 mL/min or greater=30 mEq. For potassium level 3.1 to 3.3 mmol/L and GFR 30 mL/min or greater=40 mEq. For potassium level 3 mmol/L or less and GFR 30 mL/min or greater=50 mEq. Do not crush or chew. 1224 (Given - Provider: Mitzi Moore RN) potassium chloride (KAYCIEL) 20 mEq/15 mL solution 30-50 mEq(Linked Group 5) 30-50 mEq, oral, As needed, Potassium Supplementation, Starting on Wed06/05/24 at 1207, Progress to oral potassium replacement when patient tolerating oral intake. If dose administered, recheck potassium level 4 hours after last dose. For potassium level 3.4 to 3.8 mmol/L and GFR 30 mL/min or greater=30 mEq. For potassium level 3.1 to 3.3 mmol/L and GFR 30 mL/min or greater=40 mEq. For potassium level 3 mmol/L or less and GFR 30 mL/min or greater=50 mEq. Must dilute before use - Mix in 3-8 ounces of water or juice before administration When administering in feeding tube, flush before and after per policy and monitor potassium levels 1224 (See Alternative - Provider: Mitzi Moore RN) potassium chloride IVPB 10 mEq/100 mL in water (0.1 mEq/mL premix) 10 mEq, intravenous, at 100 mL/hr, Administer over 60 Minutes, As needed, POTASSIUM REPLACEMENT, Starting on Sara 06/01/24 at 0200, Potassium level 3 mmol/L or less administer Potassium Chloride 40 mEq Potassium level 3.1 to 3.3 mmol/L administer Potassium Chloride 30 mEq Potassium level 3.4 to 3.8 mmol/L administer Potassium Chloride 20 mEq Use central line when applicable. Recheck potassium level 1 hour after total IVPB infusion complete With each potassium result continue the replacement orders as needed VESICANT (YELLOW) Infuse each 10 mEq over a minimum of 1 hour., Indications: hypokalemia potassium chloride IVPB 10 mEq/100 mL in water (0.1 mEq/mL premix)(Linked Group 5) 10 mEq, intravenous, at 100 mL/hr, Administer over 60 Minutes, As needed, POTASSIUM REPLACEMENT, Starting on 06/05/24 at 1207, IV if unable to use oral/enteral with the current dosing strategies Potassium level 3 mmol/L or less administer Potassium Chloride 50 mEq Potassium level 3.1 to 3.3 mmol/L administer Potassium Chloride 40 mEq Potassium level 3.4 to 3.8 mmol/L administer Potassium Chloride 30 mEq Use central line when applicable. Recheck potassium level 1 hour after total IVPB infusion complete, With each potassium result continue the replacement orders as needed VESICANT (YELLOW) Infuse each 10 mEq over a minimum of 1 hour. 1224 (See Alternative - Provider: Mitzi Moore RN) sennosides-docusate sodium (SENOKOT-S) 8.6-50 mg 2 tablet 2 tablet, oral, Nightly PRN, constipation, Starting on Sara 06/01/24 at 1804, PACU & Post-op sodium chloride 0.9 % flush 10 mL(Linked Group 2) 10 mL, intravenous, As needed, line care, Starting on 06/04/24 at 1223, PICC line. Administer 10 mL to each lumen before and after each use. Administer 10 mL per lumen; 10 mL total (for single lumen flush) sodium chloride 0.9 % flush 20 mL(Linked Group 2) 20 mL, intravenous, As needed, line care, Starting on 06/04/24 at 1223, PICC line. Administer 20 mL to each lumen after lab draws, blood infusion, and meds known to precipitate. Administer 20 mL per lumen; 20 mL total (for single lumen flush) sodium chloride 0.9 % flush 3 mL 3 mL, intravenous, As needed, line care, before and after each intermittent use, Starting on Sara 06/01/24 at 0123 Linked Groups Order Group 1: cefEPime (MAXIPIME) 2,000 mg in sodium chloride 0.9 % 100 mL IVPB-MBP (COMPLETED) 2,000 mg, intravenous, at 200 mL/hr, Administer over 30 Minutes, Once, On Wed06/02/24 at 1800, For 1 dose, ADD-VANTAGE/MBP- Discard 24 hours after activating; dissolve drug prior to administration. Protect dry powder vial from light., Indication: Other, Specify: abscess Followed by cefEPime (MAXIPIME) 2,000 mg in sodium chloride 0.9 % 100 mL IVPB-MBP (CANCELED)Jump to med 2,000 mg, intravenous, at 25 mL/hr, Administer over 4 Hours, Every 8 hours, First dose on Wed06/03/24 at 0200, ADD-VANTAGE/MBP- Discard 24 hours after activating; dissolve drug prior to administration. Protect dry powder vial from light., Indication: Other, Specify: abscess Group 2: Consult PICC nurse (COMPLETED) Reason for consult? Insert PICC, Indication: Duration of therapy greater than 14 days to months, Number of Lumen(s): 1 Lumen And sodium chloride 0.9 % flush 10 mLJump to med 10 mL, intravenous, Every 12 hours, First dose on 06/04/24 at 1230, PICC line. Administer 10 mL per lumen; 10 mL total (for single lumen flush) And sodium chloride 0.9 % flush 10 mLJump to med 10 mL, intravenous, As needed, line care, Starting on 06/04/24 at 1223, PICC line. Administer 10 mL to each lumen before and after each use. Administer 10 mL per lumen; 10 mL total (for single lumen flush) And sodium chloride 0.9 % flush 20 mLJump to med 20 mL, intravenous, As needed, line care, Starting on Wed06/04/24 at 1223, PICC line. Administer 20 mL to each lumen after lab draws, blood infusion, and meds known to precipitate. 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 Followed by vancomycin (VANCOCIN) IVPB 1500 mg/500 mL in 0.9% sodium chloride (premix) (CANCELED)Jump to med 1,500 mg (rounded from 1,585.5 mg = 15 mg/kg 105.7 kg), intravenous, at 333 mL/hr, Administer over 90 Minutes, Every 12 hours, First dose (after last reorder) on Wed06/02/24 at 0845, VESICANT (YELLOW), Indication: Other, Specify: Osteo with concern for bacteremia Group 4: oxyCODONE (ROXICODONE) immediate release tablet 5 mgJump to med 5 mg, oral, Every 4 hours PRN, moderate pain - pain scale 4-6, Starting on Sara 06/01/24 at 1757, PACU & Post-op, Look-alike/sound-alike medication - verify indication for use. Immediate release. Or oxyCODONE (ROXICODONE) immediate release tablet 10 mgJump to med 10 mg, oral, Every 4 hours PRN, severe pain - pain scale 7-10, Starting on Sara 06/01/24 at 1757, PACU & Post-op, Look-alike/sound-alike medication - verify indication for use. Immediate release. Group 5: potassium chloride (K-TAB,KLOR-CON) CR tablet 30-50 mEqJump to med 30-50 mEq, oral, As needed, Potassium Supplementation, Starting on Wed06/05/24 at 1207, Progress to oral potassium replacement when patient tolerating oral intake. If dose administered, recheck potassium level 4 hours after last dose. For potassium level 3.4 to 3.8 mmol/L and GFR 30 mL/min or greater=30 mEq. For potassium level 3.1 to 3.3 mmol/L and GFR 30 mL/min or greater=40 mEq. For potassium level 3 mmol/L or less and GFR 30 mL/min or greater=50 mEq. Do not crush or chew. Or potassium chloride (KAYCIEL) 20 mEq/15 mL solution 30-50 mEqJump to med 30-50 mEq, oral, As needed, Potassium Supplementation, Starting on Wed06/05/24 at 1207, Progress to oral potassium replacement when patient tolerating oral intake. If dose administered, recheck potassium level 4 hours after last dose. For potassium level 3.4 to 3.8 mmol/L and GFR 30 mL/min or greater=30 mEq. For potassium level 3.1 to 3.3 mmol/L and GFR 30 mL/min or greater=40 mEq. For potassium level 3 mmol/L or less and GFR 30 mL/min or greater=50 mEq. Must dilute before use - Mix in 3-8 ounces of water or juice before administration When administering in feeding tube, flush before and after per policy and monitor potassium levels Or potassium chloride IVPB 10 mEq/100 mL in water (0.1 mEq/mL premix)Jump to med 10 mEq, intravenous, at 100 mL/hr, Administer over 60 Minutes, As needed, POTASSIUM REPLACEMENT, Starting on Wed06/05/24 at 1207, IV if unable to use oral/enteral with the current dosing strategies Potassium level 3 mmol/L or less administer Potassium Chloride 50 mEq Potassium level 3.1 to 3.3 mmol/L administer Potassium Chloride 40 mEq Potassium level 3.4 to 3.8 mmol/L administer Potassium Chloride 30 mEq Use central line when applicable. Recheck potassium level 1 hour after total IVPB infusion complete, With each potassium result continue the replacement orders as needed VESICANT (YELLOW) Infuse each 10 mEq over a minimum of 1 hour. FOR RECORDS PERTAINING TO PATIENTS WHO ARE OR HAVE BEEN ENROLLED IN A CHEMICAL DEPENDENCY/SUBSTANCEABUSE PROGRAM, SOME INFORMATION MAY BE OMITTED. This clinical summary was aggregated from multiple sources. Caution should be exercised in using it in the provision of clinical care. This summary normalizes information from multiple sources, and as a consequence, information in this document may materially change the coding, format and clinical context of patient data. In addition, data may be omitted in some cases. CLINICAL DECISIONS SHOULD BE BASED ON THE PRIMARY CLINICAL RECORDS. [facility]. provides no warranty or guarantee of the accuracy or completeness of information in this document.
[2024-07-11 14:30] LABS: Platelet Count 367 10^3/uL (150-450); White Blood Count 11.8 10^3/uL (4.0-11.0)
[2024-07-11 14:43] LABS: Alanine Aminotransferase 33 U/L (16-63); Albumin Globulin Ratio 1.1; Albumin Level 3.6 g/dL (3.4-5.0); Alkaline Phosphatase 106 U/L (46-116); Aspartate Amino Transferase 36 U/L (15-37); Bilirubin Direct 0.1 mg/dL (0.0-0.2); Bilirubin Total 0.4 mg/dL (0.2-1.0); Estimated GFR (African America >60 (>=60 mL/min/1.73m^2); Estimated GFR (Non-African Ame >60 (>=60 mL/min/1.73m^2); Globulin 3.2 g/dL; Total Protein 6.8 g/dL (6.4-8.2)
== END 2024-07-11 14:00 | disposition home or self-care (01) ==
LOC: LAB 13:59
DX: M86.621 Other chronic osteomyelitis, right humerus (principal); L02.419 Cutaneous abscess of limb, unspecified
CPT/HCPCS: 36415; 80076; 82565; 85048; 85049